=== PATIENT | male | born 1975 ===

== ENCOUNTER 2020-06-23 08:35 | Emergency (ER) | payer OTHER, SELFPAY ==
[2020-06-23 08:53] VITALS: BP 146/100; PULSE 88; RESP 17; TEMP 36.2; O2SAT 95; BMI 34.5
--- NOTE | 2020-06-23 09:07 | ED_ITS ---
HPI - Extremity Injury (Lower) General Chief Complaint: Extremity Injury, Lower Stated Complaint: leg pain Time Seen by Provider: 06/23/20 08:55 Source: patient Mode of arrival: ambulatory History of Present Illness HPI Narrative: 45 yo male here with LLE pain after he sustained an injury to his anterior palomino at work yesterday. He states a piece of aluminum fell down his scapped his leg. It was 190 lbs. He has worsening pain today. He is able to ambulate. MD complaint: leg injury Onset (ago): day(s) (1) Type of Injury: blunt Place: work Severity: moderate Severity scale (1-10): 7 Relieving factors: nothing Exacerbating factors: palpation Context: direct blow Associated symptoms: swelling Other symptoms: none Related Data Previous Rx's Medication Instructions Recorded cephalexin [Keflex] 500 mg PO QID 7 Days #28 cap 06/23/20 ibuprofen 600 mg PO Q8H PRN #30 tab 06/23/20 Allergies Allergy/AdvReac Type Severity Reaction Status Date / Time No Known Allergies Allergy Verified 06/23/20 08:56 Review of Systems Review of Systems: Constitutional: No Fever, No Chills Cardiovascular: No Chest Pain, No Orthopnea, No edema Respiratory: No Cough, No Sputum, No Wheezing Musculoskeletal: No joint pain, + Myalgias Skin: + Skin Lesions, No rash Neuro: No Weakness, No Numbness, No Dizziness, No Headache Heme/Lymph: No Bruising, No Lymphadenopathy All other 10 point ROS are negative. [facility], LAT[facility] Past Medical History Attestation statement: The following information was validated with the patient. Medical History No known health problems Social History Social History Advance Directives: No Advance Directives Information Provided: Yes Physical Exam Vital Signs: Vital Signs: Vital Signs Temp Pulse Resp BP Pulse Ox 06/23/20 08:53 97.1 F 88 17 146/100 H 95 Body Mass Index 34.5 Appearance: Alert. Oriented X3. No acute distress. Eyes: Pupils equal, round and reactive to light. Neck: Normal inspection. CVS: Normal heart rate and rhythm. Pulses normal. Respiratory: No respiratory distress. Skin: Skin warm and dry. Normal skin color. Normal skin turgor. No rashes. Extremities: LLE with superficial abrasions to anterior palomino, NV intact. mild cellulitic changes centrally. no calf tenderness. anterior palomino soft. Neuro: Oriented X 3. No motor deficit. No sensory deficit. Course Course Course Narrative: given mechanism will get XR to r/o occult fracture. superficial abrasions with developing cellulitis - will start on abx and NSAID for discomfort. no evidence of compartment syndrome Reevaluation(s) Reevaluation #1: XR showed no acute fracutre. will treat with keflex and ibuprofen. stable for d/c. Discharge Plan Discharge Clinical Impression: Abrasion Cellulitis Qualifiers: Site of cellulitis: extremity Site of cellulitis of extremity: lower extremity Laterality: left Qualified Code(s): L03.116 - Cellulitis of left lower limb Patient Disposition: Home, Self-Care Instructions: Cellulitis (ED), Abrasion (ED) Additional Instructions: Keep area clean and dry. Apply bacitracin or triple antibiotic ointment 2 times per day. If pain or redness worsen despite antibitoics and pain medication call your doctor or come back to the ER for further evaluation Prescriptions: New cephalexin [Keflex] 500 mg capsule 500 mg PO QID 7 Days Qty: 28 RF: 0 ibuprofen 600 mg tablet 600 mg PO Q8H PRN (Reason: pain) Qty: 30 RF: 0
--- NOTE | 2020-06-23 09:16 | XR_ITS ---
EXAMINATION: XR TIBIA AND FIBULA, LEFT CLINICAL INFORMATION: Pain, status posttrauma COMPARISON: None TECHNIQUE: AP and lateral views of the left tibia and fibula were obtained. FINDINGS: No acute fracture or malalignment is seen of the tibia or fibula. Articulation at the knee and ankle joint is maintained. Mild spurring at the tibial tubercle. No abnormal soft tissue calcification. IMPRESSION: No evidence of acute fracture.
== END 2020-06-23 10:15 | disposition home or self-care (01) ==
PROVIDERS: Emergency Provider Emergency Medicine
DX: L03.116 Cellulitis of left lower limb (principal); S80.812A Abrasion, left lower leg, initial encounter; W20.8XXA Other cause of strike by thrown, projected or falling object, initial encounter; Y93.9 Activity, unspecified; Y92.9 Unspecified place or not applicable; Y99.0 Civilian activity done for income or pay
CPT/HCPCS: 73590; 99283

== ENCOUNTER 2020-07-22 16:30 | Emergency (ER) | payer OTHER, SELFPAY ==
[2020-07-22 17:23] VITALS: BP 124/73; PULSE 98; RESP 18; TEMP 37; O2SAT 96; BMI 34.3
--- NOTE | 2020-07-22 21:02 | CT_ITS ---
EXAMINATION: CT CHEST WITHOUT CONTRAST CLINICAL INFORMATION: Cough, shortness of breath COMPARISON: Chest x-ray 11/12/2019 TECHNIQUE: Multidetector volumetric CT imaging of the chest was done. Axial MIP volume rendering provided. Sagittal and coronal reformatted images were obtained. This CT examination was performed using dose optimization techniques as appropriate, variously including the following: *Automated exposure control *Adjustment of mA and/or kV according to patient size (this includes techniques or standardized protocols for targeted exams where dose is matched to indication/reason for exam; i.e. extremities or head) *Use of iterative reconstruction technique DLP: 359 mGy-cm FINDINGS: LUNGS: The lungs are clear with no evidence of inflammation or nodules. MEDIASTINUM: The mediastinum is normal. No pericardial effusion. No mediastinal mass or significant lymphadenopathy. PLEURA: There is no pleural effusion. No pleural mass or thickening. AXILLA: No lymphadenopathy. UPPER ABDOMEN: Unremarkable. The adrenal glands and visualized portions of the solid organs are normal. OSSEOUS STRUCTURES: Unremarkable. CT/CT chest wo con IMPRESSION: Normal CT of chest.
--- NOTE | 2020-07-22 21:03 | ECG_ITS ---
Test Reason : CHEST PAIN Blood Pressure : / mmHG Vent. Rate : 081 BPM Atrial Rate : 081 BPM P-R Int : 120 ms QRS Dur : 106 ms QT Int : 368 ms P-R-T Axes : 033 037 042 degrees QTc Int : 427 ms Normal sinus rhythm Normal ECG No significant changes seen Referred By: Jennifer Carter Electronically Signed By:JERALD MO MD
[2020-07-22] MEDS: Aspirin 81 MG TAB.CHEW 324 MG PO (21:18)
[2020-07-22 21:48] VITALS: BP 130/87; PULSE 74; RESP 19; TEMP 36.5; O2SAT 97
[2020-07-22 21:52] LABS: MANUAL DIFF FLAG NO
[2020-07-22 21:55] LABS: Basophils Absolute Auto 0.1 X10*3/uL (0.0-0.2); Basophils Percent Auto 0.5 % (0-2); Eosinophils Absolute Auto 0.4 X10*3/uL (0.0-0.4); Eosinophils Percent Auto 3.7 % (0-4); Hematocrit 46.3 % (42-52); Hemoglobin 15.5 g/dl (14.0-18.0); Imm Gran Abs Auto 0.03 X10*3/uL (0.00-0.03); Imm Gran Pct Auto 0.3 % (0.0-0.4); Lymphocytes Absolute Auto 2.9 X10*3/uL (1.2-4.9); Lymphocytes Percent Auto 30.6 % (20-40); Mean Corpuscular HGB Conc 33.5 g/dl (31.0-36.0); Mean Corpuscular Hemoglobin 28.4 pg (27.0-33.0); Mean Corpuscular Volume 84.8 fL (80-98); Mean Platelet Volume 11.1 fL (9.4-12.4); Monocytes Absolute Auto 0.9 X10*3/uL (0.1-1.2); Monocytes Percent Auto 9.7 % (2-11); Neutrophils Absolute Auto 5.2 X10*3/uL (2.0-8.3); Neutrophils Percent Auto 55.2 % (45-73); Platelet Count 170 X10*3/uL (160-400); Red Blood Count 5.46 X10*6/uL (4.60-5.80); Red Cell Distribution Width 13.7 % (11.0-16.0); White Blood Count 9.5 X10*3/uL (4.8-10.8)
[2020-07-22 22:24] LABS: Anion Gap 17 (12-20); Blood Urea Nitrogen 15 mg/dL (9-16); Calcium 8.4 mg/dL (8.4-10.2); Carbon Dioxide 26 mmol/L (22-29); Chloride 105 mmol/L (96-108); Creatinine Clr Calc Pharmacy 102.4; Estimated Glomerular Filt Rate > 60; Glucose Random 102 mg/dL (60-115); Potassium 3.7 mmol/l (3.3-5.1); Sodium 144 mmol/L (135-145)
--- NOTE | 2020-07-22 22:29 | ED.CHESTPAIN ---
HPI - Chest Pain General Chief Complaint: Chest Pain Stated Complaint: CHEST PAIN Time Seen by Provider: 07/22/20 21:02 Source: patient Mode of arrival: ambulatory Limitations: no limitations History of Present Illness HPI narrative: 45-year-old male no significant past medical history presents with chest pain, shortness of breath, and upper respiratory viral symptoms. States that he has felt like this for several days, has had chest pain for 4 days, and has a COVID-19 test that is pending from a different facility. He states that the chest pain has not been alleviated with Tylenol or Motrin, and states that the cough increases his pain. He denies palpitations, abdominal pain, abdominal distention, dysuria, hematuria, fevers and chills. MD complaint: chest pain and chest discomfort Onset (ago): day(s) (4) Timing of current episode: constant Pain location: substernal Pain radiation: none Severity: moderate Pain scale (0-10): 6 Quality: tightness and aching Relieving factors: nothing Exacerbating factors: movement Context: recent illness Associated symptoms: cough Risk Factors Thoracic aortic dissection risk factors: none Related Data Previous Rx's Medication Instructions Recorded cephalexin [Keflex] 500 mg PO QID 7 Days #28 cap 06/23/20 ibuprofen 600 mg PO Q8H PRN #30 tab 06/23/20 Allergies Allergy/AdvReac Type Severity Reaction Status Date / Time No Known Allergies Allergy Verified 06/23/20 08:56 Review of Systems Review of Systems: Constitutional: No Weight loss, No Fever, No Chills, No Night Sweats, No Fatigue, No Malaise ENT/Mouth: No Hearing loss, No Ear Pain, No Nasal Congestion, No Sinus Pain, No Hoarseness, No sore throat, No Rhinorrhea, No Swallowing Difficulty Eyes: No Eye Pain, No Swelling, No Redness, No Foreign Body, No Discharge, No Vision Changes Cardiovascular: pos Chest Pain, no SOB, no Dyspnea on Exertion, No Orthopnea, No Edema, No Palpitations Respiratory: Positive Cough, No Sputum, No Wheezing, No Smoke Exposure, No Dyspnea Gastrointestinal: no Nausea, No Vomiting, No Diarrhea, No abdominal Pain, No Hematochezia, No Melena Genitourinary: No irregular bleeding, No Dysuria, No Urinary Frequency, No Hematuria, No Urinary Incontinence, No Urgency, No Flank Pain, No Urinary Flow Changes, No Hesitancy Musculoskeletal: No joint pain, No Myalgias, No Joint Swelling Skin: No Skin Lesions, No rash Neuro: No Weakness, No Numbness, No Paresthesias, No Loss of Consciousness, No Dizziness, No Headache Psych: No Anxiety/Panic, No Depression, No SI/HI/AH/VH Heme/Lymph: No Bruising, No Bleeding,No Lymphadenopathy Endocrine: No Polyuria, No Polydipsia, No Temperature Intolerance [facility] Past Medical History Attestation statement: The following information was validated with the patient. Medical History No known health problems Social History Social History Alcohol intake: never Smoking Status: Unknown if ever smoked Smoked in Last 30 Days: No Use of substances other than those prescribed or required for medical reasons: No Advance Directives: No Advance Directives Information Provided: Yes Physical Exam Vital Signs: Vital Signs: Last Vital Signs Temp 97.7 F 07/22/20 21:48 Pulse 74 07/22/20 21:48 Resp 19 07/22/20 21:48 BP 130/87 07/22/20 21:48 Pulse Ox 97 07/22/20 21:48 Body Mass Index 34.3 Appearance: Alert. Oriented X3. No acute distress. Head: Normal external exam. Normocephalic. Atraumatic. No Jackson signs noted. No raccoon eyes noted Eyes: PERRLA. EOMI. Conjunctiva and sclera normal. Eyelids normal. ENT: TM's Normal. Pharynx normal. Uvula midline. Moist mucous membranes. No trismus noted. No drooling noted. No muffled voice noted. Neck: Normal inspection. Neck supple. No adenopathy. Thyroid Normal. No meningeal signs. No neck mass noted. CVS: Normal heart rate and rhythm. Heart sound normal. No murmurs noted. Pulses equal to all extremities. Respiratory: No respiratory distress. Painless inspiration. Breath sounds normal. No wheezes/rales/rhonchi noted. Chest nontender. No accessory muscle usage noted or decreased air movement noted. Abdomen: Soft and nontender. Bowel sounds normal in all 4 quadrants. No distention noted. No organomegaly noted. No visible injury noted. Back: No CVA tenderness. Full range of motion noted. Skin: Skin warm and dry. Normal skin color. Normal skin turgor. No rashes/lesions/lacerations noted. Extremities: No lower extremity edema. Extremities exhibit normal range of motion. Extremities nontender. Neuro: cranial nerves 2-12 intact, no focal neural deficits, strength 5/5 to all extremities, No motor deficit. No sensory deficit. Reflexes normal. Course Course Course Narrative: 45-year-old male with no significant past medical history presents with chest pain, cough, and viral symptoms. COVID-19 test is pending from a different facility, he was advised that we would not repeat this test at this facility unless he were to be admitted. We will rule out ACS, and order CT scan of the chest rather than x-ray as his viral symptoms could possibly be pneumonia. we will give aspirin 324 mg po. CBC, Chem 7 are negative for acute findings, CT scan of the chest is normal, EKG is normal, troponins are negative, vital signs are hemodynamically stable, patient is afebrile. ACS highly unlikely, could be viral syndrome and not likely COVID-19. Detailed description regarding findings and that patient must maintain social isolation per state and Federal guidelines regarding COVID-19 as his test is still pending. Patient verbalized understanding of and agrees to plan of care discharge home. MDM - Chest Pain Differential Diagnosis Differential diagnosis: Likely fracture of rib, pneumothorax, stable angina, unstable angina pectoris, atypical chest pain, st elevation myocardial infarction, costochondritis, chest pain and biliary colic Differential diagnosis: Pneumonia, COVID-19, viral Medical Records Data Attestation: I reviewed the patient's medical records. Lab Data Attestation: I reviewed the patient's lab results. Result diagrams: 07/22/20 21:29 07/22/20 21:29 Labs: Lab Results 07/22/20 07/22/20 07/22/20 Range/Units 21:29 21:29 21:29 WBC 9.5 (4.8-10.8) X10*3/uL RBC 5.46 (4.60-5.80) X10*6/uL Hgb 15.5 (14.0-18.0) g/dl Hct 46.3 (42-52) % MCV 84.8 (80-98) fL MCH 28.4 (27.0-33.0) pg MCHC 33.5 (31.0-36.0) g/dl RDW 13.7 (11.0-16.0) % Plt Count 170 (160-400) X10*3/uL MPV 11.1 (9.4-12.4) fL Immature Gran % (Auto) 0.3 (0.0-0.4) % Neut % (Auto) 55.2 (45-73) % Lymph % (Auto) 30.6 (20-40) % [place] % (Auto) 9.7 (2-11) % Eos % (Auto) 3.7 (0-4) % Baso % (Auto) 0.5 (0-2) % Lymph # (Auto) 2.9 (1.2-4.9) X10*3/uL [place] # (Auto) 0.9 (0.1-1.2) X10*3/uL Eos # (Auto) 0.4 (0.0-0.4) X10*3/uL Baso # (Auto) 0.1 (0.0-0.2) X10*3/uL Abs Immat Gran (auto) 0.03 (0.00-0.03) X10*3/uL Absolute Neuts (auto) 5.2 (2.0-8.3) X10*3/uL Absolute Nucleated RBC 0.000 (0.0-0.012) X10*3/uL Nucleated RBC % (auto) 0.0 (0.0-0.2) /100WBC Sodium 144 (135-145) mmol/L Potassium 3.7 (3.3-5.1) mmol/l Chloride 105 (96-108) mmol/L Carbon Dioxide 26 (22-29) mmol/L Anion Gap 17 (12-20) BUN 15 (9-16) mg/dL Creatinine 0.98 (0.5-1.4) mg/dL Estim Creat Clear Calc 102.4 Estimated GFR > 60 Random Glucose 102 (60-115) mg/dL Calcium 8.4 (8.4-10.2) mg/dL Troponin I High Sens < 3.5 (<3.5-35.0) ng/L Imaging Data CT scan - chest: Attestation: I personally reviewed and interpreted this imaging study as follows: Radiologist's impression: FINDINGS: LUNGS: The lungs are clear with no evidence of inflammation or nodules. MEDIASTINUM: The mediastinum is normal. No pericardial effusion. No mediastinal mass or significant lymphadenopathy. PLEURA: There is no pleural effusion. No pleural mass or thickening. AXILLA: No lymphadenopathy. UPPER ABDOMEN: Unremarkable. The adrenal glands and visualized portions of the solid organs are normal. OSSEOUS STRUCTURES: Unremarkable. CT/CT chest wo con IMPRESSION: Normal CT of chest. ECG Data ECG #1: Attestation: I personally reviewed and interpreted this ECG as follows: ECG interpretation date: 07/22/20 ECG interpretation time: 16:37 Prior ECG tracings: available for review Interpretation: Vent. rate 81 BPM HI interval 120 ms QRS duration 106 ms QT/QTc 368/427 ms P-R-T axes 33 37 42 Normal sinus rhythm Normal ECG no significant change when compared to EKG of April 02, 2019 Scores Heart Score History: -0- slightly suspicious ECG: -0- normal Age: -1- >45 - <65 Risk factory: -0- no risk factors known Troponin: -0- < or = normal limit Score: 1 Risk: 1.7% Discharge Plan Discharge Clinical Impression: Atypical chest pain, Acute viral syndrome, Upper respiratory infection, viral Patient Disposition: Home, Self-Care Instructions: Chest Pain (ED), Viral Syndrome (ED), COVID-19 (Coronavirus Disease 2019) (ED) Additional Instructions: You were evaluated for chest pain and upper respiratory infection. The CT scan of your chest is negative for acute findings, your COVID-19 test is pending. Please maintain social isolation according To state and Federal guidelines. I gave you a work note for 14 days. If ypur COVID-19 test is negative, you may return to work per guidelines of your Place of occupation. your EKG was normal sinus rhythm, your troponins are negative, your lab values are normal. Thank you for choosing this emergency department for evaluation. Please follow-up with primary care physician as needed. Return to the emergency department for any new, concerning, or worsening symptoms. Prescriptions: No Action cephalexin [Keflex] 500 mg capsule 500 mg PO QID 7 Days Qty: 28 RF: 0 ibuprofen 600 mg tablet 600 mg PO Q8H PRN (Reason: pain) Qty: 30 RF: 0 Stand Alone Forms: Work/School Release Interventions: ED Discharge Assessment Last Done: 07/22/20 23:40 Discharge Date/Time: 07/22/20 23:40
[2020-07-22 22:30] LABS: Troponin-I High Sensitivity < 3.5 ng/L (<3.5-35.0)
== END 2020-07-22 23:40 | disposition home or self-care (01) ==
PROVIDERS: Nurse Practitioner Family; Emergency Provider Emergency Medicine Emergency Medical Services
DX: B34.9 Viral infection, unspecified (principal); R07.89 Other chest pain; J06.9 Acute upper respiratory infection, unspecified; Z20.828 Contact with and (suspected) exposure to other viral communicable diseases; Z79.899 Other long term (current) drug therapy
CPT/HCPCS: 36415; 71250; 80048; 84484; 85025; 93005; 99284

== ENCOUNTER → 2020-07-31 13:24 | Outpatient (BNVA) | payer OTHER, SELFPAY | PROVIDERS: PCP Internal Medicine; Referring Provider Internal Medicine; Visit Provider Hospitalist | DX: J45.40 Moderate persistent asthma, uncomplicated (principal); G47.33 Obstructive sleep apnea (adult) (pediatric); Z79.899 Other long term (current) drug therapy; Z99.89 Dependence on other enabling machines and devices | CPT/HCPCS: 99212 ==

== ENCOUNTER → 2020-08-28 15:26 | Outpatient (BNVA) | payer OTHER, SELFPAY | PROVIDERS: PCP Internal Medicine; Visit Provider Hospitalist | DX: G47.33 Obstructive sleep apnea (adult) (pediatric) (principal); J30.9 Allergic rhinitis, unspecified; J45.40 Moderate persistent asthma, uncomplicated; Z99.89 Dependence on other enabling machines and devices | CPT/HCPCS: 99212 ==

== ENCOUNTER → 2020-10-23 15:03 | Outpatient (BNVA) | payer OTHER, SELFPAY | PROVIDERS: PCP Internal Medicine; Visit Provider Hospitalist | DX: R07.9 Chest pain, unspecified (principal); G47.33 Obstructive sleep apnea (adult) (pediatric); Z99.89 Dependence on other enabling machines and devices; J30.9 Allergic rhinitis, unspecified; J45.40 Moderate persistent asthma, uncomplicated | CPT/HCPCS: 99212 ==

== ENCOUNTER → 2020-11-17 19:22 | Outpatient (REF) | payer OTHER, SELFPAY | LOC: HO.SL 19:22 | PROVIDERS: Visit Provider Hospitalist | DX: G47.33 Obstructive sleep apnea (adult) (pediatric) (principal); Z99.89 Dependence on other enabling machines and devices | CPT/HCPCS: 95811 ==

== ENCOUNTER → 2021-02-02 13:14 | Outpatient (BNVA) | payer OTHER, SELFPAY | PROVIDERS: PCP Internal Medicine; Visit Provider Hospitalist | DX: J30.9 Allergic rhinitis, unspecified (principal); J45.40 Moderate persistent asthma, uncomplicated; G47.33 Obstructive sleep apnea (adult) (pediatric) | CPT/HCPCS: 99212 ==

== ENCOUNTER → 2021-03-16 10:59 | Outpatient (BNVA) | payer OTHER, SELFPAY | PROVIDERS: PCP Internal Medicine; Visit Provider Hospitalist | DX: J30.9 Allergic rhinitis, unspecified (principal); G47.33 Obstructive sleep apnea (adult) (pediatric); J45.40 Moderate persistent asthma, uncomplicated; R05 Cough | CPT/HCPCS: 99212 ==

== ENCOUNTER 2021-06-07 09:47 | Emergency (ER) | payer OTHER, SELFPAY ==
--- NOTE | ~2021-06-07 | CT_ITS ---
EXAMINATION: CT LUMBAR SPINE AND CT THORACIC SPINE WITHOUT CONTRAST. CLINICAL INFORMATION: Numbness in legs and back pain. COMPARISON: None TECHNIQUE: 2 mm thin and reformatted 2 mm thin sagittal and coronal images of thoracic and lumbar spine were obtained without contrast. DLP 1606 FINDINGS: Thoracic spine: There is normal thoracic kyphosis. The vertebral heights, alignment and disc heights are normal. There is no visible acute fracture, dislocation or subluxation. There is a central disc herniation suspected at T6-T7 disc level with mild indentation of ventral cord on axial image 71/12. The neural foramina are patent. Rest the disc levels are unremarkable. No lytic or sclerotic process seen. Visualized dependent lungs in the upper and lower lobes are normal. The paravertebral soft tissues are normal. Lumbar spine: There is normal lumbar lordosis. There is loss of T12-L1 and L5-S1 disc height. Rest the disc heights are normal. There is no evidence of disc bulge, herniation or spinal canal stenosis. The neural foramina are widely patent. There is posterior disc bulge/osteophyte complex at L5-S1 disc level without spinal canal stenosis. There is no visible acute fracture, dislocation or lytic process seen. The SI joints are symmetrical and normal. The paravertebral soft tissues are normal. CT/CT thoracic spine wo con IMPRESSION: Suspect central disc herniation at the T6-T7 disc level with mild indentation of ventral cord. No spinal canal stenosis seen. Degenerative disc changes at T12-L1 and L5-S1 disc levels. There is a disc osteophyte/bulge complex at the L5-S1 disc level .
[2021-06-07 10:21] VITALS: BP 141/88; PULSE 84; RESP 18; TEMP 36.1; O2SAT 95; BMI 37.1
--- NOTE | 2021-06-07 10:23 | ED_ITS ---
HPI - Back Pain/Injury General Chief Complaint: Back Pain/Injury Stated Complaint: BACK PAIN Time Seen by Provider: 06/07/21 10:23 Source: patient Mode of arrival: ambulatory Limitations: no limitations History of Present Illness HPI Narrative: 46-year-old male with a past medical history of chronic back pain who is on disability and has not worked for a year because of his low back pain presents for acute on chronic low back pain that started 2 days ago when he was lifting. Patient was lifting grocery bags, and had low back pain when he bent over. He reports that both of his legs now feel numb, and it is difficult to walk. He is able to walk. He has not been incontinent, no saddle paresthesias, no fevers, no history of IV drug use. States he feels weak in his legs but he is able to walk. Patient states he has seen a spine surgeon, but has not had any spinal surgeries. States prior MRI showed disc herniation in his low back. MD elicited complaint: back pain Pertinent past history: prior back pain and recent trauma Onset (ago): day(s) (2) Timing: constant Severity: severe Similar Symptoms Previously: Yes Quality: burning and aching Location: lumbar spine and thoracic spine Radiation: left upper leg and right upper leg Exacerbating factors: movement and walking Relieving factors: immobilization Context: while lifting and turning/twisting Related Data Home Medications Medication Instructions Recorded Confirmed albuterol sulfate mg INHALATION Q6H PRN 07/31/20 03/16/21 albuterol sulfate 90 mcg/actuation INHALATION 07/31/20 03/16/21 aerosol inhaler budesonide-formoterol HFA 160 INHALATION 07/31/20 03/16/21 mcg-4.5 mcg/actuation aerosol inhaler Previous Rx's Medication Instructions Recorded cephalexin 500 mg capsule (Keflex) 500 mg PO QID 7 Days #28 cap 06/23/20 ibuprofen 600 mg tablet 600 mg PO Q8H PRN #30 tab 06/23/20 doxycycline hyclate 100 mg capsule 100 mg PO BID 10 Days #20 cap 07/31/20 prednisone 20 mg tablet 20 mg PO DAILY 10 Days #15 tab 07/31/20 montelukast 10 mg tablet 10 mg PO DAILY #30 tab 08/26/20 umeclidinium 62.5 mcg/actuation 1 inh INHALATION DAILY 30 Days #30 08/28/20 blister powder for inhalation ea albuterol sulfate 90 mcg/actuation 2 inh INHALATION Q6H PRN 30 Days 10/23/20 aerosol inhaler #8.5 g fluticasone furoate 200 1 inh INHALATION DAILY 30 Days #60 02/02/21 mcg-vilanterol 25 mcg/dose ea inhalation powder (Breo Ellipta) mometasone-formoterol HFA 200 2 puff INHALATION Q12H 30 Days #13 02/02/21 mcg-5 mcg/actuation aerosol g inhaler (Dulera) benzonatate 200 mg capsule 200 mg PO BID PRN 30 Days #45 cap 03/16/21 prednisone 20 mg tablet 60 mg PO DAILY 5 Days #15 tab 06/07/21 Allergies Allergy/AdvReac Type Severity Reaction Status Date / Time No Known Allergies* Allergy Unknown Uncoded 06/07/21 10:23 Review of Systems Constitutional: Constitutional: Denies body ache(s), Denies chills, Denies fatigue, Denies fever(s), Denies headache(s), Denies malaise and Denies weakness Eyes: Eyes: Denies diplopia ENT: Denies vertigo, Denies dizziness, Denies otalgia, Denies headache(s), Denies mouth pain, Denies neck pain, Denies post nasal drip, Denies sinus pain, Denies sinus pressure, Denies sore throat and Denies throat swelling Cardiovascular: Cardiovascular: Denies chest pain, Denies syncope, Denies leg edema, Denies lightheadedness, Denies Loss of Consciousness, Denies palpitations and Denies dyspnea Respiratory: Respiratory: Denies chest congestion, Denies cough and Denies dy spnea Musculoskeletal: Musculoskeletal: Reports back pain, Denies neck pain, Reports numbness and Reports tingling Integumentary/Breasts: Skin/Breast: Denies erythema and Denies rash Neurologic: Denies confusion, Denies vertigo, Denies dizziness, Denies syncope, Denies headache(s), Reports numbness, Reports tingling and Denies weakness Psychiatric: Psychiatric: Denies anxiety, Denies confusion and Denies depression Endocrine: Endocrine: Denies fatigue and Denies palpitations Allergic/Immunologic: Allergic/Immunologic: Denies throat swelling PMFSH Past Medical History Medical History Asthma Chest pain Chronic allergic rhinitis Cough No known health problems MARK on CPAP MARK treated with BiPAP Family History Family History (System 06/07/21 @ 10:15 by Marylou Baig) Other Asthma Social History Social History Alcohol intake: never Patient Tobacco Use Status: Never used Tobacco Advance Directives: No Advance Directives Information Provided: No Physical Exam Vital Signs: Vital Signs: Last Vital Signs Temp 96.9 F 06/07/21 10:21 Pulse 84 06/07/21 10:21 Resp 20 06/07/21 14:02 BP 141/88 H 06/07/21 10:21 Pulse Ox 96 06/07/21 14:02 Body Mass Index 37.1 Const: General: No confusion Nutritional Appearance: well nourished Orientation/consciousness: No confusion Limitations: no limitations Eyes: Conjunctivae: conjunctivae normal Pupils: Equal, round and reactive pupils present EOM: EOMs intact bilaterally Neck: Neck: Yes full ROM, Yes no lymphadenopathy and Yes supple Resp: Effort & Inspection: normal respiratory effort and able to speak in complete sentences Auscultation: clear to auscultation bilaterally, no crackles, no rales, no rhonchi and no wheezes Cardio: Rate: regular rate Rhythm: regular rhythm Heart sounds: S1 normal heart sound present and S2 normal heart sound present : General: Yes no CVA tenderness Back/Spine/Pelvis: Back: no CVA tenderness Cervical Spine: normal cervical lordosis, cervical ROM normal, No cervical muscular tenderness, No Cervical spine tenderness and No step off deformity Thoracic/Lumbar Spine: No paraspinal muscle tenderness, thoraco-lumbar ROM limited with forward flexion and with rotation to the right, thoracic spinal tenderness at T11 and at T12, lumbar spinal tenderness at L1 and at L2 and straight leg raise positive Skin: General skin exam: no rashes or lesions noted Neuro: General: No confusion Cranial nerves: Yes Equal, round and reactive pupils present Psych: Appearance: grossly normal Affect: normal affect Attitude: cooperative Thought process: Normal thought process present Course Course Course Narrative: 46-year-old male presents with acute on chronic back pain that started 2 days ago after bending over to lift grocery bags. Patient states he has numbness and tingling bilaterally down his legs. On exam, patient has intact lower extremity pulses, strength, DTRs. Patient states he feels tingly to the sensation of light touch bilaterally. Patient is able to stand up, walk around the room, get up on his toes and get up on his heels for me. Given patient's report of tingling in legs and leg weakness, I suggested we do a rectal exam. Patient refused rectal exam, despite my encouragement that this is the best way to evaluate for a pathological spinal process. Reevaluation(s) Reevaluation #1: Ct LUmbar/thoroacic spine reveals: Suspect central disc herniation at the T6-T7 disc level with mild indentation of ventral cord. No spinal canal stenosis seen. Degenerative disc changes at T12-L1 and L5-S1 disc levels. There is a disc osteophyte/bulge complex at the L5-S1 disc level . Will treat symptoms with prednisone, have patient follow-up with his primary care provider Told patient f you have bowel or bladder incontinence, if you have numbness or tingling in your groin, if you have sudden leg weakness, you must return to the emergency room immediately Discharge Plan Discharge Clinical Impression: Lumbar radiculopathy Patient Disposition: Home, Self-Care Instructions: Lumbar Radiculopathy (ED), Lower Back Exercises (ED) Additional Instructions: You have disc herniation on your lower back. This most likely is causing your symptoms. Please take prednisone as prescribed. Please call your primary care provider for follow-up appointment. You took your prednisone today. Please take the prednisone in the morning starting tomorrow morning. If you have bowel or bladder incontinence, if you have numbness or tingling in your groin, if you have sudden leg weakness, you must return to the emergency room immediately Prescriptions: New prednisone 20 mg tablet 60 mg PO DAILY 5 Days Qty: 15 RF: 0 No Action montelukast 10 mg tablet 10 mg PO DAILY Qty: 30 RF: 11 cephalexin [Keflex] 500 mg capsule 500 mg PO QID 7 Days Qty: 28 RF: 0 ibuprofen 600 mg tablet 600 mg PO Q8H PRN (Reason: pain) Qty: 30 RF: 0 budesonide-formoterol 160-4.5 mcg/actuation HFA aerosol inhaler inhalation RF: 0 albuterol sulfate 2.5 mg /3 mL (0.083 %) solution for nebulization inhalation Q6H PRNRF: 0 albuterol sulfate 90 mcg/actuation HFA aerosol inhaler inhalation RF: 0 doxycycline hyclate 100 mg capsule 100 mg PO BID 10 Days Qty: 20 RF: 0 prednisone 20 mg tablet 20 mg PO DAILY 10 Days Qty: 15 RF: 0 albuterol sulfate 90 mcg/actuation HFA aerosol inhaler 2 inh inhalation Q6H PRN (Reason: shortness of breath or wheezing) 30 Days Qty: 8.5 RF: 12 umeclidinium 62.5 mcg/actuation blister with device 1 inh inhalation DAILY 30 Days Qty: 30 RF: 11 Breo Ellipta 200-25 mcg/dose blister with device 1 inh inhalation DAILY 30 Days Qty: 60 RF: 11 Dulera 200-5 mcg/actuation HFA aerosol inhaler 2 puff inhalation Q12H 30 Days Qty: 13 RF: 11 benzonatate 200 mg capsule 200 mg PO BID PRN (Reason: cough) 30 Days Qty: 45 RF: 3 Interventions: ED Discharge Assessment Last Done: 06/07/21 14:07 Discharge Date/Time: 06/07/21 14:07
[2021-06-07] MEDS: Cyclobenzaprine HCl 10 MG TABLET PO (11:23)
[2021-06-07] MEDS: Ketorolac Tromethamine 15 MG/ML VIAL 30 MG IM (11:24)
[2021-06-07 12:30] VITALS: RESP 19
--- NOTE | 2021-06-07 13:30 | PC.NURSE ---
PT VIGOROUSLY SNORING, NOT EASILY AWOKEN TO VOICE RATHER PATIENT WOKE UP TO TOUCH. AWAITING CT RESULTS.
[2021-06-07] MEDS: predniSONE 20 MG TABLET 60 MG PO (13:59)
[2021-06-07 14:02] VITALS: RESP 20; O2SAT 96
== END 2021-06-07 14:07 | disposition home or self-care (01) ==
PROVIDERS: Emergency Provider Emergency Medicine; PCP Internal Medicine
DX: M54.16 Radiculopathy, lumbar region (principal); M54.6 Pain in thoracic spine; M79.661 Pain in right lower leg; Z79.899 Other long term (current) drug therapy
CPT/HCPCS: 72128; 72131; 96372; 99284; J1885

== ENCOUNTER → 2021-06-30 10:32 | Outpatient (BNVA) | payer OTHER, SELFPAY | PROVIDERS: PCP Internal Medicine; Visit Provider Hospitalist | DX: J30.9 Allergic rhinitis, unspecified (principal); J45.40 Moderate persistent asthma, uncomplicated; G47.33 Obstructive sleep apnea (adult) (pediatric); R05.9 Cough, unspecified | CPT/HCPCS: 99212 ==

== ENCOUNTER 2021-08-11 12:00 | Outpatient (RCR) | payer OTHER, SELFPAY | END 2021-09-13 14:41 | disposition home or self-care (01) | LOC: HO.PT 12:00 | PROVIDERS: PCP Internal Medicine; Visit Provider Physician Assistant | DX: M54.16 Radiculopathy, lumbar region (principal) | CPT/HCPCS: 97110; 97162; 97530 ==

== ENCOUNTER 2021-08-31 05:54 | Emergency (ER) | payer OTHER, SELFPAY ==
--- NOTE | ~2021-08-31 | XR_ITS ---
EXAMINATION: XR CHEST CLINICAL INFORMATION: Covid positive COMPARISON: None TECHNIQUE: Frontal view of the chest was obtained. FINDINGS: No significant abnormality is noted involving the heart, lungs, mediastinum, bony thorax or soft tissues. XR/XR chest 1V IMPRESSION: Unremarkable chest examination.
--- NOTE | ~2021-08-31 | CT_ITS ---
EXAMINATION: CT ABDOMEN AND PELVIS WITHOUT CONTRAST CLINICAL INFORMATION: Pain and vomiting COMPARISON: None TECHNIQUE: Multidetector volumetric imaging was performed from the superior aspect of the liver through the pubic symphysis. Sagittal and coronal reformatted images were obtained on the technologist's workstation. This CT examination was performed using dose optimization techniques as appropriate, variously including the following: *Automated exposure control *Adjustment of mA and/or kV according to patient size (this includes techniques or standardized protocols for targeted exams where dose is matched to indication/reason for exam; i.e. extremities or head) *Use of iterative reconstruction technique DLP: 837 mGy-cm FINDINGS: LUNG BASES: The lung bases are clear. The heart size is normal. LIVER, GALLBLADDER, AND BILIARY TREE: The liver is normal in size, shape, and attenuation. No focal hepatic lesion or biliary ductal dilatation is present. The gallbladder is unremarkable with no evidence of radiopaque gallstones, gallbladder wall thickening, or obvious pericholecystic inflammatory changes. PANCREAS: Unremarkable. SPLEEN: Unremarkable. ADRENAL GLANDS: Unremarkable. KIDNEYS AND URETERS: The kidneys are normal in size, shape, and attenuation. No hydronephrosis, hydroureter, or calculi seen. No perinephric stranding. 7 mm cortical cyst upper pole right kidney. BLADDER: The bladder is nondistended with a punctate calcification at the roof of the bladder/insertion of the rectus., Stable. GASTROINTESTINAL TRACT: There is large amount of stool in the right colon without distention. Scattered stool and gas is seen in the rest the colon. The appendix is normal caliber. The small bowel loops are normal caliber. ABDOMINAL WALL: No significant hernia is appreciated. LYMPH NODES: Normal. VASCULAR: Unremarkable. PELVIC VISCERA: Unremarkable. OSSEOUS STRUCTURES: Mild degenerative disc changes L5-S1 and lower dorsal spine is noted. No aggressive lytic or sclerotic process seen. CT/CT abdomen pelvis wo con IMPRESSION: No acute intracranial process seen. No major change compared to previous study 12/05/2019. Fleischner guidelines were followed.
[2021-08-31 06:11] VITALS: BP 154/103; PULSE 101; RESP 20; TEMP 36.6; O2SAT 95; BMI 34.5
--- NOTE | 2021-08-31 07:01 | ED_ITS ---
HPI - Abdominal Pain General Chief Complaint: Abdominal Pain Stated Complaint: Stomach Pain Time Seen by Provider: 08/31/21 06:51 Source: patient and park interpreter Mode of arrival: ambulatory Limitations: no limitations History of Present Illness MD elicited complaint: abdominal pain Pertinent past history: gastritis Onset (ago): day(s) (1) Pain Consistency: constant Location: diffuse Severity: moderate Quality: cramping Radiation: none Migration to: no migration Exacerbating factors: eating Relieving factors: nothing Context: history of similar episodes Associated symptoms: nausea and vomiting (1) Related Data Home Medications Medication Instructions Recorded Confirmed albuterol sulfate 90 mcg/actuation INHALATION 07/31/20 03/16/21 aerosol inhaler Previous Rx's Medication Instructions Recorded ibuprofen 600 mg tablet 600 mg PO Q8H PRN #30 tab 06/23/20 montelukast 10 mg tablet 10 mg PO DAILY #30 tab 08/26/20 umeclidinium 62.5 mcg/actuation 1 inh INHALATION DAILY 30 Days #30 08/28/20 blister powder for inhalation ea albuterol sulfate 90 mcg/actuation 2 inh INHALATION Q6H PRN 30 Days 10/23/20 aerosol inhaler #8.5 g fluticasone furoate 200 1 inh INHALATION DAILY 30 Days #60 02/02/21 mcg-vilanterol 25 mcg/dose ea inhalation powder (Breo Ellipta) albuterol sulfate 2.5 mg (3 mL) INHALATION Q6H PRN 06/30/21 30 Days #180 ml benzonatate 200 mg capsule 200 mg PO BID PRN 30 Days #45 cap 06/30/21 Allergies Allergy/AdvReac Type Severity Reaction Status Date / Time No Known Allergies* Allergy Unknown Uncoded 06/30/21 10:54 Review of Systems Review of Systems Constitutional : No Weight loss, No Fever, No Chills ENT/Mouth : No sore throat, No Rhinorrhea Eyes: No Swelling, No Redness Cardiovascular : No Chest Pain, No SOB, NoEdema Respiratory : No Cough, No Sputum, No Wheezing Gastrointestinal : Positive Nausea, Positive Vomiting, no Diarrhea, positive abdominal Pain, No Hematochezia, No Melena Genitourinary : No Dysuria, No Urinary Frequency, No Hematuria, No Urgency Musculoskeletal : No joint pain, No Myalgias, No Joint Swelling Skin : No Skin Lesions, No rash Neuro : No Weakness, No Numbness, No Dizziness, No Headache Psych : No Anxiety/Panic, No Depression Heme/Lymph: No Bruising, No Lymphadenopathy Endocrine : No Polyuria, No Polydipsia All other systems reviewed and are negative. Physical Exam Vital Signs: Vital Signs: Last Vital Signs Temp 98 F 08/31/21 06:11 Pulse 101 H 08/31/21 06:11 Resp 20 08/31/21 06:11 BP 154/103 H 08/31/21 06:11 Pulse Ox 95 08/31/21 06:11 BMI result Body Mass Index 34.5 Appearance: Alert. Oriented X3. No acute distress. Eyes: Pupils equal, round and reactive to light. ENT: Pharynx normal. Neck: Normal inspection. Neck supple. CVS: Normal heart rate and rhythm. Pulses normal. Respiratory: No respiratory distress. Breath sounds normal. Abdomen: Soft and obese mild ttp diffusely no rebound Skin: Skin warm and dry. Normal skin color. Normal skin turgor. Extremities: No lower extremity edema. No calf ttp Neuro: Oriented X 3. No motor deficit. No sensory deficit. Course Course Course Narrative: reports persistent pain at this time given degree of pain - CT scan ordered. negative CT scan other than constipation POS COVID desaturated only when sleeping has MARK 95% on RA negative CXR , 93-94% walking RA sat denies dyspnea stable for DC MDM - Abdominal Pain MDM Narrative Medical decision making narrative: 46 yo male with MARK, asthma, here with c/o diffuse abdominal cramping and pain with 1 episode of vomiting cannot relate it to anything. At this time will need labs, IV morphine and pepcid. States hx of gastritis. Abdomen is benign I doubt he has appendicitis/cholecystitis Lab Data Result diagrams: 08/31/21 07:30 08/31/21 07:30 Labs: Lab Results 08/31/21 08/31/21 08/31/21 Range/Units 07:30 07:30 08:54 WBC 6.3 (4.8-10.8) X10*3/uL RBC 5.86 H (4.60-5.80) X10*6/uL Hgb 16.7 (14.0-18.0) g/dl Hct 49.6 (42.0-52.0) % MCV 84.6 (80.0-98.0) fL MCH 28.5 (27.0-33.0) pg MCHC 33.7 (31.0-36.0) g/dl RDW 13.9 (11.0-16.0) % Plt Count 140 L (160-400) X10*3/uL MPV 10.4 (9.4-12.4) fL Immature Gran % (Auto) 0.3 (0.0-0.4) % Neut % (Auto) 73.0 (45-73) % Lymph % (Auto) 11.2 L (20-40) % Orange % (Auto) 12.5 H (2-11) % Eos % (Auto) 2.5 (0-4) % Baso % (Auto) 0.5 (0-2) % Lymph # (Auto) 0.7 L (1.2-4.9) X10*3/uL Orange # (Auto) 0.8 (0.1-1.2) X10*3/uL Eos # (Auto) 0.2 (0.0-0.4) X10*3/uL Baso # (Auto) 0.0 (0.0-0.2) X10*3/uL Abs Immat Gran (auto) 0.02 (0.00-0.03) X10*3/uL Absolute Neuts (auto) 4.6 (2.0-8.3) x10*3/uL Absolute Nucleated RBC 0.000 (0.0-0.012) X10*3/uL Nucleated RBC % (auto) 0.0 (0.0-0.2) /100WBC Sodium 138 (135-145) mmol/L Potassium 4.2 (3.3-5.1) mmol/L Chloride 105 (96-108) mmol/L Carbon Dioxide 25 (22-29) mmol/L Anion Gap 12 (12-20) BUN 8 L (9-16) mg/dL Creatinine 0.89 (0.5-1.4) mg/dL Estim Creat Clear Calc 111.9 Estimated GFR > 60 Random Glucose 167 H D (60-115) mg/dL Calcium 9.2 D (8.4-10.2) mg/dL Total Bilirubin 0.5 (0.0-1.0) mg/dL Direct Bilirubin 0.2 (0.0-0.5) mg/dL AST 29 (5-37) U/L ALT 66 H (0-40) U/L Alkaline Phosphatase 112 (39-117) U/L Total Protein 7.1 (6.5-8.0) g/dL Albumin 4.1 (3.5-5.0) g/dL Lipase 25 (8-78) U/L COVID-19 (GENEVIEVE) Positive A (Negative) COVID-19 Clin Com See Note ECG Data Attestation: I personally reviewed and interpreted this ECG as follows: ECG interpretation date: 08/31/21 ECG interpretation time: 07:50 Interpretation: Rate: 81 Rhythm: NSR [place]: normal Normal P waves. Normal GERA. Normal QRS complex. ST T wave : normal no MORENA qTC: normal prior studies: no acute ischemia The study has been interpreted contemporaneously by me. . Discharge Plan Discharge Clinical Impression: COVID-19 Abdominal pain Qualifiers: Abdominal location: generalized Qualified Code(s): R10.84 - Generalized abd ominal pain Constipation Qualifiers: Constipation type: other constipation type Qualified Code(s): K59.09 - Other constipation Instructions: Constipation (ED), Abdominal Pain (ED), COVID-19 (Coronavirus Disease 2019) (ED) Additional Instructions: return to ED for any worsening symptoms or concerns wear a mask quarantine protect others Prescriptions: No Action montelukast 10 mg tablet 10 mg PO DAILY Qty: 30 RF: 11 ibuprofen 600 mg tablet 600 mg PO Q8H PRN (Reason: pain) Qty: 30 RF: 0 albuterol sulfate 90 mcg/actuation HFA aerosol inhaler inhalation RF: 0 albuterol sulfate 90 mcg/actuation HFA aerosol inhaler 2 inh inhalation Q6H PRN (Reason: shortness of breath or wheezing) 30 Days Qty: 8.5 RF: 12 umeclidinium 62.5 mcg/actuation blister with device 1 inh inhalation DAILY 30 Days Qty: 30 RF: 11 Breo Ellipta 200-25 mcg/dose blister with device 1 inh inhalation DAILY 30 Days Qty: 60 RF: 11 albuterol sulfate 2.5 mg /3 mL (0.083 %) solution for nebulization 2.5 mg inhalation Q6H PRN (Reason: shortness of breath or wheezing) 30 Days Qty: 180 RF: 11 benzonatate 200 mg capsule 200 mg PO BID PRN (Reason: cough) 30 Days Qty: 45 RF: 3 Stand Alone Forms: Work/School Release Print Language: Wolof [facility] Past Medical History Medical History Asthma Chest pain Chronic allergic rhinitis Cough No known health problems MARK on CPAP MARK treated with BiPAP Family History Family History (System 06/07/21 @ 10:15 by Marylou Baig) Other Asthma Social History Social History Alcohol intake: never Patient Tobacco Use Status: Never used Tobacco Advance Directives: No Advance Directives Information Provided: No
--- NOTE | 2021-08-31 07:12 | ECG_ITS ---
Test Reason : ABDOMINAL PAIN Blood Pressure : / mmHG Vent. Rate : 081 BPM Atrial Rate : 081 BPM P-R Int : 130 ms QRS Dur : 102 ms QT Int : 354 ms P-R-T Axes : 026 031 020 degrees QTc Int : 411 ms Normal sinus rhythm Normal ECG When compared with ECG of 22-JUL-2020 16:37, No significant change was found Referred By: Stephanie Jeronimo Electronically Signed By:MATTHIAS SIMENTAL
[2021-08-31 07:34] LABS: MANUAL DIFF FLAG NO
[2021-08-31 07:38] LABS: Basophils Percent Auto 0.5 % (0-2); Eosinophils Absolute Auto 0.2 X10*3/uL (0.0-0.4); Eosinophils Percent Auto 2.5 % (0-4); Hematocrit 49.6 % (42.0-52.0); Hemoglobin 16.7 g/dl (14.0-18.0); Imm Gran Abs Auto 0.02 X10*3/uL (0.00-0.03); Imm Gran Pct Auto 0.3 % (0.0-0.4); Lymphocytes Absolute Auto 0.7 X10*3/uL (1.2-4.9); Lymphocytes Percent Auto 11.2 % (20-40); Mean Corpuscular HGB Conc 33.7 g/dl (31.0-36.0); Mean Corpuscular Hemoglobin 28.5 pg (27.0-33.0); Mean Corpuscular Volume 84.6 fL (80.0-98.0); Mean Platelet Volume 10.4 fL (9.4-12.4); Monocytes Absolute Auto 0.8 X10*3/uL (0.1-1.2); Monocytes Percent Auto 12.5 % (2-11); Neutrophils Absolute Auto 4.6 x10*3/uL (2.0-8.3); Platelet Count 140 X10*3/uL (160-400); Red Blood Count 5.86 X10*6/uL (4.60-5.80); Red Cell Distribution Width 13.9 % (11.0-16.0); White Blood Count 6.3 X10*3/uL (4.8-10.8)
[2021-08-31] MEDS: Morphine Sulfate 4 MG/ML CARTRIDGE IVPUSH (07:50)
[2021-08-31 07:51] LABS: Alanine Aminotransferase 66 U/L (0-40); Albumin Level 4.1 g/dL (3.5-5.0); Alkaline Phosphatase 112 U/L (39-117); Anion Gap 12 (12-20); Aspartate Amino Transferase 29 U/L (5-37); Bilirubin Direct 0.2 mg/dL (0.0-0.5); Bilirubin Total 0.5 mg/dL (0.0-1.0); Blood Urea Nitrogen 8 mg/dL (9-16); Calcium 9.2 mg/dL (8.4-10.2); Carbon Dioxide 25 mmol/L (22-29); Chloride 105 mmol/L (96-108); Creatinine Clr Calc Pharmacy 111.9; Estimated Glomerular Filt Rate > 60; Glucose Random 167 mg/dL (60-115); Lipase 25 U/L (8-78); Potassium 4.2 mmol/L (3.3-5.1); Sodium 138 mmol/L (135-145); Total Protein 7.1 g/dL (6.5-8.0)
[2021-08-31] MEDS: ondansetron HCL 4 MG/2 ML VIAL IVPUSH (07:51)
[2021-08-31] MEDS: Famotidine/PF 20 MG/2 ML VIAL IVPUSH (07:51)
[2021-08-31 09:09] LABS: COVID-19 Test Positive (Negative)
--- NOTE | 2021-08-31 11:56 | PC.NURSE ---
ambulation trial complete, pt sitting at rest was 95%, upon ambulation SaO2 dipped to 93% at lowest
[2021-08-31 11:58] VITALS: O2SAT 93; O2SAT 95
== END 2021-08-31 12:41 | disposition home or self-care (01) ==
PROVIDERS: Emergency Provider Emergency Medicine
DX: U07.1 COVID-19 (principal); K59.00 Constipation, unspecified; R10.84 Generalized abdominal pain; J45.909 Unspecified asthma, uncomplicated
CPT/HCPCS: 36415; 71045; 74176; 80048; 80076; 83690; 85025; 87635; 93005; 96374; 96375; 99284; J2270; J2405

== ENCOUNTER 2021-09-13 11:11 | Outpatient (REF) | payer OTHER, SELFPAY ==
[2021-09-13 12:58] LABS: COVID-19 Test Negative (Negative)
== END 2021-09-13 11:12 | disposition home or self-care (01) ==
LOC: HO.LAB 11:11
PROVIDERS: Visit Provider Internal Medicine
DX: Z20.822 Contact with and (suspected) exposure to COVID-19 (principal)
CPT/HCPCS: 36415; 87635; C9803

== ENCOUNTER 2022-01-10 17:41 | Emergency (ER) | payer OTHER, SELFPAY ==
--- NOTE | ~2022-01-10 | XR_ITS ---
EXAMINATION: XR CHEST CLINICAL INFORMATION: Shortness of breath. Cough. COMPARISON: Chest x-ray 08/31/2021 TECHNIQUE: Frontal view of the chest was obtained. 11:26 PM FINDINGS: No significant abnormality is noted involving the heart, lungs, mediastinum, bony thorax or soft tissues. XR/XR chest 1V IMPRESSION: Unremarkable examination.
--- NOTE | 2022-01-10 18:11 | ECG_ITS ---
Test Reason : chest pain Blood Pressure : / mmHG Vent. Rate : 105 BPM Atrial Rate : 105 BPM P-R Int : 118 ms QRS Dur : 094 ms QT Int : 336 ms P-R-T Axes : 045 036 037 degrees QTc Int : 444 ms Sinus tachycardia Otherwise normal ECG When compared with ECG of 31-AUG-2021 07:44, No significant change was found Referred By: Generic ED Physician Electronically Signed By:RITO MARSH MD
[2022-01-10 19:50] VITALS: BP 148/81; PULSE 111; RESP 16; TEMP 36.4; O2SAT 95; BMI 38.5
[2022-01-10 22:04] LABS: MANUAL DIFF FLAG NO
[2022-01-10 22:06] LABS: Basophils Percent Auto 0.3 % (0-2); Eosinophils Percent Auto 0.1 % (0-4); Hematocrit 49.1 % (42.0-52.0); Hemoglobin 16.3 g/dl (14.0-18.0); Imm Gran Abs Auto 0.07 X10*3/uL (0.00-0.03); Imm Gran Pct Auto 0.8 % (0.0-0.4); Lymphocytes Absolute Auto 1.4 X10*3/uL (1.2-4.9); Lymphocytes Percent Auto 15.4 % (20-40); Mean Corpuscular HGB Conc 33.2 g/dl (31.0-36.0); Mean Corpuscular Hemoglobin 28.6 pg (27.0-33.0); Mean Corpuscular Volume 86.3 fL (80.0-98.0); Mean Platelet Volume 10.8 fL (9.4-12.4); Monocytes Absolute Auto 0.7 X10*3/uL (0.1-1.2); Monocytes Percent Auto 7.5 % (2-11); Neutrophils Absolute Auto 7.1 x10*3/uL (2.0-8.3); Neutrophils Percent Auto 75.9 % (45-73); Platelet Count 184 X10*3/uL (160-400); Red Blood Count 5.69 X10*6/uL (4.60-5.80); Red Cell Distribution Width 13.9 % (11.0-16.0); White Blood Count 9.3 X10*3/uL (4.8-10.8)
[2022-01-10 22:23] LABS: Alanine Aminotransferase 38 U/L (0-40); Albumin Level 4.2 g/dL (3.5-5.0); Alkaline Phosphatase 91 U/L (39-117); Anion Gap 11 (12-20); Aspartate Amino Transferase 21 U/L (5-37); Bilirubin Total 0.5 mg/dL (0.0-1.0); Blood Urea Nitrogen 14 mg/dL (9-16); Calcium 9.5 mg/dL (8.4-10.2); Carbon Dioxide 25 mmol/L (22-29); Chloride 108 mmol/L (96-108); Creatinine Clr Calc Pharmacy 109.5; Estimated Glomerular Filt Rate > 60; Glucose Random 141 mg/dL (60-115); Potassium 4.5 mmol/L (3.3-5.1); Sodium 139 mmol/L (135-145); Total Protein 7.3 g/dL (6.5-8.0)
[2022-01-10 23:37] VITALS: BP 128/73; PULSE 85; RESP 15; TEMP 36.6; O2SAT 95
[2022-01-11 00:17] LABS: COVID-19 Test Negative (Negative); IDNOW Serial# 55D5AD1C
--- NOTE | 2022-01-11 00:21 | ED.ASTHMA ---
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 Related Data Home Medications Medication Instructions Recorded Confirmed albuterol sulfate 90 mcg/actuation INHALATION 07/31/20 03/16/21 aerosol inhaler Previous Rx's Medication Instructions Recorded ibuprofen 600 mg tablet 600 mg PO Q8H PRN #30 tab 06/23/20 montelukast 10 mg tablet 10 mg PO DAILY #30 tab 08/26/20 umeclidinium 62.5 mcg/actuation 1 inh INHALATION DAILY 30 Days #30 08/28/20 blister powder for inhalation ea albuterol sulfate 90 mcg/actuation 2 inh INHALATION Q6H PRN 30 Days 10/23/20 aerosol inhaler #8.5 g fluticasone furoate 200 1 inh INHALATION DAILY 30 Days #60 02/02/21 mcg-vilanterol 25 mcg/dose ea inhalation powder (Breo Ellipta) albuterol sulfate 2.5 mg (3 mL) INHALATION Q6H PRN 06/30/21 30 Days #180 ml benzonatate 200 mg capsule 200 mg PO BID PRN 30 Days #45 cap 06/30/21 prednisone 50 mg tablet 50 mg PO DAILY 4 Days #4 tab 01/11/22 Allergies Allergy/AdvReac Type Severity Reaction Status Date / Time No Known Allergies* Allergy Unknown Uncoded 06/30/21 10:54 Review of Systems Review of Systems: Pertinent positives and negatives as stated in HPI 10 point review of systems is otherwise negative. [facility] Past Medical History Source: nursing notes reviewed Medical History Asthma Chest pain Chronic allergic rhinitis Cough No known health problems MARK on CPAP MARK treated with BiPAP Family History Family History Other Asthma Social History Social History Alcohol intake: never Patient Tobacco Use Status: Never used Tobacco Advance Directives: No Physical Exam Vital Signs: Vital Signs: Last Vital Signs Temp 97.7 F 01/11/22 02:00 Pulse 92 01/11/22 02:00 Resp 16 01/11/22 02:00 BP 134/80 01/11/22 02:00 Pulse Ox 95 01/11/22 02:00 BMI result Body Mass Index 38.5 VITAL SIGNS: Reviewed. GENERAL: Well developed, well nourished, in no acute distress. HEAD: Normocephalic/atraumatic EYES: PERRLA, EOMI EARS: Ext canals without abnormality, TMs non-bulging and non-erythematous NOSE: Nares patent bilateral OROPHARYNX: no oral lesions noted, posterior pharynx clear and non-erythematous without noted tonsillar enlargement/erythema/exudates NECK: Supple, no adenopathy LUNGS: Good inspiratory effort with some decreased breath sounds on auscultation and minimal wheeze without rhonchi/rales and no tachypnea. SpO2<95> CARDIOVASCULAR: Regular rate and rhythm without noted murmurs, no JVD or lower extremity edema. ABDOMEN: Soft, non-tender, non-distended with bowel sounds. MUSCULOSKELETAL: No tenderness, deformities, or effusions noted on gross inspection. EXTREMITIES: No cyanosis, clubbing or edema. SKIN: Inspection of the skin reveals no rashes NEUROLOGIC: Alert and oriented x 4. Strength and sensation to light touch were grossly intact x 4. Course Course Course Narrative: 46-year-old male with history and clinical presentation consistent with seasonal allergies as well as mild asthma exacerbation. Patient will receive 2 hour long albuterol treatments in addition to steroids and on review of all investigations there are no acute findings, but influenza swab is pending. On review of all investigations and on re-evaluation there are no acute findings and patient feels much better after receiving 2 hour long albuterol treatments as well as steroids. MDM - Asthma Lab Data Result diagrams: 01/10/22 21:58 01/10/22 21:58 Labs: Lab Results 01/10/22 01/10/22 01/10/22 Range/Units 21:58 21:58 23:57 WBC 9.3 (4.8-10.8) X10*3/uL RBC 5.69 (4.60-5.80) X10*6/uL Hgb 16.3 (14.0-18.0) g/dl Hct 49.1 (42.0-52.0) % MCV 86.3 (80.0-98.0) fL MCH 28.6 (27.0-33.0) pg MCHC 33.2 (31.0-36.0) g/dl RDW 13.9 (11.0-16.0) % Plt Count 184 D (160-400) X10*3/uL MPV 10.8 (9.4-12.4) fL Immature Gran % (Auto) 0.8 H (0.0-0.4) % Neut % (Auto) 75.9 H (45-73) % Lymph % (Auto) 15.4 L (20-40) % [place] % (Auto) 7.5 (2-11) % Eos % (Auto) 0.1 (0-4) % Baso % (Auto) 0.3 (0-2) % Lymph # (Auto) 1.4 (1.2-4.9) X10*3/uL [place] # (Auto) 0.7 (0.1-1.2) X10*3/uL Eos # (Auto) 0.0 (0.0-0.4) X10*3/uL Baso # (Auto) 0.0 (0.0-0.2) X10*3/uL Abs Immat Gran (auto) 0.07 H (0.00-0.03) X10*3/uL Absolute Neuts (auto) 7.1 (2.0-8.3) x10*3/uL Absolute Nucleated RBC 0.000 (0.0-0.012) X10*3/uL Nucleated RBC % (auto) 0.0 (0.0-0.2) /100WBC Sodium 139 (135-145) mmol/L Potassium 4.5 (3.3-5.1) mmol/L Chloride 108 (96-108) mmol/L Carbon Dioxide 25 (22-29) mmol/L Anion Gap 11 L (12-20) BUN 14 D (9-16) mg/dL Creatinine 0.93 (0.5-1.4) mg/dL Estim Creat Clear Calc 109.5 Estimated GFR > 60 Random Glucose 141 H (60-115) mg/dL Calcium 9.5 (8.4-10.2) mg/dL Total Bilirubin 0.5 (0.0-1.0) mg/dL AST 21 (5-37) U/L ALT 38 (0-40) U/L Alkaline Phosphatase 91 (39-117) U/L Total Protein 7.3 (6.5-8.0) g/dL Albumin 4.2 (3.5-5.0) g/dL COVID-19 (GENEVIEVE) Negative (Negative) COVID-19 Clin Com See Note Influenza Type A (SOBEIDA) (Negative) Influenza Type B (SOBEIDA) (Negative) Influenza A & B Note 01/11/22 Range/Units 00:49 WBC (4.8-10.8) X10*3/uL RBC (4.60-5.80) X10*6/uL Hgb (14.0-18.0) g/dl Hct (42.0-52.0) % MCV (80.0-98.0) fL MCH (27.0-33.0) pg MCHC (31.0-36.0) g/dl RDW (11.0-16.0) % Plt Count (160-400) X10*3/uL MPV (9.4-12.4) fL Immature Gran % (Auto) (0.0-0.4) % Neut % (Auto) (45-73) % Lymph % (Auto) (20-40) % [place] % (Auto) (2-11) % Eos % (Auto) (0-4) % Baso % (Auto) (0-2) % Lymph # (Auto) (1.2-4.9) X10*3/uL [place] # (Auto) (0.1-1.2) X10*3/uL Eos # (Auto) (0.0-0.4) X10*3/uL Baso # (Auto) (0.0-0.2) X10*3/uL Abs Immat Gran (auto) (0.00-0.03) X10*3/uL Absolute Neuts (auto) (2.0-8.3) x10*3/uL Absolute Nucleated RBC (0.0-0.012) X10*3/uL Nucleated RBC % (auto) (0.0-0.2) /100WBC Sodium (135-145) mmol/L Potassium (3.3-5.1) mmol/L Chloride (96-108) mmol/L Carbon Dioxide (22-29) mmol/L Anion Gap (12-20) BUN (9-16) mg/dL Creatinine (0.5-1.4) mg/dL Estim Creat Clear Calc Estimated GFR Random Glucose (60-115) mg/dL Calcium (8.4-10.2) mg/dL Total Bilirubin (0.0-1.0) mg/dL AST (5-37) U/L ALT (0-40) U/L Alkaline Phosphatase (39-117) U/L Total Protein (6.5-8.0) g/dL Albumin (3.5-5.0) g/dL COVID-19 (GENEVIEVE) (Negative) COVID-19 Clin Com Influenza Type A (SOBEIDA) Negative (Negative) Influenza Type B (SOBEIDA) Negative (Negative) Influenza A & B Note See Note ECG Data Attestation: I personally reviewed and interpreted this ECG as follows: Prior ECG tracings: available for review Interpretation: Sinus tachycardia, HR-105, no STEMI, OH/QRS/QTC are within normal limits. Discharge Plan Discharge Clinical Impression: Asthma exacerbation, MARK (obstructive sleep apnea) Patient Disposition: Home, Self-Care Instructions: Asthma (ED) Additional Instructions: 1. Reanudar todos los medicamentos caseros seg?n lo prescrito. 2. Complete el ciclo de esteroides que le hayan recetado. 3. Recomiende que comience a usar Flonase y Claritin para el control de alergias. 4. Edison un seguimiento con baker proveedor de atenci?n primaria en los pr?ximos 1 a 2 d?as para mary ann reevaluaci?n. Regrese a la jaswant de emergencias si los s?ntomas empeoran. Prescriptions: New prednisone 50 mg tablet 50 mg PO DAILY 4 Days Qty: 4 0RF No Action montelukast 10 mg tablet 10 mg PO DAILY Qty: 30 11RF ibuprofen 600 mg tablet 600 mg PO Q8H PRN (Reason: pain) Qty: 30 0RF albuterol sulfate 90 mcg/actuation HFA aerosol inhaler inhalation 0RF albuterol sulfate 90 mcg/actuation HFA aerosol inhaler 2 inh inhalation Q6H PRN (Reason: shortness of breath or wheezing) 30 Days Qty: 8.5 12RF umeclidinium 62.5 mcg/actuation blister with device 1 inh inhalation DAILY 30 Days Qty: 30 11RF Breo Ellipta 200-25 mcg/dose blister with device 1 inh inhalation DAILY 30 Days Qty: 60 11RF albuterol sulfate 2.5 mg /3 mL (0.083 %) solution for nebulization 2.5 mg inhalation Q6H PRN (Reason: shortness of breath or wheezing) 30 Days Qty: 180 11RF benzonatate 200 mg capsule 200 mg PO BID PRN (Reason: cough) 30 Days Qty: 45 3RF Referrals: Monet Mckeon MD [Primary Care Provider] - Interventions: ED Discharge Assessment Last Done: 01/11/22 02:56 Discharge Date/Time: 01/11/22 02:59 Print Language: Wolof
[2022-01-11] MEDS: Albuterol Sulfate (0.083%) 2.5 MG/3 ML VIAL.NEB 10 MG INHALE ×2 (00:35→01:45)
[2022-01-11 00:37] VITALS: PULSE 85; RESP 18; O2SAT 95
[2022-01-11] MEDS: methylPREDNISolone Sod Succ 125 MG/2 ML VIAL IVPUSH (00:45)
[2022-01-11 01:16] LABS: Influenza A Negative (Negative); Influenza B2 Negative (Negative)
[2022-01-11 01:45] VITALS: PULSE 85; RESP 20; O2SAT 95
[2022-01-11 02:00] VITALS: BP 134/80; PULSE 92; RESP 16; TEMP 36.5; O2SAT 95
--- NOTE | 2022-01-11 02:57 | PC.NURSE ---
I assumed nursing care of Flash at 2300. Since that time he has remained alert, oriented x 3, resting in bed with continuous neb being administered. Respirations are non-labored, RR WNL, room air sat's are 95% or better, no cyanosis, he speaks in full sentences (french speaking only). He has been discharged at this time and admits to feeling better. he verbalized an understanding of all DC orders and ambulated out of the ED independently and with steady gait.
== END 2022-01-11 02:59 | disposition home or self-care (01) ==
PROVIDERS: Emergency Provider Student in an Organized Health Care Education/Training Program; PCP Internal Medicine
DX: J45.901 Unspecified asthma with (acute) exacerbation (principal); G47.33 Obstructive sleep apnea (adult) (pediatric); R06.02 Shortness of breath; R05.9 Cough, unspecified; R07.89 Other chest pain; R00.0 Tachycardia, unspecified; Z20.822 Contact with and (suspected) exposure to COVID-19; Z79.899 Other long term (current) drug therapy
CPT/HCPCS: 36415; 71045; 80053; 85025; 87502; 87635; 93005; 94640; 94644; 94645; 96374; 99283; 99284; J2930

== ENCOUNTER 2022-03-04 07:21 | Emergency (ER) | payer OTHER, SELFPAY ==
[2022-03-04 07:46] VITALS: BP 147/98; PULSE 93; RESP 17; TEMP 36.6; O2SAT 98; BMI 37.3
--- NOTE | 2022-03-04 08:04 | ED.BACK ---
HPI - Back Pain/Injury General Chief Complaint: Back Pain/Injury Stated Complaint: back/lower back pain Time Seen by Provider: 03/04/22 08:04 Source: patient Mode of arrival: ambulatory Limitations: language barrier History of Present Illness HPI Narrative: ?46-year-old male with a past medical history of chronic back pain who is on disability and has not worked for a year because of his low back pain presents for acute on chronic low back pain that started 3 days ago when he was lifting.? Patient was lifting grocery bags, and had low back pain when he bent over.? He reports that right leg feels numb, and it is difficult to walk.? He is able to walk.? He has not been incontinent, no saddle paresthesias, no fevers, no history of IV drug use.? Patient states he has seen a spine surgeon, but has not had any spinal surgeries.? States prior MRI showed disc herniation in his low back. Related Data Home Medications Medication Instructions Recorded Confirmed albuterol sulfate 90 mcg/actuation inhalation 07/31/20 03/16/21 aerosol inhaler Previous Rx's Medication Instructions Recorded ibuprofen 600 mg tablet 600 mg PO Q8H PRN pain #30 tabs 06/23/20 montelukast 10 mg tablet 10 mg PO DAILY #30 tabs 08/26/20 umeclidinium 62.5 mcg/actuation 1 inh inhalation DAILY 30 days #30 08/28/20 blister powder for inhalation ea albuterol sulfate 90 mcg/actuation 2 inh inhalation Q6H PRN shortness 10/23/20 aerosol inhaler of breath or wheezing 30 days #8.5 grams fluticasone furoate 200 1 inh inhalation DAILY 30 days #60 02/02/21 mcg-vilanterol 25 mcg/dose ea inhalation powder (Breo Ellipta) albuterol sulfate 2.5 mg (3 mL) inhalation Q6H PRN 06/30/21 shortness of breath or wheezing 30 days #180 mL benzonatate 200 mg capsule 200 mg PO BID PRN cough 30 days 06/30/21 #45 caps prednisone 50 mg tablet 50 mg PO DAILY 4 days #4 tabs 01/11/22 prednisone 20 mg tablet 60 mg PO DAILY 5 days #15 tabs 03/04/22 Allergies Allergy/AdvReac Type Severity Reaction Status Date / Time No Known Allergies* Allergy Unknown Uncoded 06/30/21 10:54 Review of Systems Constitutional: Constitutional: Denies body ache(s), Denies chills, Denies fatigue, Denies fever(s), Denies malaise and Denies weakness Eyes: Eyes: Denies diplopia Cardiovascular: Cardiovascular: Denies chest pain, Denies syncope, Denies leg edema, Denies lightheadedness, Denies Loss of Consciousness, Denies palpitations and Denies dyspnea Respiratory: Respiratory: Denies chest congestion, Denies cough and Denies dyspnea Gastrointestinal: Gastrointestinal: Denies abdominal pain, Denies hematochezia, Denies constipation, Denies fecal incontinence, Denies diarrhea and Denies vomiting Genitourinary: Genitourinary: Denies urinary incontinence Musculoskeletal: Musculoskeletal: Reports back pain, Reports numbness and Denies tingling Neurologic: Denies confusion, Denies syncope, Reports numbness, Denies Sensory deficit (Neuro), Denies tingling, Denies paresthesias and Denies weakness Psychiatric: Psychiatric: Denies anxiety, Denies confusion and Denies depression Endocrine: Endocrine: Denies fatigue and Denies palpitations PMFSH Past Medical History Medical History No known health problems Family History Family History Other Asthma Social History Social History Alcohol intake: never Patient Tobacco Use Status: Never used Tobacco Advance Directives: No Advance Directives Information Provided: Yes Physical Exam Vital Signs: Vital Signs: Last Vital Signs Temp 98 F 03/04/22 07:46 Pulse 93 03/04/22 07:46 Resp 17 03/04/22 07:46 BP 147/98 H 03/04/22 07:46 Pulse Ox 98 03/04/22 07:46 O2 Del Method 03/04/22 07:46 BMI result Body Mass Index 37.3 Const: General: No confusion Nutritional Appearance: well nourished Orientation/consciousness: No confusion Limitations: no limitations Eyes: Conjunctivae: conjunctivae normal Pupils: Equal, round and reactive pupils present EOM: EOMs intact bilaterally Neck: Neck: Yes full ROM, Yes no lymphadenopathy and Yes supple Resp: Effort & Inspection: normal respiratory effort and able to speak in complete sentences Auscultation: clear to auscultation bilaterally, no crackles, no rales, no rhonchi and no wheezes Cardio: Rate: regular rate Rhythm: regular rhythm Heart sounds: S1 normal heart sound present and S2 normal heart sound present GI: Inspection: Yes normal to inspection Palpation (GI): Soft to palpation, nontender, no guarding and not rigid Percussion: Yes normal to percussion Auscultation: normal bowel sounds : General: Yes no CVA tenderness Back/Spine/Pelvis: Back: no CVA tenderness Cervical Spine: normal cervical lordosis, cervical ROM normal, No Cervical spine tenderness, No step off deformity and No cervical ROM abnormal Thoracic/Lumbar Spine: straight leg raise negative bilaterally, thoraco-lumbar spasm on the right greater than left, No thoracic spinal tenderness and No lumbar spinal tenderness Pelvis: no pain with anterior-posterior compression, no pain with lateral compression and buttock tenderness on the right Skin: General skin exam: no rashes or lesions noted Neuro: General: No confusion Cranial nerves: Yes Equal, round and reactive pupils present Sensory Exam: No Sensory deficit (Neuro) Extrem: Right lower extremity: normal to inspection, full ROM and normal capillary refill Left lower extremity: normal to inspection, full ROM and normal capillary refill Psych: Appearance: grossly normal Affect: normal affect Attitude: cooperative Thought process: Normal thought process present Course Course Course Narrative: 46-year-old with acute on chronic low back pain, right worse than left, with numbness and tingling going down right leg. On exam, patient is stable vitals, no vertebral point tenderness, patient has intact bilateral lower extremity pulses, motor strength, deep tendon reflexes, and patient has numbness on his right lateral calf. Patient is able to walk, no red flag symptoms. Patient did get good relief from what appears to be sciatic like pain in the past with prednisone, will prescribe prednisone again, will refer patient to [facility] as patient has had recurring acute on chronic back pain Gave return precautions for incontinence of bowel or bladder, numbness or tingling in groin, some mild weakness, being unable to urinate, patient verbalized agreement and understanding of plan Discharge Plan Discharge Clinical Impression: Lumbar radiculopathy Patient Disposition: Home, Self-Care Instructions: Back Pain (ED) Additional Instructions: Please call [facility] at [phone] for a follow up appointment. Please take prednisone as prescribed. Please return to emergency room if you have fevers, leg weakness, if you are incontinent of bowel or bladder, if you are unable to empty her bladder, if you feel numbness in your area between your anus and your scrotum. [facility] al [phone] para mary ann beverly de seguimiento. [place] la prednisona seg?n lo prescrito. Regrese a la jaswant de emergencias si tiene fiebre, debilidad en las piernas, si tiene incontinencia intestinal o vesical, si no puede vaciar la vejiga, si siente entumecimiento en el ?michelle entre el ano y el escroto. Prescriptions: New prednisone 20 mg tablet 60 mg PO DAILY 5 Days Qty: 15 0RF No Action montelukast 10 mg tablet 10 mg PO DAILY Qty: 30 11RF ibuprofen 600 mg tablet 600 mg PO Q8H PRN (Reason: pain) Qty: 30 0RF prednisone 50 mg tablet 50 mg PO DAILY 4 Days Qty: 4 0RF albuterol sulfate 90 mcg/actuation HFA aerosol inhaler inhalation albuterol sulfate 90 mcg/actuation HFA aerosol inhaler 2 inh inhalation Q6H PRN (Reason: shortness of breath or wheezing) 30 Days Qty: 8.5 12RF umeclidinium 62.5 mcg/actuation blister with device 1 inh inhalation DAILY 30 Days Qty: 30 11RF Breo Ellipta 200-25 mcg/dose blister with device 1 inh inhalation DAILY 30 Days Qty: 60 11RF albuterol sulfate 2.5 mg /3 mL (0.083 %) solution for nebulization 2.5 mg inhalation Q6H PRN (Reason: shortness of breath or wheezing) 30 Days Qty: 180 11RF benzonatate 200 mg capsule 200 mg PO BID PRN (Reason: cough) 30 Days Qty: 45 3RF Referrals: Trino Cason MD [Physician] - ( [facility] ) Interventions: ED Discharge Assessment Last Done: 03/04/22 08:57 Discharge Date/Time: 03/04/22 08:58 Print Language: Hungarian
[2022-03-04] MEDS: predniSONE 20 MG TABLET 60 MG PO (08:51)
== END 2022-03-04 08:58 | disposition home or self-care (01) ==
PROVIDERS: Emergency Provider Emergency Medicine Emergency Medical Services; PCP Internal Medicine
DX: M54.16 Radiculopathy, lumbar region (principal); Z79.899 Other long term (current) drug therapy
CPT/HCPCS: 99283

== ENCOUNTER 2022-06-07 11:45 | Outpatient (REF) | payer OTHER, SELFPAY ==
--- NOTE | ~2022-06-07 | XR_ITS ---
EXAMINATION: XR CHEST CLINICAL INFORMATION: Chest pain COMPARISON: 01/10/2022 TECHNIQUE: 2 views of the chest were obtained. FINDINGS: The lungs are clear with no focal consolidation. No evidence of pneumothorax, pulmonary edema, or pleural effusions. The cardiomediastinal silhouette is unremarkable. No acute osseous findings. XR/XR chest 2V IMPRESSION: No acute cardiopulmonary findings.
== END 2022-06-07 11:46 | disposition home or self-care (01) ==
LOC: HO.XRAY 11:45
PROVIDERS: PCP Internal Medicine; Visit Provider Hospitalist
DX: G47.33 Obstructive sleep apnea (adult) (pediatric) (principal); R07.9 Chest pain, unspecified; J30.9 Allergic rhinitis, unspecified; R05.9 Cough, unspecified; J45.40 Moderate persistent asthma, uncomplicated
CPT/HCPCS: 71046; 99212

== ENCOUNTER 2022-09-08 09:00 | Outpatient (RCR) | payer OTHER, SELFPAY ==
[2022-08-17 09:07] VITALS: BP 130/75; PULSE 103; O2SAT 92
== END 2022-11-08 07:52 | disposition home or self-care (01) ==
LOC: HO.PT 09:00
PROVIDERS: PCP Internal Medicine; Visit Provider Physician Assistant
DX: M54.16 Radiculopathy, lumbar region (principal)
CPT/HCPCS: 97110; 97140; 97162

== ENCOUNTER → 2022-10-25 12:07 | Outpatient (BNVA) | payer OTHER, SELFPAY | PROVIDERS: PCP Internal Medicine; Referring Provider Hospitalist; Visit Provider Internal Medicine Cardiovascular Disease | DX: R07.9 Chest pain, unspecified (principal) | CPT/HCPCS: 93005; 99202 ==

== ENCOUNTER → 2022-10-26 07:52 | Outpatient (REF) | payer OTHER, SELFPAY ==
--- NOTE | 2022-10-26 08:04 | CA_ITS ---
Transthoracic Echocardiogram Patient (Last, First, Middle): Flash Stevenson, Gender: Male Date of : 1975 Age: 47 Procedure Date: 10/26/2022 Procedure Type: Transthoracic Echocardiogram Location: OP Height: 167.64 cm Weight: 102.06 kg BSA: 2.10 m2 Heart Rate: bpm BP: 130 / 60 mmHg Burn Crew Member: TO Referring MD: Ever Patel MD Retail Greeter: Ever Patel MD Symptoms: R07.9 - Chest pain, unspecified Study Quality: Fair ECG Rhythm: Sinus Conclusions: - Essentially normal study Findings Left Ventricle Normal left ventricular size, thickness, and systolic function. The visually estimated ejection fraction is between 55-60%. Spectral Doppler is indicative of a normal filling pattern. Right Ventricle Normal right ventricular cavity size and systolic function. Atria Both atria are normal in size. Interatrial shunt cannot be excluded. Aortic Valve Normal aortic valve structure and function. There is no aortic valve stenosis. There is no aortic valve regurgitation. Mitral Valve Normal mitral valve structure and function. There is trace mitral valve regurgitation. There is no mitral valve stenosis. Pulmonic Valve The pulmonic valve is likely normal. Tricuspid Valve Normal tricuspid valve structure. There is trace tricuspid valve regurgitation. The right ventricular systolic pressure is normal. The right ventricular systolic pressure is 31 mmHg. Normal right atrial pressure. There is no evidence of pulmonary hypertension. Great Vessels All visible segments of the aorta are normal in size. The pulmonary artery was not well visualized. Venous The inferior vena cava is normal in size and collapses greater than 50% with inspiration. Pericardium/Pleural There is no evidence of pericardial effusion. Prior Study Comparison No prior study available for comparison. Measurements 2D Linear Measurements IVSd: 1.20 0.6-0.9/0.6-1.0 cm LVIDd: 5.20 3.9-5.3/4.2-5.9 cm LVIDd Index: 2.48 2.4-3.2/2.2-3.1 cm/m2 LVIDs: 3.55 2.0-3.6 cm LVPWd: 0.90 0.7-1.1 cm LA Diam: 3.70 2.7-3.8/3.0-4.0 cm LAIDs Index: 1.76 1.5-2.3 cm/m2 LV Mass: 257.85 67-162/88-224 g LV Mass Index: 122.78 43-95/49-115 g/m2 LVOT Diam: 2.10 3.0+(-)1.3 cm 2D Systolic Function EF 4C: 57.90 >55% EF 2C: 58.50 >55% EF BiP: 57.80 >55% Mitral Valve MV Pk E: 0.78 MV PK A: 0.62 MV Decel Time: 180.00 E/A: 1.30 E'Lateral: 12.10 E'Medial: 7.83 E/E' Med: 10.00 E/E' Lat: 6.40 PHT: 53.00 MVA PHT: 4.15 Decel [place]: 4.33 Aortic Valve AoV Pk James: 1.51 AoV Mn James: 1.09 AoV VTI: 0.28 AoV Pk Grad: 9.00 Aov Mn Grad: 5.00 BRINANA Cont.VTI: 1.93 LVOT LVOT Pk James: 0.80 LVOT Mn James: 0.55 LVOT VTI: 0.16 LVOT Pk Grad: 3.00 LVOT Mn Grad: 1.00 LVOT Diam: 2.10 LVOT Area: 3.46 Diastolic Function MV Pk E: 0.78 MV Pk A: 0.62 E/A: 1.30 E'Medial: 7.83 E/E' Med: 10.00 E' Laterial: 12.10 E/E' Lat: 6.40 Right Ventricle TAPSE (mm): 18.40 Tricuspid Valve TR Pk James: 2.65 TR Pk Grad: 28.00 RA Press: 3.00 RVSP: 31.00 Great Vessels Aorta Sinus of Valsalva: 3.31 2.0-3.5 cm Ao Asc: 3.30 2.1-3.4 cm Updated in Other Vendor System with Status of Final Ever Patel MD electronically signed on 10/26/2022 2:53:38 PM with status of Final
== END ==
LOC: HO.CARD 07:52
PROVIDERS: PCP Internal Medicine; Visit Provider Internal Medicine Cardiovascular Disease
DX: R07.9 Chest pain, unspecified (principal)
CPT/HCPCS: 93306

== ENCOUNTER → 2022-10-28 10:41 | Outpatient (REF) | payer OTHER, SELFPAY ==
--- NOTE | 2022-10-28 10:43 | CA_ITS ---
Acquisition Time: 2022-10-28 10:46:51 Total Exercise Time: 00:05:11 Test Indications: CP Medications: SEE H Protocol: KESHIA Max HR: 141 BPM 81% of Pred: 172 BPM Max BP: 130/084 mmHG Max Work Load: 7.0 METS Exercise stress ECHO using Keshia potocol, total of 5 min 11 sec, HR up to 141 With TAPHR 81% and METS 7.00 . Pt had L leg discomfort and SOB withhout CP. EKG without ischemic changes. ECHO images taken before and at peak exercise. Definity contrast used. Normotensive response to exercise. Test reviewed with Dr. Person Referred By: Ever Patel Overread By: Sheela Rivas NP
== END ==
LOC: HO.CARD 10:41
PROVIDERS: Visit Provider Internal Medicine Cardiovascular Disease
DX: R07.9 Chest pain, unspecified (principal)
CPT/HCPCS: 93350; Q9957

== ENCOUNTER → 2022-11-18 12:45 | Outpatient (BNVA) | payer OTHER, SELFPAY | PROVIDERS: PCP Internal Medicine; Visit Provider Nurse Practitioner Family | DX: R07.9 Chest pain, unspecified (principal); G47.33 Obstructive sleep apnea (adult) (pediatric); Z99.89 Dependence on other enabling machines and devices | CPT/HCPCS: 99212 ==

== ENCOUNTER 2022-12-05 19:03 | Emergency (ER) | payer OTHER, SELFPAY ==
--- NOTE | 2022-12-05 | ECG_ITS ---
Test Reason : CHEST PAIN Blood Pressure : / mmHG Vent. Rate : 098 BPM Atrial Rate : 098 BPM P-R Int : 122 ms QRS Dur : 094 ms QT Int : 344 ms P-R-T Axes : 039 023 047 degrees QTc Int : 439 ms Normal sinus rhythm Normal ECG When compared with ECG of 10-JAN-2022 17:52, No significant change was found Referred By: Generic ED Physician Electronically Signed By:MATTHIAS SIMENTAL
--- NOTE | ~2022-12-05 | XR_ITS ---
EXAMINATION: PORTABLE CHEST 1 VIEW CLINICAL INFORMATION: SOB. COMPARISON: 06/07/2022. TECHNIQUE: Portable frontal view of the chest was obtained. FINDINGS: The lungs are well expanded. No focal infiltrate, effusion, edema, or pneumothorax. Cardiac and mediastinal silhouettes are within normal limits for technique. No acute bony abnormality seen. XR/XR chest 1V IMPRESSION: No evidence of acute disease.
[2022-12-05 19:12] VITALS: BP 141/89; PULSE 108; RESP 22; TEMP 36.6; O2SAT 90; BMI 36.3
--- NOTE | 2022-12-05 19:23 | ED_ITS ---
HPI - General Adult General Chief complaint: Dyspnea Stated complaint: chest pain ,head ache Time Seen by Provider: 12/05/22 19:31 Related Data Home Medications Medication Instructions Recorded Confirmed CPAP (CPAP Machine/Device) 06/07/22 11/18/22 nebulizers 06/07/22 11/18/22 Previous Rx's Medication Instructions Recorded ibuprofen 600 mg tablet 600 mg PO Q8H PRN pain #30 tabs 06/23/20 albuterol sulfate 90 mcg/actuation 2 inh inhalation Q6H PRN shortness 10/23/20 aerosol inhaler of breath or wheezing 30 days #8.5 grams fluticasone furoate 200 1 inh inhalation DAILY 30 days #60 02/02/21 mcg-vilanterol 25 mcg/dose ea inhalation powder (Breo Ellipta) albuterol sulfate 2.5 mg/3 mL 2.5 mg (3 mL) inhalation Q6H PRN 06/30/21 (0.083 %) solution for nebulization shortness of breath or wheezing 30 days #180 mL benzonatate 200 mg capsule 200 mg PO BID PRN cough 30 days 06/30/21 #45 caps Allergies Allergy/AdvReac Type Severity Reaction Status Date / Time No Known Allergies* Allergy Unknown Uncoded 11/18/22 13:26 [facility] Past Medical History Medical History Asthma Chest pain Chronic allergic rhinitis Cough No known health problems MARK on CPAP MARK treated with BiPAP Family History Family History Other Asthma Social History Social History Alcohol intake: unknown Patient Tobacco Use Status: Never used Tobacco Physical Exam ED Vital Signs: Vital Signs - 24 hr 12/05/22 19:12 Temperature 97.9 F Pulse Rate 108 H Respiratory Rate 22 H Blood Pressure 141/89 H Pulse Oximetry 90 L Oxygen Delivery Method Room Air BMI result Body Mass Index 36.3 Course Course Course Narrative: RME: 47-year-old male presents to ED for shortness of breath and chest pain. Patient states also bilateral leg swelling. O2 saturation room air 86 to 92% on room air. Patient states is oxygen dependent at night but presently does not have his oxygen with him. Bilateral lower extremity swelling. Charge nurse informed patient brought to room 19 EKG labs chest x-ray ordered. Medical Decision Making Lab Data 12/05/22 19:45 12/05/22 19:45 Labs: Lab Results 12/05/22 12/05/22 12/05/22 Range/Units 19:41 19:45 19:45 WBC 8.3 (4.8-10.8) X10*3/uL RBC 5.55 (4.60-5.80) X10*6/uL Hgb 16.1 (14.0-18.0) g/dl Hct 48.3 (42.0-52.0) % MCV 87.0 (80.0-98.0) fL MCH 29.0 (27.0-33.0) pg MCHC 33.3 (31.0-36.0) g/dl RDW 14.0 (11.0-16.0) % Plt Count 155 L (160-400) X10*3/uL MPV 10.8 (9.4-12.4) fL Immature Gran % (Auto) 0.4 (0.0-0.4) % Neut % (Auto) 61.2 (45-73) % Lymph % (Auto) 24.9 (20-40) % [place] % (Auto) 9.8 (2-11) % Eos % (Auto) 3.1 (0-4) % Baso % (Auto) 0.6 (0-2) % Lymph # (Auto) 2.1 (1.2-4.9) X10*3/uL [place] # (Auto) 0.8 (0.1-1.2) X10*3/uL Eos # (Auto) 0.3 (0.0-0.4) X10*3/uL Baso # (Auto) 0.1 (0.0-0.2) X10*3/uL Abs Immat Gran (auto) 0.03 (0.00-0.03) X10*3/uL Absolute Neuts (auto) 5.1 (2.0-8.3) x10*3/uL Absolute Nucleated RBC 0.000 (0.0-0.012) X10*3/uL Nucleated RBC % (auto) 0.0 (0.0-0.2) /100WBC PT 11.7 (10.0-13.1) SEC INR 1.0 (0.9-1.1) APTT 30.7 (26.0-36.4) SEC D-Dimer High Sensitivty < 150 NG/ML Sodium (135-145) mmol/L Potassium (3.3-5.1) mmol/L Chloride (96-108) mmol/L Carbon Dioxide (22-29) mmol/L Anion Gap (12-20) BUN (9-16) mg/dL Creatinine (0.5-1.4) mg/dL Estim Creat Clear Calc Estimated GFR Random Glucose (60-115) mg/dL Calcium (8.4-10.2) mg/dL Total Bilirubin (0.0-1.0) mg/dL AST (5-37) U/L ALT (0-40) U/L Alkaline Phosphatase (39-117) U/L Troponin I High Sens (<3.5-35.0) ng/L B-Natriuretic Peptide (<100) pg/mL Total Protein (6.5-8.0) g/dL Albumin (3.5-5.0) g/dL Influenza Type A (PCR) NEGATIVE (Negative) Influenza Type B (PCR) NEGATIVE (Negative) RSV RNA Qual (PCR) NEGATIVE (Negative) SARS-CoV-2 RNA (RT-PCR) NEGATIVE (Negative) 12/05/22 12/05/22 12/05/22 Range/Units 19:45 19:45 19:45 WBC (4.8-10.8) X10*3/uL RBC (4.60-5.80) X10*6/uL Hgb (14.0-18.0) g/dl Hct (42.0-52.0) % MCV (80.0-98.0) fL MCH (27.0-33.0) pg MCHC (31.0-36.0) g/dl RDW (11.0-16.0) % Plt Count (160-400) X10*3/uL MPV (9.4-12.4) fL Immature Gran % (Auto) (0.0-0.4) % Neut % (Auto) (45-73) % Lymph % (Auto) (20-40) % [place] % (Auto) (2-11) % Eos % (Auto) (0-4) % Baso % (Auto) (0-2) % Lymph # (Auto) (1.2-4.9) X10*3/uL [place] # (Auto) (0.1-1.2) X10*3/uL Eos # (Auto) (0.0-0.4) X10*3/uL Baso # (Auto) (0.0-0.2) X10*3/uL Abs Immat Gran (auto) (0.00-0.03) X10*3/uL Absolute Neuts (auto) (2.0-8.3) x10*3/uL Absolute Nucleated RBC (0.0-0.012) X10*3/uL Nucleated RBC % (auto) (0.0-0.2) /100WBC PT (10.0-13.1) SEC INR (0.9-1.1) APTT (26.0-36.4) SEC D-Dimer High Sensitivty NG/ML Sodium 141 (135-145) mmol/L Potassium 3.7 (3.3-5.1) mmol/L Chloride 105 (96-108) mmol/L Carbon Dioxide 29 (22-29) mmol/L Anion Gap 11 L (12-20) BUN 13 (9-16) mg/dL Creatinine 1.28 (0.5-1.4) mg/dL Estim Creat Clear Calc 78.9 Estimated GFR 60 Random Glucose 136 H (60-115) mg/dL Calcium 8.8 D (8.4-10.2) mg/dL Total Bilirubin 0.4 (0.0-1.0) mg/dL AST 26 (5-37) U/L ALT 47 H (0-40) U/L Alkaline Phosphatase 85 (39-117) U/L Troponin I High Sens < 3.5 (<3.5-35.0) ng/L B-Natriuretic Peptide < 10 (<100) pg/mL Total Protein 6.3 L (6.5-8.0) g/dL Albumin 3.9 (3.5-5.0) g/dL Influenza Type A (PCR) (Negative) Influenza Type B (PCR) (Negative) RSV RNA Qual (PCR) (Negative) SARS-CoV-2 RNA (RT-PCR) (Negative) 12/05/22 Range/Units 21:38 WBC (4.8-10.8) X10*3/uL RBC (4.60-5.80) X10*6/uL Hgb (14.0-18.0) g/dl Hct (42.0-52.0) % MCV (80.0-98.0) fL MCH (27.0-33.0) pg MCHC (31.0-36.0) g/dl RDW (11.0-16.0) % Plt Count (160-400) X10*3/uL MPV (9.4-12.4) fL Immature Gran % (Auto) (0.0-0.4) % Neut % (Auto) (45-73) % Lymph % (Auto) (20-40) % [place] % (Auto) (2-11) % Eos % (Auto) (0-4) % Baso % (Auto) (0-2) % Lymph # (Auto) (1.2-4.9) X10*3/uL [place] # (Auto) (0.1-1.2) X10*3/uL Eos # (Auto) (0.0-0.4) X10*3/uL Baso # (Auto) (0.0-0.2) X10*3/uL Abs Immat Gran (auto) (0.00-0.03) X10*3/uL Absolute Neuts (auto) (2.0-8.3) x10*3/uL Absolute Nucleated RBC (0.0-0.012) X10*3/uL Nucleated RBC % (auto) (0.0-0.2) /100WBC PT (10.0-13.1) SEC INR (0.9-1.1) APTT (26.0-36.4) SEC D-Dimer High Sensitivty NG/ML Sodium (135-145) mmol/L Potassium (3.3-5.1) mmol/L Chloride (96-108) mmol/L Carbon Dioxide (22-29) mmol/L Anion Gap (12-20) BUN (9-16) mg/dL Creatinine (0.5-1.4) mg/dL Estim Creat Clear Calc Estimated GFR Random Glucose (60-115) mg/dL Calcium (8.4-10.2) mg/dL Total Bilirubin (0.0-1.0) mg/dL AST (5-37) U/L ALT (0-40) U/L Alkaline Phosphatase (39-117) U/L Troponin I High Sens < 3.5 (<3.5-35.0) ng/L B-Natriuretic Peptide (<100) pg/mL Total Protein (6.5-8.0) g/dL Albumin (3.5-5.0) g/dL Influenza Type A (PCR) (Negative) Influenza Type B (PCR) (Negative) RSV RNA Qual (PCR) (Negative) SARS-CoV-2 RNA (RT-PCR) (Negative) Discharge Plan Discharge Clinical Impression: Chest pain, MARK treated with BiPAP Patient Disposition: Home, Self-Care Instructions: Chest Pain (DC), Sleep Apnea (DC) Prescriptions: No Action ibuprofen 600 mg tablet 600 mg PO Q8H PRN (Reason: pain) Qty: 30 0RF albuterol sulfate 90 mcg/actuation HFA aerosol inhaler 2 inh inhalation Q6H PRN (Reason: shortness of breath or wheezing) 30 Days Qty: 8.5 12RF Breo Ellipta 200-25 mcg/dose blister with device 1 inh inhalation DAILY 30 Days Qty: 60 11RF (DME) CPAP Machine/Device Device See Rx Instructions .Route Rx Instructions: As directed (DME) nebulizers [facility] See Rx Instructions .Route Rx Instructions: As directed albuterol sulfate 2.5 mg /3 mL (0.083 %) solution for nebulization 2.5 mg inhalation Q6H PRN (Reason: shortness of breath or wheezing) 30 Days Qty: 180 11RF benzonatate 200 mg capsule 200 mg PO BID PRN (Reason: cough) 30 Days Qty: 45 3RF Referrals: Ever Patel MD [Physician] - 12/07/22 Interventions: ED Discharge Assessment Last Done: 12/06/22 00:24 Discharge Date/Time: 12/06/22 00:28 Print Language: Georgian
[2022-12-05 19:51] LABS: MANUAL DIFF FLAG NO
[2022-12-05 19:53] LABS: Basophils Absolute Auto 0.1 X10*3/uL (0.0-0.2); Basophils Percent Auto 0.6 % (0-2); Eosinophils Absolute Auto 0.3 X10*3/uL (0.0-0.4); Eosinophils Percent Auto 3.1 % (0-4); Hematocrit 48.3 % (42.0-52.0); Hemoglobin 16.1 g/dl (14.0-18.0); Imm Gran Abs Auto 0.03 X10*3/uL (0.00-0.03); Imm Gran Pct Auto 0.4 % (0.0-0.4); Lymphocytes Absolute Auto 2.1 X10*3/uL (1.2-4.9); Lymphocytes Percent Auto 24.9 % (20-40); Mean Corpuscular HGB Conc 33.3 g/dl (31.0-36.0); Mean Platelet Volume 10.8 fL (9.4-12.4); Monocytes Absolute Auto 0.8 X10*3/uL (0.1-1.2); Monocytes Percent Auto 9.8 % (2-11); Neutrophils Absolute Auto 5.1 x10*3/uL (2.0-8.3); Neutrophils Percent Auto 61.2 % (45-73); Platelet Count 155 X10*3/uL (160-400); Red Blood Count 5.55 X10*6/uL (4.60-5.80); White Blood Count 8.3 X10*3/uL (4.8-10.8)
[2022-12-05 19:58] LABS: Prothrombin Time 11.7 SEC (10.0-13.1)
[2022-12-05 20:00] LABS: Partial Thromboplastin Time 30.7 SEC (26.0-36.4)
[2022-12-05 20:22] LABS: Alanine Aminotransferase 47 U/L (0-40); Albumin Level 3.9 g/dL (3.5-5.0); Alkaline Phosphatase 85 U/L (39-117); Anion Gap 11 (12-20); Aspartate Amino Transferase 26 U/L (5-37); Bilirubin Total 0.4 mg/dL (0.0-1.0); Blood Urea Nitrogen 13 mg/dL (9-16); Calcium 8.8 mg/dL (8.4-10.2); Carbon Dioxide 29 mmol/L (22-29); Chloride 105 mmol/L (96-108); Creatinine Clr Calc Pharmacy 78.9; Estimated Glomerular Filt Rate 60; Glucose Random 136 mg/dL (60-115); Potassium 3.7 mmol/L (3.3-5.1); Sodium 141 mmol/L (135-145); Total Protein 6.3 g/dL (6.5-8.0)
[2022-12-05 20:30] LABS: B Type Natriuretic Peptide < 10 pg/mL (<100)
[2022-12-05 20:33] LABS: Troponin-I High Sensitivity < 3.5 ng/L (<3.5-35.0)
[2022-12-05 20:53] LABS: Influenza A PCR NEGATIVE (Negative); Influenza B PCR NEGATIVE (Negative); Resp Syncy Virus RNA Qual PCR NEGATIVE (Negative); SARS COV2 PCR INHOUSE NEGATIVE (Negative)
--- NOTE | 2022-12-05 20:56 | PC.NURSE ---
pt desated to 79% provider on RA; provider aware
--- NOTE | 2022-12-05 20:58 | ED_ITS ---
HPI - Chest Pain General Chief Complaint: Dyspnea Stated Complaint: chest pain ,head ache Time Seen by Provider: 12/05/22 19:31 Related Data Home Medications Medication Instructions Recorded Confirmed CPAP (CPAP Machine/Device) 06/07/22 11/18/22 nebulizers 06/07/22 11/18/22 Previous Rx's Medication Instructions Recorded ibuprofen 600 mg tablet 600 mg PO Q8H PRN pain #30 tabs 06/23/20 albuterol sulfate 90 mcg/actuation 2 inh inhalation Q6H PRN shortness 10/23/20 aerosol inhaler of breath or wheezing 30 days #8.5 grams fluticasone furoate 200 1 inh inhalation DAILY 30 days #60 02/02/21 mcg-vilanterol 25 mcg/dose ea inhalation powder (Breo Ellipta) albuterol sulfate 2.5 mg/3 mL 2.5 mg (3 mL) inhalation Q6H PRN 06/30/21 (0.083 %) solution for nebulization shortness of breath or wheezing 30 days #180 mL benzonatate 200 mg capsule 200 mg PO BID PRN cough 30 days 06/30/21 #45 caps Allergies Allergy/AdvReac Type Severity Reaction Status Date / Time No Known Allergies* Allergy Unknown Uncoded 11/18/22 13:26 [facility] Past Medical History Medical History Asthma Chest pain Chronic allergic rhinitis Cough No known health problems MARK on CPAP MARK treated with BiPAP Family History Family History Other Asthma Social History Social History Alcohol intake: unknown Patient Tobacco Use Status: Never used Tobacco Smoked in Last 30 Days: No Use of substances other than those prescribed or required for medical reasons: No Advance Directives: No Advance Directives Information Provided: No Physical Exam Vital Signs: Vital Signs: Last Vital Signs Temp 98.0 F 12/05/22 21:17 Pulse 91 12/05/22 21:17 Resp 26 H 12/05/22 21:17 BP 117/73 12/05/22 21:17 Pulse Ox 90 L 12/05/22 21:17 O2 Del Method Room Air 12/05/22 19:12 BMI result Body Mass Index 36.3 Medical Decision Making Medical Decision Making [facility] Narrative: Patient is 47 years old presents today with having chest pain. The chest pain is midsternal. Not associated with shortness of breath or diaphoresis. Has been constant. Patient's BMP is normal. No evidence for congestive heart failure. Two sets of cardiac enzyme was negative. In the setting of patient's EKG showing a sinus pattern heart rate is 70 MS QRS QT within normal limits there is no acute ST segment elevation. Patient unlikely secondary to ACS. Patient also had a recent stress test and echo done this year for similar pain. They were all negative. Patient has been seen by Cardiology in the past for something similar. His legs are swollen bilaterally but no evidence for congestive heart failure BNP was negative. Patient D-dimer less than 150 unlikely to have a pulmonary emboli in the setting of low risk. Patient has sleep apnea. O2 sat drops when he falls asleep without a mass. When he wakes up he is breathing his O2 sat is normal. Explained to patient the need to use CPAP machine all the time at night. Patient states understanding he has a mass at home. Will discharge patient to follow-up with cardiology on an outpatient basis. In stable condition. Patient's chest x-ray was negative for any acute evidence of pneumonia Differential Diagnosis ACS, pulmonary emboli, pneumonia, pneumothorax, Lab Data [facility] Lab Attestation statement: I reviewed the patient's lab results. 12/05/22 19:45 12/05/22 19:45 Labs: Lab Results 12/05/22 12/05/22 12/05/22 Range/Units 19:41 19:45 19:45 WBC 8.3 (4.8-10.8) X10*3/uL RBC 5.55 (4.60-5.80) X10*6/uL Hgb 16.1 (14.0-18.0) g/dl Hct 48.3 (42.0-52.0) % MCV 87.0 (80.0-98.0) fL MCH 29.0 (27.0-33.0) pg MCHC 33.3 (31.0-36.0) g/dl RDW 14.0 (11.0-16.0) % Plt Count 155 L (160-400) X10*3/uL MPV 10.8 (9.4-12.4) fL Immature Gran % (Auto) 0.4 (0.0-0.4) % Neut % (Auto) 61.2 (45-73) % Lymph % (Auto) 24.9 (20-40) % [place] % (Auto) 9.8 (2-11) % Eos % (Auto) 3.1 (0-4) % Baso % (Auto) 0.6 (0-2) % Lymph # (Auto) 2.1 (1.2-4.9) X10*3/uL [place] # (Auto) 0.8 (0.1-1.2) X10*3/uL Eos # (Auto) 0.3 (0.0-0.4) X10*3/uL Baso # (Auto) 0.1 (0.0-0.2) X10*3/uL Abs Immat Gran (auto) 0.03 (0.00-0.03) X10*3/uL Absolute Neuts (auto) 5.1 (2.0-8.3) x10*3/uL Absolute Nucleated RBC 0.000 (0.0-0.012) X10*3/uL Nucleated RBC % (auto) 0.0 (0.0-0.2) /100WBC PT 11.7 (10.0-13.1) SEC INR 1.0 (0.9-1.1) APTT 30.7 (26.0-36.4) SEC D-Dimer High Sensitivty < 150 NG/ML Sodium (135-145) mmol/L Potassium (3.3-5.1) mmol/L Chloride (96-108) mmol/L Carbon Dioxide (22-29) mmol/L Anion Gap (12-20) BUN (9-16) mg/dL Creatinine (0.5-1.4) mg/dL Estim Creat Clear Calc Estimated GFR Random Glucose (60-115) mg/dL Calcium (8.4-10.2) mg/dL Total Bilirubin (0.0-1.0) mg/dL AST (5-37) U/L ALT (0-40) U/L Alkaline Phosphatase (39-117) U/L Troponin I High Sens (<3.5-35.0) ng/L B-Natriuretic Peptide (<100) pg/mL Total Protein (6.5-8.0) g/dL Albumin (3.5-5.0) g/dL Influenza Type A (PCR) NEGATIVE (Negative) Influenza Type B (PCR) NEGATIVE (Negative) RSV RNA Qual (PCR) NEGATIVE (Negative) SARS-CoV-2 RNA (RT-PCR) NEGATIVE (Negative) 12/05/22 12/05/22 12/05/22 Range/Units 19:45 19:45 19:45 WBC (4.8-10.8) X10*3/uL RBC (4.60-5.80) X10*6/uL Hgb (14.0-18.0) g/dl Hct (42.0-52.0) % MCV (80.0-98.0) fL MCH (27.0-33.0) pg MCHC (31.0-36.0) g/dl RDW (11.0-16.0) % Plt Count (160-400) X10*3/uL MPV (9.4-12.4) fL Immature Gran % (Auto) (0.0-0.4) % Neut % (Auto) (45-73) % Lymph % (Auto) (20-40) % [place] % (Auto) (2-11) % Eos % (Auto) (0-4) % Baso % (Auto) (0-2) % Lymph # (Auto) (1.2-4.9) X10*3/uL [place] # (Auto) (0.1-1.2) X10*3/uL Eos # (Auto) (0.0-0.4) X10*3/uL Baso # (Auto) (0.0-0.2) X10*3/uL Abs Immat Gran (auto) (0.00-0.03) X10*3/uL Absolute Neuts (auto) (2.0-8.3) x10*3/uL Absolute Nucleated RBC (0.0-0.012) X10*3/uL Nucleated RBC % (auto) (0.0-0.2) /100WBC PT (10.0-13.1) SEC INR (0.9-1.1) APTT (26.0-36.4) SEC D-Dimer High Sensitivty NG/ML Sodium 141 (135-145) mmol/L Potassium 3.7 (3.3-5.1) mmol/L Chloride 105 (96-108) mmol/L Carbon Dioxide 29 (22-29) mmol/L Anion Gap 11 L (12-20) BUN 13 (9-16) mg/dL Creatinine 1.28 (0.5-1.4) mg/dL Estim Creat Clear Calc 78.9 Estimated GFR 60 Random Glucose 136 H (60-115) mg/dL Calcium 8.8 D (8.4-10.2) mg/dL Total Bilirubin 0.4 (0.0-1.0) mg/dL AST 26 (5-37) U/L ALT 47 H (0-40) U/L Alkaline Phosphatase 85 (39-117) U/L Troponin I High Sens < 3.5 (<3.5-35.0) ng/L B-Natriuretic Peptide < 10 (<100) pg/mL Total Protein 6.3 L (6.5-8.0) g/dL Albumin 3.9 (3.5-5.0) g/dL Influenza Type A (PCR) (Negative) Influenza Type B (PCR) (Negative) RSV RNA Qual (PCR) (Negative) SARS-CoV-2 RNA (RT-PCR) (Negative) 12/05/22 Range/Units 21:38 WBC (4.8-10.8) X10*3/uL RBC (4.60-5.80) X10*6/uL Hgb (14.0-18.0) g/dl Hct (42.0-52.0) % MCV (80.0-98.0) fL MCH (27.0-33.0) pg MCHC (31.0-36.0) g/dl RDW (11.0-16.0) % Plt Count (160-400) X10*3/uL MPV (9.4-12.4) fL Immature Gran % (Auto) (0.0-0.4) % Neut % (Auto) (45-73) % Lymph % (Auto) (20-40) % [place] % (Auto) (2-11) % Eos % (Auto) (0-4) % Baso % (Auto) (0-2) % Lymph # (Auto) (1.2-4.9) X10*3/uL [place] # (Auto) (0.1-1.2) X10*3/uL Eos # (Auto) (0.0-0.4) X10*3/uL Baso # (Auto) (0.0-0.2) X10*3/uL Abs Immat Gran (auto) (0.00-0.03) X10*3/uL Absolute Neuts (auto) (2.0-8.3) x10*3/uL Absolute Nucleated RBC (0.0-0.012) X10*3/uL Nucleated RBC % (auto) (0.0-0.2) /100WBC PT (10.0-13.1) SEC INR (0.9-1.1) APTT (26.0-36.4) SEC D-Dimer High Sensitivty NG/ML Sodium (135-145) mmol/L Potassium (3.3-5.1) mmol/L Chloride (96-108) mmol/L Carbon Dioxide (22-29) mmol/L Anion Gap (12-20) BUN (9-16) mg/dL Creatinine (0.5-1.4) mg/dL Estim Creat Clear Calc Estimated GFR Random Glucose (60-115) mg/dL Calcium (8.4-10.2) mg/dL Total Bilirubin (0.0-1.0) mg/dL AST (5-37) U/L ALT (0-40) U/L Alkaline Phosphatase (39-117) U/L Troponin I High Sens < 3.5 (<3.5-35.0) ng/L B-Natriuretic Peptide (<100) pg/mL Total Protein (6.5-8.0) g/dL Albumin (3.5-5.0) g/dL Influenza Type A (PCR) (Negative) Influenza Type B (PCR) (Negative) RSV RNA Qual (PCR) (Negative) SARS-CoV-2 RNA (RT-PCR) (Negative) Radiology Impression Discussion of test interpretation with radiology: I have reviewed the radiologist's reading. External Record Review External record reviewed: Inpatient record and Office record Discharge Plan Discharge Clinical Impression: Chest pain, MARK treated with BiPAP Patient Disposition: Home, Self-Care Instructions: Chest Pain (DC), Sleep Apnea (DC) Prescriptions: No Action ibuprofen 600 mg tablet 600 mg PO Q8H PRN (Reason: pain) Qty: 30 0RF albuterol sulfate 90 mcg/actuation HFA aerosol inhaler 2 inh inhalation Q6H PRN (Reason: shortness of breath or wheezing) 30 Days Qty: 8.5 12RF Breo Ellipta 200-25 mcg/dose blister with device 1 inh inhalation DAILY 30 Days Qty: 60 11RF (DME) CPAP Machine/Device Device See Rx Instructions .Route Rx Instructions: As directed (DME) nebulizers Misc See Rx Instructions .Route Rx Instructions: As directed albuterol sulfate 2.5 mg /3 mL (0.083 %) solution for nebulization 2.5 mg inhalation Q6H PRN (Reason: shortness of breath or wheezing) 30 Days Qty: 180 11RF benzonatate 200 mg capsule 200 mg PO BID PRN (Reason: cough) 30 Days Qty: 45 3RF Referrals: Ever Patel MD [Physician] - 12/07/22 Print Language: Slovak
[2022-12-05 21:17] VITALS: BP 117/73; PULSE 91; RESP 26; TEMP 36.7; O2SAT 90
[2022-12-05 21:17] LABS: D Dimer High Sensitivity < 150 NG/ML
[2022-12-05 22:11] LABS: Troponin-I High Sensitivity < 3.5 ng/L (<3.5-35.0)
--- NOTE | 2022-12-05 22:27 | PC.NURSE ---
pt c/o bilat lower leg pain, edema to affected areas observed, pt states that when he walks it feels as if blocks are weighing his legs down MD aware and present when statement made by pt
--- NOTE | 2022-12-05 22:29 | PC.NURSE ---
pt c/o chest pain and states he feels pressure in head, pain to bilat lower legs, states he does not use BiPap machine regularly as it needs to be adjusted by provider and isn't working properly, states that he has been trying to be seen but is having difficulty getting seen- MD made aware of pt's statements
--- NOTE | 2022-12-06 00:29 | PC.NURSE ---
Discharge instructions given/explained to pt No sob, able to speak in full sentences No respiratory distress Ambulates safely/independently All of patient's questions answered
== END 2022-12-06 00:28 | disposition home or self-care (01) ==
PROVIDERS: Physician Assistant; Emergency Provider Emergency Medicine Emergency Medical Services; PCP Obstetrics & Gynecology
DX: R07.89 Other chest pain (principal); R06.02 Shortness of breath; G47.33 Obstructive sleep apnea (adult) (pediatric); Z20.822 Contact with and (suspected) exposure to COVID-19; Z20.828 Contact with and (suspected) exposure to other viral communicable diseases; Z79.899 Other long term (current) drug therapy
CPT/HCPCS: 0241U; 36415; 71045; 80053; 83880; 84484; 85025; 85379; 85610; 85730; 93005; 99283; 99285

== ENCOUNTER 2023-01-15 01:02 | Inpatient (IN) | payer MEDICARE, MEDICAID, SELFPAY ==
[2023-01-15] VITALS (23 sets, daily range): BP systolic 128–147; BP diastolic 66–95; PULSE 79–129; RESP 16–31; TEMP 36.1–36.9; O2SAT 84–98; BMI 36.3
--- NOTE | ~2023-01-15 | CT_ITS ---
EXAMINATION: HEAD CT WITHOUT CONTRAST CERVICAL SPINE CT WITHOUT CONTRAST CLINICAL INFORMATION: Altered mental status, neck pain, rule out Fracture. COMPARISON: MRI dated 04/08/2019. TECHNIQUE: Contiguous axial imaging of the head was performed without the administration of IV contrast. Axial multidetector volumetric images were also performed through the cervical spine without intravenous contrast. Multiplanar reconstructed images in coronal and sagittal orientations were submitted. This CT examination was performed using dose optimization techniques as appropriate, variously including the following: *Automated exposure control *Adjustment of mA and/or kV according to patient size (this includes techniques or standardized protocols for targeted exams where dose is matched to indication/reason for exam; i.e. extremities or head) *Use of iterative reconstruction technique The C7-T1 level was only partially included on these images, though is included fully on the CT of the chest. DOSE: 518 mGy-cm FINDINGS: HEAD: There is no evidence of acute intracranial hemorrhage or territorial infarction. No abnormal mass-effect or midline shift. No extra-axial fluid collections. [place] to white matter differentiation is well preserved. The ventricles are normal in size and configuration. There is no abnormal attenuation within the brain parenchyma. The soft tissues and osseous structures are normal. The sinuses and mastoid air cells are clear. CERVICAL SPINE: Vertebral body heights are normal. No fractures of the vertebral bodies or posterior elements. Reversal of the normal cervical lordosis is likely positional or degenerative. No vertebral body or posterior element subluxation. The craniocervical and atlantoaxial articulations are normal. Mild to moderate degenerative disc disease is evident at C5-C6 with loss of intervertebral disc height as well as endplate and uncovertebral osteophytes. More mild degenerative disc disease at C4-C5. Facet joints are normal. Posterior disc osteophyte complexes produce at least mild central canal stenosis at C4-C5 and C5-C6. There is neural foraminal encroachment at these levels due to uncovertebral osteophytes, most notably on the left at C4-C5. No significant paravertebral soft tissue swelling. Cervical soft tissues are unremarkable. CT/CT cervical spine wo IV con IMPRESSION: 1. No acute intracranial pathology. 2. No acute fracture or acute malalignment in the cervical spine.
--- NOTE | ~2023-01-15 | CT_ITS ---
EXAMINATION: CT CHEST WITHOUT IV CONTRAST CT ABDOMEN AND PELVIS WITHOUT IV CONTRAST CLINICAL INFORMATION: Altered mental status and abdominal pain. Evaluate for pneumonia, fracture or bleed. COMPARISON: Prior CT imaging exams from 07/22/2020 and 08/31/2021. TECHNIQUE: Noncontrast multidetector CT imaging examination of the chest, abdomen and pelvis was performed.. Axial images are displayed at 0.6 mm and 5 mm slice thickness. Coronal and sagittal reformatted images were generated at the technologist's workstation and submitted for review. This CT examination was performed using dose optimization techniques as appropriate, variously including the following: *Automated exposure control *Adjustment of mA and/or kV according to patient size (this includes techniques or standardized protocols for targeted exams where dose is matched to indication/reason for exam; i.e. extremities or head) *Use of iterative reconstruction technique DLP: 693.83 mGy-cm for the chest CT and 1435.31 mGy-cm for the abdomen/pelvis CT FINDINGS: CHEST - LUNGS AND PLEURA: Trachea and central airways are widely patent and normal in caliber. Scattered linear opacities of platelike atelectasis in lower lobes, lingula and right middle lobe. No pulmonary consolidation, pleural effusion or pneumothorax. MEDIASTINUM/LOWER NECK: The heart size is normal. No pericardial effusion. Pulmonary arteries and thoracic aorta are normal in caliber. No evidence of coronary artery calcification. The esophagus and thyroid gland are unremarkable. LYMPHATICS: No pathologic sized axillary, hilar or mediastinal lymph nodes. CHEST WALL/BONES OF THORAX: No suspicious bone lesions. No evidence of acute fracture or malalignment of the thoracic spine. Findings include moderate disc degenerative change of C5-C6 and T12-L1. No evidence of rib fracture or chest wall hematoma. ABDOMEN AND PELVIS - HEPATOBILIARY: Diffuse hepatic steatosis. Otherwise, liver and gallbladder are unremarkable. No dilated bile ducts. PANCREAS: No edema, mass or pancreatic ductal dilatation. SPLEEN: Normal. ADRENAL GLANDS: Normal. KIDNEYS AND URETERS: Kidneys are normal in size and attenuation. No nephrolithiasis, hydronephrosis or perinephric fluid collection. 1.1 cm simple cyst of the right kidney. No renal imaging follow-up recommended. BOWEL AND PERITONEUM: No dilated loops of bowel. The appendix is normal. No overt bowel wall thickening. No mesenteric fat stranding, ascites or pneumoperitoneum. ABDOMINAL WALL: Unremarkable. VESSELS: Abdominal aorta is normal in size. LYMPH NODES: No pathologic sized lymph nodes in the abdomen or pelvis. No inguinal lymphadenopathy. BLADDER AND PELVIC VISCERA: Urinary bladder is normal. Prostate gland is unremarkable. No pelvic free fluid. OTHER MUSCULOSKELETAL: Degenerative disc space narrowing and vacuum disc phenomenon at L5-S1. No suspicious osseous lesions. CT/CT abdomen pelvis wo IV con IMPRESSION: * No evidence of pneumonia. * There are scattered linear opacities of platelike atelectasis in the lower lung zones. * Diffuse hepatic steatosis. * No acute imaging abnormalities in the abdomen or pelvis.
--- NOTE | ~2023-01-15 | XR_ITS ---
EXAMINATION: XR CHEST CLINICAL INFORMATION: Shortness of breath, rule out pneumonia COMPARISON: 12/05/2022 TECHNIQUE: Frontal view of the chest was obtained. FINDINGS: There is mild elevation of the right hemidiaphragm, similar to prior. No focal consolidation is seen. No evidence of pneumothorax, pleural effusion, or pulmonary edema. The cardiomediastinal contour is unremarkable. No acute osseous findings are seen. XR/XR chest 1V IMPRESSION: No acute cardiopulmonary findings.
--- NOTE | 2023-01-15 01:15 | ED.SOB ---
HPI - SOB/Dyspnea General Chief Complaint: Dyspnea Stated Complaint: Trouble Breathing, cough Time Seen by Provider: 01/15/23 01:11 Source: patient Mode of arrival: ambulatory Limitations: language barrier (court interpreter used) History of Present Illness HPI Narrative: 47-year-old male with history of asthma and obstructive sleep apnea wearing BiPAP at night who presents emergency department for evaluation of asthma exacerbation, increased cough and shortness of breath. Patient speaks Romanian only, the patient was difficult to comprehend in Romanian according to the court interpreter. Patient states that his asthma has been acting up for the past 2 days and he felt short of breath today. He did not use is albuterol at home. Patient complained of chest pain. Points to his sternum. The pain is a pressure-like pain. Pain is been constant for 2 days. Patient was found to be hypoxic at triage with an O2 saturation of 85% on room air. The patient states he does wear oxygen at home but could not tell me how many L of oxygen he normally uses. Related Data Home Medications Medication Instructions Recorded Confirmed CPAP (CPAP Machine/Device) 06/07/22 11/18/22 nebulizers 06/07/22 11/18/22 Previous Rx's Medication Instructions Recorded ibuprofen 600 mg tablet 600 mg PO Q8H PRN pain #30 tabs 06/23/20 albuterol sulfate 90 mcg/actuation 2 inh inhalation Q6H PRN shortness 10/23/20 aerosol inhaler of breath or wheezing 30 days #8.5 grams fluticasone furoate 200 1 inh inhalation DAILY 30 days #60 02/02/21 mcg-vilanterol 25 mcg/dose ea inhalation powder (Breo Ellipta) albuterol sulfate 2.5 mg/3 mL 2.5 mg (3 mL) inhalation Q6H PRN 06/30/21 (0.083 %) solution for nebulization shortness of breath or wheezing 30 days #180 mL benzonatate 200 mg capsule 200 mg PO BID PRN cough 30 days 06/30/21 #45 caps Allergies Allergy/AdvReac Type Severity Reaction Status Date / Time No Known Allergies* Allergy Unknown Uncoded 01/15/23 01:19 Review of Systems Review of Systems: Yes all other systems are reviewed and are negative PMFSH Past Medical History Medical History Asthma Chest pain Chronic allergic rhinitis Cough No known health problems MARK on CPAP MARK treated with BiPAP Family History Family History Other Asthma Social History Social History Alcohol intake: unknown Patient Tobacco Use Status: Never used Tobacco Advance Directives: No Advance Directives Information Provided: Yes Physical Exam Vital Signs: Vital Signs: Last Vital Signs Temp 98.3 F 01/15/23 06:00 Pulse 105 H 01/15/23 08:03 Resp 17 01/15/23 08:03 BP 129/85 01/15/23 08:03 Pulse Ox 94 01/15/23 08:03 O2 Del Method CPAP 01/15/23 08:03 BMI result Body Mass Index 36.3 Vital signs revealed an elevated blood pressure of 145/77, elevated heart rate of 105, elevated respiratory rate of 28. O2 saturation on room air was 85%. On 4 L O2 saturation was 92% General: Patient is somnolent but arousable, he has a snoring respiration and falls asleep during my interview. HEENT: Patient's mouth revealed moist membranes, no erythema or exudates, Lungs: Breath sounds symmetric bilaterally, diffuse wheezing, no rhonchi Abdomen: Soft, nontender nondistended, normoactive bowel sounds, obese Back: No CVA tenderness Neuro: Nonfocal Medications Administered Discontinued Medications Generic Name Dose Route Start Last Admin Trade Name Freq PRN Reason Stop Dose Admin Albuterol Sulfate 7.5 mg 01/15/23 01:15 01/15/23 01:27 Albuterol Sulfate (0.083%) 2.5 Mg/3 Ml Vial.Neb INHALE 01/15/23 01:16 7.5 mg ONCE ONE Administration Ceftriaxone Sodium 1 gm/ 50 mls @ 100 mls/hr 01/15/23 03:02 01/15/23 04:12 Sodium Chloride IV 01/15/23 03:31 Infused ONCE STA Infusion Azithromycin 500 mg/ Sodium 250 mls @ 125 mls/hr 01/15/23 03:02 01/15/23 06:05 Chloride IV 01/15/23 05:01 Infused ONCE ONE Infusion Ketorolac Tromethamine 15 mg 01/15/23 02:54 01/15/23 03:41 Ketorolac Tromethamine 15 Mg/Ml Vial IVPUSH 01/15/23 02:55 15 mg ONCE STA Administration Methylprednisolone Sodium Succinate 125 mg 01/15/23 03:02 01/15/23 03:47 Methylprednisolone Sod Succ 125 Mg/2 Ml Vial IVPUSH 01/15/23 03:03 125 mg ONCE ONE Administration Medical Decision Making Medical Decision Making MDM Narrative: 47-year-old male with history of asthma and obstructive sleep apnea uses BiPAP at night and wears oxygen secondary to hypoxia, who presents emergency department for evaluation of chest pain and asthma exacerbation with chronic cough which is gotten worse. Patient's presentation did reveal an elevated respiratory rate with hypoxia O2 saturation of 85% on room air. Lung exam did reveal diffuse wheezing but symmetric breath sounds with no rales or rhonchi. I ordered a laboratory evaluation to include CBC, CMP, troponin, COVID-19, coags, chest x-ray and EKG. I ordered an albuterol nebulizer 7.5 mg , Solu-Medrol, Toradol 15 mg IV. 0301: My interpretation of patient's labs are as follows: CBC was normal. CMP revealed an elevated bicarb of 30, elevated glucose of 118. COVID-19 was negative. Coags were negative. High sensitive troponin I was below detectable limits Chest x-ray revealed no acute disease 12 EKG revealed sinus tachycardia otherwise was unremarkable. Patient did improve with the albuterol and sign mental treatment. Patient's presentation is consistent with an asthma exacerbation, given his sleep apnea and hypoxia, I ordered ceftriaxone 1 g IV and azithromycin 500 mg IV. Patient will be placed on auto CPAP and I will discuss admission with the covering hospitalist. 0815: The hospitalist, Dr. Baldwin did evaluate the patient and felt that the patient was extremely somnolent and ordered an ABG. The patient was on BiPAP insert very pressor 20 expiratory pressure 8 O2 sat 40% with a rate of 16. The 1st ABG 7.30, pCO2 of 71, PO2 of 56 with a bicarb of 35. Patient was kept on BiPAP for several hours and repeat ABG was pH 7.31, pCO2 60, O2 sat 82%, bicarb 30. Patient is still somnolent. I will discuss management with the leather fitter. 0842: I did discuss the patient with the covering leather fitter, Dr. De Leon. After discussion, I ordered a urine straight cath for urinalysis and urine tox screen. I ordered a CT scan of the head, cervical spine, chest, abdomen pelvis without IV contrast. At this time, there is no nurse to staff another unit bed and Dr. De Leon will attempt to get a increase nurse staffing to take the patient into the intensive care unit. Therefore, at the end of my shift, the patient's care was turned over to my colleague, Dr. Barcenas. Differential Diagnosis Differential diagnosis includes but is not limited to pneumonia, bronchitis, congestive heart failure, asthma exacerbation Admission/Observation Consideration of admission/observation: Escalation of care including admission/observation considered Consult Healthcare Provider Management of the patient was discussed with: Hospitalist Lab Data [facility] Lab Attestation statement: I reviewed the patient's lab results. See MDM 01/15/23 01:28 01/15/23 01:27 Labs: Lab Results 01/15/23 01/15/23 01/15/23 Range/Units 01:27 01:27 01:27 WBC (4.8-10.8) X10*3/uL RBC (4.60-5.80) X10*6/uL Hgb (14.0-18.0) g/dl Hct (42.0-52.0) % MCV (80.0-98.0) fL MCH (27.0-33.0) pg MCHC (31.0-36.0) g/dl RDW (11.0-16.0) % Plt Count (160-400) X10*3/uL MPV (9.4-12.4) fL Immature Gran % (Auto) (0.0-0.4) % Neut % (Auto) (45-73) % Lymph % (Auto) (20-40) % [place] % (Auto) (2-11) % Eos % (Auto) (0-4) % Baso % (Auto) (0-2) % Lymph # (Auto) (1.2-4.9) X10*3/uL [place] # (Auto) (0.1-1.2) X10*3/uL Eos # (Auto) (0.0-0.4) X10*3/uL Baso # (Auto) (0.0-0.2) X10*3/uL Abs Immat Gran (auto) (0.00-0.03) X10*3/uL Absolute Neuts (auto) (2.0-8.3) x10*3/uL Absolute Nucleated RBC (0.0-0.012) X10*3/uL Nucleated RBC % (auto) (0.0-0.2) /100WBC PT (10.0-13.1) SEC INR (0.9-1.1) APTT (26.0-36.4) SEC O2 Saturation % ABG pH at Pt Temp (7.35-7.45) ABG pCO2 at Pt Temp (32-45) mmHg ABG pO2 at Pt Temp (83-108) mmHg ABG HCO3 (22-26) mmol/L ABG Base Excess (Actual) mmol/L Sodium 142 (135-145) mmol/L Potassium 4.0 (3.3-5.1) mmol/L Chloride 104 (96-108) mmol/L Carbon Dioxide 30 H (22-29) mmol/L Anion Gap 12 (12-20) BUN 18 H (9-16) mg/dL Creatinine 0.91 (0.5-1.4) mg/dL Estim Creat Clear Calc 111.0 Estimated GFR > 60 Random Glucose 118 H (60-115) mg/dL Lactic Acid 1.1 (0.5-2.0) mmol/L Calcium 9.2 (8.4-10.2) mg/dL Total Bilirubin 0.4 (0.0-1.0) mg/dL AST 26 (5-37) U/L ALT 46 H (0-40) U/L Alkaline Phosphatase 103 (39-117) U/L Troponin I High Sens (<3.5-35.0) ng/L B-Natriuretic Peptide < 10 (<100) pg/mL Total Protein 6.5 (6.5-8.0) g/dL Albumin 3.9 (3.5-5.0) g/dL Lipase 31 (8-78) U/L COVID-19 (GENEVIEVE) (Negative) COVID-19 Clin Com 01/15/23 01/15/23 01/15/23 Range/Units 01:27 01:27 01:28 WBC 9.0 (4.8-10.8) X10*3/uL RBC 5.67 (4.60-5.80) X10*6/uL Hgb 16.0 (14.0-18.0) g/dl Hct 49.2 (42.0-52.0) % MCV 86.8 (80.0-98.0) fL MCH 28.2 (27.0-33.0) pg MCHC 32.5 (31.0-36.0) g/dl RDW 13.6 (11.0-16.0) % Plt Count 177 (160-400) X10*3/uL MPV 10.7 (9.4-12.4) fL Immature Gran % (Auto) 0.2 (0.0-0.4) % Neut % (Auto) 64.1 (45-73) % Lymph % (Auto) 20.8 (20-40) % [place] % (Auto) 9.6 (2-11) % Eos % (Auto) 4.6 H (0-4) % Baso % (Auto) 0.7 (0-2) % Lymph # (Auto) 1.9 (1.2-4.9) X10*3/uL [place] # (Auto) 0.9 (0.1-1.2) X10*3/uL Eos # (Auto) 0.4 (0.0-0.4) X10*3/uL Baso # (Auto) 0.1 (0.0-0.2) X10*3/uL Abs Immat Gran (auto) 0.02 (0.00-0.03) X10*3/uL Absolute Neuts (auto) 5.8 (2.0-8.3) x10*3/uL Absolute Nucleated RBC 0.000 (0.0-0.012) X10*3/uL Nucleated RBC % (auto) 0.0 (0.0-0.2) /100WBC PT 12.0 (10.0-13.1) SEC INR 1.0 (0.9-1.1) APTT 31.7 (26.0-36.4) SEC O2 Saturation % ABG pH at Pt Temp (7.35-7.45) ABG pCO2 at Pt Temp (32-45) mmHg ABG pO2 at Pt Temp (83-108) mmHg ABG HCO3 (22-26) mmol/L ABG Base Excess (Actual) mmol/L Sodium (135-145) mmol/L Potassium (3.3-5.1) mmol/L Chloride (96-108) mmol/L Carbon Dioxide (22-29) mmol/L Anion Gap (12-20) BUN (9-16) mg/dL Creatinine (0.5-1.4) mg/dL Estim Creat Clear Calc Estimated GFR Random Glucose (60-115) mg/dL Lactic Acid (0.5-2.0) mmol/L Calcium (8.4-10.2) mg/dL Total Bilirubin (0.0-1.0) mg/dL AST (5-37) U/L ALT (0-40) U/L Alkaline Phosphatase (39-117) U/L Troponin I High Sens < 2.7 (<3.5-35.0) ng/L B-Natriuretic Peptide (<100) pg/mL Total Protein (6.5-8.0) g/dL Albumin (3.5-5.0) g/dL Lipase (8-78) U/L COVID-19 (GENEVIEVE) (Negative) COVID-19 Clin Com 01/15/23 01/15/23 01/15/23 Range/Units 01:29 03:55 07:59 WBC (4.8-10.8) X10*3/uL RBC (4.60-5.80) X10*6/uL Hgb (14.0-18.0) g/dl Hct (42.0-52.0) % MCV (80.0-98.0) fL MCH (27.0-33.0) pg MCHC (31.0-36.0) g/dl RDW (11.0-16.0) % Plt Count (160-400) X10*3/uL MPV (9.4-12.4) fL Immature Gran % (Auto) (0.0-0.4) % Neut % (Auto) (45-73) % Lymph % (Auto) (20-40) % [place] % (Auto) (2-11) % Eos % (Auto) (0-4) % Baso % (Auto) (0-2) % Lymph # (Auto) (1.2-4.9) X10*3/uL [place] # (Auto) (0.1-1.2) X10*3/uL Eos # (Auto) (0.0-0.4) X10*3/uL Baso # (Auto) (0.0-0.2) X10*3/uL Abs Immat Gran (auto) (0.00-0.03) X10*3/uL Absolute Neuts (auto) (2.0-8.3) x10*3/uL Absolute Nucleated RBC (0.0-0.012) X10*3/uL Nucleated RBC % (auto) (0.0-0.2) /100WBC PT (10.0-13.1) SEC INR (0.9-1.1) APTT (26.0-36.4) SEC O2 Saturation 84.0 95.0 % ABG pH at Pt Temp 7.30 L 7.31 L (7.35-7.45) ABG pCO2 at Pt Temp 71 H* 60 H* (32-45) mmHg ABG pO2 at Pt Temp 56 L 82 L (83-108) mmHg ABG HCO3 35 H 30 H (22-26) mmol/L ABG Base Excess (Actual) 5.9 2.5 mmol/L Sodium (135-145) mmol/L Potassium (3.3-5.1) mmol/L Chloride (96-108) mmol/L Carbon Dioxide (22-29) mmol/L Anion Gap (12-20) BUN (9-16) mg/dL Creatinine (0.5-1.4) mg/dL Estim Creat Clear Calc Estimated GFR Random Glucose (60-115) mg/dL Lactic Acid (0.5-2.0) mmol/L Calcium (8.4-10.2) mg/dL Total Bilirubin (0.0-1.0) mg/dL AST (5-37) U/L ALT (0-40) U/L Alkaline Phosphatase (39-117) U/L Troponin I High Sens (<3.5-35.0) ng/L B-Natriuretic Peptide (<100) pg/mL Total Protein (6.5-8.0) g/dL Albumin (3.5-5.0) g/dL Lipase (8-78) U/L COVID-19 (GENEVIEVE) Negative (Negative) COVID-19 Clin Com See Note Independent Interpretation I performed an independent interpretation of an: EKG Interpretation: My interpretation of the patient's 12 lead EKG done at 02:03 hours is as follows: Sinus tachycardia with rate of 113, normal MO interval, QRS duration QTC interval, no ST segment elevation, no ST segment depression, no PACs, no PVCs, no T-wave abnormalities Radiology Impression Discussion of test interpretation with radiology: I have reviewed the radiologist's reading. Radiologist Impression: XR chest 1V IMPRESSION: No acute cardiopulmonary findings. Dictated By:Phan Bowers MD Discharge Plan Discharge Clinical Impression: Chest pain, Asthma exacerbation, Bronchitis, Lethargic, Obstructive sleep apnea Patient Disposition: Still a Patient Prescriptions: No Action ibuprofen 600 mg tablet 600 mg PO Q8H PRN (Reason: pain) Qty: 30 0RF albuterol sulfate 90 mcg/actuation HFA aerosol inhaler 2 inh inhalation Q6H PRN (Reason: shortness of breath or wheezing) 30 Days Qty: 8.5 12RF Breo Ellipta 200-25 mcg/dose blister with device 1 inh inhalation DAILY 30 Days Qty: 60 11RF (DME) CPAP Machine/Device Device See Rx Instructions .Route Rx Instructions: As directed (DME) nebulizers Misc See Rx Instructions .Route Rx Instructions: As directed albuterol sulfate 2.5 mg /3 mL (0.083 %) solution for nebulization 2.5 mg inhalation Q6H PRN (Reason: shortness of breath or wheezing) 30 Days Qty: 180 11RF benzonatate 200 mg capsule 200 mg PO BID PRN (Reason: cough) 30 Days Qty: 45 3RF
--- NOTE | 2023-01-15 01:16 | ECG_ITS ---
Test Reason : dyspnea Blood Pressure : / mmHG Vent. Rate : 113 BPM Atrial Rate : 113 BPM P-R Int : 120 ms QRS Dur : 094 ms QT Int : 336 ms P-R-T Axes : 025 027 037 degrees QTc Int : 460 ms Sinus tachycardia Otherwise normal ECG When compared with ECG of 05-DEC-2022 19:07, No significant change was found Referred By: Zachariah Pickering Electronically Signed By:RITO MARSH MD
[2023-01-15] MEDS: Albuterol Sulfate (0.083%) 2.5 MG/3 ML VIAL.NEB 7.5 MG INHALE (01:27)
[2023-01-15 01:35] LABS: MANUAL DIFF FLAG NO
[2023-01-15 01:37] LABS: Basophils Absolute Auto 0.1 X10*3/uL (0.0-0.2); Basophils Percent Auto 0.7 % (0-2); Eosinophils Absolute Auto 0.4 X10*3/uL (0.0-0.4); Eosinophils Percent Auto 4.6 % (0-4); Hematocrit 49.2 % (42.0-52.0); Imm Gran Abs Auto 0.02 X10*3/uL (0.00-0.03); Imm Gran Pct Auto 0.2 % (0.0-0.4); Lymphocytes Absolute Auto 1.9 X10*3/uL (1.2-4.9); Lymphocytes Percent Auto 20.8 % (20-40); Mean Corpuscular HGB Conc 32.5 g/dl (31.0-36.0); Mean Corpuscular Hemoglobin 28.2 pg (27.0-33.0); Mean Corpuscular Volume 86.8 fL (80.0-98.0); Mean Platelet Volume 10.7 fL (9.4-12.4); Monocytes Absolute Auto 0.9 X10*3/uL (0.1-1.2); Monocytes Percent Auto 9.6 % (2-11); Neutrophils Absolute Auto 5.8 x10*3/uL (2.0-8.3); Neutrophils Percent Auto 64.1 % (45-73); Platelet Count 177 X10*3/uL (160-400); Red Blood Count 5.67 X10*6/uL (4.60-5.80); Red Cell Distribution Width 13.6 % (11.0-16.0)
[2023-01-15 01:45] LABS: Lactic Acid 1.1 mmol/L (0.5-2.0)
[2023-01-15 01:46] LABS: Partial Thromboplastin Time 31.7 SEC (26.0-36.4)
[2023-01-15 01:49] LABS: Alanine Aminotransferase 46 U/L (0-40); Albumin Level 3.9 g/dL (3.5-5.0); Alkaline Phosphatase 103 U/L (39-117); Anion Gap 12 (12-20); Aspartate Amino Transferase 26 U/L (5-37); Bilirubin Total 0.4 mg/dL (0.0-1.0); Blood Urea Nitrogen 18 mg/dL (9-16); Calcium 9.2 mg/dL (8.4-10.2); Carbon Dioxide 30 mmol/L (22-29); Chloride 104 mmol/L (96-108); Estimated Glomerular Filt Rate > 60; Glucose Random 118 mg/dL (60-115); Lipase 31 U/L (8-78); Sodium 142 mmol/L (135-145); Total Protein 6.5 g/dL (6.5-8.0)
[2023-01-15 01:56] LABS: B Type Natriuretic Peptide < 10 pg/mL (<100)
[2023-01-15 02:00] LABS: Troponin-I High Sensitivity < 2.7 ng/L (<3.5-35.0)
[2023-01-15 02:08] LABS: COVID-19 Test Negative (Negative); IDNOW Serial# 08D9AD1C
--- NOTE | 2023-01-15 02:45 | PC.NURSE ---
Respiratory therapist at bedside placing Pt on c-pap.
--- NOTE | 2023-01-15 03:00 | PC.NURSE ---
Addendum entered by Sally Lee 01/15/23 07:17: Lung sounds diminished. Original Note: Pt arousable to to tactile stimulation, awakens and falls back to sleep. Pt able to point to upper ABD and rates pain 6/10. IV line established. Pt tachycardic on bedside monitor, RR 24.
[2023-01-15] MEDS: cefTRIAXone sodium 1 GM in 0.9 % Sodium Chloride 50 ML IV (03:40)
[2023-01-15] MEDS: Ketorolac Tromethamine 15 MG/ML VIAL IVPUSH (03:41)
[2023-01-15] MEDS: methylPREDNISolone Sod Succ 125 MG/2 ML VIAL IVPUSH (03:47)
--- NOTE | 2023-01-15 03:56 | PC.NURSE ---
Contacted respiratory therapy for ABG draw per Dr. Canales.
[2023-01-15 04:05] LABS: ABG Base Excess 5.9 mmol/L; ABG HCO3 35 mmol/L (22-26); ABG pCO2 71 mmHg (32-45); ABG pO2 56 mmHg (83-108)
[2023-01-15] MEDS: Azithromycin 500 MG in 0.9 % Sodium Chloride 250 ML 125 MG IV (04:05)
--- NOTE | 2023-01-15 04:13 | PC.NURSE ---
Pt O2 sat 84% on c-pap contacted Dr. Canales. Pt sat up in bed and sat improved to 98%. Will CTM.
[2023-01-15 04:41] LABS: ABG Refer to POC result
--- NOTE | 2023-01-15 08:00 | PC.NURSE ---
BiPaP settings: Rate: 17 Vt: 354 mL Ve: 5.8 L/min PIP: 23 cmH2O Pt Leak: 5 L/min Pt Tri% Ti/TTot: 22% IPAP: [id number] EPAP: 8 cmH2O O2: 40%
[2023-01-15 08:03] LABS: ABG Refer to POC result
[2023-01-15 08:08] LABS: ABG Base Excess 2.5 mmol/L; ABG HCO3 30 mmol/L (22-26); ABG pCO2 60 mmHg (32-45); ABG pH 7.31 (7.35-7.45); ABG pO2 82 mmHg (83-108)
--- NOTE | 2023-01-15 09:20 | PC.NURSE ---
pt resting at this time, BiPap settings 20/8, 16 RR @ 40% O2. Satting 95% sinus tach on monitor 110.
--- NOTE | 2023-01-15 09:28 | PM.CCHP ---
History of Present Illness Date of Service: 01/15/23 Attending physician on admission: Ray De Leon Chief Complaint: Increasing dyspnea 47-year-old with longstanding known chronic lung disease mainly asthma on albuterol not steroid dependent and apparently not oxygen dependent at home presented with altered mental status increasing dyspnea and apparently by blood gas acute on chronic hypercarbic/hypoxic respiratory failure with an unchanged chest x-ray no evidence of infiltrate just active wheezing and has been now close to 5 hours on BiPAP and is pCO2 in the low 70s is now in the low 60s pH is 7.31 but the patient remains unarousable sitting up with an obese abdomen has a BMI of 36 and I performed bedside echo showing normal anatomy normal left ventricular dimension slightly hyperdynamic probably between 60 and 70% ejection fraction all valves clean well opening no significant regurgitation and no primary pericardial disease normal right ventricular dimension and systolic function as well He has no fever no white count no history of productive cough Review of Systems Review of Systems: Yes Unobtainable due to mental status PMFSH Past Medical History Medical History (Updated 01/15/23 @ 09:35 by Ray De Leon MD) Asthma Chest pain Chronic allergic rhinitis Cough Moderate obesity No known health problems MARK on CPAP MARK treated with BiPAP Family History Family History Other Asthma Social History Social History Alcohol intake: unknown Patient Tobacco Use Status: Never used Tobacco Advance Directives: No Advance Directives Information Provided: Yes Meds Allergies Allergy/AdvReac Type Severity Reaction Status Date / Time No Known Allergies* Allergy Unknown Uncoded 01/15/23 01:19 Home Medications Medication Instructions Recorded Confirmed Last Taken Type CPAP (CPAP Machine/Device) 06/07/22 11/18/22 Unknown History nebulizers 06/07/22 11/18/22 Unknown History Physical Exam Vital Signs: Vital Signs: Last Vital Signs Temp 98.3 F 01/15/23 06:00 Pulse 105 H 01/15/23 08:03 Resp 17 01/15/23 08:03 BP 129/85 01/15/23 08:03 Pulse Ox 94 01/15/23 08:03 O2 Del Method CPAP 01/15/23 08:03 BMI result Body Mass Index 36.3 Normal vital signs and normal sinus rhythm Very lethargic he is arousable but have to shake and shout Abdomen obese but no tenderness no organomegaly Chest with diminished bilateral breath sounds currently very minimal end-expiratory wheeze no accessory muscle use Clearly has chronic bilateral peripheral edema with residual 2+ pretibial edema Results Labs 01/15/23 01:28 01/15/23 01:27 Labs: Laboratory Results - last 24 hr 01/15/23 01/15/23 01/15/23 01:27 01:27 01:27 MCV MCH MCHC RDW Plt Count MPV Immature Gran % (Auto) Neut % (Auto) Lymph % (Auto) [place] % (Auto) Eos % (Auto) Baso % (Auto) Lymph # (Auto) [place] # (Auto) Eos # (Auto) Baso # (Auto) Abs Immat Gran (auto) Absolute Neuts (auto) Absolute Nucleated RBC Nucleated RBC % (auto) PT INR APTT O2 Saturation ABG pH at Pt Temp ABG pCO2 at Pt Temp ABG pO2 at Pt Temp ABG HCO3 ABG Base Excess (Actual) Anion Gap 12 Estim Creat Clear Calc 111.0 Estimated GFR > 60 Random Glucose 118 H Lactic Acid 1.1 Calcium 9.2 Total Bilirubin 0.4 AST 26 ALT 46 H Alkaline Phosphatase 103 Troponin I High Sens B-Natriuretic Peptide < 10 Total Protein 6.5 Albumin 3.9 Lipase 31 COVID-19 (GENEVIEVE) COVID-19 Clin Com 01/15/23 01/15/23 01/15/23 01:27 01:27 01:28 MCV 86.8 MCH 28.2 MCHC 32.5 RDW 13.6 Plt Count 177 MPV 10.7 Immature Gran % (Auto) 0.2 Neut % (Auto) 64.1 Lymph % (Auto) 20.8 [place] % (Auto) 9.6 Eos % (Auto) 4.6 H Baso % (Auto) 0.7 Lymph # (Auto) 1.9 [place] # (Auto) 0.9 Eos # (Auto) 0.4 Baso # (Auto) 0.1 Abs Immat Gran (auto) 0.02 Absolute Neuts (auto) 5.8 Absolute Nucleated RBC 0.000 Nucleated RBC % (auto) 0.0 PT 12.0 INR 1.0 APTT 31.7 O2 Saturation ABG pH at Pt Temp ABG pCO2 at Pt Temp ABG pO2 at Pt Temp ABG HCO3 ABG Base Excess (Actual) Anion Gap Estim Creat Clear Calc Estimated GFR Random Glucose Lactic Acid Calcium Total Bilirubin AST ALT Alkaline Phosphatase Troponin I High Sens < 2.7 B-Natriuretic Peptide Total Protein Albumin Lipase COVID-19 (GENEVIEVE) COVID-19 [facility] (f. [employer]) Com 01/15/23 01/15/23 01/15/23 01:29 03:55 07:59 MCV MCH MCHC RDW Plt Count MPV Immature Gran % (Auto) Neut % (Auto) Lymph % (Auto) [place] % (Auto) Eos % (Auto) Baso % (Auto) Lymph # (Auto) [place] # (Auto) Eos # (Auto) Baso # (Auto) Abs Immat Gran (auto) Absolute Neuts (auto) Absolute Nucleated RBC Nucleated RBC % (auto) PT INR APTT O2 Saturation 84.0 95.0 ABG pH at Pt Temp 7.30 L 7.31 L ABG pCO2 at Pt Temp 71 H* 60 H* ABG pO2 at Pt Temp 56 L 82 L ABG HCO3 35 H 30 H ABG Base Excess (Actual) 5.9 2.5 Anion Gap Estim Creat Clear Calc Estimated GFR Random Glucose Lactic Acid Calcium Total Bilirubin AST ALT Alkaline Phosphatase Troponin I High Sens B-Natriuretic Peptide Total Protein Albumin Lipase COVID-19 (GENEVIEVE) Negative COVID-19 [facility] (f. [employer]) Com See Note Imaging Radiologist's Impressions: Impressions Chest X-Ray 01/15/23 01:27 IMPRESSION: No acute cardiopulmonary findings. Assessment and Plan (1) Chest pain: Status: Acute (2) Status asthmaticus with COPD (chronic obstructive pulmonary disease): Status: Acute (3) COVID-19: Status: Acute (4) MARK treated with BiPAP: Status: Acute (5) Obstructive sleep apnea: Status: Acute (6) Lethargic: Status: Acute (7) Bronchitis: Status: Acute (8) Asthma exacerbation: Status: Acute (9) Asthma: Qualifiers: Asthma severity: moderate Asthma persistence: persistent Asthma complication type: uncomplicated Qualified Code(s): J45.40 - Moderate persistent asthma, uncomplicated Status: Acute (10) Moderate obesity: Status: Acute (11) Altered mental status: Status: Acute (12) Metabolic encephalopathy: Status: Acute Plan With persistent altered mental status despite a reasonable pH of over 7.3 and just a mild increase from his chronic state of pCO2 elevation my gauge is living at 50 to 55 it is currently 63 that could be a component of some cerebral edema from the CO2 retention but were going to get a urine tox screen and maybe empiric cultures check a sedimentation rate CRP D-dimer inflammatory markers because of previous COVID and and a culturing process as well Time Spent With Patient Time: Total time managing care of this patient today _60___ minutes.
[2023-01-15 10:27] LABS: Appearance Urine Turbid; Color Urine Yellow; Glucose Urine UA Negative (Negative); Leukocyte Esterase Urine Negative (Negative); Nitrite Urine Negative (Negative); PH 5.5 (5.0-9.0); Specific Gravity - Urine >= 1.030 (1.005-1.025); UMIC TRIGGER UACC YES; Urine Blood Negative (Negative); Urine Ketones Negative (Negative); Urine Protein 30 (1+) mg/dL (Neg-Trace)
[2023-01-15] MEDS: KCl 20 mEq in 5% Dex/0.45% Sod 20 MEQ/1,000 ML IV.SOLN 80 MEQ IVCONT (10:29)
[2023-01-15 10:30] LABS: Bacteria Urine None Seen (None Seen); Hyaline Casts Urine 0-2 /LPF (0-2); RBC Urine 0-2 /HPF (0-2); Squamous Epithelial Cell Urine 0-2 /HPF (0-2); WBC Urine 0-5 /HPF (0-5)
--- NOTE | 2023-01-15 10:33 | PC.NURSE ---
pt remains on BIPAP, arousable to loud verbal stimuli and answerers yes/no questions. Pt quickly falls back to sleep after arousing. Labs/BCs/urine sent to lab. KCL/5%dex/.45% NS hanging per MAR. will cont to monitor.
[2023-01-15 10:34] LABS: D Dimer High Sensitivity 155 NG/ML
[2023-01-15 10:36] LABS: Amphetamine Screen Urine Not Detected (Not Detect); Barbiturates, Urine Not Detected (Not Detect); Benzodiazepines Screen Urine Not Detected (Not Detect); Cannabinoid Screen Urine Not Detected (Not Detect); Cocaine Screen Urine Not Detected (Not Detect); Fentanyl, urine Not Detected (Not Detect); Opiate Screen Urine Not Detected (Not Detect); Phencyclidine Screen Urine Not Detected (Not Detect)
[2023-01-15 11:01] LABS: Ferritin 75 ng/mL (20-250); Procalcitonin 0.02 ng/mL
[2023-01-15 11:23] LABS: Erythrocyte Sedimentation Rate 10 MM/HR (0-15)
--- NOTE | 2023-01-15 11:49 | PHA.MEDREC ---
Pharmacy Consult ? Medication Reconciliation Pharmacy has completed the medication reconciliation. Spoke to patient's spouse to confirm meds. Patient's spouse states that patient only takes albuterol and Breo Ellipta inhalers. Does not take any other meds outside of OTC Tylenol.
[2023-01-15 11:54] LABS: Venous Blood Gas Refer to POC result
[2023-01-15 11:57] LABS: VBG Base Excess 1.5 mmol/L; VBG HCO3 29 mmol/L (22-26); VBG pCO2 55 mmHg; VBG pH 7.32 (7.32-7.43); VBG pO2 96 mmHg
--- NOTE | 2023-01-15 12:05 | PC.NURSE ---
pt much more awake and arousable than earlier today, sitting up and wide awake. Resp here for updraft treatment. MD said to try and switch to NC after updraft to see how pt does without BIPAP. No pain reported Mari at bedside.
[2023-01-15] MEDS: Albuterol/Iprat 2.5/0.5MG 3 ML AMPUL.NEB INHALE ×4 (12:08→23:13)
--- NOTE | 2023-01-15 12:31 | PC.NURSE ---
pt has been switched to Oxymask at 3L per MD and Resp
--- NOTE | 2023-01-15 13:18 | PM.EVENT ---
Event Note Date of Service: 01/15/23 Event Note: This is a 47-year-old male with history of asthma who presented to the emergency department with shortness of breath found to have acute on chronic hypercarbic respiratory failure. Due to lethargy and elevated pCO2, the patient was placed on bipap and admitted to the ICU. He was treated with systemic steroids, empiric antibiotics and after a period of time on BiPAP his repeat ABG showed improvement in pCO2 and patient more awake and alert. Being downgraded to the medical service for further management of asthma exacerbation. Rec high flow o2 to start during the day and nocturnal bipap Time Spent With Patient Time: Total time managing care of this patient today ____ minutes.
[2023-01-15 13:28] LABS: ABG Refer to POC result
[2023-01-15 13:30] LABS: ABG Base Excess 0.8 mmol/L; ABG HCO3 27 mmol/L (22-26); ABG pCO2 48 mmHg (32-45); ABG pH 7.35 (7.35-7.45); ABG pO2 76 mmHg (83-108)
--- NOTE | 2023-01-15 14:13 | PC.NURSE ---
pt periodically desats to mid 80s. Once encouraged to stay awake and to take deep breahts his O2 returns to mid 90s. Settings currently Oxymask at 4L
[2023-01-15] MEDS: methylPREDNISolone Sod Succ 40 MG/ML VIAL IVPUSH (14:29)
[2023-01-15 15:14] LABS: Glucose, Whole Blood 202 mg/dL (60-115)
--- NOTE | 2023-01-15 16:03 | PC.NURSE ---
pt awake, alert and talking ot family. IV cont to run per NOV. O2 currently 95% Oxymask 4L.
[2023-01-16] VITALS (12 sets, daily range): BP systolic 119–142; BP diastolic 58–77; PULSE 97–121; RESP 18–24; TEMP 36.4–37; O2SAT 93–98
[2023-01-16] MEDS: methylPREDNISolone Sod Succ 40 MG/ML VIAL IVPUSH ×2 (02:05→14:29)
[2023-01-16] MEDS: Albuterol/Iprat 2.5/0.5MG 3 ML AMPUL.NEB INHALE ×5 (04:49→19:16)
--- NOTE | 2023-01-16 08:32 | MHC.CM.PN ---
IMM DELIVERED CM MET WITH PT AND SPECIAL EDUCATION ASSISTANT. LIVES WITH SPOUSE IN AN APT. USES CANE/ WALKER AT TIMES FOR MOBILITY. USES C-PAP FOR SLEEP. PT STATES HE HAS A HCP NAMING HIS , BELIEVES PCP OFFICE HAS COPY. PCP AT [facility] (MAXINE VENTURA) COPY REQUESTED. NO COVID VAX. DP: HOME WITH NO SERVICES ANTICIPATED. SPOUSE WILL TRANSPORT. CM WILL CONTINUE TO FOLLOW FOR DC NEEDS.
--- NOTE | 2023-01-16 10:42 | HO.PM.IMPN ---
Subjective Subjective Date of Service: 01/16/23 Review of Systems Follow up asthma exacerbation feeling better oxymask on Physical Exam Vital Signs: Vital Signs: Last Vital Signs Temp 98.0 F 01/16/23 07:09 Pulse 112 H 01/16/23 07:30 Resp 20 01/16/23 07:30 BP 135/77 01/16/23 07:09 Pulse Ox 97 01/16/23 07:09 O2 Del Method Oxymask 01/16/23 07:09 O2 Flow Rate 9 01/16/23 07:09 BMI result Body Mass Index 36.3 Appearing in no acute distress lung sounds mild exp wheezing heart regular rate rhythm, clear S1, S2 positive bowel sounds, abdomen is soft, nontender neuro patient is alert x3, no focal deficits Objective Data Active Medications Albuterol/Ipratropium (Albuterol/Iprat 2.5/0.5mg 3 Ml Ampul.Neb) 3 ml INHALE RQ4H [facility] Last Admin: 01/16/23 07:30 Dose: 3 ml Documented By: JEANE Albuterol/Ipratropium (Albuterol/Iprat 2.5/0.5mg 3 Ml Ampul.Neb) 3 ml INHALE RQ6H WHILE AWAKE PRN PRN Reason: Shortness of Breath/Wheezing Potassium Chloride/Dextrose/Sod Cl (Kcl 20 Meq In 5% Dex/0.45% Sod) 20 meq in 1,000 mls @ 80 mls/hr IVCONT .[id number] [facility] Last Infusion: 01/16/23 10:32 Dose: 0 mls/hr Documented By: BROIlya Methylprednisolone Sodium Succinate (Methylprednisolone Sod Succ 40 Mg/Ml Vial) 40 mg IVPUSH Q12H [facility] Last Admin: 01/16/23 02:05 Dose: 40 mg Documented By: SHAY Labs 01/15/23 01:28 01/15/23 01:27 Labs: Laboratory Results - last 24 hr 01/15/23 01/15/23 01/15/23 10:17 10:17 11:50 ESR 10 O2 Saturation ABG pH at Pt Temp ABG pCO2 at Pt Temp ABG pO2 at Pt Temp ABG HCO3 ABG Base Excess (Actual) VBG pH 7.32 VBG pCO2 55 VBG pO2 96 VBG HCO3 29 H VBG O2 Saturation 98.0 VBG Base Excess 1.5 POC Glucose Ferritin 75 C-Reactive Protein 0.90 H Procalcitonin 0.02 01/15/23 01/15/23 13:23 15:05 ESR O2 Saturation 95.0 ABG pH at Pt Temp 7.35 ABG pCO2 at Pt Temp 48 H ABG pO2 at Pt Temp 76 L ABG HCO3 27 H ABG Base Excess (Actual) 0.8 VBG pH VBG pCO2 VBG pO2 VBG HCO3 VBG O2 Saturation VBG Base Excess POC Glucose 202 H Ferritin C-Reactive Protein Procalcitonin Microbiology Microbiology Results: Microbiology 01/15/23 01:36 Blood Culture - Preliminary Blood - Venous No growth after 24 hours. 01/15/23 01:27 Blood Culture - Preliminary Blood - Venous No growth after 24 hours. Assessment and Plan (1) Acute and chronic respiratory failure with hypercapnia: Status: Acute Plan 47 year old man with hx of asthma, chronic lung disease, MARK admitted to ICU with hypercarbia and hypoxia secondary to asthma exacerbation Acute hypercarbic and hypoxic respiratory failure secondary to Asthma exacerbation treated in the ICU initially on Bipap off bipap and tx to medical floor on oxymask with sats 94% and above Continue scheduled albuterol and steroids Acute Metabolic encephalopathy. Resolved secondary to hypercarbia and hypoxia treat as above MARK cpap/Bipap at night has not used at home in 6 months Obesity Discussed importance of weight management as this may be contributing to worsening of other comorbidities DVT prophylaxis Lovenox Attending Dr. Jeffries Full code Continue hospitalization for treatment respiratory failure requiring oxygen therapy Time Spent With Patient Time: Total time managing care of this patient today ____ minutes. Quality Stroke Does the patient have a stroke diagnosis?: No VTE Prior VTE?: No VTE Risk Level:: Medical - moderate - high VTE Device Contraindication: Treatment Not Indicated VTE Drug Contraindication: N/A - Med Ordered
[2023-01-16] MEDS: Enoxaparin Sodium 40 MG/0.4 ML SYRINGE SUBCUT (12:05)
--- NOTE | 2023-01-16 12:35 | P.CONPL_ITS ---
History of Present Illness History of Present Illness Consult date: 01/16/23 Chief complaint: Respiratory failure Narrative: This is an inpatient pulmonary consultation. The patient is a 47-year-old with longstanding known chronic lung disease mainly asthma on albuterol not steroid dependent and apparently not oxygen dependent at home presented with altered mental status increasing dyspnea and apparently by blood gas acute on chronic hypercarbic/hypoxic respiratory failure with an unchanged chest x-ray no evidence of infiltrate just active wheezing and has been now close to 5 hours on BiPAP and is pCO2 in the low 70s is now in the low 60s pH is 7.31 but the patient remains unarousable sitting up with an obese abdomen has a BMI of 36 and I performed bedside echo showing normal anatomy normal left ventricular dimension slightly hyperdynamic probably between 60 and 70% ejection fraction all valves clean well opening no significant regurgitation and no primary pericardial disease normal right ventricular dimension and systolic function as well. Once the patient improved and transferred out of the ICU to the step down unit. The patient tolerated the PAP therapy last night, CPAP 15. I did change it BIPAP 15/8. He did tolerate the mask very well./ He understands that it is r eally important that he keeps using it regularly at home. Review of Systems Constitutional: Constitutional: Denies body ache(s) and Denies chills Eyes: Eyes: Denies diplopia ENT: Reports system reviewed and no additional complaints, except as documented Cardiovascular: Cardiovascular: Denies chest pain Respiratory: Respiratory: Denies chest congestion Gastrointestinal: Gastrointestinal: Denies abdominal pain Musculoskeletal: Musculoskeletal: Reports back pain Neurologic: Denies confusion Psychiatric: Psychiatric: Denies anxiety, Denies confusion and Denies depression [facility] Past Medical History Medical History (Updated 01/16/23 @ 12:41 by Mickey Ross MD) Acute and chronic respiratory failure with hypercapnia Asthma Chest pain Chronic allergic rhinitis Cough Moderate obesity No known health problems MARK on CPAP MARK treated with BiPAP Family History Family History Other Asthma Social History Social History Household Members: Spouse Housing: Apartment Alcohol intake: unknown Patient Tobacco Use Status: Never used Tobacco service: No Current occupational status: disabled Meds Allergies Allergy/AdvReac Type Severity Reaction Status Date / Time No Known Allergies* Allergy Unknown Uncoded 01/15/23 01:19 Active Medications: Current Medications Albuterol/Ipratropium (Albuterol/Iprat 2.5/0.5mg 3 Ml Ampul.Neb) 3 ml INHALE RQ4H [facility] Last Admin: 01/16/23 11:25 Dose: 3 ml Albuterol/Ipratropium (Albuterol/Iprat 2.5/0.5mg 3 Ml Ampul.Neb) 3 ml INHALE RQ6H WHILE AWAKE PRN PRN Reason: Shortness of Breath/Wheezing Enoxaparin Sodium (Enoxaparin Sodium 40 Mg/0.4 Ml Syringe) 40 mg SUBCUT Q24H [facility] Last Admin: 01/16/23 12:05 Dose: 40 mg Methylprednisolone Sodium Succinate (Methylprednisolone Sod Succ 40 Mg/Ml Vial) 40 mg IVPUSH Q12H [facility] Last Admin: 01/16/23 02:05 Dose: 40 mg Home Medications Medication Instructions Recorded Confirmed Last Taken Type CPAP (CPAP Machine/Device) 06/07/22 11/18/22 Unknown History nebulizers 06/07/22 11/18/22 Unknown History acetaminophen 325 mg tablet 650 mg PO Q6H PRN Pain 01/15/23 01/15/23 01/14/23 History (Tylenol) Physical Exam Vital Signs: Vital Signs: Last Vital Signs Temp 98.6 F 01/16/23 11:05 Pulse 110 H 01/16/23 11:25 Resp 20 01/16/23 11:25 BP 142/65 H 01/16/23 11:05 Pulse Ox 95 01/16/23 11:05 O2 Del Method Oxymask 01/16/23 11:05 O2 Flow Rate 4 01/16/23 11:05 BMI result Body Mass Index 36.3 Const: General: No confusion Orientation/consciousness: No confusion Neck: Neck: Yes normal visual inspection, Yes full ROM and Yes no lymphadenopathy Chest: Chest palpation & inspection: normal inspection of the chest Resp: Auscultation: diminished lung sounds Cardio: Rate: regular rate Rhythm: regular rhythm Heart sounds: S1 normal heart sound present and S2 normal heart sound present GI: Palpation (GI): Soft to palpation and nontender Auscultation: normal bowel sounds Skin: General skin exam: rashes and/or lesions noted Neuro: General: No confusion Results Laboratory Findings 01/15/23 01:28 01/15/23 01:27 ABG, PT/INR, D-dimer: PT/INR, D-dimer PT 12.0 SEC (10.0-13.1) 01/15/23 01:27 INR 1.0 (0.9-1.1) 01/15/23 01:27 Abnormal lab findings: Abnormal Labs 01/15/23 01/15/23 01/15/23 01:27 01:28 03:55 Eos % (Auto) 4.6 H ABG pH at Pt Temp 7.30 L ABG pCO2 at Pt Temp 71 H* ABG pO2 at Pt Temp 56 L ABG HCO3 35 H VBG HCO3 Carbon Dioxide 30 H BUN 18 H POC Glucose Random Glucose 118 H ALT 46 H C-Reactive Protein Ur Specific [place] Urine Protein 01/15/23 01/15/23 01/15/23 07:59 10:17 10:17 Eos % (Auto) ABG pH at Pt Temp 7.31 L ABG pCO2 at Pt Temp 60 H* ABG pO2 at Pt Temp 82 L ABG HCO3 30 H VBG HCO3 Carbon Dioxide BUN POC Glucose Random Glucose ALT C-Reactive Protein 0.90 H Ur Specific [place] >= 1.030 H Urine Protein 30 (1+) H 01/15/23 01/15/23 01/15/23 11:50 13:23 15:05 Eos % (Auto) ABG pH at Pt Temp ABG pCO2 at Pt Temp 48 H ABG pO2 at Pt Temp 76 L ABG HCO3 27 H VBG HCO3 29 H Carbon Dioxide BUN POC Glucose 202 H Random Glucose ALT C-Reactive Protein Ur Specific [place] Urine Protein Microbiology: Microbiology 01/15/23 10:17 Blood - Venous Blood Culture - Preliminary No growth after 24 hours. 01/15/23 01:36 Blood - Venous Blood Culture - Preliminary No growth after 24 hours. 01/15/23 01:27 Blood - Venous Blood Culture - Preliminary No growth after 24 hours. Assessment and Plan (1) Metabolic encephalopathy: Status: Acute (2) Asthma exacerbation: Status: Acute (3) MARK treated with BiPAP: Status: Acute (4) Acute and chronic respiratory failure with hypercapnia: Status: Acute Plan changed to BIPAP 25/04 continue nebulizer therapy should change to PO prednisone with taper restart Breo Will reassess tomorrow Time Spent With Patient Time: Total time managing care of this patient today ____ minutes. Procedures Date of Service Date of Service: 01/16/23
[2023-01-17] VITALS (9 sets, daily range): BP systolic 125–139; BP diastolic 64–86; PULSE 91–130; RESP 20–24; TEMP 36.2–36.9; O2SAT 86–97
[2023-01-17] MEDS: Albuterol/Iprat 2.5/0.5MG 3 ML AMPUL.NEB INHALE ×4 (00:05→11:40)
[2023-01-17] MEDS: methylPREDNISolone Sod Succ 40 MG/ML VIAL IVPUSH (02:16)
[2023-01-17] MEDS: Fluticasone/Vilanterol 200/25 BLST.W.DEV 1 PUFF INHALE (07:34)
--- NOTE | 2023-01-17 08:53 | P.PNPL_ITS ---
Subjective Subjective Date of Service: 01/17/23 Interval history: The patient was seen on exam. He is doing better. Continues to tolerate the BiPAP. Settings 15/8. He likes the current mask that he is using. Seems to be tolerating it very well. The patient otherwise is on room air feeling comfortable. Patient is likely to be able to go home today. I did ask him to bring his machine in for setting up the pressure is appropriate he has taken tolerated at home as well. Objective Data Labs 01/15/23 01:28 01/15/23 01:27 Microbiology Microbiology Results: Microbiology 01/15/23 01:36 Blood - Venous Blood Culture - Preliminary No growth after 48 hours. 01/15/23 01:27 Blood - Venous Blood Culture - Preliminary No growth after 48 hours. 01/15/23 10:17 Blood - Venous Blood Culture - Preliminary No growth after 24 hours. 01/15/23 10:17 Blood - Venous Blood Culture - Preliminary No growth after 24 hours. Review of Systems Constitutional: Denies body ache(s) and Denies chills Eyes: Denies diplopia Reports system reviewed and no additional complaints, except as documented Cardiovascular: Denies chest pain Respiratory: Denies chest congestion Gastrointestinal: Denies abdominal pain Musculoskeletal: Reports back pain Denies confusion Psychiatric: Denies anxiety, Denies confusion and Denies depression Physical Exam 2 Vital Signs: Vital Signs: Last Vital Signs Temp 97.5 F 01/17/23 07:06 Pulse 95 01/17/23 07:35 Resp 22 H 01/17/23 07:35 BP 125/64 01/17/23 07:06 Pulse Ox 92 01/17/23 07:06 O2 Del Method Oxymask 01/17/23 07:06 O2 Flow Rate 4 01/17/23 07:06 BMI result Body Mass Index 36.3 Const: General: No confusion Orientation/consciousness: No confusion Neck: Neck: Yes normal visual inspection, Yes full ROM and Yes no lymphadenopathy Chest: Chest palpation & inspection: normal inspection of the chest Resp: Auscultation: diminished lung sounds Cardio: Rate: regular rate Rhythm: regular rhythm Heart sounds: S1 normal heart sound present and S2 normal heart sound present GI: Palpation (GI): Soft to palpation and nontender Auscultation: normal bowel sounds Skin: General skin exam: rashes and/or lesions noted Neuro: General: No confusion Procedures Date of Service Date of Service: 01/17/23 Assessment and Plan Assessment and plan (1) Acute and chronic respiratory failure with hypercapnia: Status: Acute (2) Asthma exacerbation: Status: Acute (3) Obstructive sleep apnea: Status: Acute Plan The patient is doing better he is able to go home from a pulmonary standpoint She will bring his BiPAP in to the office in order to adjust to the current pressures are 15/8. He understands he needs to use it every night to avoid worsening hypercarbia Continue with respiratory therapy Prednisone taper Follow-up with outpatient pulmonary Time Spent With Patient Time: Total time managing care of this patient today ____ minutes. Progress Note: Quality Stroke Does the patient have a stroke diagnosis?: No
[2023-01-17] MEDS: Enoxaparin Sodium 40 MG/0.4 ML SYRINGE SUBCUT (11:13)
--- NOTE | 2023-01-17 14:06 | PM.DS ---
DS: Providers Provider Date of Service: 01/17/23 Date of admission: 01/15/23 09:42 Primary care physician: Shadia Lopez MD Consults: 01/16/23 08:01 Consult to Pulmonology Routine Consulting Provider: [facility] Pulmonology Services Reason for consultation: asthma exacerbation/cris Has provider been notified: No DS: Diagnosis Discharge Diagnosis (1) Acute and chronic respiratory failure with hypercapnia: Status: Acute (2) Asthma exacerbation: Status: Acute (3) Obstructive sleep apnea: Status: Acute DS: Summary Hospital Course Hospital Course: History and physical as per admitting provider 47-year-old with longstanding known chronic lung disease mainly asthma on albuterol not steroid dependent and apparently not oxygen dependent at home presented with altered mental status increasing dyspnea and apparently by blood gas acute on chronic hypercarbic/hypoxic respiratory failure with an unchanged chest x-ray no evidence of infiltrate just active wheezing and has been now close to 5 hours on BiPAP and is pCO2 in the low 70s is now in the low 60s pH is 7.31 but the patient remains unarousable sitting up with an obese abdomen has a BMI of 36 and I performed bedside echo showing normal anatomy normal left ventricular dimension slightly hyperdynamic probably between 60 and 70% ejection fraction all valves clean well opening no significant regurgitation and no primary pericardial disease normal right ventricular dimension and systolic function as well He has no fever no white count no history of productive cough . Acute hypercarbic and hypoxic respiratory failure secondary to Asthma exacerbation. treated in the ICU initially on Bipap. off bipap and tx to medical floor. on oxymask with sats 94% and above. Treated with IV steroids and albuterol. Patient educated that he needs to wear his BiPAP at home every night. 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 Acute Metabolic encephalopathy. Resolved. secondary to hypercarbia and hypoxia CRIS. CPAP/BiPAP every night Obesity. Discussed importance of weight management as this may be contributing to worsening of other comorbidities Time Spent with Patient Time attestation: Total time managing care of this patient today ____ minutes. Discharge coordination time: Greater than 30 minutes Quality: Safe Use of Opioids Does Pt have an Active Cancer Diagnosis on the Problem List?: No Quality: Stroke Does the patient have a stroke diagnosis?: No Physical Exam Vital Signs: Vital Signs: Last Vital Signs Temp 98.5 F 01/17/23 11:24 Pulse 107 H 01/17/23 11:40 Resp 22 H 01/17/23 11:40 BP 128/75 01/17/23 11:24 Pulse Ox 86 L 01/17/23 11:24 O2 Del Method Room Air 01/17/23 11:24 O2 Flow Rate 4 01/17/23 07:06 BMI result Body Mass Index 36.3 Appearing in no acute distress head is normocephalic atraumatic eyes pupils are PERRLA sclera is anicteric mouth throat mucous membranes are intact and moist neck is supple no lymphadenopathy, no JVD noted lung sounds are clear to auscultation heart regular rate rhythm, clear S1, S2 positive bowel sounds, abdomen is soft, nontender, obese neuro patient is alert x3, no focal deficits DS: Data Data Completed and Pending Labs on day of discharge: Preliminary micro results at discharge 01/15/23 10:17 Blood Culture - Preliminary Blood - Venous No growth after 48 hours. 01/15/23 10:17 Blood Culture - Preliminary Blood - Venous No growth after 48 hours. 01/15/23 01:36 Blood Culture - Preliminary Blood - Venous No growth after 48 hours. 01/15/23 01:27 Blood Culture - Preliminary Blood - Venous No growth after 48 hours. Discharge Plan Discharge Anticipated Discharge Date/Time: 01/17/23 13:56 Patient Disposition: Home, Self-Care Discharge Diagnosis: Acute hypercarbic and hypoxic respiratory failure Asthma exacerbation Acute metabolic encephalopathy Obstructive sleep apnea Referrals: Shadia Lopez MD [Primary Care Provider] - 1 Week Discharge Medications: New prednisone 10 mg tablet See Taper PO DIRECTED Qty: 70 0RF Taper: Prednisone 40 mg daily for 7 Days and 0 Hour 30 mg daily for 7 Days and 0 Hour 20 mg daily for 7 Days and 0 Hour 10 mg daily for 7 Days and 0 Hour Rx Instructions: see taper instructions Continued acetaminophen [Tylenol] 325 mg Tablet 650 mg PO Q6H PRN (Reason: Pain) albuterol sulfate 90 mcg/actuation HFA aerosol inhaler 2 inh inhalation Q6H PRN (Reason: shortness of breath or wheezing) 30 Days Qty: 8.5 12RF Breo Ellipta 200-25 mcg/dose blister with device 1 inh inhalation DAILY 30 Days Qty: 60 11RF (DME) CPAP Machine/Device Device See Rx Instructions .Route Rx Instructions: As directed (DME) nebulizers Misc See Rx Instructions .Route Rx Instructions: As directed albuterol sulfate 2.5 mg /3 mL (0.083 %) solution for nebulization 2.5 mg inhalation Q6H PRN (Reason: shortness of breath or wheezing) 30 Days Qty: 180 11RF Discharge Orders: Discharge Order (Routine); Ordered 01/17/23 Ordered By: Wendy Ross Diet: Advance to usual diet Activity on Discharge: As tolerated Stand Alone Forms: Patient Portal Discharge page Care Plan Goals: Complete resolution of symptoms Health Concerns: Acute hypercarbic and hypoxic respiratory failure Asthma exacerbation Acute metabolic encephalopathy Obstructive sleep apnea Plan of Treatment: Follow-up with pulmonology for continued titration of BiPAP Wear your BiPAP machine every night Take all medications as prescribed Assessment: See discharge summary
--- NOTE | 2023-01-17 14:34 | MHC.CM.PN ---
Patient has been medically cleared for dc to home today, self care. Last IMM was addressed yesterday.
== END 2023-01-17 15:07 | disposition home or self-care (01) | DRG 202 ==
LOC: HO.ED 08:44 → HO.EDOVER 11:02 → HO.IMC 17:04
PROVIDERS: Emergency Medicine; Internal Medicine; Admitting Provider Internal Medicine Cardiovascular Disease; Emergency Provider Emergency Medicine Emergency Medical Services; PCP Obstetrics & Gynecology; Visit Provider Nurse Practitioner Acute Care
DX: J45.41 Moderate persistent asthma with (acute) exacerbation (principal); G93.41 Metabolic encephalopathy; J96.21 Acute and chronic respiratory failure with hypoxia; J96.22 Acute and chronic respiratory failure with hypercapnia; E66.8 Other obesity; Z68.36 Body mass index [BMI] 36.0-36.9, adult; G47.33 Obstructive sleep apnea (adult) (pediatric); Z20.822 Contact with and (suspected) exposure to COVID-19; Z79.51 Long term (current) use of inhaled steroids; Z79.899 Other long term (current) drug therapy
CPT/HCPCS: 36415; 36600; 70450; 71045; 71250; 72125; 74176; 80053; 80307; 81001; 82728; 82803; 82947; 83605; 83690; 83880; 84145; 84484; 85025; 85379; 85610; 85652; 85730; 86140; 87040; 87635; 93005; 94640; 94660; 99285; J0456; J0696; J1650; J1885; J2920; J2930

== ENCOUNTER → 2023-01-27 12:39 | Outpatient (BNVA) | payer MEDICARE, MEDICAID, SELFPAY | PROVIDERS: PCP Obstetrics & Gynecology; Visit Provider Hospitalist | DX: J45.40 Moderate persistent asthma, uncomplicated (principal); J30.9 Allergic rhinitis, unspecified; R07.9 Chest pain, unspecified; R05.9 Cough, unspecified; G47.33 Obstructive sleep apnea (adult) (pediatric) | CPT/HCPCS: 99212 ==

== ENCOUNTER → 2023-02-10 20:30 | Outpatient (REF) | payer OTHER, SELFPAY | LOC: HO.SL 20:30 | PROVIDERS: Visit Provider Hospitalist | DX: G47.33 Obstructive sleep apnea (adult) (pediatric) (principal); Z99.89 Dependence on other enabling machines and devices | CPT/HCPCS: 95811 ==

== ENCOUNTER → 2023-02-14 12:17 | Outpatient (BNVA) | payer OTHER, MEDICAID, SELFPAY | PROVIDERS: PCP Obstetrics & Gynecology; Referring Provider Obstetrics & Gynecology; Visit Provider Internal Medicine Cardiovascular Disease | DX: R07.9 Chest pain, unspecified (principal) | CPT/HCPCS: 99212 ==

== ENCOUNTER → 2023-02-23 09:29 | Outpatient (REF) | payer OTHER, SELFPAY ==
--- NOTE | ~2023-02-23 | NM_ITS ---
Dobutamine Myocardial perfusion study Indication: Chest pain Technique: The patient was brought in for an dobutamine perfusion study on 02/23/2023. Patient performed at stress test for a dobutamine protocol and was injected 35 mCi of sestamibi was given intravenously one target HR was achieved. Images were obtained using the SPECT gamma camera interlaced with the gating device. Images were obtained in supine position. Resting perfusion study was performed on 02/24/2023. Patient was administered 35 mCi of sestamibi intravenously at rest. Images were then obtained in supine position. Images obtained with and without CT attenuation. Total DLP 125 mGy-cm. Images were processed with the software and compared side to side in short axis, horizontal long axis and vertical long axis views. Findings: The stress perfusion study showed both attenuated as well as non attenuated corrected images show normal uptake of radiotracer in all segments of LV myocardium. The gated study shows reduced LV systolic function with calculated LVEF of 43%. LV cavity is mildly dilated in size. The gated study shows normal systolic wall thickening and contraction of all segments. There is no transient ischemic dilation. Resting study shows no change in perfusion pattern compared to stress perfusion study. Gating at rest reveals normal systolic wall motion with ejection fraction at 45%. The findings are consistent with no reversible defect suggestive of ischemia. NM/NM ijeoma perf SPECT rest & str Impression: 1. No myocardial ischemia 2. Gated LVEF is 43% 3. Transient ischemic dilatation not present Stress EKG is negative for ischemia
--- NOTE | 2023-02-23 09:31 | CA_ITS ---
Acquisition Time: 2023-02-23 10:20:56 Total Exercise Time: 00:12:32 Test Indications: CHEST PAIN Medications: Protocol: DOBUTAMINE Max HR: 155 BPM 90% of Pred: 172 BPM Max BP: 126/078 mmHG Max Work Load: 1.0 METS Pharmacological stress test with Dobutamine infusion to max of 30mcg/kg/min, achieving 88% MPHR, with moderate chest pressure, without arrhythmias, with drop of blood pressure during infusion, without EKG changes. Chest pressure resolved by 6 min of recovery with scooping ST segments noted in recovery. Nuclear images pending. Test reviewed with Dr. Patel. Referred By: Ever Patel Overread By: ZEAYD DUNCAN
== END ==
LOC: HO.CARD 09:29
PROVIDERS: PCP Obstetrics & Gynecology; Visit Provider Internal Medicine Cardiovascular Disease
DX: R07.9 Chest pain, unspecified (principal)
CPT/HCPCS: 78452; 93017; A9500; J1250

== ENCOUNTER → 2023-03-02 10:49 | Outpatient (BNVA) | payer OTHER, SELFPAY | PROVIDERS: PCP Obstetrics & Gynecology; Visit Provider Hospitalist | DX: G47.33 Obstructive sleep apnea (adult) (pediatric) (principal); J45.40 Moderate persistent asthma, uncomplicated; R07.9 Chest pain, unspecified; J30.9 Allergic rhinitis, unspecified; R05.9 Cough, unspecified | CPT/HCPCS: 99212 ==

== ENCOUNTER → 2023-03-16 12:59 | Outpatient (BNVA) | payer OTHER, MEDICAID, SELFPAY | PROVIDERS: PCP Obstetrics & Gynecology; Visit Provider Nurse Practitioner Family | DX: R07.9 Chest pain, unspecified (principal); G47.33 Obstructive sleep apnea (adult) (pediatric); E66.8 Other obesity; R60.9 Edema, unspecified; Z68.41 Body mass index [BMI] 40.0-44.9, adult | CPT/HCPCS: 99212 ==

== ENCOUNTER 2023-05-26 10:37 | Outpatient (AMB) | payer OTHER, SELFPAY ==
[2023-05-26 10:46] VITALS: PULSE 93; O2SAT 95; BMI 40.6
--- NOTE | 2023-05-26 10:46 | MHC.OFFVIS ---
Intake Vital Signs 05/26/23 10:46 Height 5 ft 6 in Weight 251 lb 5.231 oz BMI 40.6 Pulse 93 Pulse Source Pulse Oximeter Pulse Oximetry (%) 95 Oxygen Delivery Method Room Air Intake Visit Reasons: Obstructive sleep apnea Plastic Dolls Mold Filler Required: No Allergies No Known Allergies* Allergy (Uncoded 05/26/23 10:47) Unknown HPI HPI Comments History of Present Illness Details The patient is a 48-year-old gentleman known obstructive sleep apnea currently on CPAP in addition to asthma. CPAP therapy has been effective and beneficial. USes CPAP more than 4 hours a night. Has been noticing worsening respiratory symptoms now for the last few months. 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 He does not use a mask. He has been noticing increasing nasal congestion and cough. Moderate severity. Also has been complaining worsening shortness of breath. He started developing pleuritic chest pains and shortness of breath and said to come in today [facility] ER for further evaluation. He was found to be having wheezing on examination. Chest x-ray demonstrated some minimal changes of the right base. The patient was given a Medrol pack. He is still complaining of some cough in addition to obstructive low. The patient was recommended to wear mask but for some reason he was not able to do so at the work. Therefore, need to consider changing jobs as this will continue affecting her respiratory status. In regards to the CPAP he is using especially since he can't breathe well. The CPAP therapy has been affecting beneficial. He did get supplies. He will continue using more than 4 hours a night. 10/23/2020 the patient is here for pulmonary follow-up visit. Overall the patient continues to have difficulties with his sleep. He has had episodes where he wakes up with significant shortness of breath and disorientation. His has become very concerned. When that happens he does put his CPAP machine on he can sleep better. However, he still struggling with the BiPAP. I did request a download in appears that he has only used it a few hours at a time. When he does use it however his AHI is elevated up to 41. Therefore it is likely that he is not using it because the machine is not appropriately helping him with his severe sleep apnea. Therefore because he has had a significant symptoms in the difficulties with the elevations in the AHI while on the CPAP I will request a CPAP BiPAP titration for him. In addition to that he has been complaining of left-sided chest discomfort. Last time he had a CT scan was back in July 2020 and did not demonstrate any abnormalities. At this point if he continues having this for comfort he can always have a chest x-ray. I have reassured him that the CAT scan is able to give more detail. His cough also has been getting worse. However, he did not get the Symbicort fill it may have been issue with insurance. Therefore I will send him Breo and he can continue Incruse which should be the same device and have a better adherence with the. The patient will subsequently follow up in a few after he undergoes his CPAP /BiPAP titration study. 02/02/2021 the patient is here for pulmonary follow-up visit. He has been complaining worsening shortness of breath and wheezing. He has been using his nebulizer with good response. Denies any sick contacts. Denies any chest congestion. At this point we have to optimize his respiratory therapy since he has no longer taking inhaled cortical steroid. He is using the Incruse daily and does have for the short-acting beta agonist as needed. In regards to the CPAP that was switched over to a BiPAP 14 over a period based on the titration study he does better with the pressure of 15 so therefore proceed to 15 over a period I am hopeful that he can start using more often. He still struggling to use it more than 4 hours a day. Primarily because he feels like is too much pressure. The patient needs to come in with his BiPAP in order to adjusted. The patient is aware that if he does not use it the machine could be taking away and also he will not be giving supplies. Therapy will be effective beneficial based on the fact that he has severe sleep apnea. 03/16/2021 the patient is here for pulmonary follow-up visit. He states that a few weeks ago he started developing worsening congested cough. He started using his inhalers in his symptoms did improve. Therefore, he has been using the Breo in the in cruise in the morning. He has not had to use his rescue inhaler. He does complain of some white phlegm that he brings up at times. Sometimes it makes and gag. in addition to that he has been using the BiPAP. However, he has not used to the current mask, he would like to go back to an F20. His machine is set up BiPAP 15/8. He has been complaining of the elevated pressures are brought down to 13/7. He is going to start using it during the daytime and also at nighttime. He is having some daytime drowsiness explained to him that this is because he is not using adequately. 06/30/2021 the patient is here for a pulmonary follow-up visit. Seems to be tolerating the BiPAP better now. He is tolerating the lower pressure. He does like the fullface mask. Still he says he does not sleep a lot and does weigh does not use it enough. I did encourage him to use it 4 hours a night in order for him to be able to stay active with his [employer] continue getting supplies. The meantime the patient has had worsening asthma symptoms. He has had to use his nebulizer. But, after 1-2 treatments he is now back to his baseline. Is likely seasonal in nature. He does have to use his maintenance inhalers regularly which includes the Breo and Incruse. I will provide him with additional short-acting beta agonists both the nebulizer form inhaler to make sure that he is adequately covered. He is also taking allergy medicine. recently also he went to the ER with back pain. The patient had a CT scan demonstrating a herniated disc. He will be following up with Neurosurgery soon. 06/07/2022 the patient is here for a pulmonary follow-up visit. She is complaining about dyspnea on exertion in addition to chest pain. Moderate severity. The shortness of breath is mainly with activity. Last week he was having some chest discomfort. He did tell his because he did want concern her. Does discomfort was substernal and pressure-like sensation. Not associated with any activity. It is now resolved. The patient did not take any medicine to resolve it. He does not have any recent history of stress test. He was admitted briefly to the hospital I believe back in January where he came in with chest discomfort and he did have an EKG and also cardiac enzymes done but, no cardiology evaluation. I do believe the patient needs to be evaluated by Cardiology specially with all his cardiac risk factors. In the meantime he does complaint of daytime drowsiness. His Brethren score is elevated 09/03. Unfortunately, the patient stopped using the BiPAP. Feels like is too strong at this time. We had adjusted the pressures before. He is still getting supplies. He will bring it to the next visit so we can adjusted. 01/27/2023 the patient is here for hospital follow-up visit. He had a significant episode of acute hypercarbic respiratory failure with CO2 narcosis. He required BiPAP. He had been sick with a respiratory illness. He has CT scan of the chest during that visit demonstrated a left lower lobe pneumonia. He still coughing up some mucus. The patient has been tolerating the BiPAP. Although is unclear the patient needs oxygen with the BiPAP. Will go ahead and resend for another titration study to see if he needs AVAPS versus oxygen with BiPAP. The patient is completing a course of prednisone. He still feels very tired. He will better from a stimulant. I do believe that starting Provigil may be helpful for him. Hopefully get him back to sleep-wake cycle. That will wait for the titration study before we do that. In the meantime will treat him for the lower respiratory infection that may be still lingering. 03/02/2023 the patient is here for a pulmonary follow-up visit. He has significant daytime drowsiness. He is falling asleep quite as we speak. His Brethren score significantly elevated at 60 over 24. He is actually having hard time with his daytime drowsiness right now. The patient has been using the BiPAP. He does not feel like is working as well for him. Currently we went up to BiPAP 13/70. Although he did have a titration study and they recommended 20/11. They also recommended 2 L of oxygen. Therefore I will submit a relation to his [employer] company in order to adjust the pressures in start him on oxygen. I am hopeful that this is going to be effective for him. In the meantime I do believe the patient has daytime drowsiness that is out of proportion to his respiratory capacity it may have a component of hypoventilation syndrome. Therefore the additional provisional may be helpful for him as a stimulant to help him with his respiratory drive and also with his weight shortness. Therefore will go ahead and start him on 100 mg of Provigil at this time. He will continue with current respiratory therapy will follow-up in a couple months. 05/26/2023 the patient is here for a pulmonary follow-up visit. He was placed on the Provigil stimulant to see if we can improve his daytime drowsiness. Although he did not see any significant difference. He did the blood up to 200 mg still no significant difference. He has been using the BiPAP. Although does not tolerated for too long. We know the pressures do help him based on the fact that he did very well in the hospital but at home does not seem to be tolerating this time. Therefore this switch it again to auto BiPAP to see if we can adjust the pressures a little bit more hopefully not requiring the significantly elevated pressures. He knows to use it during the daytime as well. Continues with his current respiratory therapy. Will have him try the VPAP and call the office next week if he is not tolerating it. [facility] Medical History Acute and chronic respiratory failure with hypercapnia Asthma Bronchitis Chest pain Chronic allergic rhinitis Cough COVID-19 Moderate obesity No known health problems Obstructive sleep apnea MARK on CPAP MARK treated with BiPAP Family History Other Asthma Social History Household Members: Spouse Housing: Apartment Alcohol intake: unknown Patient Tobacco Use Status: Never used Tobacco service: No Current occupational status: disabled Review of Systems Const Reports daytime sleepiness, Reports fatigue, Denies night sweats, Reports snoring and Reports stops breathing during sleep ENT Denies change in voice, Denies lip swelling, Denies mouth pain, Reports nasal congestion, Reports nasal discharge and Denies tongue swelling Card Reports chest pain, Denies dyspnea and Reports dyspnea on exertion Resp Reports cough, Denies dyspnea, Reports dyspnea on exertion, Reports snoring and Reports wheezing GI Denies abdominal pain Musc Reports back pain Neuro Denies Neuro-related abnormal movements and Denies confusion Psych Denies no additional complaints and Denies confusion Endo Reports fatigue Anthony/Lymph Denies easy bleeding and Denies lymphadenopathy Aller/Immun Denies lip swelling, Denies tongue swelling and Reports wheezing Physical Exam Vital Signs: Last Vital Signs Pulse 93 05/26/23 10:46 Pulse Ox 95 05/26/23 10:46 Oxygen Delivery Method Room Air 05/26/23 10:46 BMI result Body Mass Index 40.6 Last Vital Signs Temp 97.5 F 01/17/23 07:06 Pulse 95 01/17/23 07:35 Resp 22 H 01/17/23 07:35 BP 125/64 01/17/23 07:06 Pulse Ox 92 01/17/23 07:06 O2 Del Method Oxymask 01/17/23 07:06 O2 Flow Rate 4 01/17/23 07:06 BMI result Body Mass Index 36.3 Const General: No confusion Orientation/consciousness: No confusion Neck Neck: Yes normal visual inspection, Yes full ROM and Yes no lymphadenopathy Chest Chest palpation & inspection: normal inspection of the chest Resp Auscultation: diminished lung sounds Cardio Rate: regular rate Rhythm: regular rhythm Heart sounds: S1 normal heart sound present and S2 normal heart sound present GI Palpation (GI): Soft to palpation and nontender Auscultation: normal bowel sounds Skin General skin exam: rashes and/or lesions noted Neuro General: No confusion Extrem General: Yes edema Assessment & Plan Assessment & Plan (1) Chronic allergic rhinitis: Code(s): J30.9 - Allergic rhinitis, unspecified (2) MARK treated with BiPAP: Code(s): G47.33 - Obstructive sleep apnea (adult) (pediatric) (3) Cough: Code(s): R05 - Cough Qualifiers: Cough type: chronic Qualified Code(s): R05.3 - Chronic cough (4) Asthma: Code(s): J45.909 - Unspecified asthma, uncomplicated Qualifiers: Asthma complication type: uncomplicated Asthma persistence: persistent Asthma severity: moderate Qualified Code(s): J45.40 - Moderate persistent asthma, uncomplicated (5) Edema: Code(s): R60.9 - Edema, unspecified Qualifiers: Edema type: generalized Qualified Code(s): R60.1 - Generalized edema Plan Continue Breo daily GONZALEZ as needed BIPAP 31/07 with 2 L oxygen, requesting F20 mask, adjusted to autoVPAP stopped Provigil, did not work low sodium diet lasix x 5-7 days F/U 2-3 months Medications: New furosemide (Lasix) 20 mg PO DAILY 7 days 7 tabs 0RF Coding Level of Care Code Est Pt Level 4 (76307) Diagnoses Chronic allergic rhinitis J30.9 MARK treated with BiPAP G47.33 Chronic cough R05.3 Cough type: chronic Moderate persistent asthma without complication J45.40 Asthma complication type: uncomplicated Asthma persistence: persistent Asthma severity: moderate Generalized edema R60.1 Edema type: generalized Time Spent (min) 18
== END 2023-05-26 11:14 | disposition home or self-care (01) ==
PROVIDERS: PCP Obstetrics & Gynecology; Visit Provider Hospitalist
DX: J30.9 Allergic rhinitis, unspecified (principal); G47.33 Obstructive sleep apnea (adult) (pediatric); R05.3 Chronic cough; J45.40 Moderate persistent asthma, uncomplicated; R60.1 Generalized edema
CPT/HCPCS: 99214

== ENCOUNTER → 2023-05-26 10:37 | Outpatient (BNVA) | payer OTHER, SELFPAY | PROVIDERS: PCP Obstetrics & Gynecology; Visit Provider Hospitalist | DX: J45.40 Moderate persistent asthma, uncomplicated (principal); J30.9 Allergic rhinitis, unspecified; R05.3 Chronic cough; R60.1 Generalized edema; G47.33 Obstructive sleep apnea (adult) (pediatric); Z79.899 Other long term (current) drug therapy | CPT/HCPCS: 99212 ==

== ENCOUNTER 2023-06-14 11:11 | Inpatient (IN) | payer OTHER, SELFPAY ==
[2023-06-14] VITALS (12 sets, daily range): BP systolic 126–138; BP diastolic 65–94; PULSE 74–107; RESP 12–26; TEMP 36.4–37.4; O2SAT 88–99; BMI 40.9; BMI 41.4
--- NOTE | ~2023-06-14 | XR_ITS ---
EXAMINATION: XR CHEST CLINICAL INFORMATION: Chest pain and cough COMPARISON: 06/07/2022 TECHNIQUE: 2 views of the chest were obtained. FINDINGS: Lungs are clear. No pleural effusions. Heart and pulmonary vessels normal. Minor anterior wedging in the upper lumbar spine stable. XR/XR chest 2V IMPRESSION: No active disease.
--- NOTE | ~2023-06-14 | CT_ITS ---
EXAMINATION: CT CHEST WITHOUT CONTRAST CLINICAL INFORMATION: Respiratory failure. COMPARISON: Previous abdominal and pelvic CT scans going back to November [address] most recent January 2023 TECHNIQUE: Multidetector volumetric CT imaging of the chest was done. Axial MIP volume rendering provided. Sagittal and coronal reformatted images were obtained. This CT examination was performed using dose optimization techniques as appropriate, variously including the following: *Automated exposure control *Adjustment of mA and/or kV according to patient size (this includes techniques or standardized protocols for targeted exams where dose is matched to indication/reason for exam; i.e. extremities or head) *Use of iterative reconstruction technique DLP: 373 mGy-cm FINDINGS: LUNGS: Evaluation of the lungs is limited due to respiratory motion artifact. The lungs are clear. No evidence of pneumonia. No evidence of interstitial lung disease emphysema or bronchiectasis. MEDIASTINUM: The mediastinum is normal. CORONARY ARTERY CALCIFICATION: None visualized on this study. PLEURA: There is no pleural effusion. No pleural mass or thickening. AXILLA: No lymphadenopathy. UPPER ABDOMEN: The tail of the pancreas is prominent. This is similar to multiple old CT scans going back to November 2019 and may be related to the contour of the pancreas. Dedicated CT or MR pancreas with and without contrast recommended. OSSEOUS STRUCTURES: Degenerative changes of the spine. CT/CT chest wo IV con IMPRESSION: Limited exam due to respiratory motion artifact. No acute findings in the chest. Prominent tail of the pancreas. This is stable going back to old CT scans from 2019 and may be related to contour of the pancreas. Follow-up dedicated pancreas imaging with and without contrast to rule out mass, CT or MRI, recommended. Fleischner guidelines were followed.
--- NOTE | 2023-06-14 11:15 | ECG_ITS ---
Test Reason : CHEST PAIN Blood Pressure : / mmHG Vent. Rate : 093 BPM Atrial Rate : 093 BPM P-R Int : 122 ms QRS Dur : 096 ms QT Int : 364 ms P-R-T Axes : 027 035 041 degrees QTc Int : 452 ms Normal sinus rhythm with sinus arrhythmia Normal ECG When compared with ECG of 15-JAN-2023 02:03, Heart rate has decreased Referred By: Generic ED Physician Electronically Signed By:GRETCHEN LONGORIA
--- NOTE | 2023-06-14 11:36 | ED.CHESTPAIN ---
HPI - Chest Pain General Chief Complaint: Dizziness Stated Complaint: chest pain / head ache Time Seen by Provider: 06/14/23 13:43 Related Data Home Medications Medication Instructions Recorded Confirmed CPAP (CPAP Machine/Device) 06/07/22 03/16/23 nebulizers 06/07/22 03/16/23 cholecalciferol (vitamin D3) 50 50 mcg PO DAILY 05/26/23 06/14/23 mcg (2,000 unit) capsule Previous Rx's Medication Instructions Recorded fluticasone furoate 200 1 inh inhalation DAILY 30 days #60 01/27/23 mcg-vilanterol 25 mcg/dose ea inhalation powder (Breo Ellipta) doxycycline hyclate 100 mg tablet 100 mg PO BID 8 days #16 tabs 06/16/23 prednisone 10 mg tablet See Taper PO DIRECTED #30 tabs 06/16/23 Allergies Allergy/AdvReac Type Severity Reaction Status Date / Time No Known Allergies* Allergy Unknown Uncoded 05/26/23 10:47 [facility] Past Medical History Medical History (Updated 06/16/23 @ 11:02 by ROSMERY Cooper) Acute and chronic respiratory failure with hypercapnia MARK treated with BiPAP Asthma-COPD overlap syndrome Moderate obesity Bronchitis Chest pain Chronic allergic rhinitis Asthma Family History Family History Other Asthma Social History Social History Household Members: Spouse Housing: Apartment Do you presently have visiting nurse or other home services: No Alcohol intake: unknown Patient Tobacco Use Status: Never used Tobacco service: No Current occupational status: disabled Physical Exam Vital Signs: Vital Signs: Last Vital Signs Temp 97.0 F 06/16/23 11:42 Pulse 100 06/16/23 16:03 Resp 18 06/16/23 16:03 BP 140/74 H 06/16/23 11:42 Pulse Ox 96 06/16/23 11:42 O2 Del Method Nasal Cannula 06/16/23 11:42 O2 Flow Rate 3 06/16/23 11:42 FiO2 35 06/16/23 04:00 BMI result Body Mass Index 40.9 Course Course Course Narrative: RME: 48-year-old male with a past medical history of obesity, MARK, asthma, c/o cough, chest tightness, dizziness & ALBERT x2 days. Has been using inhaler w/o relief. Denies sick contacts. Dry cough noted on exam. Lungs CTA, while awake sating 97% on RA, falling asleep in triage chair de-sats to 87% on RA (known MARK uses CPAP) EKG, Labs, Viral testing, CXR ordered Full HPI, ROS and PE to be performed by primary ED provider. Medications Administered Discontinued Medications Generic Name Dose Route Start Last Admin Trade Name Freq PRN Reason Stop Dose Admin Albuterol Sulfate 2.5 mg 06/14/23 16:00 06/16/23 16:01 Albuterol Sulfate (0.083%) 2.5 Mg/3 Ml Vial.Neb INHALE 2.5 mg RQ4H WHILE AWAKE MARTA Administration Albuterol/Ipratropium 3 ml 06/14/23 17:55 06/15/23 08:12 Albuterol/Iprat 2.5/0.5mg 3 Ml Ampul.Neb INHALE 3 ml Q2H PRN Administration shortness of breath Albuterol Sulfate 2.5 mg/ 0 mg 06/14/23 15:00 06/14/23 15:03 Albuterol/Ipratropium 3 ml INHALE 06/14/23 15:01 5 dose ONCE ONE Administration Doxycycline Monohydrate 100 mg 06/16/23 15:42 06/16/23 16:06 Doxycycline Monohydrate 100 Mg Capsule PO 06/16/23 15:43 100 mg ONCE ONE Administration Heparin Sodium (Porcine) 5,000 unit 06/14/23 18:00 06/16/23 16:06 Heparin Sodium,Porcine 5,000 Unit/Ml Vial SUBCUT Not Given Q12H COUNTS INCLUDE 234 BEDS AT THE [facility] Doxycycline Hyclate 100 mg/ 250 mls @ 166.67 mls/hr 06/14/23 18:00 06/16/23 15:55 Sodium Chloride IV Not Given Q12H MARTA Methylprednisolone Sodium Succinate 125 mg 06/14/23 14:26 06/14/23 14:46 Methylprednisolone Sod Succ 125 Mg/2 Ml Vial IVPUSH 06/14/23 14:27 125 mg ONCE ONE Administration Methylprednisolone Sodium Succinate 40 mg 06/14/23 22:00 06/16/23 06:00 Methylprednisolone Sod Succ 40 Mg/Ml Vial IVPUSH 40 mg Q8H MARTA Administration Methylprednisolone Sodium Succinate 40 mg 06/16/23 08:15 06/16/23 09:29 Methylprednisolone Sod Succ 40 Mg/Ml Vial IVPUSH 40 mg Q12H MARTA Administration Sodium Chloride 3 ml 06/14/23 16:00 06/16/23 16:06 0.9 % Sodium Chloride Flush 3 Ml Syringe IVFLUSH Not Given QSHIFT COUNTS INCLUDE 234 BEDS AT THE [facility] Vitamin D 50 mcg 06/15/23 09:00 06/16/23 09:29 Cholecalciferol (Vitamin D3) 25 Mcg Tablet PO 50 mcg DAILY MARTA Administration Medical Decision Making Lab Data 06/15/23 08:10 06/15/23 08:10 Labs: Lab Results 06/14/23 06/14/23 06/14/23 Range/Units 12:03 14:13 14:21 WBC 8.6 (4.8-10.8) X10*3/uL RBC 5.93 H (4.60-5.80) X10*6/uL Hgb 16.5 (14.0-18.0) g/dl Hct 52.1 H (42.0-52.0) % MCV 87.9 (80.0-98.0) fL MCH 27.8 (27.0-33.0) pg MCHC 31.7 (31.0-36.0) g/dl RDW 13.8 (11.0-16.0) % Plt Count 153 L (160-400) X10*3/uL MPV 10.4 (9.4-12.4) fL Immature Gran % (Auto) 0.3 (0.0-0.4) % Neut % (Auto) 67.1 (45-73) % Lymph % (Auto) 18.9 L (20-40) % [place] % (Auto) 10.6 (2-11) % Eos % (Auto) 2.6 (0-4) % Baso % (Auto) 0.5 (0-2) % Lymph # (Auto) 1.6 (1.2-4.9) X10*3/uL [place] # (Auto) 0.9 (0.1-1.2) X10*3/uL Eos # (Auto) 0.2 (0.0-0.4) X10*3/uL Baso # (Auto) 0.0 (0.0-0.2) X10*3/uL Abs Immat Gran (auto) 0.03 (0.00-0.03) X10*3/uL Absolute Neuts (auto) 5.8 (2.0-8.3) x10*3/uL Absolute Nucleated RBC 0.000 (0.0-0.012) X10*3/uL Nucleated RBC % (auto) 0.0 (0.0-0.2) /100WBC O2 Saturation 74.0 % ABG pH at Pt Temp 7.36 (7.35-7.45) ABG pCO2 at Pt Temp 64 H* (32-45) mmHg ABG pO2 at Pt Temp 47 L* (83-108) mmHg ABG HCO3 37 H (22-26) mmol/L ABG Base Excess (Actual) 8.7 mmol/L Sodium 142 (135-145) mmol/L Potassium 4.0 (3.3-5.1) mmol/L Chloride 104 (96-108) mmol/L Carbon Dioxide 29 (22-29) mmol/L Anion Gap 13 (12-20) BUN 11 (9-16) mg/dL Creatinine 0.81 (0.5-1.4) mg/dL Estim Creat Clear Calc 131.5 Estimated GFR > 60 Random Glucose 92 (60-115) mg/dL Calcium 9.4 (8.4-10.2) mg/dL Total Bilirubin 0.4 (0.0-1.0) mg/dL Direct Bilirubin 0.1 (0.0-0.5) mg/dL AST 25 (5-37) U/L ALT 41 H (0-40) U/L Alkaline Phosphatase 94 (39-117) U/L Troponin I High Sens < 2.7 (<3.5-35.0) ng/L B-Natriuretic Peptide 13 (<100) pg/mL Total Protein 7.1 (6.5-8.0) g/dL Albumin 4.0 (3.5-5.0) g/dL Urine Opiates Screen Not Detected (Not Detect) Urine Fentanyl Screen Not Detected (Not Detect) Ur Barbiturates Screen Not Detected (Not Detect) Ur Phencyclidine Scrn Not Detected (Not Detect) Ur Amphetamines Screen Not Detected (Not Detect) U Benzodiazepines Scrn Not Detected (Not Detect) Urine Cocaine Screen Not Detected (Not Detect) U Marijuana (THC) Screen Not Detected (Not Detect) COVID-19 (GENEVIEVE) Negative (Negative) COVID-19 Clin Com See Note Influenza Type A (SOBEIDA) Negative (Negative) Influenza Type B (SOBEDIA) Negative (Negative) Influenza A & B Note See Note Discharge Plan Discharge Clinical Impression: COPD exacerbation, Chest pain Patient Disposition: Admitted As Inpatient Interventions: Admission Worksheet (ED) Last Done: 06/14/23 21:58 Discharge Date/Time: 06/14/23 21:59
[2023-06-14 12:07] LABS: MANUAL DIFF FLAG NO
[2023-06-14 12:13] LABS: Basophils Percent Auto 0.5 % (0-2); Eosinophils Absolute Auto 0.2 X10*3/uL (0.0-0.4); Eosinophils Percent Auto 2.6 % (0-4); Hematocrit 52.1 % (42.0-52.0); Hemoglobin 16.5 g/dl (14.0-18.0); Imm Gran Abs Auto 0.03 X10*3/uL (0.00-0.03); Imm Gran Pct Auto 0.3 % (0.0-0.4); Lymphocytes Absolute Auto 1.6 X10*3/uL (1.2-4.9); Lymphocytes Percent Auto 18.9 % (20-40); Mean Corpuscular HGB Conc 31.7 g/dl (31.0-36.0); Mean Corpuscular Hemoglobin 27.8 pg (27.0-33.0); Mean Corpuscular Volume 87.9 fL (80.0-98.0); Mean Platelet Volume 10.4 fL (9.4-12.4); Monocytes Absolute Auto 0.9 X10*3/uL (0.1-1.2); Monocytes Percent Auto 10.6 % (2-11); Neutrophils Absolute Auto 5.8 x10*3/uL (2.0-8.3); Neutrophils Percent Auto 67.1 % (45-73); Platelet Count 153 X10*3/uL (160-400); Red Blood Count 5.93 X10*6/uL (4.60-5.80); Red Cell Distribution Width 13.8 % (11.0-16.0); White Blood Count 8.6 X10*3/uL (4.8-10.8)
[2023-06-14 12:26] LABS: Alanine Aminotransferase 41 U/L (0-40); Alkaline Phosphatase 94 U/L (39-117); Anion Gap 13 (12-20); Aspartate Amino Transferase 25 U/L (5-37); Bilirubin Direct 0.1 mg/dL (0.0-0.5); Bilirubin Total 0.4 mg/dL (0.0-1.0); Blood Urea Nitrogen 11 mg/dL (9-16); Calcium 9.4 mg/dL (8.4-10.2); Carbon Dioxide 29 mmol/L (22-29); Chloride 104 mmol/L (96-108); Creatinine Clr Calc Pharmacy 131.5; Estimated Glomerular Filt Rate > 60; Glucose Random 92 mg/dL (60-115); Sodium 142 mmol/L (135-145); Total Protein 7.1 g/dL (6.5-8.0)
[2023-06-14 12:28] LABS: COVID-19 Test Negative (Negative); IDNOW Serial# 08D9AD1C
[2023-06-14 12:29] LABS: IDNOW Serial# 9DB6401D; Influenza A Negative (Negative); Influenza B2 Negative (Negative)
[2023-06-14 12:31] LABS: B Type Natriuretic Peptide 13 pg/mL (<100)
[2023-06-14 12:33] LABS: Troponin-I High Sensitivity < 2.7 ng/L (<3.5-35.0)
--- NOTE | 2023-06-14 13:58 | PC.NURSE ---
interp utilized, pt continues to fall asleep during conversation. Resp cpnsulted, ABG ordered d/t pt desating consistently into 60's on O2. Resp at bedside currently.
--- NOTE | 2023-06-14 14:13 | ED_ITS ---
HPI - SOB/Dyspnea General Chief Complaint: Dizziness Stated Complaint: chest pain / head ache Time Seen by Provider: 06/14/23 13:43 Source: patient Mode of arrival: ambulatory Limitations: no limitations History of Present Illness HPI Narrative: This is a 48 years old patient with history of COPD, presented emergency department complaining of chest pain dizziness. He is also complaining of dry cough congestion for about 2 days and shortness of breath Pertinent past history: COPD Onset (ago): day(s) (2) Context: recent illness Timing: constant Severity: moderate Exacerbating factors: nothing Relieving factors: nothing Known history of: COPD and asthma Related Data Home Medications Medication Instructions Recorded Confirmed CPAP (CPAP Machine/Device) 06/07/22 03/16/23 nebulizers 06/07/22 03/16/23 cholecalciferol (vitamin D3) 50 50 mcg PO DAILY 05/26/23 06/14/23 mcg (2,000 unit) capsule Previous Rx's Medication Instructions Recorded fluticasone furoate 200 1 inh inhalation DAILY 30 days #60 01/27/23 mcg-vilanterol 25 mcg/dose ea inhalation powder (Breo Ellipta) Allergies Allergy/AdvReac Type Severity Reaction Status Date / Time No Known Allergies* Allergy Unknown Uncoded 05/26/23 10:47 Review of Systems 2 Eyes: Eyes: Reports no additional eye complaints Cardiovascular: Cardiovascular: Reports no additional cardiovascular complaints Respiratory: Respiratory: Reports chest congestion and Reports cough Musculoskeletal: Musculoskeletal: Reports no additional musculoskeletal complaints [facility] Past Medical History Medical History (Updated 06/14/23 @ 16:21 by Wendy Ross NP) Acute and chronic respiratory failure with hypercapnia Moderate obesity Bronchitis MARK treated with BiPAP Chest pain Chronic allergic rhinitis Asthma Family History Family History Other Asthma Social History Social History Household Members: Spouse Housing: Apartment Alcohol intake: unknown Patient Tobacco Use Status: Never used Tobacco Smoked in Last 30 Days: No Use of substances other than those prescribed or required for medical reasons: No Advance Directives: No Advance Directives Information Provided: No service: No Current occupational status: disabled Physical Exam 2 Vital Signs: Vital Signs: Last Vital Signs Temp 97.7 F 06/14/23 13:44 Pulse 77 06/14/23 15:04 Resp 22 H 06/14/23 15:04 BP 136/90 H 06/14/23 13:44 Pulse Ox 92 06/14/23 13:44 O2 Del Method Room Air 06/14/23 13:44 BMI result Body Mass Index 40.9 Const: General: cooperative Nutritional Appearance: well nourished O rientation/consciousness: patient oriented x3 Limitations: no limitations HEENT: Head: Yes normal to inspection General nose exam: Normal external nose present Face and sinus: Yes normal facial exam Throat: Yes posterior oropharynx normal Neck: Neck: Yes normal visual inspection Chest: Chest palpation & inspection: normal inspection of the chest Resp: Auscultation: rhonchi Cardio: Jugular venous distension: no JVD Rate: regular rate Rhythm: r egular rhythm GI: Inspection: Yes normal to inspection Palpation (GI): Soft to palpation Percussion: Yes normal to percussion Auscultation: normal bowel sounds : General: Yes no CVA tenderness Back/Spine/Pelvis: Back: no CVA tenderness Neuro: General: patient oriented x3 Course Reevaluation(s) Reevaluation #1: Patient became more lethargic he was placed on BiPAP, he has history of chronic chronic respiratory failure,he is arousable to verbal stimuli at this point,his PH is OK. Dr Galicia was notified of the admission at 3:19 via tiger text (the message was read). I am off shift now I made Dr Romero aware of the pt because still in the Department Time: 15:59 Medications Administered Discontinued Medications Generic Name Dose Route Start Last Admin Trade Name Tarasq PRN Reason Stop Dose Admin Albuterol Sulfate 2.5 mg/ 0 mg 06/14/23 15:00 06/14/23 15:03 Albuterol/Ipratropium 3 ml INHALE 06/14/23 15:01 5 dose ONCE ONE Administration Methylprednisolone Sodium Succinate 125 mg 06/14/23 14:26 06/14/23 14:46 Methylprednisolone Sod Succ 125 Mg/2 Ml Vial IVPUSH 06/14/23 14:27 125 mg ONCE ONE Administration Medical Decision Making Medical Decision Making [facility] Narrative: Patient presented with a cough dizziness shortness of breath will get labs/chest x-ray will test for COVID and reassess Differential Diagnosis Differential Diagnoses: The differential diagnosis associated with the presentation includes COPD exacerbation/pneumonia Admission/Observation Consideration of admission/observation: Escalation of care including admission/observation considered Lab Data MDM Lab Attestation statement: I reviewed the patient's lab results. 06/14/23 12:03 06/14/23 12:03 Labs: Lab Results 06/14/23 06/14/23 06/14/23 Range/Units 12:03 14:13 14:21 WBC 8.6 (4.8-10.8) X10*3/uL RBC 5.93 H (4.60-5.80) X10*6/uL Hgb 16.5 (14.0-18.0) g/dl Hct 52.1 H (42.0-52.0) % MCV 87.9 (80.0-98.0) fL MCH 27.8 (27.0-33.0) pg MCHC 31.7 (31.0-36.0) g/dl RDW 13.8 (11.0-16.0) % Plt Count 153 L (160-400) X10*3/uL MPV 10.4 (9.4-12.4) fL Immature Gran % (Auto) 0.3 (0.0-0.4) % Neut % (Auto) 67.1 (45-73) % Lymph % (Auto) 18.9 L (20-40) % [place] % (Auto) 10.6 (2-11) % Eos % (Auto) 2.6 (0-4) % Baso % (Auto) 0.5 (0-2) % Lymph # (Auto) 1.6 (1.2-4.9) X10*3/uL [place] # (Auto) 0.9 (0.1-1.2) X10*3/uL Eos # (Auto) 0.2 (0.0-0.4) X10*3/uL Baso # (Auto) 0.0 (0.0-0.2) X10*3/uL Abs Immat Gran (auto) 0.03 (0.00-0.03) X10*3/uL Absolute Neuts (auto) 5.8 (2.0-8.3) x10*3/uL Absolute Nucleated RBC 0.000 (0.0-0.012) X10*3/uL Nucleated RBC % (auto) 0.0 (0.0-0.2) /100WBC O2 Saturation 74.0 % ABG pH at Pt Temp 7.36 (7.35-7.45) ABG pCO2 at Pt Temp 64 H* (32-45) mmHg ABG pO2 at Pt Temp 47 L* (83-108) mmHg ABG HCO3 37 H (22-26) mmol/L ABG Base Excess (Actual) 8.7 mmol/L Sodium 142 (135-145) mmol/L Potassium 4.0 (3.3-5.1) mmol/L Chloride 104 (96-108) mmol/L Carbon Dioxide 29 (22-29) mmol/L Anion Gap 13 (12-20) BUN 11 (9-16) mg/dL Creatinine 0.81 (0.5-1.4) mg/dL Estim Creat Clear Calc 131.5 Estimated GFR > 60 Random Glucose 92 (60-115) mg/dL Calcium 9.4 (8.4-10.2) mg/dL Total Bilirubin 0.4 (0.0-1.0) mg/dL Direct Bilirubin 0.1 (0.0-0.5) mg/dL AST 25 (5-37) U/L ALT 41 H (0-40) U/L Alkaline Phosphatase 94 (39-117) U/L Troponin I High Sens < 2.7 (<3.5-35.0) ng/L B-Natriuretic Peptide 13 (<100) pg/mL Total Protein 7.1 (6.5-8.0) g/dL Albumin 4.0 (3.5-5.0) g/dL Urine Opiates Screen Not Detected (Not Detect) Urine Fentanyl Screen Not Detected (Not Detect) Ur Barbiturates Screen Not Detected (Not Detect) Ur Phencyclidine Scrn Not Detected (Not Detect) Ur Amphetamines Screen Not Detected (Not Detect) U Benzodiazepines Scrn Not Detected (Not Detect) Urine Cocaine Screen Not Detected (Not Detect) U Marijuana (THC) Screen Not Detected (Not Detect) COVID-19 (GENEVIEVE) Negative (Negative) COVID-19 Clin Com See Note Influenza Type A (SOBEIDA) Negative (Negative) Influenza Type B (SOBEIDA) Negative (Negative) Influenza A & B Note See Note ABG Data ABG Results: VBG chronic resp failure PH OK Interpretation: Chronic resp failure normal venous PH elevated C02 Independent Interpretation I performed an independent interpretation of an: EKG Interpretation: I personally reviewed the electrocardiogram and interpreted normal sinus rhythm rate 75 ST-T segment isoelectric normal EKG Radiology Impression Discussion of test interpretation with radiology: I have reviewed the radiologist's reading. Radiologist Impression: normal CXR Critical Care Time Critical Care Time Critical Care Time: Yes Total Critical Care Time: 60 Attestation: bipap,IV steroids/bronchdilator Discharge Plan Discharge Clinical Impression: COPD exacerbation, Chest pain Patient Disposition: Admitted As Inpatient
[2023-06-14 14:19] LABS: ABG Base Excess 8.7 mmol/L; ABG HCO3 37 mmol/L (22-26); ABG pCO2 64 mmHg (32-45); ABG pH 7.36 (7.35-7.45); ABG pO2 47 mmHg (83-108)
[2023-06-14 14:37] LABS: Amphetamine Screen Urine Not Detected (Not Detect); Barbiturates, Urine Not Detected (Not Detect); Benzodiazepines Screen Urine Not Detected (Not Detect); Cannabinoid Screen Urine Not Detected (Not Detect); Cocaine Screen Urine Not Detected (Not Detect); Fentanyl, urine Not Detected (Not Detect); Opiate Screen Urine Not Detected (Not Detect); Phencyclidine Screen Urine Not Detected (Not Detect)
[2023-06-14] MEDS: methylPREDNISolone Sod Succ 125 MG/2 ML VIAL IVPUSH (14:46)
[2023-06-14] MEDS: Albuterol Sulfate 2.5 MG, Albuterol/Iprat 2.5/0.5MG 3 ML 3 ML INHALE (15:03)
--- NOTE | 2023-06-14 15:42 | P.HPHOSP_ITS ---
History of Present Illness Date of Service: 06/14/23 Chief Complaint: shortness of breath 48-year-old man presenting to the ER with complaints of worsening shortness of breath, chest pain, dizziness, dry cough and congestion over the last 2 days. He has a history of chronic respiratory failure, COPD and asthma. He uses BiPAP at home. Patient had presented lethargic was placed on BiPAP do seem to be more arousable. Chest x-ray negative for consolidation effusion. He denied fever, chills, recent illness, sick contacts, recent travel. ABG was collected and showed pH of 7.36/64/47/37. U tox negative, COVID, flu negative. He was placed on BiPAP with good effect. The plan is to admit the patient for further management and treatment of acute hypoxic and hypercarbic respiratory failure secondary to COPD and asthma. Review of Systems 2 Review of Systems: Denies any recent fever chills or decrease in appetite respiratory See HPI cardiovascular denied chest pain gastrointestinal denies any dysphagia abdominal pain nausea vomiting or diarrhea genitourinary denies any dysuria frequency or hematuria musculoskeletal denies any joint pain or swelling neuropsych denies any weakness or seizures all other systems reviewed are negative [facility] Medical History (Updated 06/14/23 @ 16:21 by Wendy Ross NP) Acute and chronic respiratory failure with hypercapnia Moderate obesity Bronchitis MARK treated with BiPAP Chest pain Chronic allergic rhinitis Asthma Family History Other Asthma Social History Household Members: Spouse Housing: Apartment Alcohol intake: unknown Patient Tobacco Use Status: Never used Tobacco Smoked in Last 30 Days: No Use of substances other than those prescribed or required for medical reasons: No Advance Directives: No Advance Directives Information Provided: No service: No Current occupational status: disabled Meds Allergies Allergy/AdvReac Type Severity Reaction Status Date / Time No Known Allergies* Allergy Unknown Uncoded 05/26/23 10:47 Home Medications Medication Instructions Recorded Confirmed Last Taken Type CPAP (CPAP Machine/Device) 06/07/22 03/16/23 Unknown History nebulizers 06/07/22 03/16/23 Unknown History cholecalciferol (vitamin D3) 50 50 mcg PO DAILY 05/26/23 06/14/23 Unknown History mcg (2,000 unit) capsule Physical Exam 2 Vital Signs and Narrative: Vital Signs: Last Vital Signs Temp 97.7 F 06/14/23 13:44 Pulse 77 06/14/23 15:04 Resp 22 H 06/14/23 15:04 BP 136/90 H 06/14/23 13:44 Pulse Ox 92 06/14/23 13:44 O2 Del Method Room Air 06/14/23 13:44 BMI result Body Mass Index 40.9 Appearing in no acute distress head is normocephalic atraumatic eyes pupils are PERRLA sclera is anicteric mouth throat mucous membranes are intact and moist neck is supple no lymphadenopathy, no JVD noted lung sounds diminished /clear to upper area heart regular rate rhythm, clear S1, S2 positive bowel sounds, abdomen is soft, nontender neuro patient is alert x3, no focal deficits Results Labs 06/14/23 12:03 06/14/23 12:03 Labs: Laboratory Results - last 24 hr 06/14/23 06/14/23 06/14/23 12:03 14:13 14:21 MCV 87.9 MCH 27.8 MCHC 31.7 RDW 13.8 Plt Count 153 L MPV 10.4 Immature Gran % (Auto) 0.3 Neut % (Auto) 67.1 Lymph % (Auto) 18.9 L [place] % (Auto) 10.6 Eos % (Auto) 2.6 Baso % (Auto) 0.5 Lymph # (Auto) 1.6 [place] # (Auto) 0.9 Eos # (Auto) 0.2 Baso # (Auto) 0.0 Abs Immat Gran (auto) 0.03 Absolute Neuts (auto) 5.8 Absolute Nucleated RBC 0.000 Nucleated RBC % (auto) 0.0 O2 Saturation 74.0 ABG pH at Pt Temp 7.36 ABG pCO2 at Pt Temp 64 H* ABG pO2 at Pt Temp 47 L* ABG HCO3 37 H ABG Base Excess (Actual) 8.7 Anion Gap 13 Estim Creat Clear Calc 131.5 Estimated GFR > 60 Random Glucose 92 Calcium 9.4 Total Bilirubin 0.4 Direct Bilirubin 0.1 AST 25 ALT 41 H Alkaline Phosphatase 94 B-Natriuretic Peptide 13 Total Protein 7.1 Albumin 4.0 Urine Opiates Screen Not Detected Urine Fentanyl Screen Not Detected Ur Barbiturates Screen Not Detected Ur Phencyclidine Scrn Not Detected Ur Amphetamines Screen Not Detected U Benzodiazepines Scrn Not Detected Urine Cocaine Screen Not Detected U Marijuana (THC) Screen Not Detected COVID-19 (GENEVIEVE) Negative COVID-19 Clin Com See Note Influenza Type A (SOBEIDA) Negative Influenza Type B (SOBEIDA) Negative Influenza A & B Note See Note Imaging Radiologist's Impressions: Impressions Chest X-Ray 06/14/23 11:50 IMPRESSION: No active disease. Assessment and Plan (1) COPD exacerbation: Status: Acute Plan 48-year-old man admitted with acute on chronic hypoxic and hypercarbic respiratory failure secondary to COPD and asthma. Acute on chronic hypoxic and hypercarbic respiratory failure Likely secondary to COPD and asthma exacerbation Treat with BiPAP as needed IV Solu-Medrol and scheduled DuoNebs No consolidation seen on chest x-ray it therefore will hold off on IV antibiotics Oxygen as needed Morbid obesity. BMI 40.9 Discussed importance of weight management as this may be contributing to worsening of other comorbidities DVT prophylaxis with heparin Full code Patient required 2 inpatient midnights for treatment of of hypoxic respiratory failure requiring BiPAP, IV steroids and scheduled DuoNebs Time Spent With Patient Time: Total time managing care of this patient today ____ minutes. Quality Stroke Does the patient have a stroke diagnosis?: No VTE Prior VTE?: No VTE Risk Level:: Medical - moderate - high VTE Device Contraindication: Treatment Not Indicated VTE Drug Contraindication: N/A - Med Ordered
[2023-06-14 17:47] LABS: ABG Base Excess 7.4 mmol/L; ABG HCO3 37 mmol/L (22-26); ABG pCO2 72 mmHg (32-45); ABG pH 7.31 (7.35-7.45); ABG pO2 51 mmHg (83-108)
[2023-06-14] MEDS: Heparin Sodium,Porcine 5,000 UNIT/ML VIAL 5000 UNIT SUBCUT (19:02)
[2023-06-14] MEDS: Doxycycline Hyclate 100 MG in 0.9 % Sodium Chloride 250 ML 166.67 MG IV (19:11)
[2023-06-14 20:28] LABS: VBG HCO3 37 mmol/L (22-26); VBG pCO2 69 mmHg; VBG pH 7.34 (7.32-7.43); VBG pO2 61 mmHg
[2023-06-14 20:35] LABS: Venous Blood Gas Refer to POC result
--- NOTE | 2023-06-14 20:40 | PHA.MEDREC ---
Pharmacy Consult ? Medication Reconciliation Pharmacy has completed the medication reconciliation. Patient's reports that patient only takes breo at home and vitamin d3, and no other medications. Nena Stinson, PharmD
[2023-06-14] MEDS: Albuterol Sulfate (0.083%) 2.5 MG/3 ML VIAL.NEB INHALE (22:08)
[2023-06-14] MEDS: methylPREDNISolone Sod Succ 40 MG/ML VIAL IVPUSH (22:16)
[2023-06-14] MEDS: 0.9 % Sodium Chloride Flush 3 ML SYRINGE IVFLUSH (22:17)
[2023-06-14 23:38] LABS: ABG Refer to POC result
[2023-06-14 23:39] LABS: ABG Refer to POC result
--- NOTE | 2023-06-14 23:47 | PC.NURSE ---
Acquired care at 2200. Pt came in from ED via stretcher, on BIPAP with RT assist on transport. Alert and orientedx4. at bedside. Pt intermittently desats to 70's when asleep. AMPHIBIOUS OPERATIONS OFFICER was called.
[2023-06-15] VITALS (15 sets, daily range): BP systolic 119–153; BP diastolic 62–77; PULSE 99–127; RESP 16–24; TEMP 36.1–36.7; O2SAT 90–99
[2023-06-15] MEDS: Heparin Sodium,Porcine 5,000 UNIT/ML VIAL 5000 UNIT SUBCUT ×2 (05:29→17:26)
[2023-06-15] MEDS: methylPREDNISolone Sod Succ 40 MG/ML VIAL IVPUSH ×2 (05:30→13:16)
[2023-06-15] MEDS: Doxycycline Hyclate 100 MG in 0.9 % Sodium Chloride 250 ML 166.67 MG IV (05:31)
--- NOTE | 2023-06-15 06:42 | PM.EVENT ---
Event Note Date of Service: 06/15/23 Event Note: A rapid resonse called for desat into 70s when falls asleep and promptly goes up when awake, respiratory adjusted AVAP and advised he sleeps on his side and did well the rest of the night sating 95 and above, and no lucid when awake Time Spent With Patient Time: Total time managing care of this patient today ____ minutes.
[2023-06-15] MEDS: Albuterol/Iprat 2.5/0.5MG 3 ML AMPUL.NEB INHALE (08:12)
[2023-06-15 08:15] LABS: MANUAL DIFF FLAG NO
[2023-06-15 08:18] LABS: Basophils Percent Auto 0.1 % (0-2); Hematocrit 51.7 % (42.0-52.0); Hemoglobin 16.5 g/dl (14.0-18.0); Imm Gran Abs Auto 0.06 X10*3/uL (0.00-0.03); Imm Gran Pct Auto 0.5 % (0.0-0.4); Lymphocytes Absolute Auto 0.9 X10*3/uL (1.2-4.9); Lymphocytes Percent Auto 7.9 % (20-40); Mean Corpuscular HGB Conc 31.9 g/dl (31.0-36.0); Mean Corpuscular Hemoglobin 28.4 pg (27.0-33.0); Mean Corpuscular Volume 88.8 fL (80.0-98.0); Mean Platelet Volume 10.6 fL (9.4-12.4); Monocytes Absolute Auto 0.2 X10*3/uL (0.1-1.2); Monocytes Percent Auto 2.2 % (2-11); Neutrophils Absolute Auto 9.8 x10*3/uL (2.0-8.3); Neutrophils Percent Auto 89.3 % (45-73); Platelet Count 163 X10*3/uL (160-400); Red Blood Count 5.82 X10*6/uL (4.60-5.80); Red Cell Distribution Width 13.7 % (11.0-16.0); White Blood Count 10.9 X10*3/uL (4.8-10.8)
[2023-06-15 08:23] LABS: Venous Blood Gas Refer to POC result
[2023-06-15 08:34] LABS: Anion Gap 16 (12-20); Blood Urea Nitrogen 13 mg/dL (9-16); Calcium 9.4 mg/dL (8.4-10.2); Carbon Dioxide 27 mmol/L (22-29); Chloride 103 mmol/L (96-108); Creatinine Clr Calc Pharmacy 132.3; Estimated Glomerular Filt Rate > 60; Glucose Random 146 mg/dL (60-115); Potassium 4.6 mmol/L (3.3-5.1); Sodium 141 mmol/L (135-145)
--- NOTE | 2023-06-15 08:44 | PM.CNPUL ---
History of Present Illness History of Present Illness Consult date: 06/15/23 Chief complaint: Shortness of breath Narrative: This is an inpatient pulmonary consultation. The patient is a 48-year-old man with a h/o asthma and MARK on BIPAP presenting to the ER with complaints of worsening shortness of breath, chest pain, dizziness, dry cough and congestion over the last 2 days. He has a history of chronic respiratory failure, COPD and asthma. He uses BiPAP at home. Patient had presented lethargic was placed on BiPAP do seem to be more arousable. Chest x-ray negative for consolidation effusion. He denied fever, chills, recent illness, sick contacts, recent travel. ABG was collected and showed pH of 7.36/64/47/37. U tox negative, COVID, flu negative. He was placed on BiPAP with good effect. The plan is to admit the patient for further management and treatment of acute hypoxic and hypercarbic respiratory failure secondary to COPD and asthma. The patient was switched over to AVAPS overnight. Feeling a little better. Review of Systems Review of Systems: Yes Unobtainable due to mental condition (wearing NIV) Constitutional: Constitutional: Reports difficulty sleeping Eyes: Eyes: Denies diplopia ENT: Reports as per HPI, Reports nasal congestion and Reports nasal discharge Cardiovascular: Cardiovascular: Denies chest pain and Reports dyspnea Respiratory: Respiratory: Reports chest congestion, Reports cough, Reports dyspnea and Reports wheezing Gastrointestinal: Gastrointestinal: Denies abdominal pain Musculoskeletal: Musculoskeletal: Reports back pain Neurologic: Denies confusion Psychiatric: Psychiatric: Denies anxiety, Denies confusion and Denies depression Allergic/Immunologic: Allergic/Immunologic: Reports wheezing PMFSH Past Medical History Medical History (Updated 06/15/23 @ 08:49 by Mickey Ross MD) MARK treated with BiPAP Asthma-COPD overlap syndrome Acute and chronic respiratory failure with hypercapnia Moderate obesity Bronchitis Chest pain Chronic allergic rhinitis Asthma Family History Family History Other Asthma Social History Social History Household Members: Spouse Housing: Apartment Do you presently have visiting nurse or other home services: No Alcohol intake: unknown Patient Tobacco Use Status: Never used Tobacco Smoked in Last 30 Days: No Use of substances other than those prescribed or required for medical reasons: No Currently Displaying Signs/Symptoms of Drug Intoxication Withdrawal: No Have you been hit, kicked, punched, or otherwise hurt by someone within the past year? If so, by whom?: No Do you feel safe in your current relationship?: Yes Is there a partner from a previous relationship who is making you feel unsafe now?: No Are you made to feel afraid or neglected: No Advance Directives: No Advance Directives Information Provided: No Do you have thoughts of harming others: None Do you have a plan to hurt others: No Plan Recently lost weight without trying: No Nutrition Risks: No Nutritional Risk Poor oral hygiene: No service: No Current occupational status: disabled Meds Allergies Allergy/AdvReac Type Severity Reaction Status Date / Time No Known Allergies* Allergy Unknown Uncoded 05/26/23 10:47 Active Medications: Current Medications Acetaminophen (Acetaminophen 325 Mg Tablet) 650 mg PO Q6H PRN PRN Reason: Pain, Mild (Pain Scale 1-3) Albuterol Sulfate (Albuterol Sulfate (0.083%) 2.5 Mg/3 Ml Vial.Neb) 2.5 mg INHALE RQ4H WHILE AWAKE [facility] Last Admin: 06/15/23 08:19 Dose: Not Given Albuterol/Ipratropium (Albuterol/Iprat 2.5/0.5mg 3 Ml Ampul.Neb) 3 ml INHALE Q2H PRN PRN Reason: shortness of breath Last Admin: 06/15/23 08:12 Dose: 3 ml Guaifenesin/Dextromethorphan (Guaifenesin Dm 100/10/5 Ml 5 Ml Syrup) 10 ml PO Q6H PRN PRN Reason: Cough Heparin Sodium (Porcine) (Heparin Sodium,Porcine 5,000 Unit/Ml Vial) 5,000 unit SUBCUT Q12H [facility] Last Admin: 06/15/23 05:29 Dose: 5,000 unit Doxycycline Hyclate 100 mg/ (Sodium Chloride) 250 mls @ 166.67 mls/hr IV Q12H [facility] Last Infusion: 06/15/23 07:18 Dose: Infused Methylprednisolone Sodium Succinate (Methylprednisolone Sod Succ 40 Mg/Ml Vial) 40 mg IVPUSH Q8H [facility] Last Admin: 06/15/23 05:30 Dose: 40 mg Ondansetron HCl (Ondansetron Hcl 4 Mg/2 Ml Vial) 4 mg IVPUSH Q8H PRN PRN Reason: Nausea and Vomiting Sodium Chloride (0.9 % Sodium Chloride Flush 3 Ml Syringe) 3 ml IVFLUSH QSHIFT [facility] Last Admin: 06/14/23 22:17 Dose: 3 ml Vitamin D (Cholecalciferol (Vitamin D3) 25 Mcg Tablet) 50 mcg PO DAILY [facility] Home Medications Medication Instructions Recorded Confirmed Last Taken Type CPAP (CPAP Machine/Device) 06/07/22 03/16/23 Unknown History nebulizers 06/07/22 03/16/23 Unknown History cholecalciferol (vitamin D3) 50 50 mcg PO DAILY 05/26/23 06/14/23 Unknown History mcg (2,000 unit) capsule Physical Exam Vital Signs: Vital Signs: Last Vital Signs Temp 97.6 F 06/15/23 07:37 Pulse 101 H 06/15/23 08:13 Resp 20 06/15/23 08:13 BP 135/69 06/15/23 07:37 Pulse Ox 96 06/15/23 07:37 O2 Del Method CPAP 06/15/23 07:37 FiO2 35 06/15/23 07:37 BMI result Body Mass Index 41.4 Const: General: tired appearing; No confusion Orientation/consciousness: No confusion Neck: Neck: Yes supple Chest: Chest palpation & inspection: normal inspection of the chest Resp: Auscultation: rhonchi and diminished lung sounds Cardio: Rate: regular rate Rhythm: regular rhythm Heart sounds: S1 normal heart sound present and S2 normal heart sound present GI: Palpation (GI): Soft to palpation and nontender Auscultation: normal bowel sounds Skin: General skin exam: rashes and/or lesions noted Neuro: General: No confusion Extrem: General: Yes edema Results Laboratory Findings 06/15/23 08:10 06/15/23 08:10 Abnormal lab findings: Abnormal Labs 06/14/23 06/14/23 06/14/23 12:03 14:13 17:42 WBC RBC 5.93 H Hct 52.1 H Plt Count 153 L Immature Gran % (Auto) Neut % (Auto) Lymph % (Auto) 18.9 L Lymph # (Auto) Abs Immat Gran (auto) Absolute Neuts (auto) ABG pH at Pt Temp 7.31 L ABG pCO2 at Pt Temp 64 H* 72 H* ABG pO2 at Pt Temp 47 L* 51 L ABG HCO3 37 H 37 H VBG HCO3 Random Glucose ALT 41 H 06/14/23 06/15/23 06/15/23 20:23 08:10 08:15 WBC 10.9 H RBC 5.82 H Hct Plt Count Immature Gran % (Auto) 0.5 H Neut % (Auto) 89.3 H Lymph % (Auto) 7.9 L Lymph # (Auto) 0.9 L Abs Immat Gran (auto) 0.06 H Absolute Neuts (auto) 9.8 H ABG pH at Pt Temp ABG pCO2 at Pt Temp ABG pO2 at Pt Temp ABG HCO3 VBG HCO3 37 H 35 H Random Glucose 146 H ALT Assessment and Plan (1) COPD exacerbation: Status: Acute Likely from a viral syndrome (2) Asthma-COPD overlap syndrome: Status: Acute (3) MARK treated with BiPAP: Status: Acute Plan continue AVAPS for now, should switch to BIPAP once at home requesting a BIPAP download, will adjust accordingly continue solumedrol and then transition to Prednisone taper continue nebs continue doxycycline Time Spent With Patient Time: Total time managing care of this patient today ____ minutes. Procedures Date of Service Date of Service: 06/15/23
--- NOTE | 2023-06-15 09:16 | MHC.CM.PN ---
IMM DELIVERED PT LIVES WITH SPOUSE. USES A CANE FOR MOBILITY. HAS A HOME CPAP FOR SLEEP. NO COVID VAX NO HCP (MAY COMPLETE ONE WHILE HERE) PCP DR. EDGARDO LOPEZ AT [facility]. DP: HOME, NO SERVICES ANTICIPATED. [facility] WILL TRANSPORT HOME. CM WILL CONTINUE TO FOLLOW FOR ANY CHANGE IN DC NEEDS/PLAN
[2023-06-15] MEDS: 0.9 % Sodium Chloride Flush 3 ML SYRINGE IVFLUSH ×2 (09:52→13:16)
[2023-06-15] MEDS: Cholecalciferol (Vitamin D3) 25 MCG TABLET 50 MCG PO (09:53)
[2023-06-15] MEDS: Albuterol Sulfate (0.083%) 2.5 MG/3 ML VIAL.NEB INHALE ×2 (11:38→15:08)
--- NOTE | 2023-06-15 13:42 | HO.PM.IMPN ---
Subjective Subjective Date of Service: 06/15/23 Interval History: seen and examined this morning follow up for respiratory failure awake, alert and able to speak in full sentences this morning reports improvement in breathing no significant cough at this time Review of Systems Review of Systems: Yes all other systems are reviewed and are negative Constitutional Constitutional: Denies chills and Denies fever(s) Cardiovascular Cardiovascular: Denies chest pain, Denies palpitations and Denies dyspnea Respiratory Respiratory: Denies cough and Denies dyspnea Endocrine Endocrine: Denies palpitations Physical Exam Vital Signs: Vital Signs: Last Vital Signs Temp 98.1 F 06/15/23 11:57 Pulse 127 H 06/15/23 11:57 Resp 20 06/15/23 11:57 BP 152/71 H 06/15/23 11:57 Pulse Ox 93 06/15/23 11:57 O2 Del Method Nasal Cannula 06/15/23 11:57 O2 Flow Rate 3 06/15/23 11:57 FiO2 35 06/15/23 07:37 BMI result Body Mass Index 41.4 Const: General: cooperative, comfortable, no acute distress, alert and awake Nutritional Appearance: obese Orientation/consciousness: patient oriented x3 Resp: Effort & Inspection: normal respiratory effort, able to speak in complete sentences, no respiratory distress and no use of accessory muscles Auscultation: clear to auscultation bilaterally Cardio: Rate: regular rate Heart sounds: S1 normal heart sound present and S2 normal heart sound present GI: Inspection: No distended Palpation (GI): Soft to palpation and nontender Neuro: General: patient oriented x3, moves all extremities and CN's II-XI intact bilaterally Objective Data Active Medications Acetaminophen (Acetaminophen 325 Mg Tablet) 650 mg PO Q6H PRN PRN Reason: Pain, Mild (Pain Scale 1-3) Albuterol Sulfate (Albuterol Sulfate (0.083%) 2.5 Mg/3 Ml Vial.Neb) 2.5 mg INHALE RQ4H WHILE AWAKE [facility] Last Admin: 06/15/23 11:38 Dose: 2.5 mg Documented By: JIMMY Albuterol/Ipratropium (Albuterol/Iprat 2.5/0.5mg 3 Ml Ampul.Neb) 3 ml INHALE Q2H PRN PRN Reason: shortness of breath Last Admin: 06/15/23 08:12 Dose: 3 ml Documented By: JIMMY Guaifenesin/Dextromethorphan (Guaifenesin Dm 100/10/5 Ml 5 Ml Syrup) 10 ml PO Q6H PRN PRN Reason: Cough Heparin Sodium (Porcine) (Heparin Sodium,Porcine 5,000 Unit/Ml Vial) 5,000 unit SUBCUT Q12H [facility] Last Admin: 06/15/23 05:29 Dose: 5,000 unit Documented By: BROOKLYNN Doxycycline Hyclate 100 mg/ (Sodium Chloride) 250 mls @ 166.67 mls/hr IV Q12H [facility] Last Infusion: 06/15/23 07:18 Dose: Infused Documented By: CALIXTO Methylprednisolone Sodium Succinate (Methylprednisolone Sod Succ 40 Mg/Ml Vial) 40 mg IVPUSH Q8H [facility] Last Admin: 06/15/23 13:16 Dose: 40 mg Documented By: CALIXTO Ondansetron HCl (Ondansetron Hcl 4 Mg/2 Ml Vial) 4 mg IVPUSH Q8H PRN PRN Reason: Nausea and Vomiting Sodium Chloride (0.9 % Sodium Chloride Flush 3 Ml Syringe) 3 ml IVFLUSH QSHIFT [facility] Last Admin: 06/15/23 13:16 Dose: 3 ml Documented By: CALIXTO Vitamin D (Cholecalciferol (Vitamin D3) 25 Mcg Tablet) 50 mcg PO DAILY [facility] Last Admin: 06/15/23 09:53 Dose: 50 mcg Documented By: CALIXTO Labs 06/15/23 08:10 06/15/23 08:10 Labs: Laboratory Results - last 24 hr 06/14/23 06/14/23 06/14/23 14:13 14:21 17:42 MCV MCH MCHC RDW Plt Count MPV Immature Gran % (Auto) Neut % (Auto) Lymph % (Auto) [place] % (Auto) Eos % (Auto) Baso % (Auto) Lymph # (Auto) [place] # (Auto) Eos # (Auto) Baso # (Auto) Abs Immat Gran (auto) Absolute Neuts (auto) Absolute Nucleated RBC Nucleated RBC % (auto) O2 Saturation 74.0 77.0 ABG pH at Pt Temp 7.36 7.31 L ABG pCO2 at Pt Temp 64 H* 72 H* ABG pO2 at Pt Temp 47 L* 51 L ABG HCO3 37 H 37 H ABG Base Excess (Actual) 8.7 7.4 VBG pH VBG pCO2 VBG pO2 VBG HCO3 VBG O2 Saturation VBG Base Excess Anion Gap Estim Creat Clear Calc Estimated GFR Random Glucose Calcium Magnesium Urine Opiates Screen Not Detected Urine Fentanyl Screen Not Detected Ur Barbiturates Screen Not Detected Ur Phencyclidine Scrn Not Detected Ur Amphetamines Screen Not Detected U Benzodiazepines Scrn Not Detected Urine Cocaine Screen Not Detected U Marijuana (THC) Screen Not Detected Respiratory Panel [facility] Adenovirus (Rapid PCR) B.pert (TEM-PCR) B.parapertussis DNA PCR C. pneumoniae DNA (PCR) Coronavirus OC43 (PCR) Coronavirus HKU1 (PCR) Coronavirus 229E (PCR) Coronavirus NL63 (PCR) Human Metapneumovir PCR Influenza A (RT-PCR) Influenza B (RT-PCR) M. pneumoniae (PCR) Parainfluenza 1 (PCR) Parainfluenza 2 (PCR) Parainfluenza 3 (PCR) Parainfluenza 4 (PCR) RSV (PCR) Entero/Rhino (PCR) SARS-CoV-2 RNA (RT-PCR) 06/14/23 06/15/23 06/15/23 20:23 08:10 08:15 MCV 88.8 MCH 28.4 MCHC 31.9 RDW 13.7 Plt Count 163 MPV 10.6 Immature Gran % (Auto) 0.5 H Neut % (Auto) 89.3 H Lymph % (Auto) 7.9 L [place] % (Auto) 2.2 Eos % (Auto) 0.0 Baso % (Auto) 0.1 Lymph # (Auto) 0.9 L [place] # (Auto) 0.2 Eos # (Auto) 0.0 Baso # (Auto) 0.0 Abs Immat Gran (auto) 0.06 H Absolute Neuts (auto) 9.8 H Absolute Nucleated RBC 0.000 Nucleated RBC % (auto) 0.0 O2 Saturation ABG pH at Pt Temp ABG pCO2 at Pt Temp ABG pO2 at Pt Temp ABG HCO3 ABG Base Excess (Actual) VBG pH 7.34 7.37 VBG pCO2 69 60 VBG pO2 61 87 VBG HCO3 37 H 35 H VBG O2 Saturation 85.0 98.0 VBG Base Excess 8.0 7.5 Anion Gap 16 Estim Creat Clear Calc 132.3 Estimated GFR > 60 Random Glucose 146 H Calcium 9.4 Magnesium 2.0 Urine Opiates Screen Urine Fentanyl Screen Ur Barbiturates Screen Ur Phencyclidine Scrn Ur Amphetamines Screen U Benzodiazepines Scrn Urine Cocaine Screen U Marijuana (THC) Screen Respiratory Panel [facility] Adenovirus (Rapid PCR) B.pert (TEM-PCR) B.parapertussis DNA PCR C. pneumoniae DNA (PCR) Coronavirus OC43 (PCR) Coronavirus HKU1 (PCR) Coronavirus 229E (PCR) Coronavirus NL63 (PCR) Human Metapneumovir PCR Influenza A (RT-PCR) Influenza B (RT-PCR) M. pneumoniae (PCR) Parainfluenza 1 (PCR) Parainfluenza 2 (PCR) Parainfluenza 3 (PCR) Parainfluenza 4 (PCR) RSV (PCR) Entero/Rhino (PCR) SARS-CoV-2 RNA (RT-PCR) 06/15/23 09:45 MCV MCH MCHC RDW Plt Count MPV Immature Gran % (Auto) Neut % (Auto) Lymph % (Auto) [place] % (Auto) Eos % (Auto) Baso % (Auto) Lymph # (Auto) [place] # (Auto) Eos # (Auto) Baso # (Auto) Abs Immat Gran (auto) Absolute Neuts (auto) Absolute Nucleated RBC Nucleated RBC % (auto) O2 Saturation ABG pH at Pt Temp ABG pCO2 at Pt Temp ABG pO2 at Pt Temp ABG HCO3 ABG Base Excess (Actual) VBG pH VBG pCO2 VBG pO2 VBG HCO3 VBG O2 Saturation VBG Base Excess Anion Gap Estim Creat Clear Calc Estimated GFR Random Glucose Calcium Magnesium Urine Opiates Screen Urine Fentanyl Screen Ur Barbiturates Screen Ur Phencyclidine Scrn Ur Amphetamines Screen U Benzodiazepines Scrn Urine Cocaine Screen U Marijuana (THC) Screen Respiratory Panel [facility] See Note Adenovirus (Rapid PCR) Not Detected B.pert (TEM-PCR) Not Detected B.parapertussis DNA PCR Not Detected C. pneumoniae DNA (PCR) Not Detected Coronavirus OC43 (PCR) Not Detected Coronavirus HKU1 (PCR) Not Detected Coronavirus 229E (PCR) Not Detected Coronavirus NL63 (PCR) Not Detected Human Metapneumovir PCR Not Detected Influenza A (RT-PCR) Not Detected Influenza B (RT-PCR) Not Detected M. pneumoniae (PCR) Not Detected Parainfluenza 1 (PCR) Not Detected Parainfluenza 2 (PCR) Not Detected Parainfluenza 3 (PCR) Not Detected Parainfluenza 4 (PCR) Not Detected RSV (PCR) Not Detected Entero/Rhino (PCR) Not Detected SARS-CoV-2 RNA (RT-PCR) Not Detected Assessment and Plan (1) MARK treated with BiPAP: Status: Acute (2) Asthma-COPD overlap syndrome: Status: Acute (3) COPD exacerbation: Status: Acute Plan This is a 48-year-old male with history of MARK, asthma/COPD overlab admitted with acute on chronic hypoxic and hypercarbic respiratory failure secondary to COPD/asthma exacerbation Acute on chronic hypoxic and hypercarbic respiratory failure Likely secondary to COPD/asthma exacerbation Chest CT negative for pneumonia on bipap for mark at baseline switched to AVAPS overnight continue IV Solu-Medrol and scheduled DuoNebs continue doxycycline wean Oxygen as tolerated Morbid obesity. BMI 40.9 Discussed importance of weight management as this may be contributing to worsening of other comorbidities sinus tachycardia likely r/t breathing treatments incidental finding of abnormal pancreas stable dating back to 2019 CT rec dedicated pancreas CT or MRI to rule out mass MARK continue Bipap DVT prophylaxis with heparin Full code attending - Dr. Doherty Requires ongoing inpatient stay for close monitoring of respiratory status, steroids, pulmonology evaluation Time Spent With Patient Time: Total time managing care of this patient today ____ minutes. Quality Stroke Does the patient have a stroke diagnosis?: No VTE Prior VTE?: No VTE Risk Level:: Medical - moderate - high VTE Device Contraindication: Treatment Not Indicated VTE Drug Contraindication: N/A - Med Ordered
[2023-06-16] VITALS (9 sets, daily range): BP systolic 120–141; BP diastolic 74–85; PULSE 71–113; RESP 18–20; TEMP 36.1–37; O2SAT 84–98
[2023-06-16] MEDS: Cholecalciferol (Vitamin D3) 25 MCG TABLET 50 MCG PO (09:29)
--- NOTE | 2023-06-16 09:41 | PM.PNPUL ---
Subjective Subjective Date of Service: 06/16/23 Interval history: The patient was seen in exam. Overall he is feeling better. Blood gas are better. He is tolerating the noninvasive ventilator at nighttime. At home he does have a BiPAP. Will have to assess the BiPAP download to make sure that is working for him. If it does not appear to be working well for him then we can consider switching over to AVAPS. But will do that as an outpatient. He should be switched over to p.o. medications. Can try to wean him down to his baseline oxygen of 2 L and if he is doing well he can be discharged home. Objective Data Labs 06/15/23 08:10 06/15/23 08:10 Labs: Laboratory Results - last 24 hr 06/15/23 09:45 Respiratory Panel [facility] See Note Adenovirus (Rapid PCR) Not Detected B.pert (TEM-PCR) Not Detected B.parapertussis DNA PCR Not Detected C. pneumoniae DNA (PCR) Not Detected Coronavirus OC43 (PCR) Not Detected Coronavirus HKU1 (PCR) Not Detected Coronavirus 229E (PCR) Not Detected Coronavirus NL63 (PCR) Not Detected Human Metapneumovir PCR Not Detected Influenza A (RT-PCR) Not Detected Influenza B (RT-PCR) Not Detected M. pneumoniae (PCR) Not Detected Parainfluenza 1 (PCR) Not Detected Parainfluenza 2 (PCR) Not Detected Parainfluenza 3 (PCR) Not Detected Parainfluenza 4 (PCR) Not Detected RSV (PCR) Not Detected Entero/Rhino (PCR) Not Detected SARS-CoV-2 RNA (RT-PCR) Not Detected Review of Systems Denies confusion Psychiatric: Denies confusion Physical Exam Vital Signs: Vital Signs: Last Vital Signs Temp 97.0 F 06/16/23 07:25 Pulse 72 06/16/23 07:52 Resp 20 06/16/23 07:56 BP 120/85 06/16/23 07:25 Pulse Ox 92 06/16/23 07:25 O2 Del Method BiPAP 06/16/23 07:25 O2 Flow Rate 35 06/16/23 07:25 FiO2 35 06/16/23 04:00 BMI result Body Mass Index 41.4 Const: General: tired appearing; No confusion Orientation/consciousness: No confusion Neck: Neck: Yes supple Chest: Chest palpation & inspection: normal inspection of the chest Resp: Effort & Inspection: normal respiratory effort Auscultation: no rhonchi and diminished lung sounds Cardio: Rate: regular rate Rhythm: regular rhythm Heart sounds: S1 normal heart sound present and S2 normal heart sound present GI: Palpation (GI): Soft to palpation and nontender Auscultation: normal bowel sounds Skin: General skin exam: rashes and/or lesions noted Neuro: General: No confusion Extrem: General: Yes edema Procedures Date of Service Date of Service: 06/16/23 Assessment and Plan Assessment and plan (1) MARK treated with BiPAP: Status: Acute (2) Asthma-COPD overlap syndrome: Status: Acute (3) COPD exacerbation: Status: Acute Plan prednisone taper complete 8 days of doxycycline respira andtory therapy continue with BIPAP at night titrate the oxygen down to to keep pox>90% WIll need a follow up as an outpt Time Spent With Patient Time: Total time managing care of this patient today ____ minutes. Progress Note: Quality Stroke Does the patient have a stroke diagnosis?: No
--- NOTE | 2023-06-16 11:01 | PM.DS ---
DS: Providers Provider Date of Service: 06/16/23 Date of admission: 06/14/23 15:44 Date of discharge: 06/16/23 Primary care physician: Monet Mckeon MD Consults: 06/14/23 15:46 Consult to Pulmonology Routine Consulting Provider: [facility] Reason for consultation: acute on chronic hypercarbia Attending physician on discharge: Peterson Sanchez Discharging clinician: Berenice Gutierrez DS: Diagnosis Discharge Diagnosis (1) MARK treated with BiPAP: Status: Acute (2) Asthma-COPD overlap syndrome: Status: Acute (3) COPD exacerbation: Status: Acute (4) Acute and chronic respiratory failure with hypercapnia: Status: Acute DS: Summary Hospital Course Hospital Course: From H&P on the day of admission 48-year-old man presenting to the ER with complaints of worsening shortness of breath, chest pain, dizziness, dry cough and congestion over the last 2 days. He has a history of chronic respiratory failure, COPD and asthma. He uses BiPAP at home. Patient had presented lethargic was placed on BiPAP do seem to be more arousable. Chest x-ray negative for consolidation effusion. He denied fever, chills, recent illness, sick contacts, recent travel. ABG was collected and showed pH of 7.36/64/47/37. U tox negative, COVID, flu negative. He was placed on BiPAP with good effect. The plan is to admit the patient for further management and treatment of acute hypoxic and hypercarbic respiratory failure secondary to COPD and asthma. Acute on chronic hypoxic and hypercarbic respiratory failure secondary to acute COPD/asthma exacerbation. Chest CT negative for pneumonia, on bipap for mark at baseline and was continued during hospitalization. He was treated with scheduled and as needed breathing treatments as well as systemic steroids and IV doxycycline. Patient's breathing improved, he was weaned down to his baseline supplemental oxygen of 2L and VBG's show doentrend of co2. He has been able to ambulate without shortness of breath and has remained awake and alert during the day. He was seen in consultation by pulmonology who recommended to discharge home with prednisone taper and a course of antibiotics. He will have close outpatient follow-up with pulmonology and the importance of compliance with bipap was discussed. Component of obesity hypoventilation likely, weight loss recommended. Unless he is compliant with bipap, he is at increased risk for recurrent admissions. Time Spent with Patient Time attestation: Total time managing care of this patient today ____ minutes. Discharge coordination time: Greater than 30 minutes Quality: Safe Use of Opioids Does Pt have an Active Cancer Diagnosis on the Problem List?: No Quality: Stroke Does the patient have a stroke diagnosis?: No Physical Exam Vital Signs: Vital Signs: Last Vital Signs Temp 97.0 F 06/16/23 07:25 Pulse 72 06/16/23 07:52 Resp 20 06/16/23 07:56 BP 120/85 06/16/23 07:25 Pulse Ox 92 06/16/23 07:25 O2 Del Method BiPAP 06/16/23 07:25 O2 Flow Rate 35 06/16/23 07:25 FiO2 35 06/16/23 04:00 BMI result Body Mass Index 41.4 Const: General: cooperative, comfortable, no acute distress, alert and awake Nutritional Appearance: obese Orientation/consciousness: patient oriented x3 Resp: Effort & Inspection: normal respiratory effort, able to speak in complete sentences, no respiratory distress and no use of accessory muscles Auscultation: clear to auscultation bilaterally Cardio: Rate: regular rate Heart sounds: S1 normal heart sound present and S2 normal heart sound present GI: Inspection: No distended Palpation (GI): Soft to palpation and nontender Neuro: General: patient oriented x3, moves all extremities and CN's II-XI intact bilaterally DS: Data Data Completed and Pending Completed studies during hospitalization [Text1]: Procedures Assistance with Respiratory Ventilation, Less than 24 Consecutive Hours, Continuous Positive Airway Pressure (01/15/23) Labs on day of discharge: Laboratory Results - last 24 hr 06/15/23 09:45 Respiratory Panel Valentine See Note Adenovirus (Rapid PCR) Not Detected B.pert (TEM-PCR) Not Detected B.parapertussis DNA PCR Not Detected C. pneumoniae DNA (PCR) Not Detected Coronavirus OC43 (PCR) Not Detected Coronavirus HKU1 (PCR) Not Detected Coronavirus 229E (PCR) Not Detected Coronavirus NL63 (PCR) Not Detected Human Metapneumovir PCR Not Detected Influenza A (RT-PCR) Not Detected Influenza B (RT-PCR) Not Detected M. pneumoniae (PCR) Not Detected Parainfluenza 1 (PCR) Not Detected Parainfluenza 2 (PCR) Not Detected Parainfluenza 3 (PCR) Not Detected Parainfluenza 4 (PCR) Not Detected RSV (PCR) Not Detected Entero/Rhino (PCR) Not Detected SARS-CoV-2 RNA (RT-PCR) Not Detected Discharge Plan Discharge Anticipated Discharge Date/Time: 06/16/23 11:31 Patient Disposition: Home, Self-Care Discharge Diagnosis: acute exacerbation of asthma/copd acute on chronic hypoxic/hypercarbic respiratory failure Referrals: Mickey Ross MD [Physician] - 1 Week Monet Mckeon MD [Primary Care Provider] - 1 Week Discharge Medications: New doxycycline hyclate 100 mg tablet 100 mg PO BID 8 Days Qty: 16 0RF prednisone 10 mg tablet See Taper PO DIRECTED Qty: 30 0RF Taper: Prednisone 40 mg daily for 3 Days and 0 Hour 30 mg daily for 3 Days and 0 Hour 20 mg daily for 3 Days and 0 Hour 10 mg daily for 3 Days and 0 Hour Rx Instructions: see taper instructions Continued (DME) CPAP Machine/Device Device See Rx Instructions .Route Rx Instructions: As directed (DME) nebulizers Misc See Rx Instructions .Route Rx Instructions: As directed cholecalciferol (vitamin D3) 50 mcg (2,000 unit) capsule 50 mcg PO DAILY Breo Ellipta 200-25 mcg/dose blister with device 1 inh inhalation DAILY 30 Days Qty: 60 11RF Discharge Orders: Discharge Order (Routine); Ordered 06/16/23 Ordered By: Berenice Gutierrez Activity on Discharge: As tolerated Stand Alone Forms: Patient Portal Discharge page Care Plan Goals: see below Health Concerns: acute exacerbation of asthma/copd acute on chronic respiratory failure with hypoxia/hypercarbia Plan of Treatment: [place] course of antibiotics as prescribed Complete course of prednisone as prescribed Call to schedule follow up 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 Ross Use bipap machine every night Assessment: see discharge summary
--- NOTE | 2023-06-16 11:53 | MHC.CM.PN ---
PT WILL DC HOME TODAY WITH NO SERVICES VIA PRIVATE TRANSPORT
--- NOTE | 2023-06-16 12:16 | PC.NURSE ---
Patient passed ambulatory trial with 2L oxygen via NC. Oxygen saturation maintained between 90-94% on 2L via NC.
== END 2023-06-16 12:45 | disposition home or self-care (01) | DRG 190 ==
LOC: HO.ED 16:05 → HO.EDOVER 16:08 → HO.IMC 16:12 → HO.ICU 20:13 → HO.IMC 21:46
PROVIDERS: Emergency Medicine; Emergency Medicine Emergency Medical Services; Physician Assistant; Admitting Provider Nurse Practitioner Acute Care; Emergency Provider Emergency Medicine; PCP Internal Medicine; Visit Provider Physician Assistant Medical
DX: J44.1 Chronic obstructive pulmonary disease with (acute) exacerbation (principal); J96.21 Acute and chronic respiratory failure with hypoxia; J96.22 Acute and chronic respiratory failure with hypercapnia; J45.901 Unspecified asthma with (acute) exacerbation; E66.2 Morbid (severe) obesity with alveolar hypoventilation; Z68.41 Body mass index [BMI] 40.0-44.9, adult; Z79.51 Long term (current) use of inhaled steroids; Z79.899 Other long term (current) drug therapy
CPT/HCPCS: 36415; 36600; 71046; 71250; 80048; 80076; 80307; 82803; 83735; 83880; 84484; 85025; 87502; 87633; 87635; 93005; 94640; 94660; 99285; J1643; J2920; J2930

== ENCOUNTER → 2023-06-14 15:44 | Outpatient (BNV) | payer OTHER, SELFPAY | PROVIDERS: Admitting Provider Nurse Practitioner Acute Care; Emergency Provider Emergency Medicine; PCP Internal Medicine; Visit Provider Hospitalist | DX: G47.33 Obstructive sleep apnea (adult) (pediatric) (principal); J44.89 Other specified chronic obstructive pulmonary disease; J44.1 Chronic obstructive pulmonary disease with (acute) exacerbation | CPT/HCPCS: 99223; 99233 ==

== ENCOUNTER → 2023-06-14 15:44 | Outpatient (BNV) | payer OTHER, SELFPAY | PROVIDERS: Admitting Provider Nurse Practitioner Acute Care; Emergency Provider Emergency Medicine; PCP Internal Medicine; Visit Provider Internal Medicine | DX: G47.33 Obstructive sleep apnea (adult) (pediatric) (principal); J44.89 Other specified chronic obstructive pulmonary disease; J44.1 Chronic obstructive pulmonary disease with (acute) exacerbation; J96.22 Acute and chronic respiratory failure with hypercapnia | CPT/HCPCS: 99223; 99232; 99239; 99499 ==

== ENCOUNTER 2023-06-23 15:08 | Outpatient (AMB) | payer OTHER, SELFPAY ==
--- NOTE | 2023-06-23 15:09 | MHC.OFFVIS ---
Intake Vital Signs 06/23/23 15:10 Height 5 ft 6 in Weight 251 lb 5.231 oz BMI 40.6 BP 118/62 Blood Pressure Location Rt brachial Position Sitting Pulse 92 Pulse Source Doppler Pulse Oximetry (%) 93 Oxygen Delivery Method Room Air Intake Visit Reasons: Shortness of Breath/MARK Intake Note: Patient is here for shortness of breath/ MARK, Allergies No Known Allergies* Allergy (Uncoded 05/26/23 10:47) Unknown HPI HPI Comments History of Present Illness Details The patient is a 48-year-old gentleman known obstructive sleep apnea currently on CPAP in addition to asthma. CPAP therapy has been effective and beneficial. USes CPAP more than 4 hours a night. Has been noticing worsening respiratory symptoms now for the last few months. 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 He does not use a mask. He has been noticing increasing nasal congestion and cough. Moderate severity. Also has been complaining worsening shortness of breath. He started developing pleuritic chest pains and shortness of breath and said to come in [facility] ER for further evaluation. He was found to be having wheezing on examination. Chest x-ray demonstrated some minimal changes of the right base. The patient was given a Medrol pack. He is still complaining of some cough in addition to obstructive low. The patient was recommended to wear mask but for some reason he was not able to do so at the work. Therefore, need to consider changing jobs as this will continue affecting her respiratory status. In regards to the CPAP he is using especially since he can't breathe well. The CPAP therapy has been affecting beneficial. He did get supplies. He will continue using more than 4 hours a night. 10/23/2020 the patient is here for pulmonary follow-up visit. Overall the patient continues to have difficulties with his sleep. He has had episodes where he wakes up with significant shortness of breath and disorientation. His has become very concerned. When that happens he does put his CPAP machine on he can sleep better. However, he still struggling with the BiPAP. I did request a download in appears that he has only used it a few hours at a time. When he does use it however his AHI is elevated up to 41. Therefore it is likely that he is not using it because the machine is not appropriately helping him with his severe sleep apnea. Therefore because he has had a significant symptoms in the difficulties with the elevations in the AHI while on the CPAP I will request a CPAP BiPAP titration for him. In addition to that he has been complaining of left-sided chest discomfort. Last time he had a CT scan was back in July 2020 and did not demonstrate any abnormalities. At this point if he continues having this for comfort he can always have a chest x-ray. I have reassured him that the CAT scan is able to give more detail. His cough also has been getting worse. However, he did not get the Symbicort fill it may have been issue with insurance. Therefore I will send him Breo and he can continue Incruse which should be the same device and have a better adherence with the. The patient will subsequently follow up in a few after he undergoes his CPAP /BiPAP titration study. 02/02/2021 the patient is here for pulmonary follow-up visit. He has been complaining worsening shortness of breath and wheezing. He has been using his nebulizer with good response. Denies any sick contacts. Denies any chest congestion. At this point we have to optimize his respiratory therapy since he has no longer taking inhaled cortical steroid. He is using the Incruse daily and does have for the short-acting beta agonist as needed. In regards to the CPAP that was switched over to a BiPAP 14 over a period based on the titration study he does better with the pressure of 15 so therefore proceed to 15 over a period I am hopeful that he can start using more often. He still struggling to use it more than 4 hours a day. Primarily because he feels like is too much pressure. The patient needs to come in with his BiPAP in order to adjusted. The patient is aware that if he does not use it the machine could be taking away and also he will not be giving supplies. Therapy will be effective beneficial based on the fact that he has severe sleep apnea. 03/16/2021 the patient is here for pulmonary follow-up visit. He states that a few weeks ago he started developing worsening congested cough. He started using his inhalers in his symptoms did improve. Therefore, he has been using the Breo in the in cruise in the morning. He has not had to use his rescue inhaler. He does complain of some white phlegm that he brings up at times. Sometimes it makes and gag. in addition to that he has been using the BiPAP. However, he has not used to the current mask, he would like to go back to an F20. His machine is set up BiPAP 15/8. He has been complaining of the elevated pressures are brought down to 13/7. He is going to start using it during the daytime and also at nighttime. He is having some daytime drowsiness explained to him that this is because he is not using adequately. 06/30/2021 the patient is here for a pulmonary follow-up visit. Seems to be tolerating the BiPAP better now. He is tolerating the lower pressure. He does like the fullface mask. Still he says he does not sleep a lot and does weigh does not use it enough. I did encourage him to use it 4 hours a night in order for him to be able to stay active with his [employer] company continue getting supplies. The meantime the patient has had worsening asthma symptoms. He has had to use his nebulizer. But, after 1-2 treatments he is now back to his baseline. Is likely seasonal in nature. He does have to use his maintenance inhalers regularly which includes the Breo and Incruse. I will provide him with additional short-acting beta agonists both the nebulizer form inhaler to make sure that he is adequately covered. He is also taking allergy medicine. recently also he went to the ER with back pain. The patient had a CT scan demonstrating a herniated disc. He will be following up with Neurosurgery soon. 06/07/2022 the patient is here for a pulmonary follow-up visit. She is complaining about dyspnea on exertion in addition to chest pain. Moderate severity. The shortness of breath is mainly with activity. Last week he was having some chest discomfort. He did tell his because he did want concern her. Does discomfort was substernal and pressure-like sensation. Not associated with any activity. It is now resolved. The patient did not take any medicine to resolve it. He does not have any recent history of stress test. He was admitted briefly to the hospital I believe back in January where he came in with chest discomfort and he did have an EKG and also cardiac enzymes done but, no cardiology evaluation. I do believe the patient needs to be evaluated by Cardiology specially with all his cardiac risk factors. In the meantime he does complaint of daytime drowsiness. His Orondo score is elevated 12/24. Unfortunately, the patient stopped using the BiPAP. Feels like is too strong at this time. We had adjusted the pressures before. He is still getting supplies. He will bring it to the next visit so we can adjusted. 01/27/2023 the patient is here for hospital follow-up visit. He had a significant episode of acute hypercarbic respiratory failure with CO2 narcosis. He required BiPAP. He had been sick with a respiratory illness. He has CT scan of the chest during that visit demonstrated a left lower lobe pneumonia. He still coughing up some mucus. The patient has been tolerating the BiPAP. Although is unclear the patient needs oxygen with the BiPAP. Will go ahead and resend for another titration study to see if he needs AVAPS versus oxygen with BiPAP. The patient is completing a course of prednisone. He still feels very tired. He will better from a stimulant. I do believe that starting Provigil may be helpful for him. Hopefully get him back to sleep-wake cycle. That will wait for the titration study before we do that. In the meantime will treat him for the lower respiratory infection that may be still lingering. 03/02/2023 the patient is here for a pulmonary follow-up visit. He has significant daytime drowsiness. He is falling asleep quite as we speak. His Orondo score significantly elevated at 60 over 24. He is actually having hard time with his daytime drowsiness right now. The patient has been using the BiPAP. He does not feel like is working as well for him. Currently we went up to BiPAP . Although he did have a titration study and they recommended /. They also recommended 2 L of oxygen. Therefore I will submit a relation to his [employer] company in order to adjust the pressures in start him on oxygen. I am hopeful that this is going to be effective for him. In the meantime I do believe the patient has daytime drowsiness that is out of proportion to his respiratory capacity it may have a component of hypoventilation syndrome. Therefore the additional provisional may be helpful for him as a stimulant to help him with his respiratory drive and also with his weight shortness. Therefore will go ahead and start him on 100 mg of Provigil at this time. He will continue with current respiratory therapy will follow-up in a couple months. 05/26/2023 the patient is here for a pulmonary follow-up visit. He was placed on the Provigil stimulant to see if we can improve his daytime drowsiness. Although he did not see any significant difference. He did the blood up to 200 mg still no significant difference. He has been using the BiPAP. Although does not tolerated for too long. We know the pressures do help him based on the fact that he did very well in the hospital but at home does not seem to be tolerating this time. Therefore this switch it again to auto BiPAP to see if we can adjust the pressures a little bit more hopefully not requiring the significantly elevated pressures. He knows to use it during the daytime as well. Continues with his current respiratory therapy. Will have him try the VPAP and call the office next week if he is not tolerating it. 06/23/2023 the patient is here for pulmonary follow-up visit. He was recently in the hospital with bronchitis and asthma exacerbation. This resulted in worsening acute on chronic hypercarbic respiratory failure requiring additional noninvasive ventilator. The patient was placed on noninvasive ventilator did very well. AVAPS setting. he does have a auto BiPAP at home. He is back to using it regularly. He does feel like it is helping him. Although his AHI significantly elevated up to 30 events an hour. We switched him back to BiPAP 31/07 and will follow-up with those numbers. If they continue to be elevated the patient will benefit from switching over to a noninvasive ventilator with the AVAPS setting. He continues uses respiratory therapy. He is done with the antibiotics in the prednisone. He also has oxygen at nighttime. He was requiring oxygen during the hospitalization but we did go for brief walking oximetry the patient does not qualify for oxygen with activity any longer. [facility] Medical History (Updated 06/24/23 @ 00:03 by Sae Adame) Acute and chronic respiratory failure with hypercapnia MARK treated with BiPAP Asthma-COPD overlap syndrome Moderate obesity Bronchitis Chest pain Chronic allergic rhinitis Asthma Family History Other Asthma Social History Household Members: Spouse Housing: Apartment Do you presently have visiting nurse or other home services: No Alcohol intake: unknown Patient Tobacco Use Status: Never used Tobacco service: No Current occupational status: disabled Review of Systems Const Reports daytime sleepiness, Reports fatigue, Denies night sweats, Reports snoring and Reports stops breathing during sleep ENT Denies change in voice, Denies lip swelling, Denies mouth pain, Reports nasal congestion, Reports nasal discharge and Denies tongue swelling Card Reports chest pain, Denies dyspnea and Reports dyspnea on exertion Resp Reports cough, Denies dyspnea, Reports dyspnea on exertion, Reports snoring and Reports wheezing GI Denies abdominal pain Musc Reports back pain Neuro Denies Neuro-related abnormal movements and Denies confusion Psych Denies no additional complaints and Denies confusion Endo Reports fatigue Anthony/Lymph Denies easy bleeding and Denies lymphadenopathy Aller/Immun Denies lip swelling, Denies tongue swelling and Reports wheezing Physical Exam Vital Signs: Last Vital Signs Pulse 92 06/23/23 15:10 BP 118/62 06/23/23 15:10 Pulse Ox 93 06/23/23 15:10 Oxygen Delivery Method Room Air 06/23/23 15:10 BMI result Body Mass Index 40.6 Last Vital Signs Temp 97.0 F 06/16/23 07:25 Pulse 72 06/16/23 07:52 Resp 20 06/16/23 07:56 BP 120/85 06/16/23 07:25 Pulse Ox 92 06/16/23 07:25 O2 Del Method BiPAP 06/16/23 07:25 O2 Flow Rate 35 06/16/23 07:25 FiO2 35 06/16/23 04:00 BMI result Body Mass Index 41.4 Const General: No confusion Orientation/consciousness: No confusion Neck Neck: Yes supple Chest Chest palpation & inspection: normal inspection of the chest Resp Effort & Inspection: normal respiratory effort Auscultation: no rhonchi and diminished lung sounds Cardio Rate: regular rate Rhythm: regular rhythm Heart sounds: S1 normal heart sound present and S2 normal heart sound present GI Palpation (GI): Soft to palpation and nontender Auscultation: normal bowel sounds Skin General skin exam: rashes and/or lesions noted Neuro General: No confusion Extrem General: Yes edema Assessment & Plan Assessment & Plan (1) Chronic allergic rhinitis: Code(s): J30.9 - Allergic rhinitis, unspecified (2) MARK treated with BiPAP: Code(s): G47.33 - Obstructive sleep apnea (adult) (pediatric) (3) Cough: Code(s): R05 - Cough Qualifiers: Cough type: chronic Qualified Code(s): R05.3 - Chronic cough (4) Asthma: Code(s): J45.909 - Unspecified asthma, uncomplicated Qualifiers: Asthma complication type: uncomplicated Asthma persistence: persistent Asthma severity: moderate Qualified Code(s): J45.40 - Moderate persistent asthma, uncomplicated (5) Edema: Code(s): R60.9 - Edema, unspecified Qualifiers: Edema type: generalized Qualified Code(s): R60.1 - Generalized edema (6) Asthma-COPD overlap syndrome: Code(s): J44.89 - Other specified chronic obstructive pulmonary disease Plan Continue Breo daily GONZALEZ as needed BIPAP 31/07 with 2 L oxygen, requesting F20 mask stopped Provigil, did not work low sodium diet bloodwork, VBG F/U 2-3 months Orders: Orders Venous Blood Gas 06/23/23 J44.89 - Other specified chronic obstructive pulmonary disease Basic Metabolic Panel 06/23/23 J44.89 - Other specified chronic obstructive pulmonary disease Complete Blood Count Auto Diff 06/23/23 J44.89 - Other specified chronic obstructive pulmonary disease Coding Level of Care Code Est Pt Level 4 (69627) Diagnoses Chronic allergic rhinitis J30.9 MARK treated with BiPAP G47.33 Chronic cough R05.3 Cough type: chronic Moderate persistent asthma without complication J45.40 Asthma complication type: uncomplicated Asthma persistence: persistent Asthma severity: moderate Generalized edema R60.1 Edema type: generalized Asthma-COPD overlap syndrome J44.89 Time Spent (min) 17
[2023-06-23 15:10] VITALS: BP 118/62; PULSE 92; O2SAT 93; BMI 40.6
== END 2023-06-23 15:28 | disposition home or self-care (01) ==
PROVIDERS: PCP Internal Medicine; Visit Provider Hospitalist
DX: J30.9 Allergic rhinitis, unspecified (principal); G47.33 Obstructive sleep apnea (adult) (pediatric); R05.3 Chronic cough; J45.40 Moderate persistent asthma, uncomplicated; R60.1 Generalized edema; J44.89 Other specified chronic obstructive pulmonary disease
CPT/HCPCS: 99214

== ENCOUNTER → 2023-06-23 15:08 | Outpatient (BNVA) | payer OTHER, SELFPAY | PROVIDERS: PCP Internal Medicine; Visit Provider Hospitalist | DX: J45.40 Moderate persistent asthma, uncomplicated (principal); J44.89 Other specified chronic obstructive pulmonary disease; J30.9 Allergic rhinitis, unspecified; G47.33 Obstructive sleep apnea (adult) (pediatric); R05.3 Chronic cough; R60.1 Generalized edema | CPT/HCPCS: 99212 ==

== ENCOUNTER 2023-08-18 14:35 | Outpatient (AMB) | payer OTHER, SELFPAY ==
[2023-08-18 14:36] VITALS: BP 140/82; PULSE 99; O2SAT 95; BMI 41.5
--- NOTE | 2023-08-18 14:36 | A.OFFVIS_ITS ---
Intake Vital Signs 08/18/23 14:36 Height 5 ft 6 in Weight 256 lb 13.416 oz BMI 41.5 BP 140/82 H Blood Pressure Location Lt brachial Position Sitting Pulse 99 Pulse Source Doppler Pulse Oximetry (%) 95 Oxygen Delivery Method Nasal Cannula Oxygen Flow Rate 2 Intake Visit Reasons: Shortness of Breath/MARK Allergies No Known Allergies* Allergy (Uncoded 05/26/23 10:47) Unknown HPI HPI Comments History of Present Illness Details The patient is a 48-year-old gentleman known obstructive sleep apnea currently on CPAP in addition to asthma. CPAP therapy has been effective and beneficial. USes CPAP more than 4 hours a night. Has been noticing worsening respiratory symptoms now for the last few months. 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 He does not use a mask. He has been noticing increasing nasal congestion and cough. Moderate severity. Also has been complaining worsening shortness of breath. He started developing pleuritic chest pains and shortness of breath and said to come in today [facility] ER for further evaluation. He was found to be having wheezing on examination. Chest x-ray demonstrated some minimal changes of the right base. The patient was given a Medrol pack. He is still complaining of some cough in addition to obstructive low. The patient was recommended to wear mask but for some reason he was not able to do so at the work. Therefore, need to consider changing jobs as this will continue affecting her respiratory status. In regards to the CPAP he is using especially since he can't breathe well. The CPAP therapy has been affecting beneficial. He did get supplies. He will continue using more than 4 hours a night. 01/27/2023 [facility]. He had a significa nt episode of acute hypercarbic respiratory failure with CO2 narcosis. He required BiPAP. He had been sick with a respiratory illness. He has CT scan of the chest during that visit demonstrated a left lower lobe pneumonia. He still coughing up some mucus. The patient has been tolerating the BiPAP. Although is unclear the patient needs oxygen with the BiPAP. Will go ahead and resend for another titration study to see if he needs AVAPS versus oxygen with BiPAP. The patient is completing a course of prednisone. He still feels very tired. He will better from a stimulant. I do believe that starting Provigil may be helpful for him. Hopefully get him back to sleep-wake cycle. That will wait for the titration study before we do that. In the meantime will treat him for the lower respiratory infection that may be still lingering. 03/02/2023 the patient is here for a pulm onary follow-up visit. He has significant daytime drowsiness. He is falling asleep quite as we speak. His [place] score significantly elevated at 60 over 24. He is actually having hard time with his daytime drowsiness right now. The patient has been using the BiPAP. He does not feel like is working as well for him. Currently we went up to BiPAP . Although he did have a titration study and they recommended 31/07. They also recommended 2 L of oxygen. Therefore I will submit a relation to his [employer] company in order to adjust the pressures in start him on oxygen. I am hopeful that this is going to be effective for him. In the meantime I do believe the patient has daytime drowsiness that is out of proportion to his respiratory capacity it may have a component of hypoventilation syndrome. Therefore the additional provisional may be helpful for him as a stimulant to help him with his respiratory drive and also with his weight shortness. Therefore will go ahead and start him on 100 mg of Provigil at this time. He will continue with current respiratory therapy will follow-up in a couple months. 05/26/2023 the patient is here for a pulm onary follow-up visit. He was placed on the Provigil stimulant to see if we can improve his daytime drowsiness. Although he did not see any significant difference. He did the blood up to 200 mg still no significant difference. He has been using the BiPAP. Although does not tolerated for too long. We know the pressures do help him based on the fact that he did very well in the hospital but at home does not seem to be tolerating this time. Therefore this switch it again to auto BiPAP to see if we can adjust the pressures a little bit more hopefully not requiring the significantly elevated pressures. He knows to use it during the daytime as well. Continues with his current respiratory therapy. Will have him try the VPAP and call the office next week if he is not tolerating it. 06/23/2023 the patient is here for pulmo nary follow-up visit. He was recently in the hospital with bronchitis and asthma exacerbation. This resulted in worsening acute on chronic hypercarbic respiratory failure requiring additional noninvasive ventilator. The patient was placed on noninvasive ventilator did very well. AVAPS setting. he does have a auto BiPAP at home. He is back to using it regularly. He does feel like it is helping him. Although his AHI significantly elevated up to 30 events an hour. We switched him back to BiPAP 20/11 and will follow-up with those numbers. If they continue to be elevated the patient will benefit from switching over to a noninvasive ventilator with the AVAPS setting. He continues uses respiratory therapy. He is done with the antibiotics in the prednisone. He also has oxygen at nighttime. He was requiring oxygen during the hospitalization but we did go for brief walking oximetry the patient does not qualify for oxygen with activity any longer. 08/18/2023 The patient is here for a pulm onbennet follow up visit. He had been hospitalized and discharged on oxygen. The oxygen has been effective and beneficial. We did go for conserving device trial and he did well on a conserving device. He would like a POC, but I explained to him that his DME does not carry them. We will request B cyliders with conserving device. He has been using the BIPAP 20/11 with 2L oxygen with good effect. We will start Trazodone to improve his sleep. The patient is also volume overload with wor sening LE edema. Moderate in severity. Worsening dyspnea. We will start him on diuretics and he needs to have bloodwork in 2 weeks. [facility] Medical History (Updated 06/24/23 @ 00:03 by Sae Adame) Acute and chronic respiratory failure with hypercapnia MARK treated with BiPAP Asthma-COPD overlap syndrome Moderate obesity Bronchitis Chest pain Chronic allergic rhinitis Asthma Family History Other Asthma Social History Household Members: Spouse Housing: Apartment Do you presently have visiting nurse or other home services: No Alcohol intake: unknown Patient Tobacco Use Status: Never used Tobacco service: No Current occupational status: disabled Review of Systems Const Reports daytime sleepiness, Reports fatigue, Denies night sweats, Reports snoring and Reports stops breathing during sleep ENT Denies change in voice, Denies lip swelling, Denies mouth pain, Reports nasal congestion, Reports nasal discharge and Denies tongue swelling Card Reports chest pain, Reports leg edema, Denies dyspnea and Reports dyspnea on exertion Resp Reports cough, Denies dyspnea, Reports dyspnea on exertion, Reports snoring and Reports wheezing GI Denies abdominal pain Musc Reports back pain Neuro Denies Neuro-related abnormal movements Psych Denies no additional complaints Endo Reports fatigue Anthony/Lymph Denies easy bleeding and Denies lymphadenopathy Aller/Immun Denies lip swelling, Denies tongue swelling and Reports wheezing Physical Exam Vital Signs: Last Vital Signs Pulse 99 08/18/23 14:36 BP 140/82 H 08/18/23 14:36 Pulse Ox 95 08/18/23 14:36 Oxygen Delivery Method Nasal Cannula 08/18/23 14:36 Oxygen Flow Rate 2 08/18/23 14:36 BMI result Body Mass Index 41.5 Last Vital Signs Temp 97.0 F 06/16/23 07:25 Pulse 72 06/16/23 07:52 Resp 20 06/16/23 07:56 BP 120/85 06/16/23 07:25 Pulse Ox 92 06/16/23 07:25 O2 Del Method BiPAP 06/16/23 07:25 O2 Flow Rate 35 06/16/23 07:25 FiO2 35 06/16/23 04:00 BMI result Body Mass Index 41.4 Const General: comfortable HEENT Head: Yes normocephalic Neck Neck: Yes supple Chest Chest palpation & inspection: normal inspection of the chest Resp Effort & Inspection: normal respiratory effort Auscultation: no rhonchi and diminished lung sounds Cardio Rate: regular rate Rhythm: regular rhythm Heart sounds: S1 normal heart sound present and S2 normal heart sound present GI Palpation (GI): Soft to palpation and nontender Auscultation: normal bowel sounds Skin General skin exam: rashes and/or lesions noted Extrem General: Yes edema Office Procedures 6 Minute Walk Time:: 18:00 SPO2 % at rest: 93 Pulse at rest: 101 SPO2 % during excercise: 88 Pulse during excercise: 115 Distance in yards walked: 150 Tenzin Score: 3 Supplemental Oxygen: placed on 2L/pulse improving pox 94% with activity 00136 - 6 Minute Walk Assessment & Plan Assessment & Plan (1) Chronic allergic rhinitis: Code(s): J30.9 - Allergic rhinitis, unspecified (2) MARK treated with BiPAP: Code(s): G47.33 - Obstructive sleep apnea (adult) (pediatric) (3) Cough: Code(s): R05 - Cough Qualifiers: Cough type: chronic Qualified Code(s): R05.3 - Chronic cough (4) Asthma: Code(s): J45.909 - Unspecified asthma, uncomplicated Qualifiers: Asthma complication type: uncomplicated Asthma persistence: persistent Asthma severity: moderate Qualified Code(s): J45.40 - Moderate persistent asthma, uncomplicated (5) Edema: Code(s): R60.9 - Edema, unspecified Qualifiers: Edema type: generalized Qualified Code(s): R60.1 - Generalized edema (6) Asthma-COPD overlap syndrome: Code(s): J44.89 - Other specified chronic obstructive pulmonary disease Plan Continue Breo daily GONZALEZ as needed BIPAP 31/07 with 2 L oxygen, requesting F20 mask start lasix continue oxygen, requesting conserving device with b cylinders bloodwork, VBG F/U 2-3 months Orders: Orders Venous Blood Gas Today J96.22 - Acute and chronic respiratory failure with hypercapnia Complete Blood Count Auto Diff 08/18/23 R60.1 - Generalized edema, R60.9 - Edema, unspecified Basic Metabolic Panel 08/18/23 R60.1 - Generalized edema, R60.9 - Edema, unspecified Medications: New trazodone 100 mg (2 x 50 mg) PO BEDTIME 30 days 60 tabs 5RF furosemide (Lasix) 20 mg PO DAILY 30 days 30 tabs 1RF Coding Level of Care Code Est Pt Level 4 (68375) Diagnoses Chronic allergic rhinitis J30.9 MARK treated with BiPAP G47.33 Chronic cough R05.3 Cough type: chronic Moderate persistent asthma without complication J45.40 Asthma complication type: uncomplicated Asthma persistence: persistent Asthma severity: moderate Generalized edema R60.1 Edema type: generalized Asthma-COPD overlap syndrome J44.89 CPT Codes Coding ([id number]) Time Spent (min) 18
[2023-08-19 18:00] VITALS: PULSE 101; O2SAT 93
== END 2023-08-18 15:04 | disposition home or self-care (01) ==
PROVIDERS: PCP Internal Medicine; Visit Provider Hospitalist
DX: J30.9 Allergic rhinitis, unspecified (principal); G47.33 Obstructive sleep apnea (adult) (pediatric); R05.3 Chronic cough; J45.40 Moderate persistent asthma, uncomplicated; R60.1 Generalized edema; J44.89 Other specified chronic obstructive pulmonary disease
CPT/HCPCS: 94618; 99214

== ENCOUNTER → 2023-08-18 14:35 | Outpatient (BNVA) | payer OTHER, SELFPAY | PROVIDERS: PCP Internal Medicine; Visit Provider Hospitalist | DX: J44.89 Other specified chronic obstructive pulmonary disease (principal); G47.33 Obstructive sleep apnea (adult) (pediatric); R05.3 Chronic cough; J30.9 Allergic rhinitis, unspecified; J45.40 Moderate persistent asthma, uncomplicated; R60.1 Generalized edema | CPT/HCPCS: 94618; 99212 ==

== ENCOUNTER 2023-08-31 17:20 | Emergency (ER) | payer OTHER, SELFPAY ==
--- NOTE | ~2023-08-31 | US_ITS ---
EXAMINATION: US VENOUS ULTRASOUND WITH DOPPLER LOWER EXTREMITY, RIGHT CLINICAL INFORMATION: Right lower x-ray pain and swelling. COMPARISON: None available. TECHNIQUE: Ultrasound of the deep veins is performed from the hip to the calf with compression sonography and color and pulse Doppler assessment. Spectral analysis with color-flow imaging is performed. FINDINGS: There is normal venous compression and respiratory variation and augmented flow. The visualized common femoral vein, superficial femoral vein, profunda femoral vein, popliteal vein, and the trifurcation region shows no evidence of deep venous thrombosis. There is no significant popliteal fossa cyst. If the patient's symptoms persist, followup ultrasound in 5 days 7 days might be of value to exclude proximal propagation from a non-visualized calf vein. US/US venous duplex LE RT IMPRESSION: No DVT demonstrated in the right lower extremity.
--- NOTE | ~2023-08-31 | XR_ITS ---
EXAMINATION: XR KNEE, RIGHT CLINICAL INFORMATION: Right knee pain COMPARISON: None available. TECHNIQUE: Four views of the right knee. FINDINGS: No fracture or joint effusion. Alignment is anatomic. There is [id number] moderate suprapatellar joint effusion. There is small enthesophyte or old fracture fragment along the anterior tibial tubercle. No focal soft tissue swelling seen.. XR/XR knee RT 3V IMPRESSION: Unremarkable right knee exam..
--- NOTE | 2023-08-31 18:49 | ED.LOWEXIN ---
HPI - Extremity Injury (Lower) General Chief Complaint: Extremity Injury, Lower Stated Complaint: RT Leg pain/knee pain Time Seen by Provider: 08/31/23 22:43 Source: patient Mode of arrival: ambulatory Limitations: no limitations History of Present Illness HPI Narrative: Patient obese with history of sleep apnea and COPD complaining of pain in the right knee for last 1 month no known trauma no swelling pain gets worse on standing and walking Related Data Home Medications Medication Instructions Recorded Confirmed CPAP (CPAP Machine/Device) 06/07/22 03/16/23 nebulizers 06/07/22 03/16/23 cholecalciferol (vitamin D3) 50 50 mcg PO DAILY 05/26/23 06/14/23 mcg (2,000 unit) capsule Previous Rx's Medication Instructions Recorded fluticasone furoate 200 1 inh inhalation DAILY 30 days #60 01/27/23 mcg-vilanterol 25 mcg/dose ea inhalation powder (Breo Ellipta) doxycycline hyclate 100 mg tablet 100 mg PO BID 8 days #16 tabs 06/16/23 prednisone 10 mg tablet See Taper PO DIRECTED #30 tabs 06/16/23 furosemide 20 mg tablet (Lasix) 20 mg PO DAILY 30 days #30 tabs 08/18/23 trazodone 50 mg tablet 100 mg (2 x 50 mg) PO BEDTIME 30 08/18/23 days #60 tabs tramadol 50 mg tablet 50 mg PO Q6H PRN pain #20 tabs 08/31/23 Allergies Allergy/AdvReac Type Severity Reaction Status Date / Time No Known Allergies* Allergy Unknown Uncoded 08/31/23 18:51 Review of Systems Review of Systems: Yes all other systems are reviewed and are negative [facility] Past Medical History Medical History Acute and chronic respiratory failure with hypercapnia MARK treated with BiPAP Asthma-COPD overlap syndrome Moderate obesity Bronchitis Chest pain Chronic allergic rhinitis Asthma Family History Family History Other Asthma Social History Social History Household Members: Spouse Housing: Apartment Do you presently have visiting nurse or other home services: No Alcohol intake: unknown Patient Tobacco Use Status: Never used Tobacco Smoked in Last 30 Days: No Use of substances other than those prescribed or required for medical reasons: No Advance Directives: No Advance Directives Information Provided: Yes service: No Current occupational status: disabled Physical Exam Vital Signs: Vital Signs: Last Vital Signs Temp 98.0 F 08/31/23 22:41 Pulse 88 08/31/23 22:41 Resp 16 08/31/23 22:41 BP 147/88 H 08/31/23 22:41 Pulse Ox 94 08/31/23 22:41 O2 Del Method Nasal Cannula 08/31/23 22:41 O2 Flow Rate 2 08/31/23 22:41 Oxygen Flow Rate 2 08/31/23 18:51 BMI result Body Mass Index 40.3 Extrem: Knee images: 1. Diffuse tenderness on the medial aspect of right knee with minimal effusion Mikey sign anterior drawer sign negative good range of movement no signs of infection Course Course Course Narrative: RME: 48-year-old [place]uran speaking male with a past medical history of obesity, MARK, asthma, on 2L O2 baseline c/o right knee pain x1 mos worse today. denies swelling/redness, injury/fall XR & US ordered Full HPI, ROS and PE to be performed by primary ED provider. Medications Administered Discontinued Medications Generic Name Dose Route Start Last Admin Trade Name Freq PRN Reason Stop Dose Admin Tramadol HCl 50 mg 08/31/23 23:01 08/31/23 23:05 Tramadol Hcl 50 Mg Tablet PO 08/31/23 23:02 50 mg ONCE ONE Administration Medical Decision Making Medical Decision Making [facility] Narrative: Patient likely with arthritis/small enthesophyte. Patient advised to follow with orthopedic pain medication as advised Independent Interpretation I performed an independent interpretation of an: Plain X-Ray Radiology Impression Discussion of test interpretation with radiology: I have reviewed the radiologist's reading. Radiologist Impression: [address] [address] XRay Report Signed Patient: Flash Stevenson MR#: [id number] : 1975 Acct:[id number] Age/Sex: 48 / M ADM Date: 08/31/23 Loc: HO.ED Attending Dr: Ordering Physician: Tangela Rice Date of Service: 08/31/23 Procedure(s): XR knee RT 3V Accession Number(s): [id number] cc: Tangela Rice; Monet Mckeon MD~ EXAMINATION: XR KNEE, RIGHT CLINICAL INFORMATION: Right knee pain COMPARISON: None available. TECHNIQUE: Four views of the right knee. FINDINGS: No fracture or joint effusion. Alignment is anatomic. There is [id number] moderate suprapatellar joint effusion. There is small enthesophyte or old fracture fragment along the anterior tibial tubercle. No focal soft tissue swelling seen.. XR/XR knee RT 3V IMPRESSION: Unremarkable right knee exam.. Discharge Plan Discharge Clinical Impression: Arthritis of knee, right Patient Disposition: Home, Self-Care Instructions: Knee Pain (ED) Additional Instructions: Take pain medication as prescribed and follow with Orthopedics if pain continues for arthroscopic surgery Prescriptions: New tramadol 50 mg tablet 50 mg PO Q6H PRN (Reason: pain) Qty: 20 0RF No Action doxycycline hyclate 100 mg tablet 100 mg PO BID 8 Days Qty: 16 0RF prednisone 10 mg tablet See Taper PO DIRECTED Qty: 30 0RF Taper: Prednisone 40 mg daily for 3 Days and 0 Hour 30 mg daily for 3 Days and 0 Hour 20 mg daily for 3 Days and 0 Hour 10 mg daily for 3 Days and 0 Hour Rx Instructions: see taper instructions (DME) CPAP Machine/Device Device See Rx Instructions .Route Rx Instructions: As directed (DME) nebulizers Misc See Rx Instructions .Route Rx Instructions: As directed cholecalciferol (vitamin D3) 50 mcg (2,000 unit) capsule 50 mcg PO DAILY Breo Ellipta 200-25 mcg/dose blister with device 1 inh inhalation DAILY 30 Days Qty: 60 11RF furosemide [Lasix] 20 mg tablet 20 mg PO DAILY 30 Days Qty: 30 1RF trazodone 50 mg tablet 100 mg PO BEDTIME 30 Days Qty: 60 5RF Referrals: Byron Bui MD [Physician] - 2 weeks Interventions: ED Discharge Assessment Last Done: 08/31/23 23:53 Discharge Date/Time: 08/31/23 23:55
[2023-08-31 18:51] VITALS: BP 144/100; PULSE 92; RESP 18; TEMP 36; O2SAT 95; BMI 40.3
[2023-08-31 22:41] VITALS: BP 147/88; PULSE 88; RESP 16; TEMP 36.7; O2SAT 94
--- NOTE | 2023-08-31 22:58 | PC.NURSE ---
a&ox4, vss and up to date. pt on 2L via NC baseline d/t hx of COPD. pt comes in today d/t right knee pain x 1 month. pt states pain increases when bearing weight and with movement. pt has no other c/o besides pain. right knee tender to touch. slight swelling noted. no erythema noted. cms intact. denies numbness/tingling/sob/calf pain. respirations even/unlabored. family bedside. call davial placed within reach.
[2023-08-31] MEDS: traMADoL HCL 50 MG TABLET PO (23:05)
--- NOTE | 2023-08-31 23:06 | PC.NURSE ---
medication administered per provider order.
== END 2023-08-31 23:55 | disposition home or self-care (01) ==
PROVIDERS: Emergency Provider Internal Medicine; PCP Internal Medicine
DX: M17.11 Unilateral primary osteoarthritis, right knee (principal); R60.0 Localized edema; Z79.899 Other long term (current) drug therapy
CPT/HCPCS: 73562; 93971; 99284

== ENCOUNTER 2023-12-28 08:37 | Inpatient (IN) | payer OTHER, SELFPAY ==
[2023-12-28] VITALS (14 sets, daily range): BP systolic 118–151; BP diastolic 67–83; PULSE 80–112; RESP 16–29; TEMP 36.1–36.9; O2SAT 91–98; BMI 40.3
--- NOTE | 2023-12-28 | ECG_ITS ---
Test Reason : chest tightness Blood Pressure : / mmHG Vent. Rate : 094 BPM Atrial Rate : 094 BPM P-R Int : 122 ms QRS Dur : 098 ms QT Int : 356 ms P-R-T Axes : 030 023 053 degrees QTc Int : 445 ms Normal sinus rhythm Normal ECG When compared with ECG of 15-JUN-2023 12:35, Nonspecific T wave abnormality no longer evident in Inferior leads Referred By: Generic ED Physician Electronically Signed By:MATTHIAS SIMENTAL
--- NOTE | ~2023-12-28 | XR_ITS ---
EXAMINATION: XR CHEST CLINICAL INFORMATION: Shortness of breath with congestion COMPARISON: 06/14/2023 chest radiograph TECHNIQUE: 2 views of the chest were obtained. FINDINGS: New patchy consolidation is present in the left lung most likely in the superior segment of the lower lobe. The right lung is clear. Heart size within normal limits. No pleural effusions. XR/XR chest 2V IMPRESSION: New left lower lobe consolidation consistent with pneumonia.
[2023-12-28 09:04] LABS: MANUAL DIFF FLAG NO
[2023-12-28 09:12] LABS: Basophils Percent Auto 0.5 % (0-2); Eosinophils Absolute Auto 0.1 X10*3/uL (0.0-0.4); Eosinophils Percent Auto 0.8 % (0-4); Hemoglobin 16.4 g/dl (14.0-18.0); Imm Gran Abs Auto 0.02 X10*3/uL (0.00-0.03); Imm Gran Pct Auto 0.3 % (0.0-0.4); Lymphocytes Absolute Auto 1.5 X10*3/uL (1.2-4.9); Lymphocytes Percent Auto 24.6 % (20-40); Mean Corpuscular HGB Conc 32.8 g/dl (31.0-36.0); Mean Corpuscular Hemoglobin 28.6 pg (27.0-33.0); Mean Corpuscular Volume 87.3 fL (80.0-98.0); Mean Platelet Volume 11.2 fL (9.4-12.4); Monocytes Absolute Auto 0.7 X10*3/uL (0.1-1.2); Monocytes Percent Auto 11.4 % (2-11); Neutrophils Absolute Auto 3.9 x10*3/uL (2.0-8.3); Neutrophils Percent Auto 62.4 % (45-73); Platelet Count 138 X10*3/uL (160-400); Red Blood Count 5.73 X10*6/uL (4.60-5.80); Red Cell Distribution Width 14.2 % (11.0-16.0); White Blood Count 6.2 X10*3/uL (4.8-10.8)
[2023-12-28 09:25] LABS: Alanine Aminotransferase 57 U/L (0-40); Albumin Level 3.8 g/dL (3.5-5.0); Alkaline Phosphatase 81 U/L (39-117); Anion Gap 10 (12-20); Aspartate Amino Transferase 33 U/L (5-37); Bilirubin Total 0.5 mg/dL (0.0-1.0); Blood Urea Nitrogen 15 mg/dL (9-16); Calcium 8.5 mg/dL (8.4-10.2); Carbon Dioxide 28 mmol/L (22-29); Chloride 107 mmol/L (96-108); Creatinine Clr Calc Pharmacy 118.7; Estimated Glomerular Filt Rate > 60; Glucose Random 148 mg/dL (60-115); Potassium 3.3 mmol/L (3.3-5.1); Sodium 142 mmol/L (135-145); Total Protein 6.6 g/dL (6.5-8.0)
[2023-12-28 09:41] LABS: Troponin-I High Sensitivity < 2.7 ng/L (<3.5-35.0)
[2023-12-28] MEDS: Magnesium Sulfate/H2O 2 GM/50 ML PIGGYBACK IV (09:55)
[2023-12-28] MEDS: methylPREDNISolone Sod Succ 125 MG/2 ML VIAL IVPUSH (09:55)
[2023-12-28] MEDS: Albuterol Sulfate 2.5 MG, Albuterol/Iprat 2.5/0.5MG 3 ML 3 ML INHALE (10:15)
[2023-12-28 10:20] LABS: Influenza A PCR NEGATIVE (Negative); Influenza B PCR NEGATIVE (Negative); Resp Syncy Virus RNA Qual PCR NEGATIVE (Negative); SARS COV2 PCR INHOUSE NEGATIVE (Negative)
--- NOTE | 2023-12-28 10:22 | ED.SOB ---
HPI - SOB/Dyspnea General Chief Complaint: Dyspnea Stated Complaint: chest tightness Time Seen by Provider: 12/28/23 09:36 Source: patient and family Mode of arrival: ambulatory Limitations: no limitations History of Present Illness HPI Narrative: 48 y/o male with history of acute & chronic respiratory failure, MARK on BiPAP QHS (4ish hours per night), asthma, COPD presenting to the ED for evaluation of worsening cough and shortness of breath for 4 days. He follows with pulmonology for management of asthma-COPD overlap. Patient uses 2L nasal cannula oxygen with BiPAP at home. States that he has been using nebulizers at home q4 hours without relief. at bedside reports cough has been worsening and becoming productive. Denies fevers, abdominal pain, nausea, vomiting, diarrhea. No known sick contacts but reports that patient is frequently sick himself. Reports diffuse chest pain and tightness. No pain with inspiration. MD elicited complaint: shortness of breath and cough Pertinent past history: COPD, asthma and pneumonia Onset (ago): day(s) (4) Timing: constant Severity: severe Exacerbating factors: lying flat and exertion Relieving factors: oxygen, rest, bronchodilators, upright position and medication Known history of: COPD, asthma and recurrent pneumonia Associated symptoms: chest pain Treatment prior to arrival: oxygen and bronchodilator Related Data Home oxygen amount: 2 liters Home Medications ?Medication ?Instructions ?Recorded ?Confirmed CPAP (CPAP Machine/Device) 06/07/22 03/16/23 nebulizers 06/07/22 03/16/23 cholecalciferol (vitamin D3) 50 50 mcg PO DAILY 05/26/23 06/14/23 mcg (2,000 unit) capsule Previous Rx's ?Medication ?Instructions ?Recorded fluticasone furoate 200 1 inh inhalation DAILY 30 days #60 01/27/23 mcg-vilanterol 25 mcg/dose ea inhalation powder (Breo Ellipta) furosemide 20 mg tablet (Lasix) 20 mg PO DAILY 30 days #30 tabs 08/18/23 trazodone 50 mg tablet 100 mg (2 x 50 mg) PO BEDTIME 30 08/18/23 days #60 tabs tramadol 50 mg tablet 50 mg PO Q6H PRN pain #20 tabs 08/31/23 azithromycin 250 mg tablet See Rx Instructions PO .COMPLEX #6 12/25/23 tabs prednisone 20 mg tablet 40 mg (2 x 20 mg) PO DAILY #10 tabs 12/25/23 Allergies Allergy/AdvReac Type Severity Reaction Status Date / Time No Known Allergies* Allergy Unknown Uncoded 12/28/23 08:46 Review of Systems Review of Systems: Yes all other systems are reviewed and are negative Constitutional: Constitutional: Reports as per [facility] Past Medical History Medical History Acute and chronic respiratory failure with hypercapnia MARK treated with BiPAP Asthma-COPD overlap syndrome Moderate obesity Bronchitis Chest pain Chronic allergic rhinitis Asthma Family History Family History Other Asthma Social History Social History Household Members: Spouse Housing: Apartment Do you presently have visiting nurse or other home services: No Alcohol intake: unknown Patient Tobacco Use Status: Never used Tobacco Smoked in Last 30 Days: No Use of substances other than those prescribed or required for medical reasons: No Any prior treatment program specific to substance use: No Advance Directives: No Advance Directives Information Provided: Yes service: No Current occupational status: disabled Physical Exam Vital Signs: Vital Signs: Last Vital Signs Temp 97 F 12/28/23 08:43 Pulse 101 H 12/28/23 13:30 Resp 22 H 12/28/23 13:30 BP 118/70 12/28/23 13:30 Pulse Ox 94 12/28/23 13:30 O2 Del Method Oxymask 12/28/23 13:30 O2 Flow Rate 2 12/28/23 13:30 BMI result Body Mass Index 40.3 Const: General: alert and awake Nutritional Appearance: obese Orientation/consciousness: patient oriented x3 Limitations: language barrier HEENT: Head: Yes normal to inspection Ears: hearing grossly normal bilaterally General nose exam: Normal external nose present Face and sinus: Yes normal facial exam Mouth: Normal oral and palatal mucosa present Eyes: General: appearance normal, both eyes and all related structures Visual Joseph: normal visual joseph by confrontation Neck: Neck: Yes normal visual inspection and Yes no lymphadenopathy Resp: Effort & Inspection: audible wheezes, labored, tachypneic and prolonged expiratory phase Auscultation: wheezes and diminished lung sounds on the left and localized Cardio: Rate: regular rate Rhythm: regular rhythm GI: Inspection: Yes normal to inspection Skin: General skin exam: no rashes or lesions noted Trauma: no lacerations or abrasions Neuro: General: patient oriented x3 Extrem: General: Yes normal to inspection Right upper extremity: normal to inspection Left upper extremity: normal to inspection Right lower extremity: normal to inspection Left lower extremity: normal to inspection Course Reevaluation(s) Reevaluation #1: Patient noted to have frequent desaturation to the 60s and 70s with periods of apnea while he is sleeping. He wears BiPAP at night 31/07 with 2 L. his reports he has been wearing it for 4 hours each night. He still snores and has periods of apnea while on his machine. VBG is showing compensated chronic hypercapnic and hypoxic respiratory failure Placed on BiPAP for naps and at bedtime. Will plan for admission to the hospital for treatment of his pneumonia and COPD exacerbation Time: 11:16 Medications Administered Discontinued Medications Generic Name Dose Route Start Last Admin Trade Name Tarasq PRN Reason Stop Dose Admin Albuterol Sulfate 2.5 mg/ 5 mg 12/28/23 10:53 12/28/23 11:01 Albuterol Sulfate 2.5 mg INHALE 12/28/23 10:54 5 mg ONCE ONE Administration Albuterol Sulfate 2.5 mg/ 0 mg 12/28/23 10:13 12/28/23 10:15 Albuterol/Ipratropium 3 ml INHALE 12/28/23 10:14 5 dose ONCE ONE Administration Magnesium Sulfate 2 gm in 50 mls @ 150 mls/hr 12/28/23 09:39 12/28/23 10:38 Magnesium Sulfate/H2o IV 12/28/23 09:58 Infused ONCE ONE Infusion Ceftriaxone Sodium 1 gm/ 50 mls @ 100 mls/hr 12/28/23 10:02 12/28/23 11:49 Sodium Chloride IV 12/28/23 10:31 Infused ONCE ONE Infusion Azithromycin 500 mg/ Sodium 250 mls @ 125 mls/hr 12/28/23 10:02 12/28/23 11:47 Chloride IV 12/28/23 12:01 125 mls/hr ONCE ONE Administration Methylprednisolone Sodium Succinate 125 mg 12/28/23 09:39 12/28/23 09:55 Methylprednisolone Sod Succ 125 Mg/2 Ml Vial IVPUSH 04/18/24 09:40 125 mg ONCE ONE Administration Medical Decision Making Medical Decision Making [facility] Narrative: 48 y/o male with history of acute & chronic respiratory failure, MARK, asthma, COPD presenting to the ED for evaluation of worsening cough and shortness of breath for 4 days. Ordered labwork sepsis workup as patient is tachypneic, tachycardiac with COPD. VBG Obtained lactic acid and blood cultures as patient met sepsis criteria. X-Ray shows new patchy consolidation in the left superior segment of the lower lobe consistent with pneumonia. Will treat with IV azithromycin, ceftriaxone, and methylprednisolone. Ordered duoneb, patient has moderate relief with. While sleeping, patient had hypoxic episode for 68%, switched from nasal cannula to simple face mask. Patient will need admission to the hospital for administration of IV antibiotics, oxygen, BiPAP, and close monitoring. 12:32- Patient is resting with BiPAP. O2 saturation at 88-89%. Discussed with that patient will be admitted for IV antibiotics, steroids, and monitoring. Differential Diagnosis Differential Diagnoses: The differential diagnosis associated with the presentation includes pneumonia, bronchitis, acute COPD exacerbation, viral URI, COVID, flu Admission/Observation Consideration of admission/observation: Escalation of care including admission/observation considered Consult Healthcare Provider Management of the patient was discussed with: Hospitalist Lab Data [facility] Lab Attestation statement: I reviewed the patient's lab results. mild thrombocytopenia 12/28/23 08:54 12/28/23 08:54 Labs: Lab Results 12/28/23 12/28/23 12/28/23 Range/Units 08:54 10:54 11:04 WBC 6.2 (4.8-10.8) X10*3/uL RBC 5.73 (4.60-5.80) X10*6/uL Hgb 16.4 (14.0-18.0) g/dl Hct 50.0 (42.0-52.0) % MCV 87.3 (80.0-98.0) fL MCH 28.6 (27.0-33.0) pg MCHC 32.8 (31.0-36.0) g/dl RDW 14.2 (11.0-16.0) % Plt Count 138 L (160-400) X10*3/uL MPV 11.2 (9.4-12.4) fL Immature Gran % (Auto) 0.3 (0.0-0.4) % Neut % (Auto) 62.4 (45-73) % Lymph % (Auto) 24.6 (20-40) % [place] % (Auto) 11.4 H (2-11) % Eos % (Auto) 0.8 (0-4) % Baso % (Auto) 0.5 (0-2) % Lymph # (Auto) 1.5 (1.2-4.9) X10*3/uL [place] # (Auto) 0.7 (0.1-1.2) X10*3/uL Eos # (Auto) 0.1 (0.0-0.4) X10*3/uL Baso # (Auto) 0.0 (0.0-0.2) X10*3/uL Abs Immat Gran (auto) 0.02 (0.00-0.03) X10*3/uL Absolute Neuts (auto) 3.9 (2.0-8.3) x10*3/uL Absolute Nucleated RBC 0.000 (0.0-0.012) X10*3/uL Nucleated RBC % (auto) 0.0 (0.0-0.2) /100WBC VBG pH 7.34 (7.32-7.43) VBG pCO2 59 mmHg VBG pO2 56 mmHg VBG HCO3 32 H (22-26) mmol/L VBG O2 Saturation 84.0 % VBG Base Excess 4.6 mmol/L Sodium 142 (135-145) mmol/L Potassium 3.3 (3.3-5.1) mmol/L Chloride 107 (96-108) mmol/L Carbon Dioxide 28 (22-29) mmol/L Anion Gap 10 L (12-20) BUN 15 (9-16) mg/dL Creatinine 0.89 (0.5-1.4) mg/dL Estim Creat Clear Calc 118.7 Estimated GFR > 60 Random Glucose 148 H (60-115) mg/dL Lactic Acid 1.1 (0.5-2.0) mmol/L Calcium 8.5 D (8.4-10.2) mg/dL Total Bilirubin 0.5 (0.0-1.0) mg/dL AST 33 (5-37) U/L ALT 57 H (0-40) U/L Alkaline Phosphatase 81 (39-117) U/L Troponin I High Sens < 2.7 (<3.5-35.0) ng/L Total Protein 6.6 (6.5-8.0) g/dL Albumin 3.8 (3.5-5.0) g/dL Influenza Type A (PCR) NEGATIVE (Negative) Influenza Type B (PCR) NEGATIVE (Negative) RSV RNA Qual (PCR) NEGATIVE (Negative) SARS-CoV-2 RNA (RT-PCR) NEGATIVE (Negative) ABG Data Attestation ABG: I personally reviewed and interpreted this ABG as follows: Interpretation: compensated chronic respiratory acidosis Independent Interpretation I performed an independent interpretation of an: EKG and Plain X-Ray Interpretation: infiltrate in LLL, agree w/ radiology read normal sinus rhythm, HR 94 bpm, no ST segment elevations or depressions Radiology Impression Discussion of test interpretation with radiology: I have reviewed the radiologist's reading. Radiologist Impression: EXAMINATION: XR CHEST CLINICAL INFORMATION: Shortness of breath with congestion COMPARISON: 06/14/2023 chest radiograph TECHNIQUE: 2 views of the chest were obtained. FINDINGS: New patchy consolidation is present in the left lung most likely in the superior segment of the lower lobe. The right lung is clear. Heart size within normal limits. No pleural effusions. XR/XR chest 2V IMPRESSION: New left lower lobe consolidation consistent with pneumonia. Independent Historian Clinical information obtained from an independent historian. History obtained from or confirmed by: Spouse External Record Review External record reviewed: Inpatient record, Office record, Outpatient record, Prior outpatient labs and Prior outpatient radiology Tests considered The following testing was considered but not selected: CT scan chest considered Prescription Management I considered prescription management with: Antibiotic Chronic Conditions Patient?s care impacted by: Other (DM, MARK, COPD) Critical Care Time Critical Care Time Critical Care Time: Yes Total Critical Care Time: 55 Attestation: I have personally provided critical care time exclusive of time spent on separately billable procedures. Time includes review of lab data, radiology results, discussion with consultants, and monitoring for potential decompensation. Intervention performed as documented. Discharge Plan Discharge Clinical Impression: Acute exacerbation of chronic obstructive airways disease Community acquired pneumonia Qualifiers: Laterality: left Lung location: lower lobe of lung Qualified Code(s): J18.9 - Pneumonia, unspecified organism Patient Disposition: Admitted As Inpatient Print Language: Syrian
--- NOTE | 2023-12-28 10:55 | PC.NURSE ---
This RN assumed care. Pt coming in to ED by family member with complaints with SOB and cough X4 days, non-productive. Pt has hx of COPD and is on O2 2L NC at night only for sleep apnea.
[2023-12-28] MEDS: cefTRIAXone sodium 1 GM in 0.9 % Sodium Chloride 50 ML IV (10:59)
[2023-12-28] MEDS: Albuterol Sulfate 2.5 MG, Albuterol Sulfate (0.083%) 2.5 MG 5 MG INHALE (11:01)
[2023-12-28 11:10] LABS: VBG Base Excess 4.6 mmol/L; VBG HCO3 32 mmol/L (22-26); VBG pCO2 59 mmHg; VBG pH 7.34 (7.32-7.43); VBG pO2 56 mmHg
[2023-12-28 11:13] LABS: Venous Blood Gas Refer to POC result
[2023-12-28 11:18] LABS: Lactic Acid 1.1 mmol/L (0.5-2.0)
[2023-12-28] MEDS: Azithromycin 500 MG in 0.9 % Sodium Chloride 250 ML 125 MG IV (11:47)
--- NOTE | 2023-12-28 12:00 | PC.NURSE ---
Pt noted to be breathing more comfortable on BIPAP set up by RT. Pt noted to be sleeping intermittently, SPO2 maintaining 90% and above on BIPAP, other vital signs stable. Pt reports pain in chest with coughing only, sharp pains across chest.
--- NOTE | 2023-12-28 12:43 | P.HPHOSP_ITS ---
History of Present Illness Date of Service: 12/28/23 Attending physician on admission: Maximiliano Clark Chief Complaint: SOB Pt is a 48-year-old male with a PMH significant for asthma/COPD overlap syndrome on prn home O2, hx of chronic respiratory failure, MARK on home BiPAP, and arthritis who presents to the ED for evaluation of worsening cough and malaise. Pt states was outside in the rain 3 days ago and since then developed worsening cough, SOB, and PIERCE. Reports chest tightness associated with breathing and coughing, chills but no fever. Had some nausea yesterday while coughing but no vomiting. Has overall felt tired and weak . No abdominal pain. In the ED pt was tachycardic to 112 tachypneic up to 29, desatting into 60s and 70s while sleeping. Labs were significant for ALT 57, otherwise grossly unremarkable. No leukocytosis. Stable H&H. No significantly electrolyte abnormalities. VBG pH 7.34 with bicarb 32. Troponin negative. Lactic acid WNL at 1.1. Tested negative for flu, RSV, COVID. CXR showed new left lower lobe consolidation consistent with pneumonia. EKG demonstrated normal sinus rhythm with no significant ST elevations or depressions. Pt was treated with Mag sulfate, Solu-Medrol, DuoNeb, ceftriaxone, and azithromycin. Pt will be admitted to the hospital acute on chronic respiratory failure in the setting of COPD exacerbation and superimposed pneumonia. Review of Systems 2 Review of Systems: SOB, PIERCE Weakness, malaise Chills, no fever Cough Chest tightness associated breathing and coughing Chronic lower back pain baseline FOR[facility]LY [facility], [facility] Medical History Acute and chronic respiratory failure with hypercapnia MARK treated with BiPAP Asthma-COPD overlap syndrome Moderate obesity Bronchitis Chest pain Chronic allergic rhinitis Asthma Family History Other Asthma Social History Household Members: Spouse Housing: Apartment Do you presently have visiting nurse or other home services: No Alcohol intake: unknown Patient Tobacco Use Status: Never used Tobacco Smoked in Last 30 Days: No Use of substances other than those prescribed or required for medical reasons: No Any prior treatment program specific to substance use: No Advance Directives: No Advance Directives Information Provided: Yes service: No Current occupational status: disabled Meds Allergies Allergy/AdvReac Type Severity Reaction Status Date / Time No Known Allergies* Allergy Unknown Uncoded 12/28/23 08:46 Home Medications ?Medication ?Instructions ?Recorded ?Confirmed ?Last Taken ?Type CPAP (CPAP Machine/Device) 06/07/22 03/16/23 Unknown History nebulizers 06/07/22 03/16/23 Unknown History cholecalciferol (vitamin D3) 50 50 mcg PO DAILY 05/26/23 12/28/23 12/28/23 History mcg (2,000 unit) capsule albuterol sulfate 90 mcg/actuation 2 puff inhalation Q6H PRN patient 12/28/23 12/28/23 12/28/23 History aerosol inhaler Physical Exam 2 Vital Signs and Narrative: Vital Signs: Last Vital Signs Temp 97 F 12/28/23 08:43 Pulse 95 12/28/23 11:50 Resp 20 12/28/23 11:50 BP 128/83 12/28/23 11:50 Pulse Ox 94 12/28/23 11:50 O2 Del Method BiPAP 12/28/23 11:50 O2 Flow Rate 2 12/28/23 09:56 BMI result Body Mass Index 40.3 Constitutional: Alert, somnolent but arousable, in no acute distress. Mental Status: Oriented to person, place and time. Eyes: Pupils are equal, round, and reactive to light. Ear, Nose, and Throat: Oropharynx clear, mucous membranes moist. Ears and nose without deformities. Trachea midline. Respiratory: Bilateral diffuse expiratory wheezing. Cardiovascular: S1, S2, tachy. No murmurs, rubs, or gallops. Gastrointestinal: Abdomen soft, non-tender, non-distended. Normal bowel sounds. Neurologic: Cranial nerves II-XII are grossly intact bilaterally. No focal neurological deficits. Moves all extremities spontaneously. Skin: Warm, dry. Extremities: No edema. Psychiatric: Normal mood and affect. Results Labs 12/28/23 08:54 12/28/23 08:54 Labs: Laboratory Results - last 24 hr 12/28/23 12/28/23 12/28/23 08:54 10:54 11:04 MCV 87.3 MCH 28.6 MCHC 32.8 RDW 14.2 Plt Count 138 L MPV 11.2 Immature Gran % (Auto) 0.3 Neut % (Auto) 62.4 Lymph % (Auto) 24.6 Andrew % (Auto) 11.4 H Eos % (Auto) 0.8 Baso % (Auto) 0.5 Lymph # (Auto) 1.5 Andrew # (Auto) 0.7 Eos # (Auto) 0.1 Baso # (Auto) 0.0 Abs Immat Gran (auto) 0.02 Absolute Neuts (auto) 3.9 Absolute Nucleated RBC 0.000 Nucleated RBC % (auto) 0.0 VBG pH 7.34 VBG pCO2 59 VBG pO2 56 VBG HCO3 32 H VBG O2 Saturation 84.0 VBG Base Excess 4.6 Anion Gap 10 L Estim Creat Clear Calc 118.7 Estimated GFR > 60 Random Glucose 148 H Lactic Acid 1.1 Calcium 8.5 D Total Bilirubin 0.5 AST 33 ALT 57 H Alkaline Phosphatase 81 Troponin I High Sens < 2.7 Total Protein 6.6 Albumin 3.8 Influenza Type A (PCR) NEGATIVE Influenza Type B (PCR) NEGATIVE RSV RNA Qual (PCR) NEGATIVE SARS-CoV-2 RNA (RT-PCR) NEGATIVE Imaging Radiologist's Impressions: Impressions Chest X-Ray 12/28/23 09:06 IMPRESSION: New left lower lobe consolidation consistent with pneumonia. Assessment and Plan (1) Acute exacerbation of chronic obstructive airways disease: Status: Acute (2) Community acquired pneumonia: Qualifiers: Laterality: left Lung location: lower lobe of lung Qualified Code(s): J18.9 - Pneumonia, unspecified organism Status: Acute Plan Pt is a 48-year-old male with a PMH significant for COPD on home O2 prn, asthma, hx of chronic respiratory failure, MARK on home BiPAP, and arthritis who presents to the ED for evaluation of worsening cough and malaise.Pt will be admitted to the hospital acute on chronic respiratory failure in the setting of COPD exacerbation and superimposed pneumonia. Acute on chronic hypoxic respiratory failure in the setting of COPD exacerbation with superimposed pneumonia Patient with increased SOB, PIERCE, cough, CXR with evidence of LLL consolidation Pt does not meet sepsis criteria: tachycardia secondary to albuterol use; pt is afebrile, no leukocytosis, lactic acid WNL Will treat with DuoNebs, Solu-Medrol, guaifenesin, and loratadine Will cover pneumonia with ceftriaxone and azithromycin, started 12/28/2023 Titrate supplemental O2 >90, wean as tolerated Monitor respiratory status MARK Continue nighttime BiPAP Full Code Attending:?Dr. Clark DVT Prophylaxis: Lovenox Pt will require a hospitalization of at least two nights for treatment of?acute on chronic hypoxic respiratory failure in the setting of COPD exacerbation with superimposed pneumonia. Patient require hospitalization for administration breathing treatments, IV steroids, IV antibiotics, and close monitoring oxygenation and respiratory status. Quality Stroke Does the patient have a stroke diagnosis?: No VTE Prior VTE?: No VTE Risk Level:: Medical - moderate - high VTE Device Contraindication: Treatment Not Indicated VTE Drug Contraindication: N/A - Med Ordered
--- NOTE | 2023-12-28 13:55 | PC.NURSE ---
Pt switched to oxymask by RT, 2L O2. Pt tolerating well but does have brief periods of desating to 80% when falling asleep. When pt is awake, maintaining sats over 90%. Will continue to monitor.
--- NOTE | 2023-12-28 14:13 | PHA.MEDREC ---
Pharmacy Consult ? Medication Reconciliation Pharmacy has completed the medication reconciliation.
[2023-12-28] MEDS: Enoxaparin Sodium 40 MG/0.4 ML SYRINGE SUBCUT (14:53)
[2023-12-28] MEDS: 0.9 % Sodium Chloride Flush 3 ML SYRINGE IVFLUSH (14:54)
[2023-12-28] MEDS: Albuterol/Iprat 2.5/0.5MG 3 ML AMPUL.NEB INHALE ×2 (14:57→21:01)
[2023-12-28] MEDS: Loratadine 10 MG TABLET PO (15:37)
[2023-12-28] MEDS: methylPREDNISolone Sod Succ 40 MG/ML VIAL IVPUSH (21:10)
--- NOTE | 2023-12-28 21:48 | PC.NURSE ---
Pt resting, BIPAP on placed by RT. Pt able to maintain sats with BIPAP, sleeping at this time.
[2023-12-29] VITALS (13 sets, daily range): BP systolic 121–140; BP diastolic 69–86; PULSE 65–112; RESP 13–24; TEMP 35.9–36.9; O2SAT 91–97; BMI 41.5
[2023-12-29] MEDS: 0.9 % Sodium Chloride Flush 3 ML SYRINGE IVFLUSH ×4 (00:15→20:57)
[2023-12-29] MEDS: Fluticasone/Vilanterol 200/25 BLST.W.DEV 1 PUFF INHALE (08:11)
[2023-12-29] MEDS: Albuterol/Iprat 2.5/0.5MG 3 ML AMPUL.NEB INHALE ×4 (08:11→19:45)
[2023-12-29] MEDS: Cholecalciferol (Vitamin D3) 25 MCG TABLET 50 MCG PO (08:17)
[2023-12-29] MEDS: Loratadine 10 MG TABLET PO (08:18)
[2023-12-29] MEDS: methylPREDNISolone Sod Succ 40 MG/ML VIAL IVPUSH ×2 (08:18→20:57)
[2023-12-29] MEDS: Azithromycin 500 MG in 0.9 % Sodium Chloride 250 ML 125 MG IV (09:44)
[2023-12-29] MEDS: cefTRIAXone sodium 1 GM in 0.9 % Sodium Chloride 50 ML IV (09:44)
--- NOTE | 2023-12-29 11:41 | MHC.CM.PN ---
IMM given to pt in Chinese and explained via an translator and interpreter. Pt does not sign anything because he does not read well, copy was left for him. Pt lives with his , he is working with his on getting a [employer], paperwork has been completed, does not have the person in place yet. He said that he does not have VNA services, nor has he been to [facility]. He has DME at home of O2, walker, cane, all that he needs he said. HCP discussed, he declined to complete because he of not reading, CM will bring later when it here for her to review. DC plan, home with services. CM to follow and assist with DC plan.
--- NOTE | 2023-12-29 13:44 | PM.CNPUL ---
History of Present Illness History of Present Illness Consult date: 12/29/23 Chief complaint: COPD exacerbation, pneumonia Narrative: 48-year-old gentleman with underlying asthma/COPD overlap syndrome on home O2, morbid obesity, MARK on BiPAP, patient of Dr. Ross admitted on 12/28/2023 with acute on chronic hypoxia, treated empirically for COPD exacerbation with improvement in his symptoms overnight and now appears to be at baseline. Review of Systems Constitutional: Constitutional: Denies daytime sleepiness, Denies excessive sweating, Denies fatigue, Denies fever(s), Denies lethargy, Denies malaise, Denies night sweats, Denies snoring and Denies weight loss Eyes: Eyes: Denies blurry vision and Denies itchy eyes ENT: Denies nasal congestion, Denies post nasal drip, Denies sinus pain, Denies sinus pressure and Denies other ( Thrush) Cardiovascular: Cardiovascular: Denies chest pain, Denies pedal edema, Denies dyspnea, Denies orthopnea and Denies paroxysmal nocturnal dyspnea Respiratory: Respiratory: Denies cough, Denies hemoptysis, Denies excessive phlegm production, Denies dyspnea, Denies snoring and Denies wheezing Gastrointestinal: Gastrointestinal: Denies abdominal pain and Denies heartburn Musculoskeletal: Musculoskeletal: Denies myalgias, Denies arthralgias and Denies joint swelling Integumentary/Breasts: Skin/Breast: Denies rash Neurologic: Denies memory loss and Denies seizure-like activity Psychiatric: Psychiatric: Denies abnormal sleep pattern, Denies anxiety and Denies memory loss Endocrine: Endocrine: Denies excessive sweating, Denies fatigue and Denies heat intolerance Hematologic/Lymphatic: Hematologic/Lymphatic: Denies easy bruising Allergic/Immunologic: Allergic/Immunologic: Denies itchy eyes, Denies seasonal rhinorrhea and Denies wheezing PMFSH Past Medical History Medical History Acute and chronic respiratory failure with hypercapnia MARK treated with BiPAP Asthma-COPD overlap syndrome Moderate obesity Bronchitis Chest pain Chronic allergic rhinitis Asthma Family History Family History Other Asthma Social History Social History Household Members: Spouse Housing: Apartment Do you presently have visiting nurse or other home services: No Alcohol intake: unknown Patient Tobacco Use Status: Never used Tobacco Smoked in Last 30 Days: No Use of substances other than those prescribed or required for medical reasons: No Currently Displaying Signs/Symptoms of Drug Intoxication Withdrawal: No Any prior treatment program specific to substance use: No Have you been hit, kicked, punched, or otherwise hurt by someone within the past year? If so, by whom?: No Do you feel safe in your current relationship?: Yes Is there a partner from a previous relationship who is making you feel unsafe now?: No Are you made to feel afraid or neglected: No Advance Directives: No Advance Directives Information Provided: Yes Do you have thoughts of harming others: None Do you have a plan to hurt others: No Plan Recently lost weight without trying: No Nutrition Risks: No Nutritional Risk service: No Current occupational status: disabled Meds Allergies Allergy/AdvReac Type Severity Reaction Status Date / Time No Known Allergies* Allergy Unknown Uncoded 12/28/23 08:46 Active Medications: Current Medications Acetaminophen (Acetaminophen 325 Mg Tablet) 650 mg PO Q6H PRN PRN Reason: Pain, Mild (Pain Scale 1-3) Albuterol Sulfate (Albuterol Sulfate 90 Mcg 8 Gm Inhaler) 2 puff INHALE Q6H PRN PRN Reason: patient Albuterol/Ipratropium (Albuterol/Iprat 2.5/0.5mg 3 Ml Ampul.Neb) 3 ml INHALE RQ4H WHILE AWAKE [facility] Last Admin: 12/29/23 11:37 Dose: 3 ml Docusate Sodium (Docusate Sodium 100 Mg Capsule) 100 mg PO DAILY PRN PRN Reason: Constipation Enoxaparin Sodium (Enoxaparin Sodium 40 Mg/0.4 Ml Syringe) 40 mg SUBCUT Q24H [facility] Last Admin: 12/28/23 14:53 Dose: 40 mg Fluticasone/Vilanterol (Fluticasone/Vilanterol 200/25 Blst.W.Dev) 1 puff INHALE RDAILY [facility] Last Admin: 12/29/23 08:11 Dose: 1 puff Guaifenesin/Dextromethorphan (Guaifenesin Dm 200/20/10 Ml 10 Ml Syrup) 10 ml PO Q6H PRN PRN Reason: Cough Azithromycin 500 mg/ Sodium (Chloride) 250 mls @ 125 mls/hr IV Q24H [facility] Last Infusion: 12/29/23 11:44 Dose: Infused Ceftriaxone Sodium 1 gm/ (Sodium Chloride) 50 mls @ 100 mls/hr IV Q24H [facility] Last Infusion: 12/29/23 10:14 Dose: Infused Loratadine (Loratadine 10 Mg Tablet) 10 mg PO DAILY [facility] Last Admin: 12/29/23 08:18 Dose: 10 mg Melatonin (Melatonin 3 Mg Tablet) 6 mg PO BEDTIME PRN PRN Reason: Insomnia Methylprednisolone Sodium Succinate (Methylprednisolone Sod Succ 40 Mg/Ml Vial) 40 mg IVPUSH Q12H [facility] Last Admin: 12/29/23 08:18 Dose: 40 mg Sodium Chloride (0.9 % Sodium Chloride Flush 3 Ml Syringe) 3 ml IVFLUSH QSHIFT [facility] Last Admin: 12/29/23 08:18 Dose: 3 ml Vitamin D (Cholecalciferol (Vitamin D3) 25 Mcg Tablet) 50 mcg PO DAILY [facility] Last Admin: 12/29/23 08:17 Dose: 50 mcg Home Medications ?Medication ?Instructions ?Recorded ?Confirmed ?Last Taken ?Type CPAP (CPAP Machine/Device) 06/07/22 03/16/23 Unknown History nebulizers 06/07/22 03/16/23 Unknown History cholecalciferol (vitamin D3) 50 50 mcg PO DAILY 05/26/23 12/28/23 12/28/23 History mcg (2,000 unit) capsule albuterol sulfate 90 mcg/actuation 2 puff inhalation Q6H PRN patient 12/28/23 12/28/23 12/28/23 History aerosol inhaler Physical Exam Vital Signs: Vital Signs: Last Vital Signs Temp 97.3 F 12/29/23 11:08 Pulse 112 H 12/29/23 11:39 Resp 18 12/29/23 11:39 BP 131/86 12/29/23 11:08 Pulse Ox 94 12/29/23 11:08 O2 Del Method Nasal Cannula 12/29/23 11:08 O2 Flow Rate 2 12/29/23 11:08 BMI result Body Mass Index 41.5 Const: General: no acute distress and alert Nutritional Appearance: obese Orientation/consciousness: Other orientation findings ( oriented) HEENT: Head: Yes atraumatic Eyes: General: appearance normal, both eyes and all related structures Sclerae: sclerae normal EOM: EOMs intact bilaterally Neck: Neck: Yes supple Lymphatic: no lymphadenopathy noted Resp: Effort & Inspection: normal respiratory effort and no use of accessory muscles Auscultation: clear to auscultation bilaterally Cardio: Rate: regular rate Rhythm: regular rhythm Heart sounds: no gallops, no murmurs and no rubs Skin: General skin exam: other ( warm) Extrem: General: No clubbing, No cyanosis and No edema Results Laboratory Findings 12/28/23 08:54 12/28/23 08:54 Abnormal lab findings: Abnormal Labs 12/28/23 12/28/23 08:54 11:04 Plt Count 138 L [place] % (Auto) 11.4 H VBG HCO3 32 H Anion Gap 10 L Random Glucose 148 H ALT 57 H Microbiology: Microbiology 12/28/23 10:54 Blood - Venous Blood Culture - Preliminary No growth after 24 hours. 12/28/23 10:54 Blood - Venous Blood Culture - Preliminary No growth after 24 hours. Assessment and Plan (1) Acute exacerbation of chronic obstructive airways disease: Status: Acute (2) MARK treated with BiPAP: Status: Acute Plan Impression: 48-year-old gentleman with underlying obesity, asthma/COPD overlap syndrome on p.r.n. O2, MARK on BiPAP admitted with COPD exacerbation, now with significant improvement. Recommendations: Agree with empiric treatment for COPD exacerbation with azithromycin, nebulized bronchodilators, and systemic glucocorticoids taper. Restart home BiPAP 20/8 with 2 L of oxygen at night and as needed for nebs. Appears to be close to baseline. Procedures Date of Service Date of Service: 12/29/23
[2023-12-29] MEDS: Enoxaparin Sodium 40 MG/0.4 ML SYRINGE SUBCUT (13:45)
--- NOTE | 2023-12-29 14:37 | P.PNIM_ITS ---
Subjective Subjective Date of Service: 12/29/23 Interval History: No acute issues overnight. Tolerating BiPAP. Periodic desaturations consistent with baseline Review of Systems Denies chest pain Denies shortness of breath Denies nausea vomiting diarrhea Denies fever chills Physical Exam 2 Vital Signs: Vital Signs: Last Vital Signs Temp 97.3 F 12/29/23 11:08 Pulse 112 H 12/29/23 11:39 Resp 18 12/29/23 11:39 BP 131/86 12/29/23 11:08 Pulse Ox 94 12/29/23 11:08 O2 Del Method Nasal Cannula 12/29/23 11:08 O2 Flow Rate 2 12/29/23 11:08 BMI result Body Mass Index 41.5 Const: Other: Awake alert no acute distress Resp: Other: Diminished at bases with scattered expiratory wheezes Cardio: Other: No S4; positive S1-S2; no S3 murmurs rubs or gallops GI: Other: Soft nontender nondistended normoactive bowel sounds Extrem: Other: No edema bilaterally Objective Data Active Medications Acetaminophen (Acetaminophen 325 Mg Tablet) 650 mg PO Q6H PRN PRN Reason: Pain, Mild (Pain Scale 1-3) Albuterol Sulfate (Albuterol Sulfate 90 Mcg 8 Gm Inhaler) 2 puff INHALE Q6H PRN PRN Reason: patient Albuterol/Ipratropium (Albuterol/Iprat 2.5/0.5mg 3 Ml Ampul.Neb) 3 ml INHALE RQ4H WHILE AWAKE [facility] Last Admin: 12/29/23 11:37 Dose: 3 ml Documented By: SUNNI Docusate Sodium (Docusate Sodium 100 Mg Capsule) 100 mg PO DAILY PRN PRN Reason: Constipation Enoxaparin Sodium (Enoxaparin Sodium 40 Mg/0.4 Ml Syringe) 40 mg SUBCUT Q24H [facility] Last Admin: 12/29/23 13:45 Dose: 40 mg Documented By: JUSTIN Fluticasone/Vilanterol (Fluticasone/Vilanterol 200/25 Blst.W.Dev) 1 puff INHALE RDAILY [facility] Last Admin: 12/29/23 08:11 Dose: 1 puff Documented By: CINDA Guaifenesin/Dextromethorphan (Guaifenesin Dm 200/20/10 Ml 10 Ml Syrup) 10 ml PO Q6H PRN PRN Reason: Cough Azithromycin 500 mg/ Sodium (Chloride) 250 mls @ 125 mls/hr IV Q24H [facility] Last Infusion: 12/29/23 11:44 Dose: Infused Documented By: JUSTIN Ceftriaxone Sodium 1 gm/ (Sodium Chloride) 50 mls @ 100 mls/hr IV Q24H [facility] Last Infusion: 12/29/23 10:14 Dose: Infused Documented By: JUSTIN Loratadine (Loratadine 10 Mg Tablet) 10 mg PO DAILY [facility] Last Admin: 12/29/23 08:18 Dose: 10 mg Documented By: JUSTIN Melatonin (Melatonin 3 Mg Tablet) 6 mg PO BEDTIME PRN PRN Reason: Insomnia Methylprednisolone Sodium Succinate (Methylprednisolone Sod Succ 40 Mg/Ml Vial) 40 mg IVPUSH Q12H [facility] Last Admin: 12/29/23 08:18 Dose: 40 mg Documented By: JUSTIN Sodium Chloride (0.9 % Sodium Chloride Flush 3 Ml Syringe) 3 ml IVFLUSH QSHIFT [facility] Last Admin: 12/29/23 13:46 Dose: 3 ml Documented By: JUSTIN Vitamin D (Cholecalciferol (Vitamin D3) 25 Mcg Tablet) 50 mcg PO DAILY [facility] Last Admin: 12/29/23 08:17 Dose: 50 mcg Documented By: JUSTIN Labs 12/28/23 08:54 12/28/23 08:54 Microbiology Microbiology Results: Microbiology 12/28/23 10:54 Blood Culture - Preliminary Blood - Venous No growth after 24 hours. 12/28/23 10:54 Blood Culture - Preliminary Blood - Venous No growth after 24 hours. Assessment and Plan (1) Acute exacerbation of chronic obstructive airways disease: Status: Acute (2) Community acquired pneumonia: Status: Acute Plan Pt is a 48-year-old male with a PMH significant for COPD on home O2 prn, asthma, hx of chronic respiratory failure, MARK on home BiPAP, and arthritis who presents to the ED for evaluation of worsening cough and malaise.Pt will be admitted to the hospital acute on chronic respiratory failure in the setting of COPD exacerbation and superimposed pneumonia. 1.Acute on chronic hypoxic respiratory failure in the setting of COPD exacerbation/pneumonia(LLL) -ceftriaxone/azithromycin(2) -dual nebs/pulse dose methylprednisolone -titrate supplemental O2 >90, wean as tolerated -BiPAP 20/8 w/2l/m O2 overnioght 2.MARK Continue nighttime BiPAP Full Code Attending:?Dr. Clark DVT Prophylaxis: Lovenox Patient will require ongoing hospitalization for IV antibiotics to treat pneumonia/COPD exacerbation Quality Stroke Does the patient have a stroke diagnosis?: No VTE Prior VTE?: No VTE Risk Level:: Medical - moderate - high VTE Device Contraindication: Treatment Not Indicated VTE Drug Contraindication: N/A - Med Ordered
[2023-12-29] MEDS: guaiFENesin DM 200/20/10 ML 10 ML SYRUP PO (21:56)
[2023-12-30] VITALS (12 sets, daily range): BP systolic 130–180; BP diastolic 74–82; PULSE 56–110; RESP 16–22; TEMP 36.1–36.8; O2SAT 89–98
[2023-12-30] MEDS: Fluticasone/Vilanterol 200/25 BLST.W.DEV 1 PUFF INHALE (07:57)
[2023-12-30] MEDS: Albuterol/Iprat 2.5/0.5MG 3 ML AMPUL.NEB INHALE ×4 (07:57→20:11)
[2023-12-30] MEDS: 0.9 % Sodium Chloride Flush 3 ML SYRINGE IVFLUSH ×3 (08:18→19:41)
[2023-12-30] MEDS: Cholecalciferol (Vitamin D3) 25 MCG TABLET 50 MCG PO (08:18)
[2023-12-30] MEDS: methylPREDNISolone Sod Succ 40 MG/ML VIAL IVPUSH ×2 (08:18→19:41)
[2023-12-30] MEDS: Loratadine 10 MG TABLET PO (08:18)
[2023-12-30] MEDS: Azithromycin 500 MG in 0.9 % Sodium Chloride 250 ML 125 MG IV (09:43)
[2023-12-30] MEDS: cefTRIAXone sodium 1 GM in 0.9 % Sodium Chloride 50 ML IV (09:43)
--- NOTE | 2023-12-30 12:56 | P.CDIM_ITS ---
PROVIDER RESPONSE TEXT: To clarify, the appropriate diagnosis supported by the clinical indicators: Morbid obesity QUERY TEXT: PHYSICIAN'S DOCUMENTATION REQUEST Date of Query: 12/29/2023 12:26 PM EDT Patient Name: Flash Stevenson Admit Date: 12/28/2023 Dear Maximiliano Clark, A review of the medical record indicates additional documentation may be needed. Please review below and update the documentation accordingly. Clinical Indicators: Nursing notes Height and Weight: BMI 41.5 Extreme obesity class III 116.7kg If possible, please provide an associated diagnosis related to the abnormal BMI, such as: Morbid obesity Other Other (explain) Clinically unable to determine (explain) Thank you, Emiliana Argueta, CCS, CDIS Use of terms such as suspected, likely, concern for, or probable (associated with a specific diagnosi s that is being evaluated, monitored, or treated as if it exists) are acceptable and can be coded in the inpatient se tting, when documented at the time of discharge. Please use your independent medical judgment in providing your response. THIS QUERY IS PART OF THE PERMANENT MEDICAL RECORD
[2023-12-30] MEDS: Enoxaparin Sodium 40 MG/0.4 ML SYRINGE SUBCUT (13:09)
--- NOTE | 2023-12-30 14:29 | P.PNIM_ITS ---
Subjective Subjective Date of Service: 12/30/23 Interval History: Seen with who interprets. Patient states he is almost back to baseline. Review of Systems Denies chest pain Denies shortness of breath Denies nausea vomiting diarrhea Denies fever chills Physical Exam 2 Vital Signs: Vital Signs: Last Vital Signs Temp 98.3 F 12/30/23 10:57 Pulse 101 H 12/30/23 11:47 Resp 18 12/30/23 11:47 BP 180/74 H 12/30/23 10:57 Pulse Ox 96 12/30/23 10:57 O2 Del Method Room Air 12/30/23 10:57 O2 Flow Rate 2 12/29/23 19:27 BMI result Body Mass Index 41.5 Const: Other: Awake alert no acute distress Resp: Other: Diminished at bases with scattered expiratory wheezes Cardio: Other: No S4; positive S1-S2; no S3 murmurs rubs or gallops GI: Other: Soft nontender nondistended normoactive bowel sounds Extrem: Other: No edema bilaterally Objective Data Active Medications Acetaminophen (Acetaminophen 325 Mg Tablet) 650 mg PO Q6H PRN PRN Reason: Pain, Mild (Pain Scale 1-3) Albuterol Sulfate (Albuterol Sulfate 90 Mcg 8 Gm Inhaler) 2 puff INHALE Q6H PRN PRN Reason: patient Albuterol/Ipratropium (Albuterol/Iprat 2.5/0.5mg 3 Ml Ampul.Neb) 3 ml INHALE RQ4H WHILE AWAKE [facility] Last Admin: 12/30/23 11:45 Dose: 3 ml Documented By: SUNNI Docusate Sodium (Docusate Sodium 100 Mg Capsule) 100 mg PO DAILY PRN PRN Reason: Constipation Enoxaparin Sodium (Enoxaparin Sodium 40 Mg/0.4 Ml Syringe) 40 mg SUBCUT Q24H [facility] Last Admin: 12/30/23 13:09 Dose: 40 mg Documented By: JUSTIN Fluticasone/Vilanterol (Fluticasone/Vilanterol 200/25 Blst.W.Dev) 1 puff INHALE RDAILY [facility] Last Admin: 12/30/23 07:57 Dose: 1 puff Documented By: SUNNI Guaifenesin/Dextromethorphan (Guaifenesin Dm 200/20/10 Ml 10 Ml Syrup) 10 ml PO Q6H PRN PRN Reason: Cough Last Admin: 12/29/23 21:56 Dose: 10 ml Documented By: JAMILA Azithromycin 500 mg/ Sodium (Chloride) 250 mls @ 125 mls/hr IV Q24H [facility] Last Infusion: 12/30/23 11:44 Dose: Infused Documented By: JUSTIN Ceftriaxone Sodium 1 gm/ (Sodium Chloride) 50 mls @ 100 mls/hr IV Q24H [facility] Last Infusion: 12/30/23 10:13 Dose: Infused Documented By: JUSTIN Loratadine (Loratadine 10 Mg Tablet) 10 mg PO DAILY [facility] Last Admin: 12/30/23 08:18 Dose: 10 mg Documented By: JUSTIN Melatonin (Melatonin 3 Mg Tablet) 6 mg PO BEDTIME PRN PRN Reason: Insomnia Methylprednisolone Sodium Succinate (Methylprednisolone Sod Succ 40 Mg/Ml Vial) 40 mg IVPUSH Q12H [facility] Last Admin: 12/30/23 08:18 Dose: 40 mg Documented By: JUSTIN Sodium Chloride (0.9 % Sodium Chloride Flush 3 Ml Syringe) 3 ml IVFLUSH QSHIFT [facility] Last Admin: 12/30/23 13:09 Dose: 3 ml Documented By: JUSTIN Vitamin D (Cholecalciferol (Vitamin D3) 25 Mcg Tablet) 50 mcg PO DAILY [facility] Last Admin: 12/30/23 08:18 Dose: 50 mcg Documented By: JUSTIN Labs 12/28/23 08:54 12/28/23 08:54 Microbiology Microbiology Results: Microbiology 12/28/23 10:54 Blood Culture - Preliminary Blood - Venous No growth after 48 hours. 12/28/23 10:54 Blood Culture - Preliminary Blood - Venous No growth after 48 hours. Assessment and Plan (1) Acute exacerbation of chronic obstructive airways disease: Status: Acute Plan Pt is a 48-year-old male with a PMH significant for COPD on home O2 prn, asthma, hx of chronic respiratory failure, MARK on home BiPAP, and arthritis who presents to the ED for evaluation of worsening cough and malaise.Pt will be admitted to the hospital acute on chronic respiratory failure in the setting of COPD exacerbation and superimposed pneumonia. 1.Acute on chronic hypoxic respiratory failure in the setting of COPD exacerbation/pneumonia(LLL) -ceftriaxone/azithromycin(3) -dual nebs/pulse dose methylprednisolone -titrate supplemental O2 >90, wean as tolerated -BiPAP 20/8 w/2l/m O2 overnight 2.MARK Continue nighttime BiPAP Full Code Attending:?Dr. Clark DVT Prophylaxis: Lovenox Patient will require ongoing hospitalization for IV antibiotics to treat pneumonia/COPD exacerbation Quality Stroke Does the patient have a stroke diagnosis?: No VTE Prior VTE?: No VTE Risk Level:: Medical - moderate - high VTE Device Contraindication: Treatment Not Indicated VTE Drug Contraindication: N/A - Med Ordered
[2023-12-30] MEDS: guaiFENesin DM 200/20/10 ML 10 ML SYRUP PO (19:40)
[2023-12-31] VITALS (7 sets, daily range): BP systolic 143–168; BP diastolic 80–97; PULSE 69–103; RESP 16–20; TEMP 36–36.4; O2SAT 92–97
[2023-12-31] MEDS: Fluticasone/Vilanterol 200/25 BLST.W.DEV 1 PUFF INHALE (07:45)
[2023-12-31] MEDS: Albuterol/Iprat 2.5/0.5MG 3 ML AMPUL.NEB INHALE ×2 (07:46→11:42)
[2023-12-31] MEDS: methylPREDNISolone Sod Succ 40 MG/ML VIAL IVPUSH (08:15)
[2023-12-31] MEDS: 0.9 % Sodium Chloride Flush 3 ML SYRINGE IVFLUSH (08:15)
[2023-12-31] MEDS: Cholecalciferol (Vitamin D3) 25 MCG TABLET 50 MCG PO (08:15)
[2023-12-31] MEDS: Loratadine 10 MG TABLET PO (08:15)
[2023-12-31] MEDS: cefTRIAXone sodium 1 GM in 0.9 % Sodium Chloride 50 ML IV (09:20)
[2023-12-31] MEDS: Azithromycin 500 MG in 0.9 % Sodium Chloride 250 ML 125 MG IV (09:20)
--- NOTE | 2023-12-31 11:41 | PM.DS ---
DS: Providers Provider Date of Service: 12/31/23 Date of admission: 12/28/23 13:46 Date of discharge: 12/31/23 Primary care physician: Monet Mckeon MD Consults: 12/29/23 10:52 Consult to Pulmonology Routine Consulting Provider: [facility] Reason for consultation: BiPAP suggestions Has provider been notified: Yes DS: Diagnosis Discharge Diagnosis (1) Acute exacerbation of chronic obstructive airways disease: Status: Acute (2) Community acquired pneumonia: Status: Acute (3) MARK treated with BiPAP: Status: Acute DS: Summary Hospital Course Hospital Course: 48-year-old male with a PMH significant for asthma/COPD overlap syndrome on prn home O2, hx of chronic respiratory failure, MARK on home BiPAP, and arthritis who presents to the ED for evaluation of worsening cough and malaise. Pt states was outside in the rain 3 days ago and since then developed worsening cough, SOB, and PIERCE. Reports chest tightness associated with breathing and coughing, chills but no fever. Had some nausea yesterday while coughing but no vomiting. Has overall felt tired and weak . No abdominal pain. In the ED pt was tachycardic to 112 tachypneic up to 29, desatting into 60s and 70s while sleeping. Labs were significant for ALT 57, otherwise grossly unremarkable. No leukocytosis. Stable H&H. No significantly electrolyte abnormalities. VBG pH 7.34 with bicarb 32. Troponin negative. Lactic acid WNL at 1.1. Tested negative for flu, RSV, COVID. CXR showed new left lower lobe consolidation consistent with pneumonia. EKG demonstrated normal sinus rhythm with no significant ST elevations or depressions. Pt was treated with Mag sulfate, Solu-Medrol, DuoNeb, ceftriaxone, and azithromycin. Pt will be admitted to the hospital acute on chronic respiratory failure in the setting of COPD exacerbation and superimposed pneumonia. [facility] Patient admitted to telemetry unit where monitor failed to demonstrate any acute dysrhythmias. He was maintained on ceftriaxone and azithromycin along with pulse dose steroids and aggressive pulmonary toilet. Initially his O2 sats did fluctuate prompting a Pulmonary consult. 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 Over the next 48 hours he improved dramatically and after discussion with he and his he is back as his baseline and wishes to return to home. He will be discharged home on previous therapies including his BiPAP settings and will complete a course of doxycycline and Ceftin as well as prednisone taper. He will follow up with PCP next available Time Attestation Discharge Coordination Time (in mins): 35 Quality: Safe Use of Opioids Does Pt have an Active Cancer Diagnosis on the Problem List?: No Quality: Stroke Does the patient have a stroke diagnosis?: No Physical Exam Vital Signs: Vital Signs: Last Vital Signs Temp 97.6 F 12/31/23 11:24 Pulse 92 12/31/23 11:24 Resp 18 12/31/23 11:24 BP 143/82 H 12/31/23 11:24 Pulse Ox 94 12/31/23 11:24 O2 Del Method Room Air 12/31/23 11:24 O2 Flow Rate 2 12/31/23 07:40 BMI result Body Mass Index 41.5 Const: Other: Awake alert no acute distress Resp: Other: Diminished at bases with scattered expiratory wheezes Cardio: Other: No S4; positive S1-S2; no S3 murmurs rubs or gallops GI: Other: Soft nontender nondistended normoactive bowel sounds Extrem: Other: No edema bilaterally DS: Data Data Completed and Pending Completed studies during hospitalization [Text1]: Procedures Assistance with Respiratory Ventilation, Less than 24 Consecutive Hours, Continuous Positive Airway Pressure (06/14/23) Labs on day of discharge: Preliminary micro results at discharge 12/28/23 10:54 Blood Culture - Preliminary Blood - Venous No growth after 48 hours. 12/28/23 10:54 Blood Culture - Preliminary Blood - Venous No growth after 48 hours. Discharge Plan Discharge Anticipated Discharge Date/Time: 12/31/23 11:36 Patient Disposition: Home Health Service Discharge Diagnosis: Community-acquired pneumonia Referrals: Monet Mckeon MD [Primary Care Provider] - 1 Week Discharge Medications: New cefuroxime axetil 500 mg tablet 500 mg PO BID 10 Days Qty: 20 0RF prednisone 10 mg tablet See Rx Instructions .Route .COMPLEX Qty: 45 0RF Rx Instructions: 10 mg orally; 5 tabs p.o. daily x3 days; 4 tabs p.o. daily x3 days; 3 tabs daily x3 days; 2 tabs daily x3 days; 1 tab daily x3 days doxycycline hyclate 100 mg tablet 100 mg PO BID Qty: 20 0RF Continued albuterol sulfate 90 mcg/actuation HFA aerosol inhaler 2 puff INHALATION Q6H PRN (Reason: patient) (DME) CPAP Machine/Device Device See Rx Instructions .Route Rx Instructions: As directed (DME) nebulizers Misc See Rx Instructions .Route Rx Instructions: As directed cholecalciferol (vitamin D3) 50 mcg (2,000 unit) capsule 50 mcg PO DAILY Breo Ellipta 200-25 mcg/dose blister with device 1 inh inhalation DAILY 30 Days Qty: 60 11RF Discontinued prednisone 20 mg tablet 40 mg PO DAILY Qty: 10 0RF Discharge Orders: Discharge Order (Routine); Ordered 12/31/23 Ordered By: Maximiliano Clark Diet: Advance to usual diet Activity on Discharge: As tolerated Stand Alone Forms: Patient Portal Discharge page Print Language: Togolese Care Plan Goals: Continue all previous medicines as taken before hospitalization Health Concerns: Complete course of Ceftin 500 mg twice daily; doxycycline 100 mg twice daily; and prednisone taper as outlined Plan of Treatment: Resume your oxygen and BiPAP machine as previously Assessment: See discharge summary
--- NOTE | 2023-12-31 11:45 | MHC.CM.PN ---
Patient has been medically cleared for dc to home today, with services. A referral was made to [facility], who has been made aware of today's dc. Last IMM addressed on 12/29/2023.
--- NOTE | 2024-01-02 12:25 | P.F2F_ITS ---
Service Date Service Date: 01/02/24 Encounter Date of encounter: 12/31/23 Reasons for Services Signs and symptoms assessed: Acute on chronic hypoxic respiratory failure COPD exacerbation Pneumonia nursing for med education, respiratory monitoring Reason for residential: medication management and other (Respiratory monitoring) Homebound: Leaving the home is medically contraindicated at this time without the asist of a device and/or another person due th the listed conditions above and below. Reason homebound: weakness related to hospital stay Certification: Based on the above findings, I certify that this patient is confined to the home and needs intermittent residential care, physical therapy and/or speech therapy, or continues to need occupational therapy. The patient is under my care, and I have initiated the establishment of the plan of care. The patient will be followed by a physician who will periodically review the plan of care. Time Spent With Patient Time: Total time managing care of this patient today ____ minutes.
== END 2023-12-31 14:38 | disposition home health service (06) | DRG 190 ==
LOC: HO.ED 11:19 → HO.EDOVER 14:09 → HO.IMC 12-29 00:38
PROVIDERS: Physician Assistant; Admitting Provider Student in an Organized Health Care Education/Training Program; Emergency Provider Emergency Medicine; PCP Internal Medicine; Visit Provider Hospitalist
DX: J44.0 Chronic obstructive pulmonary disease with (acute) lower respiratory infection (principal); J18.9 Pneumonia, unspecified organism; J96.21 Acute and chronic respiratory failure with hypoxia; Z68.41 Body mass index [BMI] 40.0-44.9, adult; J44.1 Chronic obstructive pulmonary disease with (acute) exacerbation; G47.33 Obstructive sleep apnea (adult) (pediatric); Z71.3 Dietary counseling and surveillance; Z20.822 Contact with and (suspected) exposure to COVID-19; Z99.81 Dependence on supplemental oxygen; Z79.51 Long term (current) use of inhaled steroids; Z79.899 Other long term (current) drug therapy
CPT/HCPCS: 0241U; 36415; 71046; 80053; 82803; 83605; 84484; 85025; 87040; 93005; 94640; 94660; 99285; J0456; J0696; J1650; J2919; J3475

== ENCOUNTER → 2023-12-28 08:46 | Outpatient (BNV) | payer OTHER, SELFPAY | PROVIDERS: Admitting Provider Student in an Organized Health Care Education/Training Program; Emergency Provider Emergency Medicine; PCP Internal Medicine; Visit Provider Internal Medicine | DX: R07.89 Other chest pain (principal) | CPT/HCPCS: 93010 ==

== ENCOUNTER → 2023-12-28 13:46 | Outpatient (BNV) | payer OTHER, SELFPAY | PROVIDERS: Admitting Provider Student in an Organized Health Care Education/Training Program; Emergency Provider Emergency Medicine; PCP Internal Medicine; Visit Provider Student in an Organized Health Care Education/Training Program | DX: J44.1 Chronic obstructive pulmonary disease with (acute) exacerbation (principal) | CPT/HCPCS: 99223; 99232; 99239; G0180 ==

== ENCOUNTER → 2023-12-28 13:46 | Outpatient (BNV) | payer OTHER, SELFPAY | PROVIDERS: Admitting Provider Student in an Organized Health Care Education/Training Program; Emergency Provider Emergency Medicine; PCP Internal Medicine; Visit Provider Internal Medicine Pulmonary Disease | DX: J44.1 Chronic obstructive pulmonary disease with (acute) exacerbation (principal); G47.33 Obstructive sleep apnea (adult) (pediatric) | CPT/HCPCS: 99221 ==

== ENCOUNTER 2024-01-16 14:08 | Outpatient (AMB) | payer OTHER, SELFPAY ==
--- NOTE | 2024-01-16 14:10 | A.OFFVIS_ITS ---
Vital Signs 01/16/24 14:11 Height 5 ft 6 in Weight 250 lb 3.594 oz BMI 40.4 BP 127/72 Blood Pressure Location Lt brachial Position Sitting Pulse 102 H Pulse Source Doppler Pulse Oximetry (%) 94 Oxygen Delivery Method Room Air Intake Visit Reasons: Shortness of Breath/MARK Allergies No Known Allergies* Allergy (Uncoded 12/28/23 08:46) Unknown HPI Comments Details: The patient is a 48-year-old gentleman known obstructive sleep apnea currently on CPAP in addition to asthma. CPAP therapy has been effective and beneficial. USes CPAP more than 4 hours a night. Has been noticing worsening respiratory symptoms now for the last few months. 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 He does not use a mask. He has been noticing increasing nasal congestion and cough. Moderate severity. Also has been complaining worsening shortness of breath. He started developing pleuritic chest pains and shortness of breath and said to come in today [facility] ER for further evaluation. He was found to be having wheezing on examination. Chest x-ray demonstrated some minimal changes of the right base. The patient was given a Medrol pack. He is still complaining of some cough in addition to obstructive low. The patient was recommended to wear mask but for some reason he was not able to do so at the work. Therefore, need to consider changing jobs as this will continue affecting her respiratory status. In regards to the CPAP he is using especially since he can't breathe well. The CPAP therapy has been affecting beneficial. He did get supplies. He will continue using more than 4 hours a night. 01/27/2023 the patient is here for hospital follow-up visit. He had a significant episode of acute hypercarbic respiratory failure with CO2 narcosis. He required BiPAP. He had been sick with a respiratory illness. He has CT scan of the chest during that visit demonstrated a left lower lobe pneumonia. He still coughing up some mucus. The patient has been tolerating the BiPAP. Although is unclear the patient needs oxygen with the BiPAP. Will go ahead and resend for another titration study to see if he needs AVAPS versus oxygen with BiPAP. The patient is completing a course of prednisone. He still feels very tired. He will better from a stimulant. I do believe that starting Provigil may be helpful for him. Hopefully get him back to sleep-wake cycle. That will wait for the titration study before we do that. In the meantime will treat him for the lower respiratory infection that may be still lingering. 03/02/2023 the patient is here for a pulmonary follow-up visit. He has significant daytime drowsiness. He is falling asleep quite as we speak. His [place] score significantly elevated at 60 over 24. He is actually having hard time with his daytime drowsiness right now. The patient has been using the BiPAP. He does not feel like is working as well for him. Currently we went up to BiPAP . Although he did have a titration study and they recommended /. They also recommended 2 L of oxygen. Therefore I will submit a relation to his [employer] company in order to adjust the pressures in start him on oxygen. I am hopeful that this is going to be effective for him. In the meantime I do believe the patient has daytime drowsiness that is out of proportion to his respiratory capacity it may have a component of hypoventilation syndrome. Therefore the additional provisional may be helpful for him as a stimulant to help him with his respiratory drive and also with his weight shortness. Therefore will go ahead and start him on 100 mg of Provigil at this time. He will continue with current respiratory therapy will follow-up in a couple months. 05/26/2023 the patient is here for a pulmonary follow-up visit. He was placed on the Provigil stimulant to see if we can improve his daytime drowsiness. Although he did not see any significant difference. He did the blood up to 200 mg still no significant difference. He has been using the BiPAP. Although does not tolerated for too long. We know the pressures do help him based on the fact that he did very well in the hospital but at home does not seem to be tolerating this time. Therefore this switch it again to auto BiPAP to see if we can adjust the pressures a little bit more hopefully not requiring the significantly elevated pressures. He knows to use it during the daytime as well. Continues with his current respiratory therapy. Will have him try the VPAP and call the office next week if he is not tolerating it. 06/23/2023 the patient is here for pulmonary follow-up visit. He was recently in the hospital with bronchitis and asthma exacerbation. This resulted in worsening acute on chronic hypercarbic respiratory failure requiring additional noninvasive ventilator. The patient was placed on noninvasive ventilator did very well. AVAPS setting. he does have a auto BiPAP at home. He is back to using it regularly. He does feel like it is helping him. Although his AHI significantly elevated up to 30 events an hour. We switched him back to BiPAP 20/11 and will follow-up with those numbers. If they continue to be elevated the patient will benefit from switching over to a noninvasive ventilator with the AVAPS setting. He continues uses respiratory therapy. He is done with the antibiotics in the prednisone. He also has oxygen at nighttime. He was requiring oxygen during the hospitalization but we did go for brief walking oximetry the patient does not qualify for oxygen with activity any longer. 08/18/2023 The patient is here for a pulmonary follow up visit. He had been hospitalized and discharged on oxygen. The oxygen has been effective and beneficial. We did go for conserving device trial and he did well on a conserving device. He would like a POC, but I explained to him that his DME does not carry them. We will request B cyliders with conserving device. He has been using the BIPAP 20/11 with 2L oxygen with good effect. We will start Trazodone to improve his sleep. The patient is also volume overload with worsening LE edema. Moderate in severity. Worsening dyspnea. We will start him on diuretics and he needs to have bloodwork in 2 weeks. 01/16/2024 the patient is here for hospital follow-up visit. He was recently in the hospital back in mid December because of worsening respiratory symptoms. He was evaluated in the emergency department where he had a chest x-ray demonstrating a moderate-sized left-sided pneumonia. He was admitted to the hospital with COPD exacerbation in lower respiratory infection. He was treated appropriately. He subsequently discharged. Now is back to her baseline. He did have blood gases in the hospital which were stable which is reassuring. He does use a BiPAP at home with settings of 20/11. He also uses 2 L of oxygen. He did use the BiPAP in the hospital and has been using it at home. Although she averages almost 4 hours. He does not use it every night. It did encourage him to do so. Although I did download the data in appears that his AHI is alexandr vated at 45 events an hour. Therefore, the therapy is not effective for him. I did increase the BiPAP from 31/07 . He will start using it and will bring in the BIPAP to download for the next visit. He is adamant that he thinks he got sick because he was putting water in the BiPAP so now he is using without water. I did tell him that is okay although I did give him instructions on how to take care of the water chamber decides to add the distal water again. Respiratory exam is stable. The patient is working on weight loss this time. He is motivated which is reassuring. Will go ahead and continue with the current respiratory therapy and will follow-up in 6-8 weeks. [facility] Medical History Acute and chronic respiratory failure with hypercapnia MARK treated with BiPAP Asthma-COPD overlap syndrome Moderate obesity Bronchitis Chest pain Chronic allergic rhinitis Asthma Family History Other Asthma Social History Household Members: Spouse Housing: Apartment Do you presently have visiting nurse or other home services: No Alcohol intake: unknown Patient Tobacco Use Status: Never used Tobacco service: No Current occupational status: disabled Review of Systems Const Reports daytime sleepiness, Reports fatigue, Denies night sweats, Reports snoring, Reports stops breathing during sleep and Reports weight gain ENT Denies change in voice, Denies lip swelling, Denies mouth pain, Reports nasal congestion, Reports nasal discharge and Denies tongue swelling Card Reports chest pain, Reports leg edema, Denies dyspnea and Reports dyspnea on exertion Resp Reports cough, Denies dyspnea, Reports dyspnea on exertion, Reports snoring and Reports wheezing GI Denies abdominal pain Musc Reports back pain Neuro Denies Neuro-related abnormal movements Psych Denies no additional complaints Endo Reports fatigue Anthony/Lymph Denies easy bleeding and Denies lymphadenopathy Aller/Immun Denies lip swelling, Denies tongue swelling and Reports wheezing Physical Exam Vital Signs: Last Vital Signs Temp 97.0 F 06/16/23 07:25 Pulse 72 06/16/23 07:52 Resp 20 06/16/23 07:56 BP 120/85 06/16/23 07:25 Pulse Ox 92 06/16/23 07:25 O2 Del Method BiPAP 06/16/23 07:25 O2 Flow Rate 35 06/16/23 07:25 FiO2 35 06/16/23 04:00 BMI result Body Mass Index 41.4 Const General: comfortable HEENT Head: Yes normocephalic Neck Neck: Yes supple Chest Chest palpation & inspection: normal inspection of the chest Resp Effort & Inspection: normal respiratory effort Auscultation: no rhonchi and diminished lung sounds Cardio Rate: regular rate Rhythm: regular rhythm Heart sounds: S1 normal heart sound present and S2 normal heart sound present GI Palpation (GI): Soft to palpation and nontender Auscultation: normal bowel sounds Skin General skin exam: rashes and/or lesions noted Extrem General: Yes edema Assessment & Plan Assessment & Plan (1) Chronic allergic rhinitis: Code(s): J30.9 - Allergic rhinitis, unspecified Category: Medical (2) MARK treated with BiPAP: Code(s): G47.33 - Obstructive sleep apnea (adult) (pediatric) Category: Medical (3) Cough: Code(s): R05 - Cough Category: Medical Qualifiers: Cough type: chronic Qualified Code(s): R05.3 - Chronic cough (4) Asthma: Code(s): J45.909 - Unspecified asthma, uncomplicated Category: Medical Qualifiers: Asthma severity: moderate Asthma persistence: persistent Asthma complication type: uncomplicated Qualified Code(s): J45.40 - Moderate persistent asthma, uncomplicated (5) Edema: Code(s): R60.9 - Edema, unspecified Category: Medical Qualifiers: Edema type: generalized Qualified Code(s): R60.1 - Generalized edema (6) Asthma-COPD overlap syndrome: Code(s): J44.89 - Other specified chronic obstructive pulmonary disease Category: Medical Plan Continue Breo daily GONZALEZ as needed BIPAP 20/11 with 2 L oxygen->increased 22/24 2L oxygen diuresis as tolerated continue oxygen, requesting conserving device with b cylinders F/U 6-8 weeks Coding Level of Care Code Est Pt Level 4 (89220) Diagnoses Chronic allergic rhinitis J30.9 MARK treated with BiPAP G47.33 Chronic cough R05.3 Cough type: chronic Moderate persistent asthma without complication J45.40 Asthma severity: moderate Asthma persistence: persistent Asthma complication type: uncomplicated Generalized edema R60.1 Edema type: generalized Asthma-COPD overlap syndrome J44.89 Time Spent (min) 18
[2024-01-16 14:11] VITALS: BP 127/72; PULSE 102; O2SAT 94; BMI 40.4
== END 2024-01-16 14:36 | disposition home or self-care (01) ==
PROVIDERS: PCP Internal Medicine; Visit Provider Hospitalist
DX: J30.9 Allergic rhinitis, unspecified (principal); G47.33 Obstructive sleep apnea (adult) (pediatric); R05.3 Chronic cough; J45.40 Moderate persistent asthma, uncomplicated; R60.1 Generalized edema; J44.89 Other specified chronic obstructive pulmonary disease
CPT/HCPCS: 99214

== ENCOUNTER → 2024-01-16 14:08 | Outpatient (BNVA) | payer OTHER, SELFPAY | PROVIDERS: PCP Internal Medicine; Visit Provider Hospitalist | DX: J44.89 Other specified chronic obstructive pulmonary disease (principal); J45.40 Moderate persistent asthma, uncomplicated; J30.9 Allergic rhinitis, unspecified; G47.33 Obstructive sleep apnea (adult) (pediatric); R05.3 Chronic cough; R60.1 Generalized edema; Z79.899 Other long term (current) drug therapy | CPT/HCPCS: 99212 ==

== ENCOUNTER 2024-06-10 09:19 | Outpatient (AMB) | payer OTHER, SELFPAY ==
[2024-06-10 09:26] VITALS: BP 126/72; PULSE 90; O2SAT 95
--- NOTE | 2024-06-10 09:26 | MHC.OFFVIS ---
Vital Signs 06/10/24 09:26 Weight 231 lb 7.766 oz BP 126/72 Blood Pressure Location Rt brachial Position Sitting Pulse 90 Pulse Source Pulse Oximeter Pulse Oximetry (%) 95 Intake Visit Reasons: Shortness of breath Allergies No Known Allergies* Allergy (Uncoded 06/10/24 09:32) Unknown Medication List - Last Reconciled 06/10/24 by Mita Matute LPN albuterol sulfate 90 mcg/actuation 2 puffs inhalation Q6H PRN cefuroxime axetil 500 mg PO BID 10 days cholecalciferol (vitamin D3) 50 mcg PO DAILY CPAP (CPAP Machine/Device) As directed doxycycline hyclate 100 mg PO BID fluticasone furoate-vilanterol 200-25 mcg/dose (Breo Ellipta) 1 inh inhalation DAILY 30 days nebulizers As directed prednisone 10 mg orally; 5 tabs p.o. daily x3 days; 4 tabs p.o. daily x3 days; 3 tabs daily x3 days; 2 tabs daily x3 days; 1 tab daily x3 days HPI Comments Details: The patient is a 49-year-old gentleman known obstructive sleep apnea currently on CPAP in addition to asthma. CPAP therapy has been effective and beneficial. USes CPAP more than 4 hours a night. Has been noticing worsening respiratory symptoms now for the last few months. 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 He does not use a mask. He has been noticing increasing nasal congestion and cough. Moderate severity. Also has been complaining worsening shortness of breath. He started developing pleuritic chest pains and shortness of breath and said to come in today [facility] ER for further evaluation. He was found to be having wheezing on examination. Chest x-ray demonstrated some minimal changes of the right base. The patient was given a Medrol pack. He is still complaining of some cough in addition to obstructive low. The patient was recommended to wear mask but for some reason he was not able to do so at the work. Therefore, need to consider changing jobs as this will continue affecting her respiratory status. In regards to the CPAP he is using especially since he can't breathe well. The CPAP therapy has been affecting beneficial. He did get supplies. He will continue using more than 4 hours a night. 01/27/2023 the patient is here for hospital follow-up visit. He had a significant episode of acute hypercarbic respiratory failure with CO2 narcosis. He required BiPAP. He had been sick with a respiratory illness. He has CT scan of the chest during that visit demonstrated a left lower lobe pneumonia. He still coughing up some mucus. The patient has been tolerating the BiPAP. Although is unclear the patient needs oxygen with the BiPAP. Will go ahead and resend for another titration study to see if he needs AVAPS versus oxygen with BiPAP. The patient is completing a course of prednisone. He still feels very tired. He will better from a stimulant. I do believe that starting Provigil may be helpful for him. Hopefully get him back to sleep-wake cycle. That will wait for the titration study before we do that. In the meantime will treat him for the lower respiratory infection that may be still lingering. 03/02/2023 the patient is here for a pulmonary follow-up visit. He has significant daytime drowsiness. He is falling asleep quite as we speak. His [place] score significantly elevated at 60 over 24. He is actually having hard time with his daytime drowsiness right now. The patient has been using the BiPAP. He does not feel like is working as well for him. Currently we went up to BiPAP . Although he did have a titration study and they recommended 20/11. They also recommended 2 L of oxygen. Therefore I will submit a relation to his [employer] company in order to adjust the pressures in start him on oxygen. I am hopeful that this is going to be effective for him. In the meantime I do believe the patient has daytime drowsiness that is out of proportion to his respiratory capacity it may have a component of hypoventilation syndrome. Therefore the additional provisional may be helpful for him as a stimulant to help him with his respiratory drive and also with his weight shortness. Therefore will go ahead and start him on 100 mg of Provigil at this time. He will continue with current respiratory therapy will follow-up in a couple months. 05/26/2023 the patient is here for a pulmonary follow-up visit. He was placed on the Provigil stimulant to see if we can improve his daytime drowsiness. Although he did not see any significant difference. He did the blood up to 200 mg still no significant difference. He has been using the BiPAP. Although does not tolerated for too long. We know the pressures do help him based on the fact that he did very well in the hospital but at home does not seem to be tolerating this time. Therefore this switch it again to auto BiPAP to see if we can adjust the pressures a little bit more hopefully not requiring the significantly elevated pressures. He knows to use it during the daytime as well. Continues with his current respiratory therapy. Will have him try the VPAP and call the office next week if he is not tolerating it. 06/23/2023 the patient is here for pulmonary follow-up visit. He was recently in the hospital with bronchitis and asthma exacerbation. This resulted in worsening acute on chronic hypercarbic respiratory failure requiring additional noninvasive ventilator. The patient was placed on noninvasive ventilator did very well. AVAPS setting. he does have a auto BiPAP at home. He is back to using it regularly. He does feel like it is helping him. Although his AHI significantly elevated up to 30 events an hour. We switched him back to BiPAP 20/11 and will follow-up with those numbers. If they continue to be elevated the patient will benefit from switching over to a noninvasive ventilator with the AVAPS setting. He continues uses respiratory therapy. He is done with the antibiotics in the prednisone. He also has oxygen at nighttime. He was requiring oxygen during the hospitalization but we did go for brief walking oximetry the patient does not qualify for oxygen with activity any longer. 08/18/2023 The patient is here for a pulmonary follow up visit. He had been hospitalized and discharged on oxygen. The oxygen has been effective and beneficial. We did go for conserving device trial and he did well on a conserving device. He would like a POC, but I explained to him that his DME does not carry them. We will request B cyliders with conserving device. He has been using the BIPAP 20/11 with 2L oxygen with good effect. We will start Trazodone to improve his sleep. The patient is also volume overload with worsening LE edema. Moderate in severity. Worsening dyspnea. We will start him on diuretics and he needs to have bloodwork in 2 weeks. 01/16/2024 the patient is here for hospital follow-up visit. He was recently in the hospital back in mid December because of worsening respiratory symptoms. He was evaluated in the emergency department where he had a chest x-ray demonstrating a moderate-sized left-sided pneumonia. He was admitted to the hospital with COPD exacerbation in lower respiratory infection. He was treated appropriately. He subsequently discharged. Now is back to her baseline. He did have blood gases in the hospital which were stable which is reassuring. He does use a BiPAP at home with settings of 31/07. He also uses 2 L of oxygen. He did use the BiPAP in the hospital and has been using it at home. Although she averages almost 4 hours. He does not use it every night. It did encourage him to do so. Although I did download the data in appears that his AHI is elevated at 45 events an hour. Therefore, the therapy is not effective for him. I did increase the BiPAP from 31/07 . He will start using it and will bring in the BIPAP to download for the next visit. He is adamant that he thinks he got sick because he was putting water in the BiPAP so now he is using without water. I did tell him that is okay although I did give him instructions on how to take care of the water chamber decides to add the distal water again. Respiratory exam is stable. The patient is working on weight loss this time. He is motivated which is reassuring. Will go ahead and continue with the current respiratory therapy and will follow-up in 6-8 weeks. 06/10/2024 the patient is here for a pulmonary follow-up visit. Overall he is doing a lot better. During the last time he did have pneumonia back in the left lower lobe area. At this point the patient has been working on healthy habits. He is walking more regularly he is also eating healthy with no salt. He has already lost about 17 lb. The patient is aware that he still has severe sleep apnea. Needs to use his BiPAP. He also has CO2 retention. The patient understands that once his CO2 starts climbing he is develops CO2 narcosis therefore the uses of the PAP therapy is crucial for him. We talked about making sure that he has a good routine where he uses the least 4 hours a night. He will undergo CS x-ray and also blood work in a blood gas for the next visit. If the patient has any issues prior to that he will call for an earlier assessment. [facility] Medical History (Updated 06/10/24 @ 19:03 by Mickey Ross MD) Chronic hypercapnic respiratory failure Acute and chronic respiratory failure with hypercapnia MARK treated with BiPAP Asthma-COPD overlap syndrome Moderate obesity Bronchitis Chest pain Chronic allergic rhinitis Asthma Family History Other Asthma Social History Household Members: Spouse Housing: Apartment Do you presently have visiting nurse or other home services: No Alcohol intake: unknown Patient Tobacco Use Status: Never used Tobacco service: No Current occupational status: disabled Review of Systems Const Reports daytime sleepiness, Denies night sweats, Reports snoring, Reports stops breathing during sleep and Reports weight loss ENT Denies change in voice, Denies lip swelling, Denies mouth pain, Reports nasal congestion, Reports nasal discharge and Denies tongue swelling Card Denies chest pain, Denies dyspnea and Reports dyspnea on exertion Resp Reports cough, Denies dyspnea, Reports dyspnea on exertion, Reports snoring and Reports wheezing GI Denies abdominal pain Musc Reports back pain Neuro Denies Neuro-related abnormal movements Psych Denies no additional complaints Anthony/Lymph Denies easy bleeding and Denies lymphadenopathy Aller/Immun Denies lip swelling, Denies tongue swelling and Reports wheezing Physical Exam Vital Signs: Last Vital Signs Pulse 90 06/10/24 09:26 BP 126/72 06/10/24 09:26 Pulse Ox 95 06/10/24 09:26 Last Vital Signs Temp 97.0 F 06/16/23 07:25 Pulse 72 06/16/23 07:52 Resp 20 06/16/23 07:56 BP 120/85 06/16/23 07:25 Pulse Ox 92 06/16/23 07:25 O2 Del Method BiPAP 06/16/23 07:25 O2 Flow Rate 35 06/16/23 07:25 FiO2 35 06/16/23 04:00 BMI result Body Mass Index 41.4 Const General: comfortable HEENT Head: Yes normocephalic Neck Neck: Yes supple Chest Chest palpation & inspection: normal inspection of the chest Resp Effort & Inspection: normal respiratory effort Auscultation: no rhonchi and diminished lung sounds Cardio Rate: regular rate Rhythm: regular rhythm Heart sounds: S1 normal heart sound present and S2 normal heart sound present GI Palpation (GI): Soft to palpation and nontender Auscultation: normal bowel sounds Skin General skin exam: rashes and/or lesions noted Extrem General: Yes edema Assessment & Plan Assessment & Plan (1) Asthma-COPD overlap syndrome: Code(s): J44.89 - Other specified chronic obstructive pulmonary disease Category: Medical (2) MARK treated with BiPAP: Code(s): G47.33 - Obstructive sleep apnea (adult) (pediatric) Category: Medical (3) Chronic hypercapnic respiratory failure: Code(s): J96.12 - Chronic respiratory failure with hypercapnia Category: Medical (4) Chronic allergic rhinitis: Code(s): J30.9 - Allergic rhinitis, unspecified Category: Medical (5) Cough: Code(s): R05 - Cough Category: Medical Qualifiers: Cough type: chronic Qualified Code(s): R05.3 - Chronic cough (6) Asthma: Code(s): J45.909 - Unspecified asthma, uncomplicated Category: Medical Qualifiers: Asthma complication type: uncomplicated Asthma persistence: persistent Asthma severity: moderate Qualified Code(s): J45.40 - Moderate persistent asthma, uncomplicated Plan Continue Breo daily GONZALEZ as needed BIPAP 20/ with 2 L oxygen->increased 22/24 2L oxygen diuresis as tolerated continue oxygen CXR Bloodwork F/U 3-4 months Orders: Orders Complete Blood Count Auto Diff Today J44.89 - Other specified chronic obstructive pulmonary disease XR chest 2V Today J44.89 - Other specified chronic obstructive pulmonary disease Venous Blood Gas Today J44.89 - Other specified chronic obstructive pulmonary disease Basic Metabolic Panel Today J44.89 - Other specified chronic obstructive pulmonary disease Coding Level of Care Code Est Pt Level 4 (05007) Diagnoses Asthma-COPD overlap syndrome J44.89 MARK treated with BiPAP G47.33 Chronic hypercapnic respiratory failure J96.12 Chronic allergic rhinitis J30.9 Chronic cough R05.3 Cough type: chronic Moderate persistent asthma without complication J45.40 Asthma complication type: uncomplicated Asthma persistence: persistent Asthma severity: moderate Time Spent (min) 17
== END 2024-06-10 09:47 | disposition home or self-care (01) ==
PROVIDERS: PCP Internal Medicine; Visit Provider Hospitalist
DX: J44.89 Other specified chronic obstructive pulmonary disease (principal); G47.33 Obstructive sleep apnea (adult) (pediatric); J96.12 Chronic respiratory failure with hypercapnia; J30.9 Allergic rhinitis, unspecified; R05.3 Chronic cough; J45.40 Moderate persistent asthma, uncomplicated
CPT/HCPCS: 99214

== ENCOUNTER → 2024-06-10 09:19 | Outpatient (BNVA) | payer OTHER, SELFPAY | PROVIDERS: PCP Internal Medicine; Visit Provider Hospitalist | DX: J96.12 Chronic respiratory failure with hypercapnia (principal); J44.89 Other specified chronic obstructive pulmonary disease; J45.40 Moderate persistent asthma, uncomplicated; J30.9 Allergic rhinitis, unspecified; R05.3 Chronic cough; G47.33 Obstructive sleep apnea (adult) (pediatric); Z99.89 Dependence on other enabling machines and devices | CPT/HCPCS: 99212 ==

== ENCOUNTER 2024-10-08 09:16 | Outpatient (AMB) | payer OTHER, SELFPAY ==
[2024-10-08 09:22] VITALS: BP 134/92; PULSE 67; O2SAT 95; BMI 37.5
--- NOTE | 2024-10-08 09:22 | A.OFFVIS_ITS ---
Vital Signs 10/08/24 09:22 Height 5 ft 6 in Weight 232 lb 9.403 oz BMI 37.5 BP 134/92 H Blood Pressure Location Rt brachial Position Sitting Pulse 67 Pulse Source Pulse Oximeter Pulse Oximetry (%) 95 Oxygen Delivery Method Room Air Intake Visit Reasons: Shortness of breath Allergies No Known Allergies* Allergy (Uncoded 10/08/24 09:26) Unknown HPI Comments Details: The patient is a 49-year-old gentleman known obstructive sleep apnea currently on CPAP in addition to asthma. CPAP therapy has been effective and beneficial. USes CPAP more than 4 hours a night. Has been noticing worsening respiratory symptoms now for the last few months. 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 He does not use a mask. He has been noticing increasing nasal congestion and cough. Moderate severity. Also has been complaining worsening shortness of breath. He started developing pleuritic chest pains and shortness of breath and said to come in today [facility] for further evaluation. He was found to be having wheezing on examination. Chest x-ray demonstrated some minimal changes of the right base. The patient was given a Medrol pack. He is still complaining of some cough in addition to obstructive low. The patient was recommended to wear mask but for some reason he was not able to do so at the work. Therefore, need to consider changing jobs as this will continue affecting her respiratory status. In regards to the CPAP he is using especially since he can't breathe well. The CPAP therapy has been affecting beneficial. He did get supplies. He will continue using more than 4 hours a night. 01/27/2023 the patient is here for hospital follow-up visit. He had a significant episode of acute hypercarbic respiratory failure with CO2 narcosis. He required BiPAP. He had been sick with a respiratory illness. He has CT scan of the chest during that visit demonstrated a left lower lobe pneumonia. He still coughing up some mucus. The patient has been tolerating the BiPAP. Although is unclear the patient needs oxygen with the BiPAP. Will go ahead and resend for another titration study to see if he needs AVAPS versus oxygen with BiPAP. The patient is completing a course of prednisone. He still feels very tired. He will better from a stimulant. I do believe that starting Provigil may be helpful for him. Hopefully get him back to sleep-wake cycle. That will wait for the titration study before we do that. In the meantime will treat him for the lower respiratory infection that may be still lingering. 03/02/2023 the patient is here for a pulmonary follow-up visit. He has significant daytime drowsiness. He is falling asleep quite as we speak. His Reading score significantly elevated at 60 over 24. He is actually having hard time with his daytime drowsiness right now. The patient has been using the BiPAP. He does not feel like is working as well for him. Currently we went up to BiPAP . Although he did have a titration study and they recommended /. They also recommended 2 L of oxygen. Therefore I will submit a relation to his [employer] in order to adjust the pressures in start him on oxygen. I am hopeful that this is going to be effective for him. In the meantime I do believe the patient has daytime drowsiness that is out of proportion to his respiratory capacity it may have a component of hypoventilation syndrome. Therefore the additional provisional may be helpful for him as a stimulant to help him with his respiratory drive and also with his weight shortness. Therefore will go ahead and start him on 100 mg of Provigil at this time. He will continue with current respiratory therapy will follow-up in a couple months. 05/26/2023 the patient is here for a pulmonary follow-up visit. He was placed on the Provigil stimulant to see if we can improve his daytime drowsiness. Although he did not see any significant difference. He did the blood up to 200 mg still no significant difference. He has been using the BiPAP. Although does not tolerated for too long. We know the pressures do help him based on the fact that he did very well in the hospital but at home does not seem to be tolerating this time. Therefore this switch it again to auto BiPAP to see if we can adjust the pressures a little bit more hopefully not requiring the significantly elevated pressures. He knows to use it during the daytime as well. Continues with his current respiratory therapy. Will have him try the VPAP and call the office next week if he is not tolerating it. 06/23/2023 the patient is here for pulmonary follow-up visit. He was recently in the hospital with bronchitis and asthma exacerbation. This resulted in worsening acute on chronic hypercarbic respiratory failure requiring additional noninvasive ventilator. The patient was placed on noninvasive ventilator did very well. AVAPS setting. he does have a auto BiPAP at home. He is back to using it regularly. He does feel like it is helping him. Although his AHI significantly elevated up to 30 events an hour. We switched him back to BiPAP 20/11 and will follow-up with those numbers. If they continue to be elevated the patient will benefit from switching over to a noninvasive ventilator with the AVAPS setting. He continues uses respiratory therapy. He is done with the antibiotics in the prednisone. He also has oxygen at nighttime. He was requiring oxygen during the hospitalization but we did go for brief walking oximetry the patient does not qualify for oxygen with activity any longer. 08/18/2023 The patient is here for a pulmonary follow up visit. He had been hospitalized and discharged on oxygen. The oxygen has been effective and beneficial. We did go for conserving device trial and he did well on a conserving device. He would like a POC, but I explained to him that his DME does not carry them. We will request B cyliders with conserving device. He has been using the BIPAP 20/11 with 2L oxygen with good effect. We will start Trazodone to improve his sleep. The patient is also volume overload with worsening LE edema. Moderate in severity. Worsening dyspnea. We will start him on diuretics and he needs to have bloodwork in 2 weeks. 01/16/2024 the patient is here for hospital follow-up visit. He was recently in the hospital back in mid December because of worsening respiratory symptoms. He was evaluated in the emergency department where he had a chest x-ray demonstrating a moderate-sized left-sided pneumonia. He was admitted to the hospital with COPD exacerbation in lower respiratory infection. He was treated appropriately. He subsequently discharged. Now is back to her baseline. He did have blood gases in the hospital which were stable which is reassuring. He does use a BiPAP at home with settings of 20/11. He also uses 2 L of oxygen. He did use the BiPAP in the hospital and has been using it at home. Although she averages almost 4 hours. He does not use it every night. It did encourage him to do so. Although I did download the data in appears that his AHI is e levated at 45 events an hour. Therefore, the therapy is not effective for him. I did increase the BiPAP from 31/07 . He will start using it and will bring in the BIPAP to download for the next visit. He is adamant that he thinks he got sick because he was putting water in the BiPAP so now he is using without water. I did tell him that is okay although I did give him instructions on how to take care of the water chamber decides to add the distal water again. Respiratory exam is stable. The patient is working on weight loss this time. He is motivated which is reassuring. Will go ahead and continue with the current respiratory therapy and will follow-up in 6-8 weeks. 06/10/2024 the patient is here for a pulmonary follow-up visit. Overall he is doing a lot better. During the last time he did have pneumonia back in the left lower lobe area. At this point the patient has been working on healthy habits. He is walking more regularly he is also eating healthy with no salt. He has already lost about 17 lb. The patient is aware that he still has severe sleep apnea. Needs to use his BiPAP. He also has CO2 retention. The patient understands that once his CO2 starts climbing he is develops CO2 narcosis therefore the uses of the PAP therapy is crucial for him. We talked about making sure that he has a good routine where he uses the least 4 hours a night. He will undergo CS x-ray and also blood work in a blood gas for the next visit. If the patient has any issues prior to that he will call for an earlier assessment. 10/08/2024 the patient is here for a pulmonary follow-up visit. Overall the patient has been doing very well. He continues to stay positive in working on weight loss and good exercise habits. He sometimes forgets to put on the BiPAP. Although few days ago he started developing a severe headache with a lot of pressure. Moderate to severe. Then he realized that he had missed his BiPAP a couple nights. Therefore he went back on he felt great headache went away. He did increase the oxygen to 3 L seems working okay. I did download the BiPAP and seems like his AHI still elevated at 14. Primarily apneic episodes. Will go ahead and increase his EPAP from 14 to 16 cm continue the IPAP at 22. He will continue with the 3 L. Will have a blood gas today in addition to chemistry in hemoglobin. From an asthma standpoint he is responding well to the Breo. He needs a rescue inhaler also to the pharmacy. As far as his pneumonia that he had back over the fall seems to be clinically doing well. Hold off on the extremes of his next follow-up in 6 months. [facility]LY [facility], [facility] Medical History (Updated 06/10/24 @ 19:03 by Mickey Ross MD) Chronic hypercapnic respiratory failure Acute and chronic respiratory failure with hypercapnia MARK treated with BiPAP Asthma-COPD overlap syndrome Moderate obesity Bronchitis Chest pain Chronic allergic rhinitis Asthma Family History Other Asthma Social History Household Members: Spouse Housing: Apartment Do you presently have visiting nurse or other home services: No Alcohol intake: unknown Patient Tobacco Use Status: Never used Tobacco service: No Current occupational status: disabled Review of Systems Const Reports daytime sleepiness, Denies night sweats, Reports snoring, Reports stops breathing during sleep and Reports weight loss ENT Denies change in voice, Denies lip swelling, Denies mouth pain, Reports nasal congestion, Reports nasal discharge and Denies tongue swelling Card Denies chest pain, Denies dyspnea and Reports dyspnea on exertion Resp Reports cough, Denies dyspnea, Reports dyspnea on exertion, Reports snoring and Reports wheezing GI Denies abdominal pain Musc Reports back pain Neuro Denies Neuro-related abnormal movements Psych Denies no additional complaints Anthony/Lymph Denies easy bleeding and Denies lymphadenopathy Aller/Immun Denies lip swelling, Denies tongue swelling and Reports wheezing Physical Exam Vital Signs: Last Vital Signs Pulse 67 10/08/24 09:22 BP 134/92 H 10/08/24 09:22 Pulse Ox 95 10/08/24 09:22 Oxygen Delivery Method Room Air 10/08/24 09:22 BMI result Body Mass Index 37.5 Last Vital Signs Temp 97.0 F 06/16/23 07:25 Pulse 72 06/16/23 07:52 Resp 20 06/16/23 07:56 BP 120/85 06/16/23 07:25 Pulse Ox 92 06/16/23 07:25 O2 Del Method BiPAP 06/16/23 07:25 O2 Flow Rate 35 06/16/23 07:25 FiO2 35 06/16/23 04:00 BMI result Body Mass Index 41.4 Const General: comfortable HEENT Head: Yes normocephalic Neck Neck: Yes supple Chest Chest palpation & inspection: normal inspection of the chest Resp Effort & Inspection: normal respiratory effort Auscultation: clear to auscultation bilaterally and no rhonchi Cardio Rate: regular rate Rhythm: regular rhythm Heart sounds: S1 normal heart sound present and S2 normal heart sound present GI Palpation (GI): Soft to palpation and nontender Auscultation: normal bowel sounds Skin General skin exam: rashes and/or lesions noted Extrem General: Yes no clubbing, cyanosis or edema Assessment & Plan Assessment & Plan (1) Asthma-COPD overlap syndrome: Code(s): J44.89 - Other specified chronic obstructive pulmonary disease Category: Medical (2) MARK treated with BiPAP: Code(s): G47.33 - Obstructive sleep apnea (adult) (pediatric) Category: Medical (3) Chronic hypercapnic respiratory failure: Code(s): J96.12 - Chronic respiratory failure with hypercapnia Category: Medical (4) Chronic allergic rhinitis: Code(s): J30.9 - Allergic rhinitis, unspecified Category: Medical (5) Cough: Code(s): R05 - Cough Category: Medical Qualifiers: Cough type: chronic Qualified Code(s): R05.3 - Chronic cough (6) Asthma: Code(s): J45.909 - Unspecified asthma, uncomplicated Category: Medical Qualifiers: Asthma complication type: uncomplicated Asthma persistence: persistent Asthma severity: moderate Qualified Code(s): J45.40 - Moderate persistent asthma, uncomplicated Plan Continue Breo daily GONZALEZ as needed BIPAP 20/ with 2 L oxygen->increased 22/14 2L-->increased 22/16 oxygen->3L diuresis as tolerated continue oxygen CXR Bloodwork F/U 3-4 months Medications: New albuterol sulfate 90 mcg/actuation 2 puffs inhalation Q6H PRN 8.5 grams 11RF patient Refilled fluticasone furoate-vilanterol 200-25 mcg/dose (Breo Ellipta) 1 inh inhalation DAILY 60 ea 11RF 30 days J45.909 - Unspecified asthma, uncomplicated Coding Level of Care Code Est Pt Level 4 (58875) Diagnoses Asthma-COPD overlap syndrome J44.89 MARK treated with BiPAP G47.33 Chronic hypercapnic respiratory failure J96.12 Chronic allergic rhinitis J30.9 Chronic cough R05.3 Cough type: chronic Moderate persistent asthma without complication J45.40 Asthma complication type: uncomplicated Asthma persistence: persistent Asthma severity: moderate Time Spent (min) 16
--- OUTSIDE RECORDS SUMMARY | 2024-10-08 09:44 | XMS_ITS | Clinical Summary ---
Author Organization [facility] Address [address] [place] [address] Care Team Providers Care Screw Machine Repairer Name Role Phone Monet Mckeon MD Primary Care Provider [phone] Social History Tobacco Use Types Packs/Day Years Used Date Smoking Tobacco: Never Assessed Sex and Gender Information Value Date Recorded Sex Assigned at Not on file Gender Identity Not on file Sexual Orientation Not on file Plan of Treatment Health Maintenance Due Date Last Done Comments Hepatitis B Vaccines (1 of 3 - 3-dose series) 1974 Hepatitis C Screening 1974 COVID-19 Vaccine (#1) 1974 Depression Screening 1986 Preventative Health Evaluation 1992 Colon Cancer Screening (Colonoscopy) 2019 DTap / Tdap / Td (2 - Td or Tdap) 04/12/2020 010 Shingrix-Zoster Vaccine (1 of 2) 2024 Influenza Vaccine (#1) 2024 Pneumococcal Vaccine Aged Out No long er eligible based on patient's age to complete this topic RSV Ped < 20 months Aged Out No longe r eligible based on patient's age to complete this topic Care Teams Screw Machine Repairer Relationship Specialty Start Date End Date Monet Mckeon MD PCP - General Internal Medicine 03/03/21
--- OUTSIDE RECORDS SUMMARY | 2024-10-08 09:44 | XMS_ITS | Clinical Summary ---
Author Organization [address] [place] [address] [place] [id number] Phone Care Team Providers Care Shingle Bolt Cutter Name Role Phone Monet Mckeon MD Primary Care Provider [phone] Allergies No known active allergies Medications Medication Sig Dispensed Refills Start Date End Date Status diclofenac (VOLTAREN) 75 mg EC tablet TAKE 1 TABLET BY MOUTH TWICE A DAY 60 tablet 2 07/17/2024 Active albuterol HFA (PROAIR HFA ; PROVENTIL HFA ; VENTOLIN HFA) 90 mcg/actuation inhaler Inhale 2 puffs by mouth every 4 (four) hours if needed for wheezing or shortness of breath. 11/12/2018 Active cholecalciferol (VITAMIN D-3) 50 mcg (2,000 unit) capsule Take 1 capsule (2,000 Units total) by mouth 1 (one) time each day. 09/12/2023 Active fluticasone propionate (FLONASE) 50 mcg/actuation nasal spray Administer 1 spray into each nostril 2 (two) times a day. PRN congestion 12/14/2022 Active fluticasone furoate-vilanteroL (Breo Ellipta) 200-25 mcg/dose inhaler Inhale 1 puff by mouth 1 (one) time each day. 06/10/2021 Active omeprazole (PriLOSEC) [address] capsule Take 1 capsule (20 mg total) by mouth 1 (one) time each day. 09/12/2023 Active Active Problems Problem Noted Date Diagnosed Date Morbid obesity with BMI of 40.0-44.9, adult 08/11 Prediabetes 12/15/2022 Vitamin D deficiency 12/15/2022 GERD (gastroesophageal reflux disease) 2 Asthma 11/16/2019 Varicose veins of both lower extremities 020 Chronic back pain 04/10/2019 Obstructive sleep apnea syndrome in adult 2014 Overview (08/28/2024): ResScan 11/24/2015 to 01/07/2016. CPAP@ 13. 4% compliant with using the machine for >4 hours/day. Average use is 5 hours a night with AHI 40.9. N/S Pulmo 01/12/2016. [facility] Home Polysomnogram: Date 04/19/2017; AHI 84, Unclassified apneas 3; Obstructive apneas 261; Central apneas 47; Mixed apneas 29; hypopneas 8; average oxygen saturation 85% (lowest 63% with saturations <88% for over 50% of study). [facility] Polysomnogram treatment study. Date 07/11/2017. SE 95 % SM 96 %; spent 36 % of the study in REM. At the optimal pressure of 15 CPAP; RDI 0.9 (AHI 0.6), Central apneas 1; Obstructive apneas 0; Mixed apneas 0; hypopneas 1; RERAs 1; and, average oxygen saturation was 93%. For the entire study, PLMs ~0. Cervical herniated disc 05/02/2011 Lumbar herniated disc 05/02/2011 Headache 03/01/2010 Encounters Date Type Department Care Team Description 08/28/2024 Nurse Triage Adult Medicine [address] [id number] Monet Mckeon MD Back Pain from Last 3 Months Immunizations Name Administration Dates Next Due Td Tetanus diptheria (Tdvax) 7yo and older 04/07 Tdap Tetanus diptheria acell ular pertussis (Boostrix; Adacel) 7yo and older 04/12/2010 Surgical History Surgery Date Site/Laterality Comments OTHER SURGICAL HISTORY PROCEDURE: DENIES PREVIOUS SURGERY Medical History Medical History Date Comments Cervical herniated disc 05/02/2011 DX:Cervi chelsi herniated disc Headache 03/01/2010 DX:Headache Lumbar herniated disc 05/02/2011 DX:Lumbar herniated disc MARK (obstructive sleep apnea) 05/11/2015 DX :MARK (obstructive sleep apnea); COMMENT: ResScan 11/24/2015 to 01/07/2016. CPAP@ 13. 4% compliant with using the machine for >4 hours/day. Average use is 5 hours a night with AHI 40.9. N/S Pulmo 01/12/2016. [facility] Home Polysomnogram: Date 04/19/2017; AHI 84, Unclassified apneas 3; Obstructive apneas 261; Central apneas 47; Mixed apneas 29; hypopneas 8; average oxygen saturation 85% (lowest 63% with satu* GERD (gastroesophageal reflu x disease) 01/04/2022 DX:GERD (gastroesophageal re flux disease) Family History Medical History Relation Name Comments Stroke Father at 49 Asthma Mother HTN, depression , stroke Relation Name Status Comments Father (Age 49) Mother Alive Social History Tobacco Use Types Packs/Day Years Used Date Smoking Tobacco: Never Smokeless Tobacco: Never Alcohol Use Standard Drinks/Week Comments No 0 (1 standard drink = 0.6 oz pur e alcohol) Sex and Gender Information Value Date Recorded Sex Assigned at Not on file Gender Identity Not on file Sexual Orientation Not on file Obstetrics History Last Filed Vital Signs Vital Sign Reading Time Taken Comments Blood Pressure 116/74 01/22/2024 1:38 PM EDT Pulse 104 01/22/2024 1:38 PM EDT Temperature - - Respiratory Rate - - Oxygen Saturation 95% 01/22/2024 1:3 8 PM EDT at rest, room air Inhaled Oxygen Concentration - - Weight 114 kg (251 lb) 01/22/2024 1:38 PM EDT Height 167.6 cm (5' 6 ) 01/22/2024 1:38 PM EDT Body Mass Index 40.51 01/22/2024 1:38 PM EDT Plan of Treatment Health Maintenance Due Date Last Done Comments Pneumococcal Vaccine: Pediatrics (0 to 5 Years) and At-Risk Patients (6 to 64 Years) (1 of 2 - PCV) 1980 Hepatitis B Vaccines (1 of 3 - 19+ 3-dose series) 1993 Colorectal Cancer Screening: Colonoscopy 08/09/2022 Depression Screening 08/09/2022 Social Influencers of Health Screening 08/09/2022 Zoster Vaccines (1 of 2) 2024 COVID-19 Vaccine (1 - 2023-2 5 season) 2024 Influenza Vaccine (#1) 2024 Cholesterol Screening (Lipid Panel) 12/15/2027 12/14/2022 DTaP,Tdap,and Td Vaccines (3 - Td or Tdap) 04/07/2033 04/07/2023, 04/12/2010 HIV Screening Completed 08/30/2019 Hepatitis C Screening Completed 08/30/2019 HIB Vaccines Aged Out No longer eligi ble based on patient's age to complete this topic HPV Vaccines Aged Out No longer eligi ble based on patient's age to complete this topic Hepatitis A Vaccines Aged Out No long er eligible based on patient's age to complete this topic IPV Vaccines Aged Out No longer eligi ble based on patient's age to complete this topic MMR Vaccines Aged Out No longer eligi ble based on patient's age to complete this topic Meningococcal ACWY Vaccine Aged Out N o longer eligible based on patient's age to complete this topic RSV Immunization Patients Under 20 months Aged Out No longer eligible b ased on patient's age to complete this topic Varicella Vaccines Aged Out No longer eligible based on patient's age to complete this topic Procedures Procedure Name Priority Date/Time Associated Diagnosis Comments LIPID PANEL Routine 12/14/2022 HEPATITIS C SCREENING Routine 08/30/2019 HIV SCREENING Routine 08/30/2019 from Last 3 Months or Most Recently Relevant to Health Maintenance Results * (ABNORMAL) Lipid panel (12/14/2022) [facility] LDL/HDL Ratio 5(A) 0 - 4 Triglycerides 156(A) 0 - 150 mg/dL Cholesterol 177 0 - 200 mg/dL HDL 35(A) 40 mg/dL LDL Cholesterol 111(A) 0 - 100 mg/dL Blood Venous blood specimen / Unknown Historical Provider LAB BLOOD ORDERAB LES * HIV Screening (08/30/2019) [facility] HIV Screening Abstracted Historical Provider [facility] * Hepatitis C Screening (08/30/2019) [facility] Hepatitis C Screening Abstracted Historical Provider MD DL Barreto from Last 3 Months or Most Recently Relevant to Health Maintenance Care Teams Shingle Bolt Cutter Relationship Specialty Start Date End Date Monet Mckeon MD [address] [place] [address] PCP - General Internal Medicine 10/12/16
== END 2024-10-08 09:48 | disposition home or self-care (01) ==
PROVIDERS: PCP Internal Medicine; Visit Provider Hospitalist
DX: J44.89 Other specified chronic obstructive pulmonary disease (principal); G47.33 Obstructive sleep apnea (adult) (pediatric); J96.12 Chronic respiratory failure with hypercapnia; J30.9 Allergic rhinitis, unspecified; R05.3 Chronic cough; J45.40 Moderate persistent asthma, uncomplicated
CPT/HCPCS: 99214

== ENCOUNTER 2024-10-08 09:16 | Outpatient (REF) | payer OTHER, SELFPAY ==
[2024-10-08 10:06] LABS: MANUAL DIFF FLAG NO
[2024-10-08 10:15] LABS: Venous Blood Gas Refer to POC result
[2024-10-08 10:18] LABS: VBG Base Excess 6.1 mmol/L; VBG HCO3 33 mmol/L (22-26); VBG pCO2 58 mmHg; VBG pH 7.36 (7.32-7.43); VBG pO2 33 mmHg
--- OUTSIDE RECORDS SUMMARY | 2024-10-08 10:28 | XMS_ITS | Encounter Summary ---
Author Organization [facility] Address [address] [place] [address] Care Team Providers Care Teller Vault Name Role Phone Unavailable Primary Care Provider Unavailabl e Reason for Visit * Reason Comments Med Refill Encounter Details Date Type Department Care Team (Late st Contact Info) Description 10/26/2023 Refill [facility] [address] [place] [address] Jennifer Collazo, ELADIA [address] [place] [address] Social History Tobacco Use Types Packs/Day Years Used Date Smoking Tobacco: Never Smokeless Tobacco: Never Alcohol Use Standard Drinks/Week Comments Defer 0 (1 standard drink = 0.6 oz pur e alcohol) Sex and Gender Information Value Date Recorded Sex Assigned at Male 03/07/2023 8:45 AM EDT Legal Sex Male 8:38 AM EDT Gender Identity Male 03/07/2023 8:45 AM EDT Sexual Orientation Don't know 03/07/2023 8: 45 AM EDT documented as of this encounter Miscellaneous Notes * Telephone Encounter - Zachary León DMD - 10/27/2023 8:29 AM EST It seems to me Dr. Dutton has already sent in the prescription yesterday. Thanks documented in this encounter Plan of Treatment Not on file documented as of this encounter Visit Diagnoses Not on filedocumented in this encounter
--- OUTSIDE RECORDS SUMMARY | 2024-10-08 10:28 | XMS_ITS | Clinical Summary ---
Author Organization [address] [place] [address] [place] [phone] Phone Care Team Providers Care Vehicle Operator Technician Name Role Phone Monet Mckeon MD Primary Care Provider [phone] Allergies No known active allergies Medications Medication [...] saturations <88% for over 50% of study). [facility] Polysomnogram treatment study. Date 07/11/2017. [address] [...] Team Description 08/28/2024 Nurse Triage Adult Medicine [address] [id number] Monet Mckeon MD Back Pain from Last [...] night with AHI 40.9. N/S Pulmo 01/12/2016. [facility] Home Polysomnogram: Date 04/19/2017; AHI 84, Unclassified [...] Maintenance Results * (ABNORMAL) Lipid panel (12/14/2022) [facility] LDL/HDL Ratio 5(A) 0 - 4 Triglycerides 156(A) 0 - 150 mg/dL Cholesterol 177 0 - 200 mg/dL HDL 35(A) 40 mg/dL LDL Cholesterol 111(A) 0 - 100 mg/dL Blood Venous blood specimen / Unknown Historical Provider LAB BLOOD ORDERAB LES * HIV Screening (08/30/2019) [facility] HIV Screening Abstracted Historical Provider [facility] MAINTE[facility]NC E * Hepatitis C Screening (08/30/2019) [facility] Hepatitis C Screening Abstracted Historical Provider MD DL Barreto from Last 3 Months or Most Recently Relevant to Health Maintenance Care Teams Vehicle Operator Technician Relationship Specialty Start Date End Date Monet Mckeon MD [address] [place] [address] PCP - General Internal Medicine 10/12/16
--- OUTSIDE RECORDS SUMMARY | 2024-10-08 10:28 | XMS_ITS | Clinical Summary ---
Author Organization [facility] Address [address] [place] [address] Care Team Providers Care Wind Operations Manager Name Role Phone Monet Mckeon MD Primary Care Provider [phone] Social History Tobacco Use Types Packs/Day Years [...] age to complete this topic Care Teams Wind Operations Manager Relationship Specialty Start Date End Date Monet Mckeon MD PCP - General Internal Medicine 03/03/21
--- OUTSIDE RECORDS SUMMARY | 2024-10-08 10:28 | XMS_ITS | Encounter Summary ---
Author Organization [employer] Address [address] [facility] [address] [place] [address] Care Team Providers Care Provider Scribe Name Role Phone Unavailable Primary Care Provider Unavailabl e Reason for Visit * Reason Onset Date Comments medication 03/07/2023 Encounter Details Date Type Department Care Team (Late st Contact Info) Description 03/07/2023 Telephone C ADULT DENTAL [address] [place] [address] Jennifer Collazo, DDS [address] [place], [place] [id number] medication Social History Tobacco Use Types Packs/Day Years Used Date Smoking Tobacco: Never Smokeless Tobacco: Never Sex and Gender Information Value Date Recorded Sex Assigned at Male 03/07/2023 8:45 AM EDT Legal Sex Male 8:38 AM EDT Gender Identity Male 03/07/2023 8:45 AM EDT Sexual Orientation Don't know 03/07/2023 8: 45 AM EDT COVID-19 Exposure Response Date Recorded In the last 10 days, have yo u been in contact with someone who was confirmed or suspected to have Coronavirus/COVID-19? No / Unsure 03/07/2023 10:59 AM EDT documented as of this encounter Miscellaneous Notes * Telephone Encounter - Varsha Brown - 03/07/2023 2:52 PM EDT Patient calling in to state that script has not been sent to pharmacy. They would llike it sent to [facility] pharmacy in [place] on [facility]. documented in this encounter Plan of Treatment Not on file documented as of this encounter Visit Diagnoses Not on filedocumented in this encounter
--- OUTSIDE RECORDS SUMMARY | 2024-10-08 10:28 | XMS_ITS | Clinical Summary ---
Author Organization [facility] Address [address] [facility] [address] [place] [address] Care Team Providers Care Geographic Information Systems Analyst Name Role Phone Unavailable Primary Care Provider Unavailabl e Allergies No known active allergies Medications albuterol 108 (90 Base) MCG/ACT inhaler INHALE 2 PUFFS BY MOUTH EVERY 6 HOURS NEEDED FOR WHEEZE/SHORTNES S OF BREATH 3 Active Fluticasone Furoate-Vilante rol 200-25 MCG/ACT aerosol powder Inhale 1 puff in the morning. 3 Active cyclobenzaprine (Flexeril) 10 MG tablet TAKE 1 TABLET BY MOUTH THREE TIMES A DAY NEEDED FOR MUSCLE SPASM FOR 10 DAYS 3 Active omeprazole (PriLOSEC) [address] capsule Take 20 mg by mouth in the morning. 3 Active tiZANidine (Zanaflex) 4 MG tablet Take 4 mg by mouth if needed in the morning, at noon, and at bedtime. 2 Active fluticasone (Flonase) 50 MCG/ACT nasal spray USE 1 SPRAY PER NOSTRIL TWICE PER DAY, NEEDED FOR NASAL CONGESTION 3 Active Active Problems Problem Noted Date Diagnosed Date Periodontal disease 08/29/2023 Social History Tobacco Use Types Packs/Day Years Used Date Smoking Tobacco: Never Smokeless Tobacco: Never Tobacco Cessation:Counseling Given: Not Answered Alcohol Use Standard Drinks/Week Comments Never 0 (1 standard drink = 0.6 oz pur e alcohol) Sex and Gender Information Value Date Recorded Sex Assigned at Male 03/07/2023 8:45 AM EDT Legal Sex Male 8:38 AM EDT Gender Identity Male 03/07/2023 8:45 AM EDT Sexual Orientation Don't know 03/07/2023 8: 45 AM EDT Last Filed Vital Signs Vital Sign Reading Time Taken Comments Blood Pressure 140/80 08/29/2023 8:53 AM EST Pulse - - Temperature - - Respiratory Rate - - Oxygen Saturation - - Inhaled Oxygen Concentration - - Weight - - Height - - Body Mass Index - - Plan of Treatment Health Maintenance Due Date Last Done Comments CT Colonography 1974 Colonoscopy 1974 Colorectal Cancer Screening 1974 Dental Prophylaxis 1974 Depression Screening 1974 FIT DNA/Cologuard 1974 FIT 1974 FOBT 1974 HIV Screening 1974 Lipid Panel 1974 SDOH Screening 1974 Sigmoidoscopy 1974 Alcohol/Substance Use Screening 1986 Family Planning (PISQ) 1989 Hepatitis C Screening 1992 Hepatitis B Vaccines (1 of 3 - 19+ 3-dose series) 1993 Zoster Vaccines (1 of 2) 2024 COVID-19 Vaccine ( - 2023-2 5 season) 2024 Influenza Vaccine (#1) 2024 Dental Oral Exam 06/09/2024 12/07/2023 Tobacco Screening 12/06/2024 12/07/2023 Dental X-Ray: Bitewings 12/07/2024 12/07/19 24, 07/20/2023 Dental X-Ray: Full Mouth 12/07/2026 12/07/2023 DTaP/Tdap/Td Vaccines (3 - T d or Tdap) 04/07/2033 04/07/2023, 04/12/2010 RSV Patients and Patients Aged 60 years or older (1 - 1-dose 75+ series) 2049 HIB Vaccines Aged Out No longer eligi [...] patient's age to complete this topic Meningococcal Vaccine Aged Out No ran darcy eligible based on patient's age to complete this topic Pneumococcal Vaccine: Pediatrics (0 to 5 Years) and At-Risk Patients (6 to 64 Years) Aged Out No longer eligible b ased on patient's age to complete this topic RSV under 20 months Aged Out No longe r eligible based on patient's age to complete this topic Rotavirus Vaccines Aged Out No longer eligible based on patient's age to complete this topic Procedures Procedure Name Priority Date/Time Associated Diagnosis Comments DIAGNOSTIC - DIAGNOSTIC IMAGING - INTRAORAL - COMPREHENSIVE SERIES OF RADIOGRAPHIC IMAGES Routine 12/07/2023 10:30 AM EDT Encounter for dental examination Dental calculus Dental abscess Dental caries Periodontal disease Mouth breathing Macroglossia COMPREHENSIVE ORAL EVALUATION - NEW OR ESTABLISHED PATIENT Routine 12/07/2023 10:30 AM EDT Encounter for dental examination Dental calculus Dental abscess Dental caries Periodontal disease Mouth breathing Macroglossia from Last 3 Months or Most Recently Relevant to Health Maintenance Insurance [facility]
[2024-10-08 10:56] LABS: Basophils Absolute Auto 0.1 X10*3/uL (0.0-0.2); Basophils Percent Auto 0.8 % (0-2); Eosinophils Absolute Auto 0.3 X10*3/uL (0.0-0.4); Eosinophils Percent Auto 4.6 % (0-4); Hematocrit 48.9 % (42.0-52.0); Hemoglobin 16.5 g/dl (14.0-18.0); Imm Gran Abs Auto 0.02 X10*3/uL (0.00-0.03); Imm Gran Pct Auto 0.3 % (0.0-0.4); Lymphocytes Absolute Auto 1.9 X10*3/uL (1.2-4.9); Lymphocytes Percent Auto 29.7 % (20-40); Mean Corpuscular HGB Conc 33.7 g/dl (31.0-36.0); Mean Corpuscular Hemoglobin 28.8 pg (27.0-33.0); Mean Corpuscular Volume 85.3 fL (80.0-98.0); Monocytes Absolute Auto 0.4 X10*3/uL (0.1-1.2); Monocytes Percent Auto 6.7 % (2-11); Neutrophils Absolute Auto 3.7 x10*3/uL (2.0-8.3); Neutrophils Percent Auto 57.9 % (45-73); Platelet Count 148 X10*3/uL (160-400); Red Blood Count 5.73 X10*6/uL (4.60-5.80); Red Cell Distribution Width 13.5 % (11.0-16.0); White Blood Count 6.5 X10*3/uL (4.8-10.8)
[2024-10-08 11:58] LABS: Anion Gap 9 (12-20); Blood Urea Nitrogen 12 mg/dL (9-16); Calcium 8.7 mg/dL (8.4-10.2); Carbon Dioxide 28 mmol/L (22-29); Chloride 108 mmol/L (96-108); Estimated Glomerular Filt Rate > 60; Glucose Random 112 mg/dL (60-115); Potassium 3.5 mmol/L (3.3-5.1); Sodium 141 mmol/L (135-145)
== END 2024-10-08 09:17 | disposition home or self-care (01) ==
LOC: HO.LAB 09:16
PROVIDERS: PCP Internal Medicine; Visit Provider Hospitalist
DX: J44.89 Other specified chronic obstructive pulmonary disease (principal); G47.33 Obstructive sleep apnea (adult) (pediatric); J96.12 Chronic respiratory failure with hypercapnia; J30.9 Allergic rhinitis, unspecified; R05.3 Chronic cough; J45.40 Moderate persistent asthma, uncomplicated
CPT/HCPCS: 36415; 80048; 82803; 85025; 99212

== ENCOUNTER 2024-12-25 19:35 | Emergency (ER) | payer OTHER, SELFPAY ==
--- NOTE | 2024-12-25 | ECG_ITS ---
Test Reason : CHEST PAIN Blood Pressure : */* mmHG Vent. Rate : 70 BPM Atrial Rate : 70 BPM P-R Int : 118 ms QRS Dur : 96 ms QT Int : 376 ms P-R-T Axes : 11 35 49 degrees QTcB Int : 406 ms Normal sinus rhythm Normal ECG When compared with ECG of 28-Dec-2023 08:46, No significant change was found Referred By: Generic ED Physician Electronically Signed By: RITO MARSH MD
--- NOTE | ~2024-12-25 | XR_ITS ---
CLINICAL HISTORY: CP, SOB Chest Radiographs, 2 views Comparison: CR/CA/SR - XR CHEST 2V - 12/28/23 09:[address]/CA/SR - CT CHEST WO IV CON - 06/14/23 21:30 EDT Findings: No cardiomegaly. Normal mediastinal contours. No pneumothorax. No opacity. No pleural effusion. Normal upper abdomen. No acute fracture. Impression: No acute findings. This document has been electronically signed by: Monica Velazco MD on 12/25/2024 20:41:19
[2024-12-25 19:46] VITALS: BP 124/75; PULSE 84; RESP 20; TEMP 36.4; O2SAT 96; BMI 36.7
--- NOTE | 2024-12-25 19:46 | ED.GENADULT ---
HPI - General Adult General Chief complaint: Upper Respiratory Symptoms Stated complaint: chest pain Time Seen by Provider: 12/25/24 22:24 History of Present Illness ED Provider: Artis CHRISTIAN narrative: The patient is a 49-year-old male with a history of COPD who has oxygen at home which she uses mostly at night but sometimes during the day. He has had respiratory symptoms for about 3 or 4 days. He has had cough and a runny nose. He thinks he might have had a fever. He came to the emergency room today because of the persistence of the symptoms. Related Data Home Medications ?Medication ?Instructions ?Recorded ?Confirmed CPAP (CPAP Machine/Device) 06/07/22 03/16/23 nebulizers 06/07/22 03/16/23 cholecalciferol (vitamin D3) 50 50 mcg PO DAILY 05/26/23 12/28/23 mcg (2,000 unit) capsule Previous Rx's ?Medication ?Instructions ?Recorded cefuroxime axetil 500 mg tablet 500 mg PO BID 10 days #20 tabs 12/31/23 doxycycline hyclate 100 mg tablet 100 mg PO BID #20 tabs 12/31/23 prednisone 10 mg tablet See Rx Instructions .Route 12/31/23 .COMPLEX #45 tabs albuterol sulfate 90 mcg/actuation 2 puff inhalation Q6H PRN patient 10/08/24 aerosol inhaler #8.5 grams Breo Ellipta 200 mcg-25 mcg/dose 1 inh inhalation DAILY 30 days #60 11/21/24 powder for inhalation (fluticasone ea furoate-vilanterol) acetaminophen 500 mg capsule 1,000 mg (2 x 500 mg) PO Q8H PRN 12/25/24 fever or pain #14 caps albuterol sulfate 2.5 mg/3 mL 2.5 mg (3 mL) inhalation Q4-6H PRN 12/25/24 (0.083 %) solution for nebulization shortness of breath or wheezing #90 mL oseltamivir 75 mg capsule 75 mg PO BID 5 days #9 caps 12/25/24 ondansetron 4 mg disintegrating 4 mg PO Q8H PRN nausea and 12/26/24 tablet vomiting #20 tabs Allergies Allergy/AdvReac Type Severity Reaction Status Date / Time No Known Allergies* Allergy Unknown Uncoded 12/26/24 05:57 Review of Systems Review of Systems: Yes all other systems are reviewed and are negative [facility] Past Medical History Medical History Chronic hypercapnic respiratory failure Acute and chronic respiratory failure with hypercapnia MARK treated with BiPAP Asthma-COPD overlap syndrome Moderate obesity Bronchitis Chest pain Chronic allergic rhinitis Asthma Family History Family History Other Asthma Social History Social History Household Members: Spouse Housing: Apartment Do you presently have visiting nurse or other home services: No Alcohol intake: unknown Patient Tobacco Use Status: Never used Tobacco Advance Directives: No Advance Directives Information Provided: Yes Do you have a plan to hurt others: No Plan service: No Current occupational status: disabled Physical Exam ED Vital Signs: Vital Signs - 24 hr 12/25/24 22:52 12/25/24 22:52 12/25/24 22:53 Temperature 98.9 F 98.9 F Pulse Rate 90 90 Respiratory Rate 20 20 Blood Pressure 118/71 118/71 Pulse Oximetry 97 97 97 Oxygen Delivery Method Room Air Room Air Room Air BMI result Body Mass Index 36.7 Const Other: Patient was sitting up on the stretcher, awake and alert, does not appear in acute distress. He had an occasional cough. Orientation/consciousness: patient oriented x3 HENMT Other: Face is symmetrical. The posterior pharynx is unremarkable. Mucous membranes moist. Eyes General: appearance normal, both eyes and all related structures Neck Neck: Yes normal visual inspection, Yes full ROM, Yes no lymphadenopathy and Yes no meningeal signs Resp Other: No increased work of breathing. The lungs seemed fairly clear. Cardio Rate: regular rate Rhythm: regular rhythm Heart sounds: S1 normal heart sound present and S2 normal heart sound present Skin Other: Skin is dry and unremarkable Neuro General: patient oriented x3, gait normal, moves all extremities, no meningeal signs, no focal motor deficits and CN's II-XI intact bilaterally Extrem General: Yes no pedal edema Course Course Course Narrative: This is an RME: Additional HPI, ROS, PE not included below will be deferred to primary provider. RME assessment and note performed by: Nayeli Sarah PA-C This is a [id number], with history of acute & chronic respiratory failure, MARK on BiPAP QHS, asthma, COPD who presents to the ER with complaints of chest pain x 3 days. Also endorsing cough, subjective fevers. Denies any nausea, vomiting, or diarrhea. Lungs CTAB. No recent travel, surgeries or hospitalizations. He is a nonsmoker. Plan: Labs, EKG, CXR, further ER eval needed Medications Administered Discontinued Medications Generic Name Dose Route Start Last Admin Trade Name Freq PRN Reason Stop Dose Admin Acetaminophen 975 mg 12/25/24 22:41 12/25/24 22:50 Acetaminophen 325 Mg Tablet PO 12/25/24 22:42 975 mg ONCE ONE Administration Oseltamivir Phosphate 75 mg 12/25/24 22:38 12/25/24 22:50 Oseltamivir Phosphate 75 Mg Capsule PO 12/25/24 22:39 75 mg ONCE ONE Administration Medical Decision Making Medical Decision Making [facility] Narrative: the patient is a 49-year-old male with a history of COPD who has home oxygen. He presents with 3 days of cough and congestion. He has a negative chest x-ray. blood testing is unremarkable. His viral nasal swab was positive for influenza B. I think his symptoms are likely all consistent with influenza B. He will be started on a course of oseltamivir given his comorbidities. Otherwise he looks well enough for outpatient management. Lab Data 12/25/24 20:01 12/25/24 20:01 Labs: Lab Results 12/25/24 Range/Units 20:01 WBC 6.0 (4.8-10.8) X10*3/uL RBC 5.31 (4.60-5.80) X10*6/uL Hgb 15.5 (14.0-18.0) g/dl Hct 45.1 (42.0-52.0) % MCV 84.9 (80.0-98.0) fL MCH 29.2 (27.0-33.0) pg MCHC 34.4 (31.0-36.0) g/dl RDW 13.3 (11.0-16.0) % Plt Count 146 L (160-400) X10*3/uL MPV 11.2 (9.4-12.4) fL Immature Gran % (Auto) 0.2 (0.0-0.4) % Neut % (Auto) 60.2 (45-73) % Lymph % (Auto) 24.9 (20-40) % [place] % (Auto) 14.3 H (2-11) % Eos % (Auto) 0.2 (0-4) % Baso % (Auto) 0.2 (0-2) % Lymph # (Auto) 1.5 (1.2-4.9) X10*3/uL [place] # (Auto) 0.9 (0.1-1.2) X10*3/uL Eos # (Auto) 0.0 (0.0-0.4) X10*3/uL Baso # (Auto) 0.0 (0.0-0.2) X10*3/uL Abs Immat Gran (auto) 0.01 (0.00-0.03) X10*3/uL Absolute Neuts (auto) 3.6 (2.0-8.3) x10*3/uL Absolute Nucleated RBC 0.000 (0.0-0.012) X10*3/uL Nucleated RBC % (auto) 0.0 (0.0-0.2) /100WBC Sodium 143 (135-145) mmol/L Potassium 3.9 (3.3-5.1) mmol/L Chloride 109 H (96-108) mmol/L Carbon Dioxide 26 (22-29) mmol/L Anion Gap 12 (12-20) BUN 17 H (9-16) mg/dL Creatinine 0.95 (0.5-1.4) mg/dL Estim Creat Clear Calc 104.6 Estimated GFR > 60 Random Glucose 113 (60-115) mg/dL Calcium 9.1 (8.4-10.2) mg/dL Magnesium 1.9 (1.6-2.6) mg/dL Total Bilirubin 0.3 (0.0-1.0) mg/dL Direct Bilirubin 0.1 (0.0-0.5) mg/dL AST 32 (5-37) U/L ALT 56 H (0-40) U/L Alkaline Phosphatase 99 (39-117) U/L Troponin I High Sens < 2.7 (<3.5-35.0) ng/L B-Natriuretic Peptide < 10 (<100) pg/mL Total Protein 7.1 (6.5-8.0) g/dL Albumin 4.2 (3.5-5.0) g/dL Influenza Type A (PCR) NEGATIVE (Negative) Influenza Type B (PCR) POSITIVE A (Negative) RSV RNA Qual (PCR) NEGATIVE (Negative) SARS-CoV-2 RNA (RT-PCR) NEGATIVE (Negative) Discharge Plan Discharge Clinical Impression: Influenza Patient Disposition: Home, Self-Care Additional Instructions: You have tested positive for the flu today. Your other testing however is reassuring. Your chest x-ray looks clear and your blood testing is unremarkable. You has been started on a course of medication to help with flu symptoms. This medication is called oseltamivir. It was also known as Tamiflu. Please take this medication 2 times a day, approximately every 12 hours, for a total of 5 days. Drink lot of fluids. You may use acetaminophen as needed for discomfort. Stay in touch with your regular doctor for additional advice as needed. Use your nebulizer machine for shortness of breath or cough. I have sent a prescription for additional albuterol for your machine. Call your doctor with any questions you might have. Return to the emergency room if you feel significantly worse. Prescriptions: New oseltamivir 75 mg capsule 75 mg PO BID 5 Days Qty: 9 0RF albuterol sulfate 2.5 mg /3 mL (0.083 %) solution for nebulization 2.5 mg inhalation Q4-6H PRN (Reason: shortness of breath or wheezing) Qty: 90 0RF acetaminophen 500 mg capsule 1,000 mg PO Q8H PRN (Reason: fever or pain) Qty: 14 0RF No Action fluticasone furoate-vilanterol [Breo Ellipta] 200-25 mcg/dose blister with device 1 inh inhalation DAILY 30 Days Qty: 60 11RF cefuroxime axetil 500 mg tablet 500 mg PO BID 10 Days Qty: 20 0RF prednisone 10 mg tablet See Rx Instructions .Route .COMPLEX Qty: 45 0RF Rx Instructions: 10 mg orally; 5 tabs p.o. daily x3 days; 4 tabs p.o. daily x3 days; 3 tabs daily x3 days; 2 tabs daily x3 days; 1 tab daily x3 days doxycycline hyclate 100 mg tablet 100 mg PO BID Qty: 20 0RF ondansetron 4 mg tablet,disintegrating 4 mg PO Q8H PRN (Reason: nausea and vomiting) Qty: 20 0RF (DME) CPAP Machine/Device Device See Rx Instructions .Route Rx Instructions: As directed (DME) nebulizers Misc See Rx Instructions .Route Rx Instructions: As directed cholecalciferol (vitamin D3) 50 mcg (2,000 unit) capsule 50 mcg PO DAILY albuterol sulfate 90 mcg/actuation HFA aerosol inhaler 2 puff INHALATION Q6H PRN (Reason: patient) Qty: 8.5 11RF Referrals: Monet Mckeon MD [Primary Care Provider] - (Influenza) Interventions: ED Discharge Assessment Last Done: 12/25/24 22:53 Discharge Date/Time: 12/25/24 22:54 Print Language: Turkish
[2024-12-25 20:07] LABS: Basophils Percent Auto 0.2 % (0-2); Eosinophils Percent Auto 0.2 % (0-4); Hematocrit 45.1 % (42.0-52.0); Hemoglobin 15.5 g/dl (14.0-18.0); Imm Gran Abs Auto 0.01 X10*3/uL (0.00-0.03); Imm Gran Pct Auto 0.2 % (0.0-0.4); Lymphocytes Absolute Auto 1.5 X10*3/uL (1.2-4.9); Lymphocytes Percent Auto 24.9 % (20-40); MANUAL DIFF FLAG NO; Mean Corpuscular HGB Conc 34.4 g/dl (31.0-36.0); Mean Corpuscular Hemoglobin 29.2 pg (27.0-33.0); Mean Corpuscular Volume 84.9 fL (80.0-98.0); Mean Platelet Volume 11.2 fL (9.4-12.4); Monocytes Absolute Auto 0.9 X10*3/uL (0.1-1.2); Monocytes Percent Auto 14.3 % (2-11); Neutrophils Absolute Auto 3.6 x10*3/uL (2.0-8.3); Neutrophils Percent Auto 60.2 % (45-73); Platelet Count 146 X10*3/uL (160-400); Red Blood Count 5.31 X10*6/uL (4.60-5.80); Red Cell Distribution Width 13.3 % (11.0-16.0)
[2024-12-25 20:24] LABS: Alanine Aminotransferase 56 U/L (0-40); Albumin Level 4.2 g/dL (3.5-5.0); Alkaline Phosphatase 99 U/L (39-117); Anion Gap 12 (12-20); Aspartate Amino Transferase 32 U/L (5-37); Bilirubin Direct 0.1 mg/dL (0.0-0.5); Bilirubin Total 0.3 mg/dL (0.0-1.0); Blood Urea Nitrogen 17 mg/dL (9-16); Calcium 9.1 mg/dL (8.4-10.2); Carbon Dioxide 26 mmol/L (22-29); Chloride 109 mmol/L (96-108); Creatinine Clr Calc Pharmacy 104.6; Estimated Glomerular Filt Rate > 60; Glucose Random 113 mg/dL (60-115); Magnesium 1.9 mg/dL (1.6-2.6); Potassium 3.9 mmol/L (3.3-5.1); Sodium 143 mmol/L (135-145); Total Protein 7.1 g/dL (6.5-8.0)
[2024-12-25 20:28] LABS: B Type Natriuretic Peptide < 10 pg/mL (<100)
[2024-12-25 20:31] LABS: Troponin-I High Sensitivity < 2.7 ng/L (<3.5-35.0)
[2024-12-25 20:45] LABS: Influenza A PCR NEGATIVE (Negative); Influenza B PCR POSITIVE (Negative); Resp Syncy Virus RNA Qual PCR NEGATIVE (Negative); SARS COV2 PCR INHOUSE NEGATIVE (Negative)
[2024-12-25] MEDS: Acetaminophen 325 MG TABLET 975 MG PO (22:50)
[2024-12-25] MEDS: Oseltamivir Phosphate 75 MG CAPSULE PO (22:50)
[2024-12-25 22:52] VITALS: BP 118/71; PULSE 90; RESP 20; TEMP 37.2; O2SAT 97
[2024-12-25 22:53] VITALS: BP 118/71; PULSE 90; RESP 20; TEMP 37.2; O2SAT 97
== END 2024-12-25 22:54 | disposition home or self-care (01) ==
PROVIDERS: Physician Assistant Medical; Emergency Provider Emergency Medicine; PCP Internal Medicine
DX: J10.1 Influenza due to other identified influenza virus with other respiratory manifestations (principal); J44.9 Chronic obstructive pulmonary disease, unspecified; Z99.81 Dependence on supplemental oxygen; R05.9 Cough, unspecified; Z03.818 Encounter for observation for suspected exposure to other biological agents ruled out; Z79.899 Other long term (current) drug therapy
CPT/HCPCS: 0241U; 36415; 71046; 80048; 80076; 83735; 83880; 84484; 85025; 93005; 99283; 99284

== ENCOUNTER → 2024-12-25 19:40 | Outpatient (BNV) | payer OTHER, SELFPAY | PROVIDERS: Emergency Provider Emergency Medicine; PCP Internal Medicine; Visit Provider Internal Medicine Cardiovascular Disease | DX: R07.9 Chest pain, unspecified (principal) | CPT/HCPCS: 93010 ==

== ENCOUNTER → 2024-12-25 19:49 | Outpatient (BNV) | payer OTHER, SELFPAY | PROVIDERS: PCP Internal Medicine; Visit Provider Radiology Diagnostic Radiology | DX: R07.9 Chest pain, unspecified (principal); R06.02 Shortness of breath | CPT/HCPCS: 71046 ==

== ENCOUNTER 2024-12-26 05:52 | Emergency (ER) | payer OTHER, SELFPAY ==
[2024-12-26 05:53] VITALS: BP 145/94; PULSE 74; RESP 18; TEMP 36.5; O2SAT 95; BMI 36.7
--- OUTSIDE RECORDS SUMMARY | 2024-12-26 06:50 | XMS_ITS | Clinical Summary ---
Author Organization [facility] Address [address] [place] [address] Care Team Providers Care Lofter Name Role Phone Monet Mckeon MD Primary Care Provider [phone] Social History Tobacco Use Types Packs/Day Years [...] age to complete this topic Care Teams Lofter Relationship Specialty Start Date End Date Monet Mckeon MD PCP - General Internal Medicine 03/03/21
--- OUTSIDE RECORDS SUMMARY | 2024-12-26 06:50 | XMS_ITS | Clinical Summary ---
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 9 Active cholecalciferol (VITAMIN D-3) 50 mcg (2,000 unit) capsule Take 1 capsule (2,000 Units total) by mouth 1 (one) time each day. 4 Active fluticasone propionate (FLONASE) 50 mcg/actuation nasal spray Administer 1 spray into each nostril 2 (two) times a day. PRN congestion 3 Active fluticasone furoate-vilante roL (Breo Ellipta) 200-25 mcg/dose inhaler Inhale 1 puff by mouth 1 (one) time each day. 1 Active Active Problems Problem Noted Date Diagnosed Date Severe obesity (BMI 35.0-39. 9) with comorbidity (CMS/HCC V24, CMS/HCC V28) 08/28/2024 Prediabetes 12/15/2022 Vitamin D deficiency 12/15/2022 GERD [...] saturations <88% for over 50% of study). [facility] Polysomnogram treatment study. Date 07/11/2017. SE 95 [...] Encounters Date Type Department Care Team Description 11/25/2024 Telephone Gastroenterology - [address] [facility] [address] [place] [address] Davie Vincent MD 11/19/2024 8:00 AM EDT Office Visit Adult Medicine [address] [phone] Tiana Wayne PA Prediabetes (Primary Dx); Vitamin D deficiency; Gastroesophageal reflux disease, unspecified whether esophagitis present; Refused pneumococcal vaccine; Refused influenza vaccine; Severe obesity (BMI 35.0-39.9) with comorbidity (CMS/HCC V24, CMS/HCC V28); Colon cancer screening from Last 3 Months Immunizations Name Administration [...] night with AHI 40.9. N/S Pulmo 01/12/2016. [facility] Home Polysomnogram: Date 04/19/2017; AHI 84, [...] Recorded Sex Assigned at Not on file Legal Sex Male 12:36 PM EST Gender Identity Not on file Sexual Orientation Not on file Obstetrics History Last Filed Vital Signs Vital Sign Reading Time Taken Comments Blood Pressure 127/77 11/19/2024 8:38 AM EDT Pulse 80 11/19/2024 8:38 AM EDT Temperature - - Respiratory Rate - - Oxygen Saturation 98% 11/19/2024 8:38 AM EDT Inhaled Oxygen Concentration - - Weight 105 kg (232 lb) 11/19/2024 8:38 AM EDT Height 167.6 cm (5' 6 ) 01/22/2024 1:38 PM EDT Body Mass Index 37.45 01/22/2024 1:38 PM EDT Plan of Treatment Upcoming Encounters Date Type Department Care Team (Late st Contact Info) Description 01/23/2025 8:30 AM EDT Appointment [facility] Endoscopy [address] [place] [address] Davie Vincent MD [address] [facility] [address] [place] [address] 05/22/2025 1:15 PM EDT Office Visit Adult Medicine [facility] [address] [place] [phone] Monet Mckeon MD [address] [place] [address] Health Maintenance Due Date Last Done Comments Hepatitis B Vaccines (1 of 3 - 19+ 3-dose series) 1993 Pneumococcal Vaccine: 50+ Years (1 of 2 - PCV) 1993 Pneumococcal Vaccine: Pediatrics (0 to 5 Years) and At-Risk Patients (6 to 64 Years) (1 of 2 - PCV) 1993 Colorectal Cancer Screening: Colonoscopy 08/09/2022 Depression Screening 08/09/2022 Social Influencers of Health Screening 08/09/2022 Zoster Vaccines (1 of 2) 2024 COVID-19 Vaccine (1 - 2023-2 5 season) 2024 Influenza Vaccine (Season Ended) 2025 Cholesterol Screening (Lipid Panel) 11/19/2029 11/19/2024, 12/14/2022 DTaP,Tdap,and Td Vaccines (3 - Td [...] patient's age to complete this topic Meningococcal B Vaccine Aged Out No l onger eligible based on patient's age to complete this topic RSV Immunization Patients Under 20 months Aged Out No longer eligible b ased on patient's age to complete this topic Varicella Vaccines Aged Out No longer eligible based on patient's age to complete this topic Procedures Procedure Name Priority Date/Time Associated Diagnosis Comments CBC WITH AUTO DIFFERENTIAL Routine 11/19/2024 9:14 AM EDT Prediabetes Gastroesophageal reflux disease, unspecified whether esophagitis present Morbid obesity with BMI of 40.0-44.9, adult ([facility] V24, CMS/[facility] V28) LIPID PANEL WITH REFLEX TO DIRECT LDL Routine 11/19/2024 9:14 AM EDT Prediabetes Gastroesophageal reflux disease, unspecified whether esophagitis present Morbid obesity with BMI of 40.0-44.9, adult (CMS/HCC V24, CMS/[facility] V28) COMPREHENSIVE METABOLIC PANEL Routine 11/19/2024 9:14 AM EDT Prediabetes Gastroesophageal reflux disease, unspecified whether esophagitis present Morbid obesity with BMI of 40.0-44.9, adult (CMS/HCC V24, CMS/[facility] V28) CBC AND DIFFERENTIAL Routine 11/19/2024 9:14 AM EDT Prediabetes Gastroesophageal reflux disease, unspecified whether esophagitis present Morbid obesity with BMI of 40.0-44.9, adult (CMS/HCC V24, CMS/[facility] V28) HEMOGLOBIN A1C Routine 11/19/2024 9:14 AM EDT Prediabetes Gastroesophageal reflux disease, unspecified whether esophagitis present Morbid obesity with BMI of 40.0-44.9, adult (CMS/[facility] V24, CMS/[facility] V28) MICROALBUMIN CREATININE URINE RATIO Routine 11/19/2024 9:14 AM EDT Prediabetes Gastroesophageal reflux disease, unspecified whether esophagitis present Morbid obesity with BMI of 40.0-44.9, adult (CMS/[facility] V24, CMS/[facility] V28) VITAMIN D 25 HYDROXY Routine 11/19/2024 9:14 AM EDT Vitamin D deficiency HM HEPATITIS C SCREENING Routine 08/30/2019 HIV SCREENING Routine 08/30/2019 from Last 3 Months or Most Recently Relevant to Health Maintenance Results * (ABNORMAL) Lipid panel with reflex to direct LDL (11/19/2024 9:14 AM EDT) Pathologist [facility] Cholesterol 170 0 - 200 mg/dL LAB CHEMISTRY METHOD 11/19/2024 1:[address] [facility] Triglycerides 147 0 - 150 mg/dL LAB CHEMISTRY METHOD 11/19/2024 1:[address] [facility] HDL 37(L) >=40 mg/dL LAB CHEMISTRY METHOD 11/19/2024 1:[address] [facility] LDL Calculated 104(H) 0 - 100 mg/dL LAB CHEMISTRY METHOD 11/19/2024 1:[address] [facility] VLDL Cholesterol Chelsi 29.4 mg/dL LAB CHEMISTRY METHOD 11/19/2024 1:[address] [facility] Non HDL Chol. (LDL+VLDL) 133 <145 mg/dL LAB CHEMISTRY METHOD 11/19/2024 1:[address] [facility] Chol/HDL Ratio 4.6(H) 0.0 - 4.4 LAB CHEMISTRY METHOD 11/19/2024 1:[address] [facility] Blood Venous blood specimen / Unknown Venipuncture / Unknown 11/19/2024 9:14 AM EDT 11/19/2024 9:14 AM EDT us Tiana BOTELLO LAB BLOOD ORDERABLES Final Re sult [facility] [address] [place] [address], [place] [phone] * (ABNORMAL) CBC auto differential (11/19/2024 9:14 AM EDT) WBC 6.5 4.8 - 10.8 K/mcL LAB HEMETOLOGY METHOD 11/19/2024 10:17 AM [facility] RBC 5.20 4.50 - 5.50 M/mcL LAB HEMETOLOGY METHOD 11/19/2024 10:17 AM [facility] Hemoglobin 15.3 13.5 - 17.5 g/dL LAB HEMETOLOGY METHOD 11/19/2024 10:17 AM [facility] Hematocrit 45.1 42.0 - 54.0 % LAB HEMETOLOGY METHOD 11/19/2024 10:17 AM [facility] MCV 86.1 79.0 - 98.0 FL LAB HEMETOLOGY METHOD 11/19/2024 10:17 AM [facility] MCH 29.2 27.0 - 32.0 pcg LAB HEMETOLOGY METHOD 11/19/2024 10:17 AM [facility] MCHC 33.9 32.0 - 37.0 g/dL LAB HEMETOLOGY METHOD 11/19/2024 10:17 AM [facility] RDW 13.6 11.0 - 15.0 % LAB HEMETOLOGY METHOD 11/19/2024 10:17 AM [facility] Platelets 147 130 - 400 K/mcL LAB HEMETOLOGY METHOD 11/19/2024 10:17 AM [facility] MPV 11.3(H) 7.0 - 11.0 FL LAB HEMETOLOGY METHOD 11/19/2024 10:17 AM [facility] NRBC 0.0 <1.0 % LAB HEMETOLOGY METHOD 11/19/2024 10:17 AM [facility] NRBC Absolute 0.00 <0.10 K/mcL LAB HEMETOLOGY METHOD 11/19/2024 10:17 AM [facility] Neutrophils Relative 52.8 % LAB HEMETOLOGY METHOD 11/19/2024 10:17 AM [facility] Lymphocytes Relative 30.0 % LAB HEMETOLOGY METHOD 11/19/2024 10:17 AM [facility] Monocytes Relative 12.4 % LAB HEMETOLOGY METHOD 11/19/2024 10:17 AM [facility] Eosinophils Relative 3.7 % LAB HEMETOLOGY METHOD 11/19/2024 10:17 AM [facility] Basophils Relative 0.8 % LAB HEMETOLOGY METHOD 11/19/2024 10:17 AM [facility] Immature Granulocytes Relative 0.3 % LAB HEMETOLOGY METHOD 11/19/2024 10:17 AM [facility] Neutrophils Absolute 3.46 1.50 - 7.00 K/mcL LAB HEMETOLOGY METHOD 11/19/2024 10:17 AM [facility] Lymphocytes Absolute 1.96 1.00 - 5.00 K/mcL LAB HEMETOLOGY METHOD 11/19/2024 10:17 AM [facility] Monocytes Absolute 0.81 0.20 - 1.00 K/mcL LAB HEMETOLOGY METHOD 11/19/2024 10:17 AM [facility] Eosinophils Absolute 0.24 0.00 - 0.50 K/mcL LAB HEMETOLOGY METHOD 11/19/2024 10:17 AM [facility] Basophils Absolute 0.05 0.00 - 0.20 K/mcL LAB HEMETOLOGY METHOD 11/19/2024 10:17 AM [facility] Immature Granulocytes Absolute 0.02 0.00 - 0.03 K/mcL LAB HEMETOLOGY METHOD 11/19/2024 10:17 AM [facility] Blood Venous blood specimen / Unknown Venipuncture / Unknown 11/19/2024 9:14 AM EDT 11/19/2024 9:14 AM EDT us Tiana BOTELLO LAB BLOOD ORDERABLES Final Re sult [facility] [address] [place] [address], [place] [phone] * Microalbumin creatinine urine ratio (11/19/2024 9:14 AM EDT) Creatinine, Urine 235.0 mg/dL LAB CHEMISTRY METHOD 11/19/2024 10:[address] [facility] Microalb, Ur 20.4 0.0 - 29.0 mg/L LAB CHEMISTRY METHOD 11/19/2024 10:[address] [facility] Microalb/Creat Ratio 9 <30 mg/g creat LAB CHEMISTRY METHOD 11/19/2024 10:[address] [facility] Urine Urine specimen from urethra / Unknown Non-blood Collection / Unknown 11/19/2024 9:14 AM EDT 11/19/2024 9:14 AM EDT us Tiana BOTELLO LAB URINE ORDERABLES Final Re sult Performing Organization Address [facility]/ZIP Co de Phone Number [facility] [address] [place] [address], [place] [phone] * (ABNORMAL) Vitamin D 25 hydroxy (11/19/2024 9:14 AM EDT) Vit D, 25-Hydroxy 18.8(L) 30.0 - 80.0 ng/mL LAB CHEMISTRY METHOD 11/19/2024 1:[address] [facility] Blood Venous blood specimen / Unknown Venipuncture / Unknown 11/19/2024 9:14 AM EDT 11/19/2024 9:14 AM EDT us Tiana BOTELLO LAB BLOOD ORDERABLES Final Re sult Performing Organization Address City/[facility]/ZIP Co de Phone Number [facility] [address] [place] [address], [place] [phone] * Hemoglobin A1c (11/19/2024 9:14 AM EDT) [facility] Hemoglobin A1C 5.5 <6.5 % LAB CHEMISTRY METHOD 11/19/2024 2:[address] [facility] Mean Bld Glu Estim. 111 mg/dL LAB CHEMISTRY METHOD 11/19/2024 2:[address] [facility] Blood Venous blood specimen / Unknown Venipuncture / Unknown 11/19/2024 9:14 AM EDT 11/19/2024 9:14 AM EDT us Tiana BOTELLO LAB BLOOD ORDERABLES Final Re sult Performing Organization Address [facility]/ZIP Co de Phone Number [facility] [address] [place] [address], [place] [phone] * Comprehensive metabolic panel (11/19/2024 9:14 AM EDT) [facility] Sodium 143 133 - 145 mmol/L LAB CHEMISTRY METHOD 11/19/2024 1:[address] [facility] Potassium 3.9 3.5 - 5.5 mmol/L LAB CHEMISTRY METHOD 11/19/2024 1:[address] [facility] Chloride 108 96 - 110 mmol/L LAB CHEMISTRY METHOD 11/19/2024 1:[address] [facility] CO2 26 21 - 32 mmol/L LAB CHEMISTRY METHOD 11/19/2024 1:[address] [facility] Anion Gap 9 3 - 11 LAB CHEMISTRY METHOD 11/19/2024 1:[address] [facility] Glucose 84 70 - 100 mg/dL LAB CHEMISTRY METHOD 11/19/2024 1:59 PM [facility] BUN 16 5 - 25 mg/dL LAB CHEMISTRY METHOD 11/19/2024 1:59 PM [facility] Creatinine 1.01 0.70 - 1.30 mg/dL LAB CHEMISTRY METHOD 11/19/2024 1:59 PM [facility] eGFR 91 >=60 mL/min/1. 73m2 LAB CHEMISTRY METHOD 11/19/2024 1:59 PM [facility] Comment:Calculation based on the??Chronic Kidney Disease Epidemiology Collaboration (CKD-EPI) equation refit??without adjustment for race. BUN/Creatinine Ratio 15.8 LAB CHEMISTRY METHOD 11/19/2024 1:59 PM [facility] Calcium 8.8 8.5 - 10.5 mg/dL LAB CHEMISTRY METHOD 11/19/2024 1:59 PM [facility] AST (SGOT) 17 10 - 42 unit/L LAB CHEMISTRY METHOD 11/19/2024 1:59 PM [facility] ALT (SGPT) 45 10 - 60 unit/L LAB CHEMISTRY METHOD 11/19/2024 1:59 PM [facility] Alkaline Phosphatase 111 42 - 121 unit/L LAB CHEMISTRY METHOD 11/19/2024 1:59 PM [facility] Total Protein 6.9 6.0 - 8.0 g/dL LAB CHEMISTRY METHOD 11/19/2024 1:59 PM [facility] Albumin 3.9 3.2 - 5.0 g/dL LAB CHEMISTRY METHOD 11/19/2024 1:59 PM [facility] Total Bilirubin 0.7 0.0 - 1.4 mg/dL LAB CHEMISTRY METHOD 11/19/2024 1:59 PM [facility] Blood Venous blood specimen / Unknown Venipuncture / Unknown 11/19/2024 9:14 AM EDT 11/19/2024 9:14 AM EDT Tiana BOTELLO LAB BLOOD ORDERABLES Final Re sult [facility] [address] [place] [address], [place] [phone] * HIV Screening (08/30/2019) HIV Screening Abstracted Historical Provider HEALTH MAINTENANCE Final Result * Hepatitis C Screening (08/30/2019) Hepatitis C Screening Abstracted Historical Provider HEALTH MAINTENANCE Final Result from Last 3 Months or Most Recently Relevant to Health Maintenance [place] [address] [place] [address] Member Subscriber Plan / Payer (Ef fective 2023-Present) Name:Flash Rodriguez Relation to Subscriber:Self Name:Flash Rodriguez Payer ID:[id number] Group ID:[id number] Type:Not on file Address: [place] [address] [address] [id number] Care Teams Tooth Cutter Relationship Specialty Start Date End Date Monet Mckeon MD [address] [place] [id number] PCP - General Internal Medicine 10/12/16
--- NOTE | 2024-12-26 06:52 | ED_ITS ---
HPI - Abdominal Pain General Chief Complaint: Abdominal Pain Stated Complaint: abd pain Time Seen by Provider: 12/26/24 06:47 Source: patient, old records reviewed and supervisor bindery Mode of arrival: ambulatory Limitations: no limitations History of Present Illness ED Provider: KAREN CHRISTIAN narrative: 49 year old male with PMHx of COPD, MARK, presents to ED today due to abdominal discomfort. Patient was seen in [facility] 12/25, had positve flu B swab and was started on tamiflu. He returns today with concerns of nausea and stomach ache. He states he did begin his course of tamiflu last night and is still feeling nauseous and had 2 episodes of vomiting overnight. Patient denies black or bloody stool, diarrhea, headache, cough, bloody or bilious vomiting. Patient states this is not the flu and he doesn't think the flu causes this MD elicited complaint: abdominal pain Pertinent past history: other (COPD, MARK ) Onset (ago): hour(s) Pain Consistency: constant Location: none Severity: moderate Quality: aching Radiation: none Migration to: no migration Exacerbating factors: nothing Relieving factors: nothing Associated symptoms: nausea and vomiting Treatments prior to arrival: other (tamiflu) Related Data Home Medications ?Medication ?Instructions ?Recorded ?Confirmed CPAP (CPAP Machine/Device) 06/07/22 03/16/23 nebulizers 06/07/22 03/16/23 cholecalciferol (vitamin D3) 50 50 mcg PO DAILY 05/26/23 12/28/23 mcg (2,000 unit) capsule Previous Rx's ?Medication ?Instructions ?Recorded cefuroxime axetil 500 mg tablet 500 mg PO BID 10 days #20 tabs 12/31/23 doxycycline hyclate 100 mg tablet 100 mg PO BID #20 tabs 12/31/23 prednisone 10 mg tablet See Rx Instructions .Route 12/31/23 .COMPLEX #45 tabs albuterol sulfate 90 mcg/actuation 2 puff inhalation Q6H PRN patient 10/08/24 aerosol inhaler #8.5 grams Breo Ellipta 200 mcg-25 mcg/dose 1 inh inhalation DAILY 30 days #60 11/21/24 powder for inhalation (fluticasone ea furoate-vilanterol) acetaminophen 500 mg capsule 1,000 mg (2 x 500 mg) PO Q8H PRN 12/25/24 fever or pain #14 caps albuterol sulfate 2.5 mg/3 mL 2.5 mg (3 mL) inhalation Q4-6H PRN 12/25/24 (0.083 %) solution for nebulization shortness of breath or wheezing #90 mL oseltamivir 75 mg capsule 75 mg PO BID 5 days #9 caps 12/25/24 ondansetron 4 mg disintegrating 4 mg PO Q8H PRN nausea and 12/26/24 tablet vomiting #20 tabs Allergies Allergy/AdvReac Type Severity Reaction Status Date / Time No Known Allergies* Allergy Unknown Uncoded 12/26/24 05:57 Review of Systems Review of Systems Constitutional : No Weight loss, No Fever, No Chills ENT/Mouth : No sore throat, No Rhinorrhea Eyes: No Swelling, No Redness Cardiovascular : No Chest Pain, No SOB, No Edema Respiratory : No Cough, No Sputum, No Wheezing Gastrointestinal : Positive Nausea, Positive Vomiting, no Diarrhea, positive abdominal Pain, No Hematochezia, No Melena Genitourinary : No Dysuria, No Urinary Frequency, No Hematuria, No Urgency Musculoskeletal : No joint pain, No Myalgias, No Joint Swelling Skin : No Skin Lesions, No rash Neuro : No Weakness, No Numbness, No Dizziness, No Headache Psych : No Anxiety/Panic, No Depression Heme/Lymph: No Bruising, No Lymphadenopathy Endocrine : No Polyuria, No Polydipsia All other systems reviewed and are negative. Yes all other systems are reviewed and are negative [facility] Past Medical History Attestation statement: The following information was validated with the patient. Source: old records reviewed Medical History Chronic hypercapnic respiratory failure Acute and chronic respiratory failure with hypercapnia MARK treated with BiPAP Asthma-COPD overlap syndrome Moderate obesity Bronchitis Chest pain Chronic allergic rhinitis Asthma Family History Family History Other Asthma Social History Social History Household Members: Spouse Housing: Apartment Do you presently have visiting nurse or other home services: No Alcohol intake: unknown Patient Tobacco Use Status: Never used Tobacco Advance Directives: No Advance Directives Information Provided: Yes Do you have a plan to hurt others: No Plan service: No Current occupational status: disabled Physical Exam ED Vital Signs: Vital Signs - 24 hr 12/26/24 05:53 Temperature 97.7 F Pulse Rate 74 Respiratory Rate 18 Blood Pressure 145/94 H Pulse Oximetry 95 Oxygen Delivery Method Room Air BMI result Body Mass Index 36.7 Appearance: Alert. Oriented X3. No acute distress. Eyes: Pupils equal, round and reactive to light. ENT: Pharynx normal. Neck: Normal inspection. Neck supple. CVS: Normal heart rate and rhythm. Pulses normal. Respiratory: No respiratory distress. Breath sounds normal. Abdomen: Soft and nontender. Skin: Skin warm and dry. Normal skin color. Normal skin turgor. Extremities: No lower extremity edema. No calf ttp Neuro: Oriented X 3. No motor deficit. No sensory deficit. CN2-12 intact Medical Decision Making Medical Decision Making [facility] Narrative: 49 year old male with PMHx of COPD, MARK, presents to ED today due to abdominal discomfort. Patient was seen in [facility] 12/25, had positve flu B swab and was started on tamiflu. He returns today with concerns of nausea and stomach ache. He states he did begin his course of tamiflu last night and is still feeling nauseous and had 2 episodes of vomiting overnight. Patient denies diarrhea, headache, cough, bloody or bilious vomiting. Patient vital signs stable in mild distress due to flu b positive. No signs of respiratory distress and is non-toxic appearing. Patient started course of tamiflu last night after discharge from [facility]. Tamiflu is known to cause GI discomfort and flu b causes more GI symptoms than flu A. His symptoms are consistent with being flu B positive. Patient is passing flatus and stool abdominal pain is no likely to be caused from obstruction. Will give ondansetron for nausea and GI cocktail of Maalox and lidocaine for abdominal discomfort. Basic labs and oral medications Differential Diagnosis Differential Diagnoses: The differential diagnosis associated with the presentation includes Flu, gastritis, viral illness, obstruction Admission/Observation Consideration of admission/observation: Escalation of care including admission/observation considered not hypoxic, tolerating PO, no resp distress 95% on RA he still doesn't believe that flu can cause GI upset will start on zofran Lab Data [facility] Lab Attestation statement: I reviewed the patient's lab results. 12/26/24 07:40 12/26/24 07:40 Labs: Lab Results 12/26/24 Range/Units 07:40 WBC 7.0 (4.8-10.8) X10*3/uL RBC 5.58 (4.60-5.80) X10*6/uL Hgb 16.1 (14.0-18.0) g/dl Hct 48.6 (42.0-52.0) % MCV 87.1 (80.0-98.0) fL MCH 28.9 (27.0-33.0) pg MCHC 33.1 (31.0-36.0) g/dl RDW 13.4 (11.0-16.0) % Plt Count 131 L (160-400) X10*3/uL MPV 11.4 (9.4-12.4) fL Immature Gran % (Auto) 0.4 (0.0-0.4) % Neut % (Auto) 76.2 H (45-73) % Lymph % (Auto) 11.7 L (20-40) % [place] % (Auto) 11.5 H (2-11) % Eos % (Auto) 0.1 (0-4) % Baso % (Auto) 0.1 (0-2) % Lymph # (Auto) 0.8 L (1.2-4.9) X10*3/uL [place] # (Auto) 0.8 (0.1-1.2) X10*3/uL Eos # (Auto) 0.0 (0.0-0.4) X10*3/uL Baso # (Auto) 0.0 (0.0-0.2) X10*3/uL Abs Immat Gran (auto) 0.03 (0.00-0.03) X10*3/uL Absolute Neuts (auto) 5.3 (2.0-8.3) x10*3/uL Absolute Nucleated RBC 0.000 (0.0-0.012) X10*3/uL Nucleated RBC % (auto) 0.0 (0.0-0.2) /100WBC Sodium 142 (135-145) mmol/L Potassium 4.2 (3.3-5.1) mmol/L Chloride 105 (96-108) mmol/L Carbon Dioxide 29 (22-29) mmol/L Anion Gap 12 (12-20) BUN 15 (9-16) mg/dL Creatinine 0.94 (0.5-1.4) mg/dL Estim Creat Clear Calc 105.7 Estimated GFR > 60 Random Glucose 110 (60-115) mg/dL Calcium 9.5 (8.4-10.2) mg/dL Magnesium 2.1 (1.6-2.6) mg/dL Total Bilirubin 0.4 (0.0-1.0) mg/dL Direct Bilirubin 0.2 (0.0-0.5) mg/dL AST 37 (5-37) U/L ALT 71 H (0-40) U/L Alkaline Phosphatase 97 (39-117) U/L Total Protein 7.3 (6.5-8.0) g/dL Albumin 4.2 (3.5-5.0) g/dL Lipase 25 (8-78) U/L External Record Review External record reviewed: Inpatient record and Outpatient record Prescription Management I considered prescription management with: Other (Ondansetron, Maalox, lidocaine) Chronic Conditions Patient?s care impacted by: Other (COPD, MARK) Medications Administered Discontinued Medications Generic Name Dose Route Start Last Admin Trade Name Freq PRN Reason Stop Dose Admin Al Hydroxide/Mg Hydroxide 15 ml 12/26/24 07:20 12/26/24 07:32 Magnesium Hydrox/Alum Hydrox 30 Ml Oral.Susp PO 12/26/24 07:21 15 ml ONCE ONE Administration Lidocaine HCl 15 ml 12/26/24 07:20 12/26/24 07:32 Lidocaine Hcl Viscous 2 % 15 Ml Solution MUCOUS MEM 12/26/24 07:21 15 ml ONCE ONE Administration Ondansetron HCl 4 mg 12/26/24 07:20 12/26/24 07:32 Ondansetron Odt 4 Mg Tab.Rapdis TRANSLINGU 12/26/24 07:21 4 mg ONCE ONE Administration Discharge Plan Discharge Clinical Impression: Influenza B Patient Disposition: Home, Self-Care Instructions: Influenza (DC) Additional Instructions: your labs and oxygen level are normal you likely have some n/v and pain from the flu as well as the tamiflu we will start you on nausea medications eat a bland diet for 48 hours and return for any worsening symptoms or concerns you will feel sick for the next 5 days return for trouble breathing, confusion, chest pain or any other concerns Prescriptions: New ondansetron 4 mg tablet,disintegrating 4 mg PO Q8H PRN (Reason: nausea and vomiting) Qty: 20 0RF No Action fluticasone furoate-vilanterol [Breo Ellipta] 200-25 mcg/dose blister with device 1 inh inhalation DAILY 30 Days Qty: 60 11RF cefuroxime axetil 500 mg tablet 500 mg PO BID 10 Days Qty: 20 0RF prednisone 10 mg tablet See Rx Instructions .Route .COMPLEX Qty: 45 0RF Rx Instructions: 10 mg orally; 5 tabs p.o. daily x3 days; 4 tabs p.o. daily x3 days; 3 tabs daily x3 days; 2 tabs daily x3 days; 1 tab daily x3 days doxycycline hyclate 100 mg tablet 100 mg PO BID Qty: 20 0RF oseltamivir 75 mg capsule 75 mg PO BID 5 Days Qty: 9 0RF albuterol sulfate 2.5 mg /3 mL (0.083 %) solution for nebulization 2.5 mg inhalation Q4-6H PRN (Reason: shortness of breath or wheezing) Qty: 90 0RF acetaminophen 500 mg capsule 1,000 mg PO Q8H PRN (Reason: fever or pain) Qty: 14 0RF (DME) CPAP Machine/Device Device See Rx Instructions .Route Rx Instructions: As directed (DME) nebulizers [facility] See Rx Instructions .Route Rx Instructions: As directed cholecalciferol (vitamin D3) 50 mcg (2,000 unit) capsule 50 mcg PO DAILY albuterol sulfate 90 mcg/actuation HFA aerosol inhaler 2 puff INHALATION Q6H PRN (Reason: patient) Qty: 8.5 11RF Stand Alone Forms: Work/School Release Print Language: Ethiopian
--- NOTE | 2024-12-26 06:56 | PC.NURSE ---
resumed care of pt at 0700, he is currently resting comfortably in bed, call davila within reach, awaiting to to seen by a provider at this time
[2024-12-26] MEDS: Ondansetron ODT 4 MG TAB.RAPDIS TRANSLINGU (07:32)
[2024-12-26] MEDS: Magnesium Hydrox/Alum Hydrox 30 ML ORAL.SUSP 15 ML PO (07:32)
[2024-12-26] MEDS: Lidocaine HCl Viscous 2 % 15 ML SOLUTION MUCOUS MEM (07:32)
[2024-12-26 07:48] LABS: MANUAL DIFF FLAG NO
[2024-12-26 07:56] LABS: Basophils Percent Auto 0.1 % (0-2); Eosinophils Percent Auto 0.1 % (0-4); Hematocrit 48.6 % (42.0-52.0); Hemoglobin 16.1 g/dl (14.0-18.0); Imm Gran Abs Auto 0.03 X10*3/uL (0.00-0.03); Imm Gran Pct Auto 0.4 % (0.0-0.4); Lymphocytes Absolute Auto 0.8 X10*3/uL (1.2-4.9); Lymphocytes Percent Auto 11.7 % (20-40); Mean Corpuscular HGB Conc 33.1 g/dl (31.0-36.0); Mean Corpuscular Hemoglobin 28.9 pg (27.0-33.0); Mean Corpuscular Volume 87.1 fL (80.0-98.0); Mean Platelet Volume 11.4 fL (9.4-12.4); Monocytes Absolute Auto 0.8 X10*3/uL (0.1-1.2); Monocytes Percent Auto 11.5 % (2-11); Neutrophils Absolute Auto 5.3 x10*3/uL (2.0-8.3); Neutrophils Percent Auto 76.2 % (45-73); Platelet Count 131 X10*3/uL (160-400); Red Blood Count 5.58 X10*6/uL (4.60-5.80); Red Cell Distribution Width 13.4 % (11.0-16.0)
[2024-12-26 08:29] LABS: Alanine Aminotransferase 71 U/L (0-40); Albumin Level 4.2 g/dL (3.5-5.0); Alkaline Phosphatase 97 U/L (39-117); Anion Gap 12 (12-20); Aspartate Amino Transferase 37 U/L (5-37); Bilirubin Direct 0.2 mg/dL (0.0-0.5); Bilirubin Total 0.4 mg/dL (0.0-1.0); Blood Urea Nitrogen 15 mg/dL (9-16); Calcium 9.5 mg/dL (8.4-10.2); Carbon Dioxide 29 mmol/L (22-29); Chloride 105 mmol/L (96-108); Creatinine Clr Calc Pharmacy 105.7; Estimated Glomerular Filt Rate > 60; Glucose Random 110 mg/dL (60-115); Lipase 25 U/L (8-78); Magnesium 2.1 mg/dL (1.6-2.6); Potassium 4.2 mmol/L (3.3-5.1); Sodium 142 mmol/L (135-145); Total Protein 7.3 g/dL (6.5-8.0)
--- NOTE | 2024-12-26 08:49 | PC.NURSE ---
PO challenging at this time
[2024-12-26 09:28] VITALS: BP 146/81; PULSE 85; RESP 16; TEMP 36.8; O2SAT 98
== END 2024-12-26 09:29 | disposition home or self-care (01) ==
PROVIDERS: Emergency Provider Emergency Medicine; PCP Internal Medicine
DX: J10.1 Influenza due to other identified influenza virus with other respiratory manifestations (principal); R11.2 Nausea with vomiting, unspecified
CPT/HCPCS: 36415; 80048; 80076; 83690; 83735; 85025; 99284

== ENCOUNTER 2025-04-07 10:36 | Outpatient (AMB) | payer OTHER, SELFPAY ==
[2025-04-07 10:37] VITALS: BP 130/74; PULSE 82; O2SAT 94; BMI 36.3
--- NOTE | 2025-04-07 10:37 | MHC.OFFVIS ---
Vital Signs 04/07/25 10:37 Height 5 ft 6 in Weight 224 lb 13.944 oz BMI 36.3 BP 130/74 Blood Pressure Location Lt brachial Position Sitting Pulse 82 Pulse Source Pulse Oximeter Pulse Oximetry (%) 94 Oxygen Delivery Method Room Air Intake Visit Reasons: Shortness of breath Allergies No Known Allergies* Allergy (Uncoded 12/26/24 05:57) Unknown HPI Comments Details: The patient is a 49-year-old gentleman known obstructive sleep apnea currently on CPAP in addition to asthma. CPAP therapy has been effective and beneficial. USes CPAP more than 4 hours a night. Has been noticing worsening respiratory symptoms now for the last few months. 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 He does not use a mask. He has been noticing increasing nasal congestion and cough. Moderate severity. Also has been complaining worsening shortness of breath. He started developing pleuritic chest pains and shortness of breath and said to come in today [facility] for further evaluation. He was found to be having wheezing on examination. Chest x-ray demonstrated some minimal changes of the right base. The patient was given a Medrol pack. He is still complaining of some cough in addition to obstructive low. The patient was recommended to wear mask but for some reason he was not able to do so at the work. Therefore, need to consider changing jobs as this will continue affecting her respiratory status. In regards to the CPAP he is using especially since he can't breathe well. The CPAP therapy has been affecting beneficial. He did get supplies. He will continue using more than 4 hours a night. 01/27/2023 the patient is here for hospital follow-up visit. He had a significant episode of acute hypercarbic respiratory failure with CO2 narcosis. He required BiPAP. He had been sick with a respiratory illness. He has CT scan of the chest during that visit demonstrated a left lower lobe pneumonia. He still coughing up some mucus. The patient has been tolerating the BiPAP. Although is unclear the patient needs oxygen with the BiPAP. Will go ahead and resend for another titration study to see if he needs AVAPS versus oxygen with BiPAP. The patient is completing a course of prednisone. He still feels very tired. He will better from a stimulant. I do believe that starting Provigil may be helpful for him. Hopefully get him back to sleep-wake cycle. That will wait for the titration study before we do that. In the meantime will treat him for the lower respiratory infection that may be still lingering. 03/02/2023 the patient is here for a pulmonary follow-up visit. He has significant daytime drowsiness. He is falling asleep quite as we speak. His [place] score significantly elevated at 60 over 24. He is actually having hard time with his daytime drowsiness right now. The patient has been using the BiPAP. He does not feel like is working as well for him. Currently we went up to BiPAP . Although he did have a titration study and they recommended /. They also recommended 2 L of oxygen. Therefore I will submit a relation to his [employer] company in order to adjust the pressures in start him on oxygen. I am hopeful that this is going to be effective for him. In the meantime I do believe the patient has daytime drowsiness that is out of proportion to his respiratory capacity it may have a component of hypoventilation syndrome. Therefore the additional provisional may be helpful for him as a stimulant to help him with his respiratory drive and also with his weight shortness. Therefore will go ahead and start him on 100 mg of Provigil at this time. He will continue with current respiratory therapy will follow-up in a couple months. 05/26/2023 the patient is here for a pulmonary follow-up visit. He was placed on the Provigil stimulant to see if we can improve his daytime drowsiness. Although he did not see any significant difference. He did the blood up to 200 mg still no significant difference. He has been using the BiPAP. Although does not tolerated for too long. We know the pressures do help him based on the fact that he did very well in the hospital but at home does not seem to be tolerating this time. Therefore this switch it again to auto BiPAP to see if we can adjust the pressures a little bit more hopefully not requiring the significantly elevated pressures. He knows to use it during the daytime as well. Continues with his current respiratory therapy. Will have him try the VPAP and call the office next week if he is not tolerating it. 06/23/2023 the patient is here for pulmonary follow-up visit. He was recently in the hospital with bronchitis and asthma exacerbation. This resulted in worsening acute on chronic hypercarbic respiratory failure requiring additional noninvasive ventilator. The patient was placed on noninvasive ventilator did very well. AVAPS setting. he does have a auto BiPAP at home. He is back to using it regularly. He does feel like it is helping him. Although his AHI significantly elevated up to 30 events an hour. We switched him back to BiPAP 20/11 and will follow-up with those numbers. If they continue to be elevated the patient will benefit from switching over to a noninvasive ventilator with the AVAPS setting. He continues uses respiratory therapy. He is done with the antibiotics in the prednisone. He also has oxygen at nighttime. He was requiring oxygen during the hospitalization but we did go for brief walking oximetry the patient does not qualify for oxygen with activity any longer. 08/18/2023 The patient is here for a pulmonary follow up visit. He had been hospitalized and discharged on oxygen. The oxygen has been effective and beneficial. We did go for conserving device trial and he did well on a conserving device. He would like a POC, but I explained to him that his DME does not carry them. We will request B cyliders with conserving device. He has been using the BIPAP 20/11 with 2L oxygen with good effect. We will start Trazodone to improve his sleep. The patient is also volume overload with worsening LE edema. Moderate in severity. Worsening dyspnea. We will start him on diuretics and he needs to have bloodwork in 2 weeks. 01/16/2024 the patient is here for hospital follow-up visit. He was recently in the hospital back in mid December because of worsening respiratory symptoms. He was evaluated in the emergency department where he had a chest x-ray demonstrating a moderate-sized left-sided pneumonia. He was admitted to the hospital with COPD exacerbation in lower respiratory infection. He was treated appropriately. He subsequently discharged. Now is back to her baseline. He did have blood gases in the hospital which were stable which is reassuring. He does use a BiPAP at home with settings of 20/11. He also uses 2 L of oxygen. He did use the BiPAP in the hospital and has been using it at home. Although she averages almost 4 hours. He does not use it every night. It did encourage him to do so. Although I did download the data in appears that his AHI is elevated at 45 events an hour. Therefore, the therapy is not effective for him. I did increase the BiPAP from 31/07 . He will start using it and will bring in the BIPAP to download for the next visit. He is adamant that he thinks he got sick because he was putting water in the BiPAP so now he is using without water. I did tell him that is okay although I did give him instructions on how to take care of the water chamber decides to add the distal water again. Respiratory exam is stable. The patient is working on weight loss this time. He is motivated which is reassuring. Will go ahead and continue with the current respiratory therapy and will follow-up in 6-8 weeks. 06/10/2024 the patient is here for a pulmonary follow-up visit. Overall he is doing a lot better. During the last time he did have pneumonia back in the left lower lobe area. At this point the patient has been working on healthy habits. He is walking more regularly he is also eating healthy with no salt. He has already lost about 17 lb. The patient is aware that he still has severe sleep apnea. Needs to use his BiPAP. He also has CO2 retention. The patient understands that once his CO2 starts climbing he is develops CO2 narcosis therefore the uses of the PAP therapy is crucial for him. We talked about making sure that he has a good routine where he uses the least 4 hours a night. He will undergo CS x-ray and also blood work in a blood gas for the next visit. If the patient has any issues prior to that he will call for an earlier assessment. 10/08/2024 the patient is here for a pulmonary follow-up visit. Overall the patient has been doing very well. He continues to stay positive in working on weight loss and good exercise habits. He sometimes forgets to put on the BiPAP. Although few days ago he started developing a severe headache with a lot of pressure. Moderate to severe. Then he realized that he had missed his BiPAP a couple nights. Therefore he went back on he felt great headache went away. He did increase the oxygen to 3 L seems working okay. I did download the BiPAP and seems like his AHI still elevated at 14. Primarily apneic episodes. Will go ahead and increase his EPAP from 14 to 16 cm continue the IPAP at 22. He will continue with the 3 L. Will have a blood gas today in addition to chemistry in hemoglobin. From an asthma standpoint he is responding well to the Breo. He needs a rescue inhaler also to the pharmacy. As far as his pneumonia that he had back over the fall seems to be clinically doing well. Hold off on the extremes of his next follow-up in 6 months. 04/07/2025 the patient is here for pulmonary follow-up visit. Overall he is doing okay although he started developing a cough. Positive sick contacts. Complaining of pleuritic back pain. Mainly on his right side. [id number] severity. He is concerned because he has ended up with pneumonia in the past. Will be reasonable to treat him to avoid worsening disease. In the meantime he continues uses BiPAP as prescribed. Return to the oxygen. The therapy has been affecting beneficial. He will continue to use it at this time. After he completes the medicines or while he is taking the medicines if the back pain gets worse or his breathing gets worse she can always come in for chest x-ray and call us for further recommendations. [facility] Medical History Chronic hypercapnic respiratory failure Acute and chronic respiratory failure with hypercapnia MARK treated with BiPAP Asthma-COPD overlap syndrome Moderate obesity Bronchitis Chest pain Chronic allergic rhinitis Asthma Family History Other Asthma Social History Household Members: Spouse Housing: Apartment Do you presently have visiting nurse or other home services: No Alcohol intake: unknown Patient Tobacco Use Status: Never used Tobacco service: No Current occupational status: disabled Review of Systems Const Reports daytime sleepiness, Denies night sweats, Reports snoring, Reports stops breathing during sleep and Reports weight loss ENT Denies change in voice, Denies lip swelling, Denies mouth pain, Reports nasal congestion, Reports nasal discharge and Denies tongue swelling Card Denies chest pain, Denies dyspnea and Reports dyspnea on exertion Resp Reports cough, Reports pain with cough, Denies dyspnea, Reports dyspnea on exertion, Reports snoring and Reports wheezing GI Denies abdominal pain Musc Reports back pain Neuro Denies Neuro-related abnormal movements Psych Denies no additional complaints Anthony/Lymph Denies easy bleeding and Denies lymphadenopathy Aller/Immun Denies lip swelling, Denies tongue swelling and Reports wheezing Physical Exam Vital Signs: Last Vital Signs Pulse 82 04/07/25 10:37 BP 130/74 04/07/25 10:37 Pulse Ox 94 04/07/25 10:37 Oxygen Delivery Method Room Air 04/07/25 10:37 BMI result Body Mass Index 36.3 Last Vital Signs Temp 97.0 F 06/16/23 07:25 Pulse 72 06/16/23 07:52 Resp 20 06/16/23 07:56 BP 120/85 06/16/23 07:25 Pulse Ox 92 06/16/23 07:25 O2 Del Method BiPAP 06/16/23 07:25 O2 Flow Rate 35 06/16/23 07:25 FiO2 35 06/16/23 04:00 BMI result Body Mass Index 41.4 Const General: comfortable HEENT Head: Yes normocephalic Neck Neck: Yes supple Chest Chest palpation & inspection: normal inspection of the chest Resp Effort & Inspection: normal respiratory effort Auscultation: clear to auscultation bilaterally and no rhonchi Cardio Rate: regular rate Rhythm: regular rhythm Heart sounds: S1 normal heart sound present and S2 normal heart sound present GI Palpation (GI): Soft to palpation and nontender Auscultation: normal bowel sounds Skin General skin exam: rashes and/or lesions noted Extrem General: Yes no clubbing, cyanosis or edema Assessment & Plan Assessment & Plan (1) Asthma-COPD overlap syndrome: Code(s): J44.89 - Other specified chronic obstructive pulmonary disease Category: Medical (2) MARK treated with BiPAP: Code(s): G47.33 - Obstructive sleep apnea (adult) (pediatric) Category: Medical (3) Chronic hypercapnic respiratory failure: Code(s): J96.12 - Chronic respiratory failure with hypercapnia Category: Medical (4) Chronic allergic rhinitis: Code(s): J30.9 - Allergic rhinitis, unspecified Category: Medical (5) Cough: Code(s): R05 - Cough Category: Medical Qualifiers: Cough type: chronic Qualified Code(s): R05.3 - Chronic cough (6) Asthma: Code(s): J45.909 - Unspecified asthma, uncomplicated Category: Medical Qualifiers: Asthma complication type: uncomplicated Asthma persistence: persistent Asthma severity: moderate Qualified Code(s): J45.40 - Moderate persistent asthma, uncomplicated (7) Chest pain: Code(s): R07.9 - Chest pain, unspecified Category: Medical Qualifiers: Chest pain type: unspecified Qualified Code(s): R07.9 - Chest pain, unspecified Plan Continue Breo daily GONZALEZ as needed BIPAP 20/ with 2 L oxygen->increased 22/14 2L-->increased 22/16 oxygen->3L diuresis as tolerated continue oxygen CXR start Doxycycline cough medicine F/U 6-8 months Orders: Orders XR chest 2V Today R07.9 - Chest pain, unspecified Medications: New doxycycline hyclate 100 mg PO BID 20 caps 0RF 10 days dextromethorphan-guaifenesin 10-100 mg/5 mL (Guaifenesin-DM) 10 mL PO Q4H PRN 500 mL 4RF cough 14 days Coding Level of Care Code Est Pt Level 4 (18778) Complex EM visit Add On G2211 Diagnoses Asthma-COPD overlap syndrome J44.89 MARK treated with BiPAP G47.33 Chronic hypercapnic respiratory failure J96.12 Chronic allergic rhinitis J30.9 Chronic cough R05.3 Cough type: chronic Moderate persistent asthma without complication J45.40 Asthma complication type: uncomplicated Asthma persistence: persistent Asthma severity: moderate Chest pain, unspecified type R07.9 Chest pain type: unspecified Time Spent (min) 16
--- OUTSIDE RECORDS SUMMARY | 2025-04-07 11:49 | XMS_ITS | Clinical Summary ---
Author Organization [address] [place] [address] Address [address] [place] [address] Phone Care Team Providers Care Armature Connector Name Role Phone Monet Mckeon MD Primary Care Provider [phone] Allergies No known active allergies Medications albuterol [...] 1 (one) time each day. 1 Active polyethylene glycol (Golytely) 236-22.74-6.74 -5.86 gram solution Take 4L by mouth once for one dose. May substitue any PEG. Starting at 6PM the night before your procedure drink 1 8oz glasses at your own pace until you complete half of the gallon. Finish 2nd half of the gallon 5 hours before your procedure. 4000 mL 5 Active bisacodyL (DULCOLAX) 5 mg EC tablet Take 2 tablets by mouth right before beginning bowel prep. See instructions provided by the office 2 tablet 5 Active Active Problems Problem Noted Date Diagnosed [...] night with AHI 40.9. N/S Pulmo 01/12/2016. [facility] Home Polysomnogram: Date 04/19/2017; AHI 84, Unclassified apneas 3; Obstructive apneas 261; Central apneas 47; Mixed apneas 29; hypopneas 8; average oxygen saturation 85% (lowest 63% with saturations <88% for over 50% of study). [facility] Polysomnogram treatment study. Date 07/11/2017. [...] 05/02/2011 Lumbar herniated disc 05/02/2011 Headache 03/01/2010 Immunizations Name Administration Dates Next Due Td [...] night with AHI 40.9. N/S Pulmo 01/12/2016. [facility] Home Polysomnogram: Date 04/19/2017; AHI 84, Unclassified [...] EDT Inhaled Oxygen Concentration - - Weight 104 kg (230 lb) 01/15/2025 10:00 AM EDT Height 167.6 cm (5' 6 ) 01/15/2025 10:00 AM EDT Body Mass Index 37.12 01/15/2025 10:00 AM EDT Plan of Treatment Upcoming Encounters Date Type Department Care Team (Late st Contact Info) Description 05/22/2025 1:15 PM EDT Office Visit Adult Medicine [address] [phone] Monet Mckeon MD [address] [place] [address] Health Maintenance Due Date Last Done Comments Hepatitis B Vaccines (1 of 3 - 19+ 3-dose series) 1993 Pneumococcal Vaccine: 50+ Years (1 of 2 - PCV) 1993 Colorectal Cancer Screening: Colonoscopy 08/09/2022 Social Influencers of Health Screening 08/09/2022 Zoster Vaccines (1 of 2) 2024 COVID-19 Vaccine (1 - 2023-2 5 season) 2024 Depression Screening 09/11/2024 Influenza Vaccine (#1) 2025 Cholesterol Screening (Lipid Panel) 11/19/2029 11/19/2024, [...] Priority Date/Time Associated Diagnosis Comments LIPID PANEL WITH REFLEX TO DIRECT LDL Routine 11/19/2024 9:14 AM EDT Prediabetes Gastroesophageal reflux disease, unspecified whether esophagitis present Morbid obesity with BMI of 40.0-44.9, adult (CMS/HCC V24, CMS/HCC V28) HM HEPATITIS C SCREENING Routine 08/30/2019 HIV SCREENING Routine 08/30/2019 from Last 3 Months or Most Recently Relevant to Health Maintenance Results * (ABNORMAL) Lipid panel with reflex to direct LDL (11/19/2024 9:14 AM EDT) Cholesterol 170 0 - 200 mg/dL LAB CHEMISTRY METHOD 11/19/2024 1:59 PM EDT [facility] Triglycerides 147 0 - 150 mg/dL LAB CHEMISTRY METHOD 11/19/2024 1:59 PM EDT [facility] HDL 37(L) >=40 mg/dL LAB CHEMISTRY METHOD 11/19/2024 1:59 PM EDT [facility] LDL Calculated 104(H) 0 - 100 mg/dL LAB CHEMISTRY METHOD 11/19/2024 1:59 PM EDT [facility] VLDL Cholesterol Chelsi 29.4 mg/dL LAB CHEMISTRY METHOD 11/19/2024 1:59 PM EDT [facility] Non HDL Chol. (LDL+VLDL) 133 <145 mg/dL LAB CHEMISTRY METHOD 11/19/2024 1:59 PM EDT [facility] Chol/HDL Ratio 4.6(H) 0.0 - 4.4 LAB CHEMISTRY METHOD 11/19/2024 1:59 PM EDT [facility] Blood Venous blood specimen / Unknown Venipuncture / Unknown 11/19/2024 9:14 AM EDT 11/19/2024 9:14 AM EDT us Tiana BOTELLO LAB BLOOD ORDERABLES Final Re sult [facility] [address] [place] [address], [place] [phone] * HIV Screening (08/30/2019) HIV Screening Abstracted us Historical Provider HEALTH MAINTENANCE Final Result * Hepatitis C Screening (08/30/2019) Hepatitis C Screening Abstracted us Historical Provider HEALTH MAINTENANCE Final Result from Last 3 Months or Most Recently Relevant to Health Maintenance Insurance [facility] Member Subscriber Plan / Payer (Ef fective 2023-Present) Name:Flash Rodriguez Relation to Subscriber:Self Name:Flash Rodriguez Payer ID:[id number] Group ID:[id number] Type:Not on file Address: [place] [address] [address] [id number] Care Teams Armature Connector Relationship Specialty Start Date End Date Monet Mckeon MD [address] [place] [address] PCP - General Internal Medicine 10/12/16
--- OUTSIDE RECORDS SUMMARY | 2025-04-07 11:49 | XMS_ITS | Clinical Summary ---
Author Organization [employer] Address [address] [place] [address] Care Team Providers Care Facility Engineer Name Role Phone Unavailable Primary Care Provider [...] DAY, NEEDED FOR NASAL CONGESTION 3 Active acetaminophen (Tylenol 8 Hour) 650 MG ER tablet Take 1 tablet (650 mg) by mouth every 8 (eight) hours if needed for mild pain. Do not crush, chew, or split. 30 tablet 5 Active ibuprofen 600 MG tablet Take 1 tablet (600 mg) by mouth 3 times daily. 20 tablet 5 Active amoxicillin (Amoxil) 500 MG capsule Take 1 capsule (500 mg) by mouth every 8 (eight) hours for 7 days. 21 capsule 5 03/26/20 25 Active Problems Problem Noted Date Diagnosed Date Pain, dental 03/19/2025 Dental abscess 03/19/2025 Periodontal disease 08/29/2023 Encounters Date Type Department Care Team Description 03/19/2025 11:30 AM EDT Office Visit [facility] ADULT D[facility]AL [address] [place] [address] Fili Alva DDS Pain, dental (Primary Dx); Dental abscess from Last 3 Months Social History Tobacco Use Types Packs/Day Years [...] Sign Reading Time Taken Comments Blood Pressure 126/78 03/19/2025 11:30 AM EDT Pulse 68 03/19/2025 11:30 AM EDT Temperature - - Respiratory Rate - - Oxygen Saturation - - Inhaled Oxygen Concentration - - Weight - - Height - - Body Mass Index - - Plan of Treatment Upcoming Encounters Date Type Department Care Team (Late st Contact Info) Description 04/17/2025 10:00 AM EDT Office Visit [facility] ADULT DENTAL [address] [place] [address] Jennifer Collazo DDS [address] [place] [address] Health Maintenance Due Date Last Done Comments Anal Pap 1974 CT Colonography 1974 Colonoscopy 1974 Colorectal Cancer Screening 1974 Dental Prophylaxis 1974 Depression Screening 1974 FIT DNA/Cologuard 1974 FIT 1974 FOBT 1974 HIV Screening 1974 Lipid Panel 1974 SDOH Screening 1974 Sigmoidoscopy 1974 Disability Screening 1974 Alcohol/Substance Use Screening 1986 Family Planning (PISQ) 1989 Hepatitis C Screening 1992 Hepatitis A Vaccines (1 of 2 - Risk 2-dose series) 1993 Hepatitis B Vaccines (1 of 3 - 19+ 3-dose series) 1993 Pneumococcal Vaccine: 50+ Years (1 of 2 - PCV) 1993 Zoster Vaccines (1 of 2) 2024 COVID-19 Vaccine (1 - 2023-2 5 season) 2024 Dental Oral Exam 06/09/2024 12/07/2023 Dental X-Ray: Bitewings 12/07/2024 12/07/19 24, 07/20/2023 Influenza Vaccine (#1) 2025 Tobacco Screening 03/19/2026 03/19/2025 Dental X-Ray: Full Mouth 12/07/2026 12/07/2023 DTaP/Tdap/Td [...] Procedure Name Priority Date/Time Associated Diagnosis Comments CASE PRESENTATION, DETAILED AND EXTENSIVE TREATMENT PLANNING Routine 03/19/2025 11:30 AM EDT LIMITED ORAL EVALUATION - PROBLEM FOCUSED Routine 03/19/2025 11:30 AM EDT INTRAORAL - PERIAPICAL EACH ADDITIONAL RADIOGRAPHIC IMAGE Routine 03/19/2025 11:30 AM EDT INTRAORAL - PERIAPICAL FIRST RADIOGRAPHIC IMAGE Routine 03/19/2025 11:30 AM EDT INTRAORAL - COMPLETE SERIES OF RADIOGRAPHIC IMAGES Routine 12/07/2023 10:30 [...] Most Recently Relevant to Health Maintenance Insurance DENTAL [facility]
--- OUTSIDE RECORDS SUMMARY | 2025-04-07 11:49 | XMS_ITS | Clinical Summary ---
Author Organization [facility] Address [address] [place] [address] Care Team Providers Care Motorcycle Racer Name Role Phone Monet Mckeon MD Primary Care Provider [phone] Social History Tobacco Use Types Packs/Day Years [...] (1 of 2) 2024 Influenza Vaccine (#1) 2025 Pneumococcal Vaccine Aged Out No long er eligible based on patient's age to complete this topic RSV Ped < 20 months Aged Out No longe r eligible based on patient's age to complete this topic Care Teams Motorcycle Racer Relationship Specialty Start Date End Date Monet Mckeon MD PCP - General Internal Medicine 03/03/21
== END 2025-04-07 10:55 | disposition home or self-care (01) ==
LOC: HO.HPS 10:36
PROVIDERS: PCP Internal Medicine; Visit Provider Hospitalist
DX: J44.89 Other specified chronic obstructive pulmonary disease (principal); G47.33 Obstructive sleep apnea (adult) (pediatric); J96.12 Chronic respiratory failure with hypercapnia; J30.9 Allergic rhinitis, unspecified; R05.3 Chronic cough; J45.40 Moderate persistent asthma, uncomplicated; R07.9 Chest pain, unspecified
CPT/HCPCS: 99214; G2211

== ENCOUNTER → 2025-04-07 10:36 | Outpatient (BNVA) | payer OTHER, SELFPAY | PROVIDERS: PCP Internal Medicine; Visit Provider Hospitalist | DX: J44.89 Other specified chronic obstructive pulmonary disease (principal); J45.40 Moderate persistent asthma, uncomplicated; G47.33 Obstructive sleep apnea (adult) (pediatric); J96.12 Chronic respiratory failure with hypercapnia; J30.9 Allergic rhinitis, unspecified; R05.3 Chronic cough; R07.9 Chest pain, unspecified | CPT/HCPCS: 99212 ==

== ENCOUNTER 2025-06-28 07:51 | Emergency (ER) | payer OTHER, SELFPAY ==
--- NOTE | ~2025-06-28 | US_ITS ---
CLINICAL HISTORY: RUQ pain N V --- Additional Notes or Special Instructions: look at GB, pancreas, liver, ducts US abdomen limited with duplex and color Doppler Comparison: CT/REG/SR - CT ABDOMEN PELVIS W IV CON - 06/28/25 09:44 EDT Findings: Midline structures obscured by bowel gas Liver is normal in size and diffusely echogenic. Right lobe length 14.0 cm. No focal hepatic masses. Common duct 4.0 mm diameter. Gallbladder is physiologically distended. No gallstones, sludge or wall abnormalities. No gallbladder wall thickening. No pericholecystic fluid. No sonographic Tavarez sign. Main portal vein antegrade. Impression: 1. Normal gallbladder. No cholelithiasis or evidence of cholecystitis. No biliary dilatation. 2. Hepatic steatosis 3. Bowel gas obscures midline structures including the pancreas This document has been electronically signed by: Brayan López MD on 06/28/2025 14:05:47
--- NOTE | ~2025-06-28 | CT_ITS ---
CLINICAL HISTORY: nausea and vomiting CT abdomen and pelvis with IV contrast Comparison: CT/REG/SR - CT ABDOMEN PELVIS WO IV CON - 01/15/23 09:46 EDT Findings: Lung bases show no active disease. No dependent layering pleural effusions. The heart is not enlarged. Coronary artery calcifications: None. Hepatic steatosis. No focal hepatic lesions. Patent hepatic and portal veins. No radiopaque gallstones. Equivocal pericholecystic inflammatory changes. Homogeneous enhancement of the pancreas. No splenomegaly. Normal adrenal glands. Symmetrical renal excretion with no segmental or diffuse renal parenchymal disease or evidence of obstructive uropathy/hydroureteronephrosis. Indeterminate 12 mm renal cortical lesion midpole right kidney correlate with ultrasound. Normal caliber abdominal aorta. Bowel demonstrates a nonobstructive pattern. No free air. Normal appendix and terminal ileum. Diverticulosis coli without CT evidence of acute diverticulitis. No intraperitoneal, retroperitoneal, pelvic or inguinal masses lymphadenopathy or abnormal fluid collections. Normal distention of the urinary bladder. There is focal calcification at the junction of the urachus and dome of the urinary bladder follow-up with cystoscopy. This is stable. No vertebral body compression fractures or spondylolisthesis. No bony destructive lesions. Impression: 1. Equivocal pericholecystic inflammatory changes. Hepatic steatosis. Normal appendix. No significant diverticular disease. 2. 12 mm indeterminate renal cortical lesion midpole right kidney correlate with ultrasound. Stable calcification dome of the urinary bladder at the junction of the urachus. This can be followed up with nonemergent cystoscopy. This document has been electronically signed by: Brayan López MD on 06/28/2025 12:20:27
[2025-06-28 08:01] VITALS: BP 177/82; PULSE 81; RESP 20; TEMP 37; O2SAT 97; BMI 37.8
[2025-06-28 08:20] LABS: Hematocrit 47.5 % (42.0-52.0); Hemoglobin 16.3 g/dl (14.0-18.0); Imm Gran Abs Auto 0.03 X10*3/uL (0.00-0.03); Imm Gran Pct Auto 0.3 % (0.0-0.4); Lymphocytes Absolute Auto 1.5 X10*3/uL (1.2-4.9); MANUAL DIFF FLAG NO; Mean Corpuscular HGB Conc 34.3 g/dl (31.0-36.0); Mean Corpuscular Hemoglobin 29.0 pg (27.0-33.0); Mean Corpuscular Volume 84.5 fL (80.0-98.0); NRBC Abs Auto 0.000 X10*3/uL (0.0-0.012); NRBC Pct Auto 0.0 /100WBC (0.0-0.2); Platelet Count 153 X10*3/uL (160-400); Red Blood Count 5.62 X10*6/uL (4.60-5.80); White Blood Count 8.6 X10*3/uL (4.8-10.8)
--- OUTSIDE RECORDS SUMMARY | 2025-06-28 08:24 | XMS_ITS | Clinical Summary ---
Author Organization [address] [place] [address] Address [address] [place] [address] Phone Care Team Providers Care Marble Cleaner Name Role Phone Monet Mckeon MD Primary Care Provider [phone] Allergies No known active allergies Medications albuterol [...] night with AHI 40.9. N/S Pulmo 01/12/2016. [facility] Home Polysomnogram: Date 04/19/2017; AHI 84, Unclassified apneas 3; Obstructive apneas 261; Central apneas 47; Mixed apneas 29; hypopneas 8; average oxygen saturation 85% (lowest 63% with saturations <88% for over 50% of study). [facility] study. Date 07/11/2017. SE 95 [...] Lumbar herniated disc 05/02/2011 Headache 03/01/2010 Immunizations Immunization Administration Dates Next Due Td Tetanus diptheria (Tdvax) 7yo and older 04/07 Tdap Tetanus diptheria acell ular pertussis (Boostrix; Adacel) 7yo and older 04/12/2010 Surgical History Surgery Date Site/Laterality Comments OTHER SURGICAL HISTORY PROCEDURE: DENIES PREVIOUS SURGERY Medical History Medical History Date Comments Cervical herniated disc 05/02/2011 Headache 03/01/2010 Lumbar herniated disc 05/02/2011 MARK (obstructive sleep apnea) 05/11/2015 Re sScan 11/24/2015 to 01/07/2016. CPAP@ 13. 4% compliant with using the machine for >4 hours/day. Average use is 5 hours a night with AHI 40.9. N/S Pulmo 01/12/2016. [facility] Home Polysomnogram: Date 04/19/2017; AHI 84, Unclassified apneas 3; Obstructive apneas 261; Central apneas 47; Mixed apneas 29; hypopneas 8; average oxygen saturation 85% (lowest 63% with satu* GERD (gastroesophageal reflu x disease) 01/04/2022 Prediabetes 12/15/2022 Vitamin D deficiency 12/15/2022 Asthma 11/16/2019 Family History Medical History Relation Name Comments [...] Care Team (Late st Contact Info) Description 07/04/2025 9:45 AM EDT Office Visit Adult Medicine [address] [place] [address] Monet Mckeon MD [address] [place] [address] Health Maintenance Due Date Last Done Comments Colorectal Cancer Screening: Colonoscopy 1974 Hepatitis B Vaccines (1 of 3 - 19+ 3-dose series) 1993 Pneumococcal Vaccine: 50+ Years (1 of 2 - PCV) 1993 Social Influencers of Health Screening 08/09/2022 RSV Immunization Adult Patients (1 - Risk 50-74 years 1-dose series) 2024 Zoster Vaccines (1 of 2) 2024 Depression Screening 09/11/2024 COVID-19 Vaccine (1 - 2023-2 5 season) 2025 Influenza Vaccine (#1) 2025 Cholesterol Screening (Lipid [...] Morbid obesity with BMI of 40.0-44.9, adult (CMS/[facility] V24, CMS/[facility] V28) HEPATITIS C SCREENING Routine 08/30/2019 HIV SCREENING Routine 08/30/2019 from Last 3 Months or Most Recently Relevant to Health Maintenance Results * (ABNORMAL) Lipid panel with reflex to direct LDL (11/19/2024 9:14 AM EDT) Cholesterol 170 0 - 200 mg/dL LAB CHEMISTRY METHOD 11/19/2024 1:59 PM EDT [facility] Triglycerides 147 0 - 150 mg/dL LAB CHEMISTRY METHOD 11/19/2024 1:59 PM EDT [facility] HDL 37(L) >=40 mg/dL LAB CHEMISTRY METHOD 11/19/2024 1:59 PM EDT [facility] LDL Calculated 104(H) 0 - 100 mg/dL LAB CHEMISTRY METHOD 11/19/2024 1:59 PM EDT [facility] VLDL Cholesterol Henrique 29.4 mg/dL LAB CHEMISTRY METHOD 11/19/2024 1:59 PM EDT [facility] Non HDL Chol. (LDL+VLDL) 133 <145 mg/dL LAB CHEMISTRY METHOD 11/19/2024 1:59 PM EDT [facility] Chol/HDL Ratio 4.6(H) 0.0 - 4.4 LAB CHEMISTRY METHOD 11/19/2024 1:59 PM EDT [facility] Blood Venous blood specimen / Unknown Venipuncture / Unknown 11/19/2024 9:14 AM EDT 11/19/2024 9:14 AM EDT us Tiana BOTELLO LAB BLOOD ORDERABLES Final Re sult [facility] [address] [place] [address], * HIV Screening (08/30/2019) HIV Screening Abstracted us Historical Provider HEALTH MAINTENANCE Final Result * Hm Hepatitis C Screening (08/30/2019) HM Hepatitis C Screening Abstracted us Historical Provider HEALTH MAINTENANCE Final Result from Last 3 Months or Most Recently Relevant to Health Maintenance Insurance [facility] Member Subscriber Plan / Payer (Ef fective 2023-Present) Name:CHRISTIAN CARREON Relation to Subscriber:Self Name:Christian Carreon Payer ID:[id number] Group ID:[id number] Type:Not on file Address: [place] [address] [address] [id number] Care Teams Marble Cleaner Relationship Specialty Start Date End Date Monet Mckeon MD [address] [place] [address] PCP - General Internal Medicine 10/12/16
--- OUTSIDE RECORDS SUMMARY | 2025-06-28 08:24 | XMS_ITS | Encounter Summary ---
Author Organization [employer] Address [address] [facility] [address] [place] [address] Care Team Providers Care Testing Manager Name Role Phone Unavailable Primary Care Provider Unavailabl e Reason for Visit * Reason Onset Date Comments does not want RCT wants EXT cx consult appt 03/2025 Encounter Details Date Type Department Care Team (Late st Contact Info) Description 04/17/2025 Telephone [facility] ADULT DENTAL [address], [place] [phone] Jennifer Collazo DDS [address], [place] [phone] does not want RCT wants EXT cx consult appt Social History Tobacco Use Types Packs/Day Years Used Date Smoking Tobacco: Never Smokeless Tobacco: Never Alcohol Use Standard Drinks/Week Comments Never 0 [...] * Telephone Encounter - Varsha Brown - 04/17/2025 9:07 AM EDT Patient does not want to come in for consult for RCT. He prefers to have an extraction. It was explained to patient that this is the reason for the consult. He can have a conversation with provider and make that determination for extraction and then have it treatment planned. However patient did not want to come in for visit. He rather inform provider that wants extraction and receive appt. Patient has been informed message will be sent to provider for request of appt and the will get a call for scheduling when it is their turn to come in. documented in this encounter Plan of Treatment Scheduled Orders Name Type Priority Associated Diagnoses Orde r Schedule CONSULTATION - DIAGNOSTIC SERVICE PROVIDED BY DENTIST OR PHYSICIAN OTHER THAN REQUESTING DENTIST OR PHYSICIAN Dental Routine 1 Occurrenc es starting 06/12/2025 documented as of this encounter Visit Diagnoses Not on filedocumented in this encounter
--- OUTSIDE RECORDS SUMMARY | 2025-06-28 08:24 | XMS_ITS | Clinical Summary ---
Author Organization [employer] Address [address] [facility] [address] [place] [address] Care Team Providers Care Ampoule Washing Machine Operator Name Role Phone Unavailable Primary Care Provider [...] 3 times daily. 20 tablet 5 Active Active Problems Problem Noted Date Diagnosed Date Pain, dental 03/19/2025 Dental abscess 03/19/2025 Periodontal disease 08/29/2023 Encounters Date Type Department Care Team Description 06/12/2025 Telephone [facility] ADULT DENTAL [address] [place] [address] Jennifer Collazo DDS 04/17/2025 Telephone [facility] [address], [place] [phone] Jennifer Collazo DDS does not want RCT wants EXT cx consult appt from Last 3 Months Social History Tobacco [...] 1993 Zoster Vaccines (1 of 2) 2024 Dental Oral Exam 06/09/2024 12/07/2023 Dental X-Ray: Bitewings 12/07/2024 12/07/19 24, 07/20/2023 COVID-19 Vaccine (1 - 2023-2 5 season) 2025 Influenza Vaccine (#1) 2025 Tobacco Screening 03/19/2026 [...] Procedure Name Priority Date/Time Associated Diagnosis Comments INTRAORAL - COMPLETE SERIES OF RADIOGRAPHIC IMAGES [...] Recently Relevant to Health Maintenance Insurance DENTAL - [facility]
--- OUTSIDE RECORDS SUMMARY | 2025-06-28 08:24 | XMS_ITS | Encounter Summary ---
Author Organization [employer] Address [address] [facility] [address] [place] [address] Care Team Providers Care Acquisition Cost Estimator Name Role Phone Unavailable Primary Care Provider Unavailabl e Reason for Visit * Reason Onset Date Comments medication 03/07/2023 Encounter Details Date Type Department Care Team (Late st Contact Info) Description 03/07/2023 Telephone [facility] ADULT DENTAL [address] [place] [address] Jennifer Collazo, DDS [address] [place], [place] [phone] medication Social History Tobacco Use Types Packs/Day [...] pharmacy. They would llike it sent to [facility] pharmacy in [place] on [facility]. documented in this encounter Plan of Treatment Not on file documented as of this encounter Visit Diagnoses Not on filedocumented in this encounter
--- OUTSIDE RECORDS SUMMARY | 2025-06-28 08:24 | XMS_ITS | Encounter Summary ---
Author Organization [employer] Address [address] [facility] [address] [place] [address] Care Team Providers Care Storage Receipt Poster Name Role Phone Unavailable Primary Care Provider Unavailabl e Reason for Visit * Reason Comments Med Refill Encounter Details Date Type Department Care Team (Late st Contact Info) Description 10/26/2023 Refill [facility] ADULT DENTAL [address] [place] [address] Jennifer Collazo, ELADIA [address] [place] [address] Social History Tobacco Use Types Packs/Day Years [...]
--- OUTSIDE RECORDS SUMMARY | 2025-06-28 08:25 | XMS_ITS ---
Author Name [facility] Organization Unknown Care Team Organization Name Specialty Phone Email Start Date End Da te [facility] Monet Mckeon Primary Care 07/19/2022 4
--- OUTSIDE RECORDS SUMMARY | 2025-06-28 08:25 | XMS_ITS | Clinical Summary ---
Author Organization [facility] Address [address] [place] [address] Care Team Providers Care Feed Blender Name Role Phone Monet Mckeon MD Primary Care Provider [phone] Social History Tobacco Use Types Packs/Day Years [...] age to complete this topic Care Teams Feed Blender Relationship Specialty Start Date End Date Monet Mckeon MD PCP - General Internal Medicine 03/03/21
[2025-06-28 08:26] LABS: Appearance Urine Turbid; Glucose Urine UA Negative (Negative); PH 8.5 (5.0-9.0); Specific Gravity - Urine 1.020 (1.005-1.025); UMIC TRIGGER UACC YES
[2025-06-28 08:49] LABS: Alanine Aminotransferase 47 U/L (0-40); Albumin Level 4.7 g/dL (3.5-5.0); Alkaline Phosphatase 112 U/L (39-117); Anion Gap 13 (12-20); Aspartate Amino Transferase 34 U/L (5-37); Blood Urea Nitrogen 17 mg/dL (9-16); Calcium 9.1 mg/dL (8.4-10.2); Carbon Dioxide 22 mmol/L (22-29); Chloride 110 mmol/L (96-108); Creatinine Clr Calc Pharmacy 117.8; Estimated Glomerular Filt Rate > 60; Lipase 26 U/L (8-78); Potassium 3.9 mmol/L (3.3-5.1); Sodium 141 mmol/L (135-145); Total Protein 7.5 g/dL (6.5-8.0)
--- NOTE | 2025-06-28 09:15 | ED_ITS ---
HPI - Abdominal Pain General Chief Complaint: Abdominal Pain Stated Complaint: Severe pain in abd Time Seen by Provider: 06/28/25 08:09 Source: patient Mode of arrival: ambulatory Limitations: no limitations History of Present Illness ED Provider: HELENA RAMIREZ PA-C HPI narrative: 50-year-old male with pmhx significant for asthma/COPD presents to the ED today for evaluation of abdominal pain x 24 hours. Reports pain localized to the right side of his abdomen which began approximately 30 minutes after eating soup yesterday. Reports another individual ate the same soup and is asymptomatic. No radiation. Pain has been continuous. Described as a burning sensation. Endorses associated nausea without vomiting this morning. Admits to history of similar pain however has never received a specific diagnosis. Reports normal BMs. No recent diarrhea or constipation. Last BM yesterday. Passing flatus. Denies fever, chills, urinary sx, flank pain. No history of abdominal surgeries. Related Data Home Medications ?Medication ?Instructions ?Recorded ?Confirmed CPAP (CPAP Machine/Device) 06/07/22 03/16/23 nebulizers 06/07/22 03/16/23 cholecalciferol (vitamin D3) 50 50 mcg PO DAILY 12/28/23 mcg (2,000 unit) capsule Previous Rx's ?Medication ?Instructions ?Recorded albuterol sulfate 90 mcg/actuation 2 puff inhalation Q 6H PRN patient 10/08/24 aerosol inhaler #8.5 grams Breo Ellipta 200 mcg-25 mcg/dose 1 inh inhalation BHARATI Y 30 days #60 11/21/24 powder for inhalation (fluticasone ea furoate-vilanterol) acetaminophen 500 mg capsule 1,000 mg (2 x 500 mg) PO Q8H PRN 12/25/24 fever or pain #14 caps albuterol sulfate 2.5 mg/3 mL 2.5 mg (3 mL) inhalation Q4-6H PRN 12/25/24 (0.083 %) solution for nebulization shortness of breat h or wheezing #90 mL oseltamivir 75 mg capsule 75 mg PO BID 5 days #9 caps 12/25/24 ondansetron 4 mg disintegrating 4 mg PO Q8H PRN nausea and 12/26/24 tablet vomiting #20 tabs dextromethorphan-guaifenesin 10 10 ml PO Q4H PRN cough 14 days 04/07/25 mg-100 mg/5 mL oral liquid #500 mL (Guaifenesin-DM) doxycycline hyclate 100 mg capsule 100 mg PO BID 10 da ys #20 caps 04/07/25 ondansetron 4 mg disintegrating 4 mg PO Q8H PRN nausea and 06/28/25 tablet vomiting #10 tabs Allergies Allergy/AdvReac Type Severity Reaction Status Date / Time No Known Allergies* Allergy Unknown Uncoded 06/28/25 08:01 Review of Systems Review of Systems Yes all other systems are reviewed and are negative FORMERLY [facility], [facility] Past Medical History Attestation statement: The following information was validated with the patient. Source: old records reviewed and nursing notes reviewed Medical History Chronic hypercapnic respiratory failure Acute and chronic respiratory failure with hypercapnia MARK treated with BiPAP Asthma-COPD overlap syndrome Moderate obesity Bronchitis Chest pain Chronic allergic rhinitis Asthma Family History Family History Other Asthma Social History Social History Household Members: Spouse Housing: Apartment Do you presently have visiting nurse or other home services: No Alcohol intake: former Patient Tobacco Use Status: Never used Tobacco service: No Current occupational status: disabled Physical Exam ED Vital Signs: Vital Signs - 24 hr 06/28/25 08:01 06/28/25 10:22 06/28/25 12:48 Temperature 98.6 F 97.5 F Pulse Rate 81 74 74 Respiratory Rate 20 16 16 Blood Pressure 177/82 H 117/79 122/69 Pulse Oximetry 97 93 92 Oxygen Delivery Method Room Air Room Air Room Air BMI result Body Mass Index 37.8 hypertensive, vitals are otherwise wnl General: Well appearing, in no acute distress. Skin: Warm, dry, intact. No rashes or lesions. Head: Normocephalic, atraumatic. EENT: Hearing is intact b/l. Conjunctiva clear. PERRLA. EOM intact. Moist mucous membranes.? Cardiac: Chest wall symmetric. RRR Lungs: Normal respiratory effort without accessory muscle use. CTA bilaterally Abdomen: obese abdomen, soft, mildly distended, tender to palpation of right upper and right lower quadrants without rebound or guarding. No McBurney point tenderness. Active bowel sounds x4. Back: No midline spinous or paraspinal tenderness. No step off deformity. Ext: Upper and lower extremities atraumatic, without tenderness, deformity, swelling or erythema Neuro: AOx3. Normal speech. Ambulating with steady gait Course Course Course Narrative: CBC without leukocytosis or left shift. No anemia. H&H stable. Chemistry without acute electrolyte abnormality requiring intervention. Random glucose 135, no anion gap. Slightly dehydrated with BUN of 17 and creatinine of 0.82. Liver function at baseline. Total bili WNL. Lipase WNL at 26. Urine without infection. CT abdomen/pelvis showing equivocal pericholecystic inflammatory changes, further evaluated with right upper quadrant ultrasound which shows normal gallbladder, no evidence of acute cholecystitis or cholelithiasis, no biliary dilation. Both scans demonstrate hepatic steatosis. Incidental finding of 12 millimeter indeterminate renal cortical lesion mid pole right kidney. I did review CT abdomen/pelvis he can 2 years ago which shows similar 11 millimeter renal cyst. > patient received morphine, Zofran and IV fluids with resolution of pain. He states he feels well. Tolerating PO. > discussed all workup results with patient including incidental findings. Likely gastroenteritis. Discussed symptomatic treatment, Zofran sent to pharmacy. Also advised to follow up with Urology for renal lesion, referral provided. Patient has remained stable throughout ED visit today. Discussed worrisome signs and symptoms and when to return to the ED. All questions answered at this time. Patient is agreeable with disposition and stable for discharge. Medical Decision Making Medical Decision Making [facility] Narrative: 50-year-old male with pmhx significant for asthma/COPD presents to the ED today for evaluation of abdominal pain x 24 hours. Vital signs stable. He is well- appearing and in no acute distress. on exam, obese abdomen, soft, mildly distended, tender to palpation of right upper and right lower quadrants without rebound or guarding. No McBurney point tenderness. Active bowel sounds x4. Differential diagnoses: appendicitis, diverticulitis, diverticulosis, UTI, constipation Abdominal exam without peritoneal signs. No evidence of acute abdomen at this time. Well appearing. Low suspicion for acute hepatobiliary disease (including acute cholecystitis), acute infectious processes (pneumonia, hepatitis, pyelonephritis), vascular catastrophe, bowel obstruction or viscus perforation, ectopic, testicular torsion, orchitis, epidydymitis. Presentation not consistent with other acute, emergent causes of abdominal pain at this time. Plan for labs, imaging, UA, pain control, IVF and re-evaluation. Differential Diagnosis Differential Diagnoses: The differential diagnosis associated with the presentation includes as above. Admission/Observation Not indicated Lab Data MDM Lab Attestation statement: I reviewed the patient's lab results. as above. 06/28/25 08:11 06/28/25 08:11 Labs: Lab Results 06/28/25 Range/Units 08:11 WBC 8.6 (4.8-10.8) X10*3/uL RBC 5.62 (4.60-5.80) X10*6/uL Hgb 16.3 (14.0-18.0) g/dl Hct 47.5 (42.0-52.0) % MCV 84.5 (80.0-98.0) fL MCH 29.0 (27.0-33.0) pg MCHC 34.3 (31.0-36.0) g/dl RDW 13.3 (11.0-16.0) % Plt Count 153 L (160-400) X10*3/uL MPV 10.6 (9.4-12.4) fL Immature Gran % (Auto) 0.3 (0.0-0.4) % Neut % (Auto) 76.1 H (45-73) % Lymph % (Auto) 16.9 L (20-40) % Drew % (Auto) 5.3 (2-11) % Eos % (Auto) 0.8 (0-4) % Baso % (Auto) 0.6 (0-2) % Lymph # (Auto) 1.5 (1.2-4.9) X10*3/uL Drew # (Auto) 0.5 (0.1-1.2) X10*3/uL Eos # (Auto) 0.1 (0.0-0.4) X10*3/uL Baso # (Auto) 0.1 (0.0-0.2) X10*3/uL Abs Immat Gran (auto) 0.03 (0.00-0.03) X10*3/uL Absolute Neuts (auto) 6.6 (2.0-8.3) x10*3/uL Absolute Nucleated RBC 0.000 (0.0-0.012) X10*3/uL Nucleated RBC % (auto) 0.0 (0.0-0.2) /100WBC Sodium 141 (135-145) mmol/L Potassium 3.9 (3.3-5.1) mmol/L Chloride 110 H (96-108) mmol/L Carbon Dioxide 22 (22-29) mmol/L Anion Gap 13 (12-20) BUN 17 H (9-16) mg/dL Creatinine 0.82 (0.5-1.4) mg/dL Estim Creat Clear Calc 117.8 Estimated GFR > 60 Random Glucose 135 H (60-115) mg/dL Calcium 9.1 (8.4-10.2) mg/dL Total Bilirubin 0.4 (0.0-1.0) mg/dL AST 34 (5-37) U/L ALT 47 H (0-40) U/L Alkaline Phosphatase 112 (39-117) U/L Total Protein 7.5 (6.5-8.0) g/dL Albumin 4.7 (3.5-5.0) g/dL Lipase 26 (8-78) U/L Urine Color Yellow Urine Appearance Turbid Urine pH 8.5 (5.0-9.0) Ur Specific [place] 1.020 (1.005-1.025) Urine Protein 30 (1+) H (Neg-Trace) mg/dL Urine Glucose (UA) Negative (Negative) mg/dL Urine Ketones Negative (Negative) mg/dL Urine Blood Negative (Negative) Urine Nitrite Negative (Negative) Ur Leukocyte Esterase Negative (Negative) Urine RBC 0-2 (0-2) /HPF Urine WBC 0-5 (0-5) /HPF Ur Squamous Epith Cells 0-2 (0-2) /HPF Urine Bacteria None Seen (None Seen) Hyaline Casts 0-2 (0-2) /LPF Independent Interpretation I performed an independent interpretation of an: Ultrasound and CT Scan Radiology Impression Discussion of test interpretation with radiology: I have reviewed the radiologist's reading. Radiologist Impression: Procedure(s): US abdomen limited Accession Number(s): [id number] cc: Helena Ramirez; Monet Mckeon MD~ Reason for Exam: RUQ pain N/V CLINICAL HISTORY: RUQ pain N V --- Additional Notes or Special Instructions: look at GB, pancreas, liver, ducts US abdomen limited with duplex and color Doppler Comparison: CT/REG/SR - CT ABDOMEN PELVIS W IV CON - 06/28/25 09:44 EDT Findings: Midline structures obscured by bowel gas Liver is normal in size and diffusely echogenic. Right lobe length 14.0 cm. No focal hepatic masses. Common duct 4.0 mm diameter. Gallbladder is physiologically distended. No gallstones, sludge or wall abnormalities. No gallbladder wall thickening. No pericholecystic fluid. No sonographic Tavarez sign. Main portal vein antegrade. Impression: 1. Normal gallbladder. No cholelithiasis or evidence of cholecystitis. No biliary dilatation. 2. Hepatic steatosis 3. Bowel gas obscures midline structures including the pancreas This document has been electronically signed by: Brayan López MD on 06/28/2025 14:05:47 Procedure(s): CT abdomen pelvis w IV con Accession Number(s): [id number] cc: Carla Xiong; Monet Mckeon MD~ Report Number: [id number]: Total DLP = 847.00 mGy-cm Reason for Exam: nausea and vomiting CLINICAL HISTORY: nausea and vomiting CT abdomen and pelvis with IV contrast Comparison: CT/REG/SR - CT ABDOMEN PELVIS WO IV CON - 01/15/23 09:46 EDT Findings: Lung bases show no active disease. No dependent layering pleural effusions. The heart is not enlarged. Coronary artery calcifications: None. Hepatic steatosis. No focal hepatic lesions. Patent hepatic and portal veins. No radiopaque gallstones. Equivocal pericholecystic inflammatory changes. Homogeneous enhancement of the pancreas. No splenomegaly. Normal adrenal glands. Symmetrical renal excretion with no segmental or diffuse renal parenchymal disease or evidence of obstructive uropathy/hydroureteronephrosis. Indeterminate 12 mm renal cortical lesion midpole right kidney correlate with ultrasound. Normal caliber abdominal aorta. Bowel demonstrates a nonobstructive pattern. No free air. Normal appendix and terminal ileum. Diverticulosis coli without CT evidence of acute diverticulitis. No intraperitoneal, retroperitoneal, pelvic or inguinal masses lymphadenopathy or abnormal fluid collections. Normal distention of the urinary bladder. There is focal calcification at the junction of the urachus and dome of the urinary bladder follow-up with cystoscopy. This is stable. No vertebral body compression fractures or spondylolisthesis. No bony destructive lesions. Impression: 1. Equivocal pericholecystic inflammatory changes. Hepatic steatosis. Normal appendix. No significant diverticular disease. 2. 12 mm indeterminate renal cortical lesion midpole right kidney correlate with ultrasound. Stable calcification dome of the urinary bladder at the junction of the urachus. This can be followed up with nonemergent cystoscopy. This document has been electronically signed by: Brayan López MD on 06/28/2025 12:20:27 External Record Review External record reviewed: Inpatient record Prescription Management I considered prescription management with: Other (zofran) Social Determinants Patient?s care significantly limited by Social Determinants of Health including: Other Social Determinant of Health Medications Administered Discontinued Medications Generic Name Dose Route Start Last Admin Trade Name Freq PRN Reason Stop Dose Admin Sodium Chloride 1,000 mls @ 999 mls/hr 06/28/25 10:00 06/28/25 12:14 Ns IV 06/28/25 11:00 Infused .Q1H1M MARTA Infusion Iohexol 100 ml 06/28/25 09:50 06/28/25 09:50 Iohexol 350 Mg/Ml 100 Ml Infus..Btl IV 06/28/25 09:51 100 ml ONCE ONE Administration Morphine Sulfate 4 mg 06/28/25 09:46 06/28/25 09:55 Morphine Sulfate 4 Mg/Ml Cartridge IVPUSH 06/28/25 09:47 4 mg ONCE ONE Administration Protocol Ondansetron HCl 4 mg 06/28/25 09:47 06/28/25 09:55 Ondansetron Hcl 4 Mg/2 Ml Vial IVPUSH 06/28/25 09:48 4 mg ONCE ONE Administration Critical Care Time Critical Care Time Critical Care Time: Yes Total Critical Care Time: 31 Attestation: Critical care time in the amount of 31 minutes has been provided to the patient in terms of direct patient care, frequent reevaluation, review and interpretation of medical data and results, and management of potentially life- threatening conditions. This is all outside of any medical procedures. Discharge Plan Discharge Clinical Impression: Gastroenteritis Patient Disposition: Home, Self-Care Instructions: Acute Nausea and Vomiting (ED) Additional Instructions: Your lab workup today was reassuring.? Your urine test was negative for infection. Your symptoms are most consistent with a viral stomach bug, also known as gastroenteritis.? The treatment for this is supportive care. Symptoms usually resolve on their own in 48-72 hours.? The recommendation is rest and lots of oral hydration.? For the next 24 hours, stick to a ROSA diet (bananas rice, applesauce, tea, and toast) Zofran is an anti-nausea medication. This has been sent to your pharmacy for you to take as needed for nausea.? You can also try over the counter Pepto Bismol or Imodium as needed for upset stomach and diarrhea.? Follow up with your primary care provider this week. If you develop new or worsening symptoms call 911 or come back to the ER for further evaluation. Incidental finding on your CT scan below: 12 mm indeterminate renal cortical lesion midpole right kidney correlate with ultrasound. Stable calcification dome of the urinary bladder at the junction of the urachus. This can be followed up with nonemergent cystoscopy. Please follow up with your PCP as you may require further imaging/work up. I have also provided you with a referral to urology. Please call them to establish care, they will not call you. Prescriptions: New ondansetron 4 mg tablet,disintegrating 4 mg PO Q8H PRN (Reason: nausea and vomiting) Qty: 10 0RF No Action fluticasone furoate-vilanterol [Breo Ellipta] 200-25 mcg/dose blister with device 1 inh inhalation DAILY 30 Days Qty: 60 11RF oseltamivir 75 mg capsule 75 mg PO BID 5 Days Qty: 9 0RF albuterol sulfate 2.5 mg /3 mL (0.083 %) solution for nebulization 2.5 mg inhalation Q4-6H PRN (Reason: shortness of breath or wheezing) Qty: 90 0RF acetaminophen 500 mg capsule 1,000 mg PO Q8H PRN (Reason: fever or pain) Qty: 14 0RF ondansetron 4 mg tablet,disintegrating 4 mg PO Q8H PRN (Reason: nausea and vomiting) Qty: 20 0RF (DME) CPAP Machine/Device Device See Rx Instructions .Route Rx Instructions: As directed (DME) nebulizers Misc See Rx Instructions .Route Rx Instructions: As directed cholecalciferol (vitamin D3) 50 mcg (2,000 unit) capsule 50 mcg PO DAILY albuterol sulfate 90 mcg/actuation HFA aerosol inhaler 2 puff INHALATION Q6H PRN (Reason: patient) Qty: 8.5 11RF doxycycline hyclate 100 mg capsule 100 mg PO BID 10 Days Qty: 20 0RF dextromethorphan-guaifenesin [Guaifenesin-DM] 10-100 mg/5 mL liquid 10 ml PO Q4H PRN (Reason: cough) 14 Days Qty: 500 4RF [place] [facility] [place] [facility] [place] Group, [place]rology] Monet Mckeon MD [Primary Care Provider, Internal Medicine] Interventions: ED Discharge Assessment Last Done: 06/28/25 14:43 Discharge Date/Time: 06/28/25 14:44 Print Language: Irish
[2025-06-28] MEDS: iohexoL 350 MG/ML 100 ML INFUS..BTL IV (09:50)
[2025-06-28 10:22] VITALS: BP 117/79; PULSE 74; RESP 16; O2SAT 93
[2025-06-28 12:48] VITALS: BP 122/69; PULSE 74; RESP 16; TEMP 36.4; O2SAT 92
[2025-06-28 14:43] VITALS: BP 122/69; PULSE 74; RESP 16; TEMP 36.4; O2SAT 92
== END 2025-06-28 14:44 | disposition home or self-care (01) ==
PROVIDERS: Emergency Provider Emergency Medicine; PCP Internal Medicine
DX: K52.9 Noninfective gastroenteritis and colitis, unspecified (principal); R10.9 Unspecified abdominal pain; J44.89 Other specified chronic obstructive pulmonary disease
CPT/HCPCS: 36415; 74177; 76705; 80053; 81001; 83690; 85025; 96361; 96374; 96375; 99284; 99285; J2270; J2405; Q9967

== ENCOUNTER → 2025-06-28 09:07 | Outpatient (BNV) | payer OTHER, SELFPAY | PROVIDERS: Emergency Provider Emergency Medicine; PCP Internal Medicine; Visit Provider Radiology Diagnostic Radiology | DX: K76.0 Fatty (change of) liver, not elsewhere classified (principal) | CPT/HCPCS: 74177; 76705 ==